=== PATIENT | male | born 1945 | race Caucasian/White ===

== ENCOUNTER → 2017-02-11 | Outpatient (CLI) | payer BC ==
[~2017-02-11] MED LIST: ADVIN25/60 INH; ASPI81TA28 PO; BRVIN INH; DUTA0.5C PO; GLC500 PO; IPRASOL4 INH; LSN20 PO; METO1TAB69 PO; OMEP10CA2 PO; RIVA1TAB4 PO; ROSU20TA PO; TIOT1SPR INH
[2017-02-11 12:08] LABS: BASO % 0.6 %; BASO ABS # 0.04 K/uL (0-0.2); COMPLETE YES; EOS % 3.2 %; HEMATOCRIT 41.4 % (42-52); IG% 0.4 %; LYMPH % 15.7 %; LYMPH ABS # 1.07 K/uL (1.2-3.4); MEAN CELL VOLUME 88.8 fL (80-100); MEAN CORPUSCULAR HEMOGLOBIN 29.6 pg (25-34); MEAN CORPUSCULAR HGB CONC 33.3 g/dl (32-36); MEAN PLATELET VOLUME 11.4 fL (7.4-10.4); MONO % 9.1 %; PLATELET COUNT 203 K/uL (130-400); RED BLOOD COUNT 4.66 M/uL (4.7-6.1); WHITE BLOOD COUNT 6.81 K/uL (4.8-10.8)
[2017-02-11 12:51] LABS: ESTIMATED AVERAGE GLUCOSE 151 mg/dl; HA1C FLAG Normal (Normal)
[2017-02-11 12:55] LABS: ALT/SGPT 39 U/L (12-78); BLOOD UREA NITROGEN 18 mg/dl (7-18); BUN/CREATININE RATIO 18.2 (10-20); CALCIUM 9.1 mg/dl (8.5-10.1); CARBON DIOXIDE 27 mmol/L (21-32); CHLORIDE 104 mmol/L (98-107); CREATININE 0.97 mg/dl (0.60-1.40); GLUCOSE 141 mg/dl (70-99); POTASSIUM 3.9 mmol/L (3.5-5.1); SODIUM 139 mmol/L (136-145)
[2017-02-11 12:58] LABS: ALB/GLOB RATIO 0.9 (0.9-2); ALKALINE PHOSPHATASE 74 U/L (45-117); AST/SGOT 28 U/L (15-37)
[2017-02-11 13:04] LABS: CHOLESTEROL/HDL RATIO 4.2
[2017-02-11 13:40] LABS: RATIO 436.4 mcg/mg (0-30.0)
== END | disposition home or self-care (01) ==
LOC: C.LABPVFM 08:33
PROVIDERS: ATTEND Family Medicine
DX: R97.20 Elevated prostate specific antigen [PSA] (principal); N40.1 Benign prostatic hyperplasia with lower urinary tract symptoms; R33.9 Retention of urine, unspecified; E11.9 Type 2 diabetes mellitus without complications; I10 Essential (primary) hypertension; I48.92 Unspecified atrial flutter; I25.10 Atherosclerotic heart disease of native coronary artery without angina pectoris; E78.4 Other hyperlipidemia; Z79.01 Long term (current) use of anticoagulants

== ENCOUNTER → 2017-02-20 | Outpatient (CLI) | payer BC ==
[~2017-02-20] MED LIST changes: +METO100T44 PO; -METO1TAB69 PO
[2017-02-20 13:36] LABS: BLOOD UREA NITROGEN 29 mg/dl (7-18); BUN/CREATININE RATIO 22.1 (10-20); CALCIUM 9.1 mg/dl (8.5-10.1); CARBON DIOXIDE 31 mmol/L (21-32); CHLORIDE 97 mmol/L (98-107); GLUCOSE 231 mg/dl (70-99); POTASSIUM 3.6 mmol/L (3.5-5.1); SODIUM 135 mmol/L (136-145)
== END | disposition home or self-care (01) ==
LOC: C.LABPVFM 08:11
PROVIDERS: ATTEND Internal Medicine Cardiovascular Disease
DX: I10 Essential (primary) hypertension (principal); R60.9 Edema, unspecified

== ENCOUNTER → 2017-03-04 | Outpatient (CLI) | payer BC ==
[2017-03-04 13:30] LABS: BLOOD UREA NITROGEN 17 mg/dl (7-18); BUN/CREATININE RATIO 15.8 (10-20); CALCIUM 8.9 mg/dl (8.5-10.1); CARBON DIOXIDE 25 mmol/L (21-32); CHLORIDE 105 mmol/L (98-107); GLUCOSE 173 mg/dl (70-99); POTASSIUM 3.8 mmol/L (3.5-5.1); SODIUM 141 mmol/L (136-145)
== END | disposition home or self-care (01) ==
LOC: C.LABPVFM 08:37
PROVIDERS: ATTEND Internal Medicine Cardiovascular Disease
DX: I48.92 Unspecified atrial flutter (principal)

== ENCOUNTER → 2017-06-02 | Outpatient (CLI) | payer BC ==
[~2017-06-02] MED LIST changes: -METO100T44 PO; +METO1TAB69 PO
== END | disposition home or self-care (01) ==
LOC: C.LABPVFM 07:53
PROVIDERS: ATTEND Neuromusculoskeletal Medicine & OMM
DX: N40.1 Benign prostatic hyperplasia with lower urinary tract symptoms (principal); R97.20 Elevated prostate specific antigen [PSA]

== ENCOUNTER → 2017-08-26 | Outpatient (CLI) | payer BC ==
--- NOTE | 2017-08-26 08:49 | DIAGNOSTIC IMAGING REPORT ---
(CHEST) THORAX WITHOUT CLINICAL HISTORY: 72 years-old Male presenting with COPD group C by Gold classification, asbestos exposure. TECHNIQUE: Multidetector CT imaging of the chest was performed without the use of intravenous contrast. IV contrast: None. A dose lowering technique was used consistent with the principles of ALARA (as low as reasonably achievable). COMPARISON: None. CT DOSE (mGy.cm): The estimated cumulative dose is 787.38 mGy.cm. 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 On soft tissue windows, normal thyroid and thoracic inlet. Calcified hilar lymph nodes. Atherosclerosis of the aorta. Three-vessel coronary artery calcification. Top normal heart size. No pericardial or pleural effusion. Hepatic steatosis. Well-defined hypodensity in the left kidney, indeterminate but likely simple cyst. On lung windows, dependent groundglass opacities at the lung bases likely atelectasis. Calcified granulomas noted. Bandlike opacity in the right middle lobe and lingula, likely atelectasis or scarring. Solid polygonal fissural 5 mm nodule in the right lower lobe (series 4 image 150). Triangular solid fissural nodules noted on the left, the largest measuring 3 mm (series 4 image 170). Trace emphysematous changes suggested at the apices. Mild bronchial wall thickening may be present. Airways patent. Few punctate nodules suggested at the apices. On bone windows, degenerative changes of the thoracic spine. IMPRESSION: 1. Bilateral solid pulmonary nodules measuring up to 5 mm on the right. The distribution and appearance is most characteristic of pulmonary lymphoid tissue. Follow-up per [place] Society 2017 recommendations below. 2. Trace emphysema and bronchial wall thickening. 3. Evidence of prior granulomatous infection. 4. No calcified pleural plaques to substantiate asbestos exposure. 5. Hepatic steatosis. Please refer to below summary of Fleischner Society 2017 recommendations for follow-up of incidental CT nodules (H Uma, et al. Guidelines for management of incidental pulmonary nodules detected on CT images: From the Fleischner Society 2017. Radiology 2017; 284: 228-243.) SOLID NODULES Single nodule; size < 6 mm * Low risk patients: No routine follow-up * High risk patients: Optional CT at 12 months Single nodule; size 6-8 mm * Low risk patients: CT at 6-12 months, then consider CT at 18-24 months * High risk patients: CT at 6-12 months, then at 18-24 months Single nodule; size > 8 mm * Either low or high risk patients: Considered CT at 3 months, PET/CT, or tissue sampling Multiple nodules; size < 6 mm * Low risk patients: No routine follow up * High risk patients: Optional CT at 12 months Multiple nodules; size 6-8 mm * Low risk patients: CT at 3-6 months, then consider CT at 18-24 months * High risk patients: CT at 3-6 months, then at 18-24 months Multiple nodules; size > 8 mm * Low risk patients: CT at 3-6 months, then consider at 18-24 months * High risk patients: CT at 3-6 months, then at 18-24 months Note: These guidelines apply to incidental nodules. These guidelines do not apply to patients younger than 35 years, immunocompromised patients, or patients with cancer. * Low risk patients: Minimal or absent history of smoking and/or other known risk factors * High risk patients: History of smoking, exposure to other carcinogens, emphysema, fibrosis, upper lobe location, family history of lung cancer, etc. * If a nodule up to 8 mm is partly solid or is ground glass, further follow-up is required after 24 months to exclude possible slow growing adenocarcinoma. SUBSOLID NODULES Single ground-glass nodule * Nodule size < 6 mm: No routine follow-up * Nodule size > or = 6 mm: CT at 6-12 months to confirm persistence, then CT every 2 years until 5 years Single part-solid nodule * Nodule size < 6 mm: No routine follow-up * Nodules size > or = 6 mm: CT at 3-6 months to confirm persistence. If unchanged and solid component remains < 6 mm, annual CT should be performed for 5 years Multiple nodules * Nodule size < 6 mm: CT at 3-6 months. If stable, consider CT at 2 and 4 years. * Nodules size > or = 6 mm: CT at 3-6 months. Subsequent management based on the most suspicious nodule(s) Electronically signed by: Emil Lindsay M.D. 08/26/2017 8:48 AM Dictated Date/Time: 08/26/2017 8:42 AM
== END | disposition home or self-care (01) ==
LOC: C.CTS 08:12
PROVIDERS: ATTEND Internal Medicine Critical Care Medicine
DX: J44.9 Chronic obstructive pulmonary disease, unspecified (principal); Z77.090 Contact with and (suspected) exposure to asbestos

== ENCOUNTER → 2017-09-08 | Outpatient (CLI) | payer BC ==
[2017-09-08 13:59] LABS: ALT/SGPT 22 U/L (12-78); BLOOD UREA NITROGEN 22 mg/dl (7-18); BUN/CREATININE RATIO 23.7 (10-20); CALCIUM 9.2 mg/dl (8.5-10.1); CARBON DIOXIDE 29 mmol/L (21-32); CHLORIDE 105 mmol/L (98-107); CHOLESTEROL 115 mg/dl (0-200); CREATININE 0.94 mg/dl (0.60-1.40); GLUCOSE 128 mg/dl (70-99); SODIUM 139 mmol/L (136-145)
[2017-09-08 14:02] LABS: ALB/GLOB RATIO 1.1 (0.9-2); ALKALINE PHOSPHATASE 56 U/L (45-117); AST/SGOT 18 U/L (15-37); CHOLESTEROL/HDL RATIO 3.4; HDL CHOLESTEROL 34 mg/dl; LDL CHOLESTEROL CALCULATED 18 mg/dl; TRIGLYCERIDES 314 mg/dl (0-150); VERY LOW DENSITY LIPOPROT CALC 63 mg/dl
[2017-09-08 14:18] LABS: ESTIMATED AVERAGE GLUCOSE 140 mg/dl; HA1C FLAG Normal (Normal)
[2017-09-08 15:34] LABS: RATIO 200.7 mcg/mg (0-30.0)
== END | disposition home or self-care (01) ==
LOC: C.LABPVFM 07:34
PROVIDERS: ATTEND Family Medicine
DX: Z00.00 Encounter for general adult medical examination without abnormal findings (principal); E11.9 Type 2 diabetes mellitus without complications; I10 Essential (primary) hypertension; E78.4 Other hyperlipidemia; I48.92 Unspecified atrial flutter; G47.33 Obstructive sleep apnea (adult) (pediatric); I25.10 Atherosclerotic heart disease of native coronary artery without angina pectoris

== ENCOUNTER → 2017-12-10 | Outpatient (CLI) | payer BC ==
[~2017-12-10] MED LIST changes: +METO100T44 PO; -METO1TAB69 PO
--- NOTE | 2017-12-10 08:50 | DIAGNOSTIC IMAGING REPORT ---
CHEST 2 VIEWS ROUTINE CLINICAL HISTORY: SOB dyspnea COMPARISON STUDY: No previous studies for comparison. FINDINGS: The bones soft tissues and hemidiaphragms are normal. The cardiomediastinal silhouette is normal. The lungs are clear. The pulmonary vasculature is normal. IMPRESSION: Negative chest. The above report was generated using voice recognition software. It may contain grammatical, syntax or spelling errors. Electronically signed by: Salas Lowry M.D. 12/10/2017 8:49 AM Dictated Date/Time: 12/10/2017 8:48 AM
== END | disposition home or self-care (01) ==
LOC: C.RADPV 08:27
PROVIDERS: ATTEND Family Medicine
DX: R06.02 Shortness of breath (principal)

== ENCOUNTER → 2018-01-08 | Outpatient (CLI) | payer BC ==
[2018-01-08 12:23] LABS: BASO % 0.5 %; BASO ABS # 0.04 K/uL (0-0.2); EOS ABS # 0.39 K/uL (0-0.5); HEMATOCRIT 40.4 % (42-52); IG# 0.02 K/uL (0.00-0.02); LYMPH % 17.5 %; LYMPH ABS # 1.36 K/uL (1.2-3.4); MEAN CELL VOLUME 90.4 fL (80-100); MEAN CORPUSCULAR HEMOGLOBIN 29.1 pg (25-34); MEAN CORPUSCULAR HGB CONC 32.2 g/dl (32-36); MEAN PLATELET VOLUME 11.4 fL (7.4-10.4); MONO ABS # 0.62 K/uL (0.11-0.59); NEUT % 68.7 %; NEUT ABS # 5.36 K/uL (1.4-6.5); PLATELET COUNT 176 K/uL (130-400); RED CELL DISTRIBUTION WIDTH CV 14.9 % (11.5-14.5); RED CELL DISTRIBUTION WIDTH SD 49.3 fL (36.4-46.3); WHITE BLOOD COUNT 7.79 K/uL (4.8-10.8)
[2018-01-08 12:50] LABS: HEMOGLOBIN A1C 6.7 % (4.5-5.6)
== END | disposition home or self-care (01) ==
LOC: C.LABPVFM 07:18
PROVIDERS: ATTEND Family Medicine
DX: E11.9 Type 2 diabetes mellitus without complications (principal); I10 Essential (primary) hypertension; I48.92 Unspecified atrial flutter; G47.33 Obstructive sleep apnea (adult) (pediatric); J44.9 Chronic obstructive pulmonary disease, unspecified; I25.10 Atherosclerotic heart disease of native coronary artery without angina pectoris

== ENCOUNTER 2018-03-19 15:05 | Inpatient (IN) | payer BC, OTHER ==
[2018-03-19] VITALS (11 sets, daily range): BP systolic 102–164; BP diastolic 62–88; PULSE 55–92; TEMP 36.3–36.6; O2SAT 92–99; Ht 177.8 cm; Wt 114.8 kg
[~2018-03-19] VITALS: Ht 177.8 cm; Wt 114.8 kg
[2018-03-19] MEDS ORDERED: MIDAZOLAM HCL 1 MG/ML 2ML VIAL ONE (15:15)
[2018-03-19] MEDS ORDERED: FENTANYL CITRATE INJ 50 MCG/1 ML 2 ML VIAL ONE (15:15)
[2018-03-19] MEDS ORDERED: HEPARIN SOD (PORCINE) 1000 UNIT/ML 10 ML VIAL ONE (15:15)
[2018-03-19] MEDS ORDERED: NiCARDipine HCL INJ 2.5 MG/ML 10 ML AMP ONE (15:15)
[2018-03-19] MEDS ORDERED: NITROGLYCERIN/D5W 100MCG/ML 20ML SYR ONE (15:18)
[2018-03-19] MEDS ORDERED: NITROGLYCERIN 2% OINTMENT 30GM TUBE EXT ONE ×2 (15:20→15:30)
--- NOTE | 2018-03-19 15:33 | EMERGENCY ROOM VISIT NOTE ---
History First contact with patient: 15:12 Chief Complaint: CHEST PAIN Stated Complaint: CHEST PAIN History of Present Illness The patient is a 72 year old male who presents to the Emergency Room with complaints of intermittent substernal chest pain. It started last night. He did note diaphoresis with the episodes. It did radiate to his shoulder. It is occurring with exertion. He was at his cardiology office follow-up and complained of additional chest pain. He was seen by Dr. Torrey Hatch. ECG did not show any acute ST elevation or depression however the patient was given nitroglycerin. After 3 doses of nitroglycerin the patient had complete resolution of his symptoms. I was notified by cardiology about the patient. He was sent to the ER via EMS. Currently he is pain-free. The patient denies any other symptoms. He is currently taking Xarelto. Pt denies LOC, headache, fevers, chills, visual changes, neck pain,breathing difficulties, nausea, vomiting, abdominal pain, back pain, melena, hematochezia, urinary symptoms, numbness, weakness, lymphadenopathy, rash, or other complaints. Review of Systems See HPI for pertinent positives and negatives. A total of ten systems were reviewed and were otherwise negative. Past Medical/Surgical History Medical Problems: (1) Coronary artery disease (2) Heart disease (3) Hypertension (4) Kidney disease (5) Prostate surgery Surgical Problems: (1) H/O percutaneous transluminal coronary angioplasty Family History Heart disease Social History Smoking Status: Former Smoker Alcohol Use: none Drug Use: none Marital Status: Housing Status: lives with significant other Occupation Status: retired Current/Historical Medications Scheduled Arformoterol Tartrate (Brovana 15MCG/2ML Soln), 15 MCG INH BIDR Aspirin (Aspirin Ec), 81 MG PO DAILY Dutasteride (Avodart), 0.5 MG PO QPM Fluticasone Prop/Salmeterol (Advair Diskus 250/50 60 Dose), 1 PUFF INH BID Lisinopril (Lisinopril), 20 MG PO DAILY Metformin HCl (Metformin HCl), 1,000 MG PO DAILY Metoprolol Succ (Toprol Xl) (Toprol-Xl ), 100 MG PO DAILY Omeprazole (Prilosec), 10 MG PO DAILY Rivaroxaban (Xarelto), 20 MG PO QDD Rosuvastatin Calcium (Crestor), 20 MG PO HS Tiotropium [place] (Spiriva Respimat), 2 PUFFS INH DAILY Scheduled PRN Ipratropium-Albuterol (Duoneb), 1 TREATMENT INH QID PRN for SOB/Wheezing Physical Exam Vital Signs Date Time Temp Pulse Resp B/P (MAP) Pulse Ox O2 Delivery O2 Flow Rate FiO2 03/19/18 16:50 64 16 145/65 (91) 98 Room Air 03/19/18 16:35 65 16 155/65 (95) 98 Room Air 03/19/18 15:30 95 Room Air 03/19/18 15:19 61 03/19/18 15:17 Room Air 03/19/18 15:11 36.7 68 21 148/85 96 Room Air Physical Exam GENERAL: Awake, alert, well-appearing, in no distress HENT: Normocephalic, atraumatic. Oropharynx unremarkable. EYES: Normal conjunctiva. Sclera non-icteric. NECK: Supple. No nuchal rigidity. FROM. No masses. RESPIRATORY: Clear to auscultation. No wheezes. No rales. Normal respiratory effort. CARDIAC: Normal rate. Normal rhythm. No murmurs. No rubs. Extremities warm and well perfused. Pulses equal. No JVD. GI: Soft, non-distended. No tenderness to palpation. No rebound or guarding. No masses. RECTAL: Deferred. MUSCULOSKELETAL: Atraumatic. Chest examination reveals no tenderness. The back is symmetrical on inspection without obvious abnormality. There is no CVA tenderness to palpation. No joint edema. LOWER EXTREMITIES: Calves are equal size bilaterally and non-tender. Trace edema. No discoloration. NEURO: Normal sensorium. No sensory or motor deficits noted. SKIN: No rash or jaundice noted. Medical Decision & Procedures ER Provider Diagnostic Interpretation: CHEST ONE VIEW PORTABLE HISTORY: 72 years-old Male CHEST PAIN acute atypical chest pain COMPARISON: Chest radiographs 12/10/2017, chest CT 08/26/2017 TECHNIQUE: Portable AP view of the chest FINDINGS: Cardiac silhouette is mildly enlarged. Linear subsegmental bibasilar opacities suggest atelectasis/scarring. Calcified granulomata noted. Calcific left hilar lymph nodes. No pneumothorax, pleural effusion, focal airspace consolidation or overt pulmonary edema. Bones of the chest appear grossly intact. Degenerative changes involve the shoulders and spine. IMPRESSION: 1. Cardiomegaly with mild subsegmental bibasilar atelectasis/scarring. 2. Prior granulomatous disease. The above report was generated using voice recognition software. It may contain grammatical, syntax or spelling errors. Electronically signed by: Jluis Christopher M.D. 03/19/2018 6:18 PM Dictated Date/Time: 03/19/2018 6:17 PM The status of this report is Signed. Draft = Not yet reviewed or approved by Radiologist. Signed = Reviewed and approved by Radiologist. Laboratory Results 03/19/18 15:27 Red Blood Count 4.14, Mean Corpuscular Volume 86.7, Mean Corpuscular Hemoglobin 29.5, Mean Corpuscular Hemoglobin Concent 34.0, Mean Platelet Volume 10.1, Neutrophils (%) (Auto) 65.3, Lymphocytes (%) (Auto) 20.9, Monocytes (%) (Auto) 8.6, Eosinophils (%) (Auto) 4.4, Basophils (%) (Auto) 0.5, Neutrophils # (Auto) 4.19, Lymphocytes # (Auto) 1.34, Monocytes # (Auto) 0.55, Eosinophils # (Auto) 0.28, Basophils # (Auto) 0.03 03/19/18 15:27 Test 03/19/18 15:27 White Blood Count 6.41 K/uL (4.8-10.8) Red Blood Count 4.14 M/uL (4.7-6.1) Hemoglobin 12.2 g/dL (14.0-18.0) Hematocrit 35.9 % (42-52) Mean Corpuscular Volume 86.7 fL (80-100) Mean Corpuscular Hemoglobin 29.5 pg (25-34) Mean Corpuscular Hemoglobin Concent 34.0 g/dl (32-36) Platelet Count 214 K/uL (130-400) Mean Platelet Volume 10.1 fL (7.4-10.4) Neutrophils (%) (Auto) 65.3 % Lymphocytes (%) (Auto) 20.9 % Monocytes (%) (Auto) 8.6 % Eosinophils (%) (Auto) 4.4 % Basophils (%) (Auto) 0.5 % Neutrophils # (Auto) 4.19 K/uL (1.4-6.5) Lymphocytes # (Auto) 1.34 K/uL (1.2-3.4) Monocytes # (Auto) 0.55 K/uL (0.11-0.59) Eosinophils # (Auto) 0.28 K/uL (0-0.5) Basophils # (Auto) 0.03 K/uL (0-0.2) RDW Standard Deviation 44.6 fL (36.4-46.3) RDW Coefficient of Variation 14.1 % (11.5-14.5) Immature Granulocyte % (Auto) 0.3 % Immature Granulocyte # (Auto) 0.02 K/uL (0.00-0.02) Prothrombin Time 10.7 SECONDS (9.0-12.0) Prothromb Time International Ratio 1.0 (0.9-1.1) Activated Partial Thromboplast Time 26.4 SECONDS (21.0-31.0) Partial Thromboplastin Ratio 1.0 Anion Gap 7.0 mmol/L (3-11) Est Creatinine Clear Calc Drug Dose 65.0 ml/min Estimated GFR () 71.5 Estimated GFR (Non- 61.7 BUN/Creatinine Ratio 15.9 (10-20) Calcium Level 8.9 mg/dl (8.5-10.1) Total Bilirubin 0.4 mg/dl (0.2-1) Direct Bilirubin 0.1 mg/dl (0-0.2) Aspartate Amino Transf (AST/SGOT) 21 U/L (15-37) Alanine Aminotransferase (ALT/SGPT) 29 U/L (12-78) Alkaline Phosphatase 62 U/L (45-117) Total Creatine Kinase 405 U/L (39-308) Creatine Kinase MB 6.2 ng/ml (0.5-3.6) Creatine Kinase MB Ratio 1.5 (0-3.0) Troponin I < 0.015 ng/ml (0-0.045) Total Protein 7.5 gm/dl (6.4-8.2) Albumin 3.5 gm/dl (3.4-5.0) Lipase 199 U/L (73-393) Medications Administered Medications (Trade) Dose Ordered Sig/Lizeth Route Start Time Stop Time Status Last Admin Dose Admin Midazolam HCl (Versed Inj) 2 mg STK-MED ONCE .ROUTE 03/19/18 15:15 03/19/18 15:16 DC 03/19/18 15:15 2 MG Fentanyl Citrate (Fentanyl Inj) 100 mcg STK-MED ONCE .ROUTE 03/19/18 15:15 03/19/18 15:16 DC 03/19/18 15:15 75 MCG Heparin Sodium (Porcine) (Heparin Iv Bolus) 10,000 unit STK-MED ONCE .ROUTE 03/19/18 15:15 03/19/18 15:16 DC 03/19/18 15:15 5,000 UNIT Nitroglycerin (Nitroglycerin 2% Oint) 18 inch STK-MED ONCE EXT 03/19/18 15:20 03/19/18 15:21 DC 03/19/18 15:23 1 INCH ECG Per My Interpretation Indication: chest pain Rate (beats per minute): 66 Rhythm: normal sinus Findings: PVC, no acute ischemic change Medical Decision Prior records/ancillary studies reviewed. Triage Nursing notes reviewed and agree them. Additional history obtained from his overnight cashier. The patient's history was concerning for chest pain. Differential diagnosis: Etiologies such as cardiac ischemia, aortic dissection, pulmonary embolism, pneumonia, pneumothorax, musculoskeletal, infections, pericarditis, myocarditis , esophageal rupture, gastrointestinal, as well as others were entertained. Physical examination: As above. ER treatment provided: Nitropaste Monitoring On reassessment the patient felt better. Diagnostic interpretation by me: The electrocardiogram was negative for pathologic change. The labs revealed an unremarkable CBC and chemistry panel. Cardiac troponin was negative. Total CK and CK-MB were elevated. Imaging studies: Chest x-ray as above Interventional cardiology was consulted by outpatient cardiology. The patient was taken to the catheterization suite by Dr. Tapia for further intervention. Impression Primary Impression: Unstable angina Additional Impression: Substernal chest pain Departure Information Dispostion Being Evaluated By Hospitalist Referrals Kati Scott M.D. (PCP) Patient Instructions [facility] Problem Qualifiers
[2018-03-19 15:44] LABS: BASO % 0.5 %; BASO ABS # 0.03 K/uL (0-0.2); EOS % 4.4 %; EOS ABS # 0.28 K/uL (0-0.5); HEMATOCRIT 35.9 % (42-52); HEMOGLOBIN 12.2 g/dL (14.0-18.0); IG# 0.02 K/uL (0.00-0.02); LYMPH % 20.9 %; LYMPH ABS # 1.34 K/uL (1.2-3.4); MEAN CELL VOLUME 86.7 fL (80-100); MEAN CORPUSCULAR HEMOGLOBIN 29.5 pg (25-34); MEAN PLATELET VOLUME 10.1 fL (7.4-10.4); MONO % 8.6 %; MONO ABS # 0.55 K/uL (0.11-0.59); NEUT % 65.3 %; NEUT ABS # 4.19 K/uL (1.4-6.5); PLATELET COUNT 214 K/uL (130-400); RED CELL DISTRIBUTION WIDTH CV 14.1 % (11.5-14.5); RED CELL DISTRIBUTION WIDTH SD 44.6 fL (36.4-46.3); WHITE BLOOD COUNT 6.41 K/uL (4.8-10.8)
[2018-03-19 15:58] LABS: PTT PATIENT 26.4 SECONDS (21.0-31.0)
[2018-03-19] MEDS ORDERED: LIDOCAINE HCL 1% 20 ML VIAL ONE (16:01)
--- NOTE | 2018-03-19 16:03 | Pre Sedation Assessment ---
Pre Sedation Assessment General Date of Sedation: March 19, 2018. Vital Signs Past 12 Hours Date Time Temp Pulse Resp B/P (MAP) Pulse Ox O2 Delivery O2 Flow Rate FiO2 03/19/18 15:30 95 Room Air 03/19/18 15:19 61 03/19/18 15:17 Room Air 03/19/18 15:11 36.7 68 21 148/85 96 Room Air Review Cardiovascular: regular rate, rhythm, no edema Lungs: chest non-tender, lungs clear Pre-Sedation Airway Assessment Smoking Status: Former Smoker Hx of Sleep Apnea: No Hx of difficult intubation: No Short Thick Neck: No Thyro-mental Distance: > 3 Finger Breadths Oral Cavity: WNL Mallampati Classification: Class II ASA Classification: Class III Procedure Planning Contraindications for Sedation: None Current Medications Reviewed: Yes Notes The planned sedation has been discussed with the patient. Informed Consent was obtained. I have identified the patient, determined the appropriateness of sedation and have assessed the patient immediately prior to the procedure. All medicine(s) and interventions are by my order.
[2018-03-19 16:04] LABS: ALBUMIN 3.5 gm/dl (3.4-5.0); ALT/SGPT 29 U/L (12-78); AST/SGOT 21 U/L (15-37); BLOOD UREA NITROGEN 18 mg/dl (7-18); CALCIUM 8.9 mg/dl (8.5-10.1); CARBON DIOXIDE 26 mmol/L (21-32); CREATININE 1.16 mg/dl (0.60-1.40); GLUCOSE 100 mg/dl (70-99); LIPASE 199 U/L (73-393); POTASSIUM 3.7 mmol/L (3.5-5.1); SODIUM 137 mmol/L (136-145)
--- NOTE | 2018-03-19 16:04 | Post Sedation Assessment ---
Post Sedation Assessment General Date of Sedation March 19, 2018. Vital Signs: Vital Signs Past 12 Hours Date Time Temp Pulse Resp B/P (MAP) Pulse Ox O2 Delivery O2 Flow Rate FiO2 03/19/18 15:30 95 Room Air 03/19/18 15:19 61 03/19/18 15:17 Room Air 03/19/18 15:11 36.7 68 21 148/85 96 Room Air Post Procedure Recovery Score Activity: (2) Moves 4 extremities * Respiration: (2) Deep breath/cough Circulation: (2) +/-20% PreAnes Value Consciousness: (2) Fully Awake Oxygen Saturation: (1) O2 needed for >90% Discharge Sedation Level of Care: Fast Track Phase II Post Sedation Plan On clinical assessment, the patient appears to have tolerated the sedation without complications. Patient is recovering as anticipated. Patient will continue to be monitored by nursing and may be discharged when sedation discharge criteria are met per below protocol. Upon Completions of procedure and additional 15 minutes continue every 5 minute vital signs and the P.A.R. score; then discharge to a Phase I or Fast Track to Phase II per the following guidelines: * Discharge Patient to appropriate Phase II area if PAR is 8 or greater or return to pre- procedure baseline. The post - procedure orders will be as directed. * If PAR score is less than 8 or not return to pre-procedure baseline then patient will follow Phase I monitoring till PAR is reached for Phase II. The Phase I may be done in procedure room or may call to secure a Phase I area. * If naloxone or flumazenil are used for reversal, hold in Phase I for an additional 60 -120 minutes before discharge to Phase II. Please call the Sedation Physician to re-evaluate and complete post-note for discharge to Phase II area. Do NOT discharge from procedure sedation or Phase 1 until post- sedation evaluation note is complete by procedure /sedation MD Sedation Discharge Instructions to be given to the patient at discharge to home.
[2018-03-19 16:09] LABS: ALKALINE PHOSPHATASE 62 U/L (45-117); CKMB 6.2 ng/ml (0.5-3.6); TOTAL PROTEIN 7.5 gm/dl (6.4-8.2)
--- NOTE | 2018-03-19 17:11 | Cardiac Catheterization ---
Procedure Note Procedure Date March 19, 2018. 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 20% stenosis at take-off of large 1st diagonal; 30% mid segment disease; distal luminal irregularities. 1st diagonal with 40-50% proximal stenosis. Left to right collaterals to RV branch to mid/distal RCA. 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 Patent proximal segment stent. 50% in segment traversing posterior to aorta. Luminal irregularities in large OM1. Left to right collaterals. RCA - Dominant, 80-90% proximal to mid stenosis; late-mid chronically occluded. Distal LAD fills via right to right and left to right collaterals. LVEDP - 10 Arterial Closure: TR Band Summary: 1. Moderate non-obstructive coronary artery disease - 50% stenosis in circumflex distal to prior patent proximal stent. - 40-50% proximal stenosis in large 1st diagonal 2. Normal intracardiac filling pressure Recommendations: Evaluate for non-cardiac causes of chest pain. Continued ASCVD risk factor modification Hemodynamics Rest Ao: -- Final Ao: -- LV: -- Recommendations PCI without planned CABG Specimens None Radiation Exposure (mGy) 127/74/99 Contrast (mls) 65 Fluids (cc crystalloids) 58 Drains None Anesthesia Moderate Procedural Complication(s) None Disposition PCU ACC Data Cardiac Status Clinical evaluation leading to the procedure CAD Presntation: Unstable angina Anginal Classification: CCS IV Heart Failure: No, NYHA Class: CCS I Cardiogenic Shock w/in 24Hrs: No Cardiac Arrest w/in 24Hrs: No Imaging studies past 6 months: No Stress studies past 6 months: No Closure Device Percutaneous Entry Location: Radial Closure Device: Radial Band Recommendations: Medical therapy and/or Counseling Intraprocedure Events Significant Dissection: No Perforation: No
[2018-03-19] MEDS ORDERED: SODIUM CHLORIDE 0.9% 1000ML 1,000 ML IV SCH (17:16)
--- NOTE | 2018-03-19 18:20 | DIAGNOSTIC IMAGING REPORT ---
CHEST ONE VIEW PORTABLE HISTORY: 72 years-old Male CHEST PAIN acute atypical chest pain COMPARISON: Chest radiographs 12/10/2017, chest CT 08/26/2017 TECHNIQUE: Portable AP view of the chest FINDINGS: Cardiac silhouette is mildly enlarged. Linear subsegmental bibasilar opacities suggest atelectasis/scarring. Calcified granulomata noted. Calcific left hilar lymph nodes. No pneumothorax, pleural effusion, focal airspace consolidation or overt pulmonary edema. Bones of the chest appear grossly intact. Degenerative changes involve the shoulders and spine. IMPRESSION: 1. Cardiomegaly with mild subsegmental bibasilar atelectasis/scarring. 2. Prior granulomatous disease. The above report was generated using voice recognition software. It may contain grammatical, syntax or spelling errors. Electronically signed by: Jluis Christopher M.D. 03/19/2018 6:18 PM Dictated Date/Time: 03/19/2018 6:17 PM
[2018-03-19] MEDS ORDERED: ALBUT/IPRATROP 3MG/0.5MG NEB 3 ML VIAL INH PRN (18:30)
[2018-03-19] MEDS ORDERED: MAGNESIUM HYDROXIDE SUSP 30 ML UDC PO PRN (18:30)
[2018-03-19] MEDS ORDERED: ALUMINUM/MAGNESIUM/SIMETH (MAALOX MAX) 30 ML UDC PO PRN (18:30)
[2018-03-19] MEDS ORDERED: POLYETHYLENE (MIRALAX) 17 GM PACK PO PRN (18:30)
[2018-03-19] MEDS ORDERED: CARBOHYDRATES FOR HYPOGLYCEMIA PO PRN (18:45)
[2018-03-19] MEDS ORDERED: GLUCOSE 10 TABS/TUBE PO PRN (18:45)
[2018-03-19] MEDS ORDERED: DEXTROSE 50% 50 ML SYR IV PRN (18:45)
[2018-03-19] MEDS ORDERED: GLUCAGON FOR INJ 1 MG VIAL IM PRN (18:45)
[2018-03-19] MEDS ORDERED: GLUCOSE 40% GEL 15 GM TUBE PO PRN (18:45)
--- NOTE | 2018-03-19 19:01 | History and Physical ---
History & Physical Date & Time of Service: March 19, 2018 at 18:56 Chief Complaint: Substernal Chest Pain Primary Care Physician: Kati Scott M.D. History of Present Illness I was called to bring this patient to the facility as he is a direct placement from the cardiac catheterization lab. 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 In the office the patient did not have any EKG changes to be social with acute coronary syndrome and is chronically anticoagulated with Xarelto subsequently he was brought to the facility when he was seen by the director of field service he did proceed to cardiac catheterization. There is no definable culprit lesion seen at this catheterization he did have a chronically 90% occluded right coronary artery with left to right collaterals remainder of his coronary anatomy was about the same as it was in the past. In the office prior to the procedure the patient had 3 nitroglycerin did relieve his pain is seen he has been without symptoms since that time. Is currently resting comfortably in the room he has no further discomfort or shortness of breath his family is at the bedside and all questions were answered Past Medical/Surgical History Medical Problems: (1) Angina pectoris syndrome (2) Atrial fibrillation with RVR (3) Chest pain (4) Chest pain (5) COPD exacerbation (6) Coronary artery disease (7) Diverticulosis (8) Dizziness (9) Flank pain (10) Hand laceration (11) Heart disease (12) Hypertension (13) Kidney disease (14) Left shoulder pain (15) Left sided chest pain (16) Pedal edema (17) Prostate surgery (18) SOB (shortness of breath) Surgical Problems: (1) H/O percutaneous transluminal coronary angioplasty Family History Heart disease Family history is also for coronary disease Social History Smoking Status: Former Smoker Drug Use: none Marital Status: Occupational Status: retired Immunizations History of Influenza Vaccine: No History of Tetanus Vaccine?: Yes History of Pneumococcal: No History of Hepatitis B Vaccine: Unknown Allergies Coded Allergies: Acetaminophen (Verified Adverse Reaction, Intermediate, vomiting, 03/10/16) Hydrocodone (Verified Adverse Reaction, Intermediate, vomiting, 03/10/16) Home Medications Scheduled Arformoterol Tartrate (Brovana 15MCG/2ML Soln), 15 MCG INH BIDR Aspirin (Aspirin Ec), 81 MG PO DAILY Dutasteride (Avodart), 0.5 MG PO QPM Fluticasone Prop/Salmeterol (Advair Diskus 250/50 60 Dose), 1 PUFF INH BID Lisinopril (Lisinopril), 20 MG PO DAILY Metformin HCl (Metformin HCl), 1,000 MG PO DAILY Metoprolol Succ (Toprol Xl) (Toprol-Xl ), 100 MG PO DAILY Omeprazole (Prilosec), 10 MG PO DAILY Rivaroxaban (Xarelto), 20 MG PO QDD Rosuvastatin Calcium (Crestor), 20 MG PO HS Tiotropium [place] (Spiriva Respimat), 2 PUFFS INH DAILY Scheduled PRN Ipratropium-Albuterol (Duoneb), 1 TREATMENT INH QID PRN for SOB/Wheezing Physical Exam Vital Signs Date Time Temp Pulse Resp B/P (MAP) Pulse Ox O2 Delivery O2 Flow Rate FiO2 03/19/18 16:50 64 16 145/65 (91) 98 Room Air 03/19/18 16:35 65 16 155/65 (95) 98 Room Air 03/19/18 15:30 95 Room Air 03/19/18 15:19 61 03/19/18 15:17 Room Air 03/19/18 15:11 36.7 68 21 148/85 96 Room Air General Appearance: WD/WN, no apparent distress Head: normocephalic, atraumatic Eyes: normal inspection, PERRL, EOMI, sclerae normal Neck: supple, no JVD Respiratory/Chest: chest non-tender, lungs clear, normal breath sounds Cardiovascular: regular rate, rhythm (Although history of A. fib), no murmur Abdomen/GI: normal bowel sounds, non tender, soft Back: no CVA tenderness, no muscle spasm Extremities/Musculoskelatal: normal inspection, + pedal edema (Trace) Neurologic/Psych: alert, oriented x 3 Skin: normal color, warm/dry, no rash Diagnostics Laboratory Results Results Past 24 Hours Test 03/19/18 15:27 Range/Units White Blood Count 6.41 4.8-10.8 K/uL Red Blood Count 4.14 4.7-6.1 M/uL Hemoglobin 12.2 14.0-18.0 g/dL Hematocrit 35.9 42-52 % Mean Corpuscular Volume 86.7 80-100 fL Mean Corpuscular Hemoglobin 29.5 25-34 pg Mean Corpuscular Hemoglobin Concent 34.0 32-36 g/dl Platelet Count 214 130-400 K/uL Mean Platelet Volume 10.1 7.4-10.4 fL Neutrophils (%) (Auto) 65.3 % Lymphocytes (%) (Auto) 20.9 % Monocytes (%) (Auto) 8.6 % Eosinophils (%) (Auto) 4.4 % Basophils (%) (Auto) 0.5 % Neutrophils # (Auto) 4.19 1.4-6.5 K/uL Lymphocytes # (Auto) 1.34 1.2-3.4 K/uL Monocytes # (Auto) 0.55 0.11-0.59 K/uL Eosinophils # (Auto) 0.28 0-0.5 K/uL Basophils # (Auto) 0.03 0-0.2 K/uL RDW Standard Deviation 44.6 36.4-46.3 fL RDW Coefficient of Variation 14.1 11.5-14.5 % Immature Granulocyte % (Auto) 0.3 % Immature Granulocyte # (Auto) 0.02 0.00-0.02 K/uL Prothrombin Time 10.7 9.0-12.0 SECONDS Prothromb Time International Ratio 1.0 0.9-1.1 Activated Partial Thromboplast Time 26.4 21.0-31.0 SECONDS Partial Thromboplastin Ratio 1.0 Sodium Level 137 136-145 mmol/L Potassium Level 3.7 3.5-5.1 mmol/L Chloride Level 104 98-107 mmol/L Carbon Dioxide Level 26 21-32 mmol/L Anion Gap 7.0 3-11 mmol/L Blood Urea Nitrogen 18 7-18 mg/dl Creatinine 1.16 0.60-1.40 mg/dl Est Creatinine Clear Calc Drug Dose 65.0 ml/min Estimated GFR () 71.5 Estimated GFR (Non- 61.7 BUN/Creatinine Ratio 15.9 10-20 Random Glucose 100 70-99 mg/dl Calcium Level 8.9 8.5-10.1 mg/dl Total Bilirubin 0.4 0.2-1 mg/dl Direct Bilirubin 0.1 0-0.2 mg/dl Aspartate Amino Transf (AST/SGOT) 21 15-37 U/L Alanine Aminotransferase (ALT/SGPT) 29 12-78 U/L Alkaline Phosphatase 62 45-117 U/L Total Creatine Kinase 405 39-308 U/L Creatine Kinase MB 6.2 0.5-3.6 ng/ml Creatine Kinase MB Ratio 1.5 0-3.0 Troponin I < 0.015 0-0.045 ng/ml Total Protein 7.5 6.4-8.2 gm/dl Albumin 3.5 3.4-5.0 gm/dl Lipase 199 73-393 U/L CXR normal (There is no overt infiltrates there is some mild scarring seen) other (At the time of this dictation EKG was pending on presentation) Impression Assessment and Plan 72-year-old male with a known history of coronary disease, gated by hypertension and diabetes who presented with accelerated chest pain to the office. Emergent heart catheterization did not reveal any culprit lesion or need for intervention at this time. Possible hypertensive urgency presenting chest pain the patient be brought in our facility maintaining metoprolol 100 lisinopril 20 escalation of Z hypertension regiment with isosorbide 30 million g tonight 30 mg daily continuing his secondary disease prevention with aspirin 81 and Crestor 20 Possibility of this being unstable angina will also collect a troponin in the morning Regarding his D diabetes with his recent dye load his metformin will be held and will use insulin sliding scale along with a diabetic diet The patient for his atrial fibrillation and disease and risk prevention for thromboembolic disease will be continued on his Xarelto therapy With a history of COPD which is not an exacerbation at this time will maintain his Brovana Spiriva and Advair He does have a history of BPH she has had no urinary symptoms prehospital continue on his Avodart DVT prevention is based on Xarelto Resuscitation Status VTE Prophylaxis Will order VTE Prophylaxis: Yes
[2018-03-19] MEDS ORDERED: ISOSORBIDE MONONITRATE 30 MG TABCR PO ONE (19:15)
[2018-03-19] MEDS ORDERED: IV FLUIDS COMPLETED PRN (19:45)
[2018-03-19] MEDS: ARFORMOTEROL TART 15MCG/2ML VIAL INH SCH (19:57)
--- NOTE | 2018-03-19 20:43 | CARDIOLOGY CONSULTATION ---
DATE OF CONSULTATION: 03/19/2018 Cardiology consult. TIME: 18:05 p.m. REASON FOR VISIT: 1. Coronary artery disease status post PCI. 2. History of atrial flutter. HISTORY OF PRESENT ILLNESS: Mr. Bradshaw is a very pleasant 72-year-old gentleman with a history significant for CAD status post circumflex PCI, hypertension, dyslipidemia, atrial flutter status post cardioversion, diabetes, and sleep apnea on CPAP at bedtime. He has had the following studies/procedures: 1. Cardiac catheterization 11/03/2014: Mid LAD 20%. Ostial D1 40-50%. 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 Patent proximal circumflex stent. Dominant RCA. Proximal RCA 90%. Mid RCA 100%. [id number] bridging collaterals. [id number] collaterals from LAD and circumflex. 2. Electrical cardioversion 08/03/2015: Atrial flutter, converted to sinus. 3. Echo 09/14/2015: Low normal LV systolic function. EF 53%. Base-to-mid inferior wall akinetic. Mild LVH. No significant valvular abnormalities. Sinus rhythm. He presented today in the outpatient setting with chest discomfort. He stated that last night while in bed he was awakened with chest discomfort on the left side of his chest that would radiate to his left arm. He had not been experiencing these symptoms up until last night. He has had intermittent chest discomfort since then. He described the pain as a squeezing sensation. It would last a couple of minutes before spontaneously resolving. He did not take nitroglycerin. He was diaphoretic during these episodes. He has been noticing decreased exercise tolerance and overall energy level. He stated he is more dyspneic upon exertion than he ever has been. He is unable to do several activities that he had been doing at the time of his last visit. He stated that he had to stop twice coming in to the outpatient office due to significant dyspnea and also experienced this same chest discomfort. He states that these symptoms remind him of his symptoms prior to his stent placement in 2012. He had been riding a stationary bicycle for 20 minutes, but can no longer do this secondary to shortness of breath. While in the office, he then after moving from the chair to the exam table began experiencing the same left-sided chest discomfort. He clutched his chest with both of his hands and his face became bright red. He laid back due to the pain being so intense. An ECG was done in the office which demonstrated nonspecific T-wave abnormalities with sinus rhythm but no dynamic ST changes. The ECG incidentally was done after receiving a dose of nitroglycerin, which did promptly improve his pain. A second dose resolved his pain. At rest, he developed another episode of chest discomfort, prompting another dose of nitroglycerin which once again resolved his pain. He then had another episode of chest discomfort which was self-limiting and short lived. He denies melena, hematochezia, hematuria, or other bleeding. He denies syncope, near syncope, palpitations, or edema. REVIEW OF SYSTEMS: As above and review of systems is otherwise negative. PAST MEDICAL HISTORY: Notable for: 1. CAD status post circumflex PCI with a 3 x 15 mm bare-metal stent on 09/23/2013. 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 3. Atrial flutter status post electrical cardioversion on 08/03/2015. 4. COPD. 5. Diabetes. 6. Hypertension. 7. Dyslipidemia. 8. BPH. 9. Sleep apnea, on CPAP at bedtime. HOME MEDICATIONS: Include: 1. Aspirin 81 mg daily. 2. Xarelto 20 mg daily. 3. Rosuvastatin 40 mg daily. 4. Nitroglycerin p.r.n. 5. Metoprolol succinate 150 mg daily. 6. Lisinopril 30 mg daily. 7. Metformin 500 mg twice daily. 8. Hydrochlorothiazide 25 mg as needed for edema. 9. Advair Diskus. 10. Ipratropium/albuterol nebulizer q. 4-6 hours as needed. 11. Spiriva. SOCIAL HISTORY: Quit smoking in the 1980s after approximately 30+ pack years. No significant alcohol or drug abuse. 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 with 4 children. He was unaccompanied today. FAMILY HISTORY: Father with [place] in his 60s. Mother with some type of arrhythmia. Brother with [place] in his 70s. PHYSICAL EXAMINATION: VITAL SIGNS: Blood pressure 140/90 mmHg, pulse 68 beats per minute, weight 260.5 pounds. GENERALLY: He initially was in no acute distress but then did appear quite uncomfortable with the chest discomfort. He was alert and oriented. HEENT: Anicteric sclerae. NECK: Thick. No appreciable JVD. CARDIAC EXAM: No ventricular heave. Regular, normal S1, S2. There were no audible murmurs, rubs or gallops. LUNGS: Clear to auscultation bilaterally without wheezes, rales or rhonchi. ABDOMEN: Soft, nontender, nondistended. Normoactive bowel sounds, no bruits noted. EXTREMITIES: 2+ radial pulses bilaterally. Trace bilateral lower extremity edema. 2+ posterior tibialis pulses bilaterally. No cyanosis. PSYCHIATRIC: Affect appears appropriate. On 03/19/2018, chart, labs, ECG personally reviewed. EC03/19/2018: Sinus rhythm at 75 BPM. PVCs. Nonspecific T-wave abnormality. LABORATORY DATA: 03/19/2018, WBC 6.41, hemoglobin 12.2, platelets 214. Sodium 137, potassium 3.7, BUN 18, creatinine 1.16. Troponin undetectable. CK-MB 6.2, AST 21, ALT 29. INR 1. ASSESSMENT AND PLAN: 1. Unstable angina: His symptoms are concerning for unstable angina. He was having symptoms at rest while in the office. He did receive nitroglycerin promptly. ECG without dynamic changes; however, pain was improved by the time he had his ECG performed. Recommended transfer to the Emergency Department via ambulance. A cardiac catheterization was recommended. If symptoms could be controlled with medical therapy could allow for the Xarelto to dissipate; however, he continued to have intermittent symptoms despite recurrent use of nitroglycerin. Dr. Tapia of interventional cardiology was contacted and he planned to perform coronary angiography this afternoon. Please see documentation from Dr. Tapia regarding coronary angiography. 2. Coronary artery disease status post percutaneous coronary intervention: Continue antiplatelet therapy. Continue aspirin 81 mg daily indefinitely. He is not on dual antiplatelet therapy due to therapeutic anticoagulation. Continue beta larry and high-intensity statin therapy. 3. Hypertension: Blood pressure does not appear to be optimized today nor on recent visits with other providers in the outpatient setting. Recommend titration of medications, optimize blood pressure, especially in the setting of severe coronary artery disease. Continue beta larry and LISA inhibitor. Consider titrating LISA inhibitor further to 40 mg daily. 4. Dyslipidemia: Continue high-intensity statin therapy. Triglycerides have been elevated. Mediterranean diet. 5. Atrial flutter: He is in sinus rhythm and underwent cardioversion in July of 2015. Continue anticoagulation for stroke risk reduction. Continue beta larry. He had been on Multaq in the past but did not tolerate. 6. Disposition: He was transferred to the Emergency Department and Dr. Moses of the Emergency Department was contacted to inform him of patient's history and presenting symptoms. Dr. Rodriguez who will be available over the weekend for cardiology input was also contacted. Dr. Tapia was then contacted via telephone who planned to perform urgent coronary angiography given his unstable symptoms. I will be away from the hospital for the next [address] Rodriguez will be available to assist with any cardiology need. Highly complex medical issues for which coronary angiography was recommended. Greater than 40 minutes time spent, with greater than 50% of the time spent counseling patient, but also coordinating care as noted above.
[2018-03-19] MEDS: INSULIN ASPART 100 UNITS/ML 3 ML PEN SC SCH (21:00)
[2018-03-19] MEDS: FLUTICASONE/SALMETEROL 250/50 (ADVAIR) 14 PUFF/1 INHALER INH SCH ×2 (21:12→21:19)
[2018-03-19] MEDS: ROSUVASTATIN CALCIUM 20 MG TAB PO SCH (21:13)
[2018-03-19] MEDS: PANTOprazole INJ 40 MG in SYRINGE 0 ML IV SCH (22:00)
[2018-03-20] VITALS (11 sets, daily range): BP systolic 110–161; BP diastolic 61–80; PULSE 50–74; TEMP 36.4–36.7; O2SAT 92–96
[2018-03-20] MEDS: NITROGLYCERIN 0.4 MG SL PER TAB CHARGE SL PRN ×2 (02:39→02:46)
[2018-03-20 04:29] LABS: HEMATOCRIT 35.2 % (42-52); HEMOGLOBIN 11.7 g/dL (14.0-18.0); MEAN CELL VOLUME 87.8 fL (80-100); MEAN CORPUSCULAR HEMOGLOBIN 29.2 pg (25-34); MEAN CORPUSCULAR HGB CONC 33.2 g/dl (32-36); MEAN PLATELET VOLUME 9.9 fL (7.4-10.4); PLATELET COUNT 198 K/uL (130-400); RED CELL DISTRIBUTION WIDTH CV 14.2 % (11.5-14.5); RED CELL DISTRIBUTION WIDTH SD 45.6 fL (36.4-46.3); WHITE BLOOD COUNT 7.24 K/uL (4.8-10.8)
[2018-03-20 04:45] LABS: CALCIUM 8.7 mg/dl (8.5-10.1); CREATININE 1.28 mg/dl (0.60-1.40); POTASSIUM 3.6 mmol/L (3.5-5.1)
[2018-03-20] MEDS ORDERED: PERFLUTREN LIPID MICROSPHERE (DEFINITY) IV ONE (07:04)
[2018-03-20] MEDS: ARFORMOTEROL TART 15MCG/2ML VIAL INH SCH ×2 (07:13→19:24)
--- NOTE | 2018-03-20 07:54 | Progress Note ---
Subjective Date of Service: March 20, 2018. Subjective this pt is still having some chest pain that was relieved by nitroglycerine, cardiology is feeling that if blood pressure allows we should increase isosorbide and ranexa Problem List Medical Problems: (1) Diverticulosis Status: Acute (2) Flank pain Status: Acute (3) Left sided chest pain Status: Acute (4) Substernal chest pain Status: Acute (5) Unstable angina Status: Acute Review of Systems Constitutional: No fever, No chills, No weakness, No fatigue Respiratory: No cough, No shortness of breath Cardiac: + chest pain, No PND, No edema Abdomen: No pain, No nausea, No vomiting, No diarrhea Male : No dysuria, No urinary frequency, No incontinence Neurologic: No memory loss, No weakness Psychiatric: No depression symptoms, No anhedonism Objective Vital Signs Date Time Temp Pulse Resp B/P (MAP) Pulse Ox O2 Delivery O2 Flow Rate FiO2 03/20/18 07:14 63 18 94 Nasal Cannula 2.0 03/20/18 04:00 Nasal Cannula 2.0 03/20/18 03:50 36.5 50 18 114/66 (82) 94 Nasal Cannula 03/20/18 02:45 119/63 (81) 03/20/18 02:38 36.5 63 18 136/64 (88) 93 03/20/18 00:01 Room Air 03/19/18 23:28 36.5 55 18 102/62 (75) 92 Room Air 03/19/18 20:01 92 16 94 Room Air 03/19/18 20:00 Room Air 03/19/18 19:05 61 18 158/64 (95) 99 Room Air 03/19/18 19:01 36.6 59 18 121/67 (85) 92 Room Air 03/19/18 18:35 55 20 164/88 (113) 99 Room Air 03/19/18 18:21 64 18 140/83 (102) 99 Room Air 03/19/18 18:21 99 03/19/18 18:05 57 18 137/79 (98) 99 Room Air 03/19/18 17:50 60 20 117/76 (90) 99 Room Air 03/19/18 17:35 59 18 127/77 (94) 95 Room Air 03/19/18 17:20 59 18 134/82 (99) 99 Room Air 03/19/18 17:00 36.3 61 20 112/74 Room Air 03/19/18 16:50 64 16 145/65 (91) 98 Room Air 03/19/18 16:35 65 16 155/65 (95) 98 Room Air 03/19/18 15:30 95 Room Air 03/19/18 15:19 61 03/19/18 15:17 Room Air 03/19/18 15:11 36.7 68 21 148/85 96 Room Air Physical Exam General Appearance: WD/WN, + mild distress Eyes: normal inspection, sclerae normal Neck: supple, no JVD Respiratory/Chest: chest non-tender, lungs clear, normal breath sounds Cardiovascular: regular rate, rhythm, no murmur Abdomen: normal bowel sounds, non tender, soft Extremities: + pedal edema (trace) Neurologic/Psychiatric: oriented x 3 Laboratory Results Last 24 Hours Test 03/19/18 15:27 03/19/18 20:19 03/20/18 04:02 03/20/18 07:20 White Blood Count 6.41 K/uL 7.24 K/uL Red Blood Count 4.14 M/uL 4.01 M/uL Hemoglobin 12.2 g/dL 11.7 g/dL Hematocrit 35.9 % 35.2 % Mean Corpuscular Volume 86.7 fL 87.8 fL Mean Corpuscular Hemoglobin 29.5 pg 29.2 pg Mean Corpuscular Hemoglobin Concent 34.0 g/dl 33.2 g/dl Platelet Count 214 K/uL 198 K/uL Mean Platelet Volume 10.1 fL 9.9 fL Neutrophils (%) (Auto) 65.3 % Lymphocytes (%) (Auto) 20.9 % Monocytes (%) (Auto) 8.6 % Eosinophils (%) (Auto) 4.4 % Basophils (%) (Auto) 0.5 % Neutrophils # (Auto) 4.19 K/uL Lymphocytes # (Auto) 1.34 K/uL Monocytes # (Auto) 0.55 K/uL Eosinophils # (Auto) 0.28 K/uL Basophils # (Auto) 0.03 K/uL RDW Standard Deviation 44.6 fL 45.6 fL RDW Coefficient of Variation 14.1 % 14.2 % Immature Granulocyte % (Auto) 0.3 % Immature Granulocyte # (Auto) 0.02 K/uL Prothrombin Time 10.7 SECONDS Prothromb Time International Ratio 1.0 Activated Partial Thromboplast Time 26.4 SECONDS Partial Thromboplastin Ratio 1.0 Sodium Level 137 mmol/L 137 mmol/L Potassium Level 3.7 mmol/L 3.6 mmol/L Chloride Level 104 mmol/L 104 mmol/L Carbon Dioxide Level 26 mmol/L 28 mmol/L Anion Gap 7.0 mmol/L 5.0 mmol/L Blood Urea Nitrogen 18 mg/dl 18 mg/dl Creatinine 1.16 mg/dl 1.28 mg/dl Est Creatinine Clear Calc Drug Dose 65.0 ml/min 65.2 ml/min Estimated GFR () 71.5 63.5 Estimated GFR (Non- 61.7 54.8 BUN/Creatinine Ratio 15.9 14.4 Random Glucose 100 mg/dl 115 mg/dl Calcium Level 8.9 mg/dl 8.7 mg/dl Total Bilirubin 0.4 mg/dl Direct Bilirubin 0.1 mg/dl Aspartate Amino Transf (AST/SGOT) 21 U/L Alanine Aminotransferase (ALT/SGPT) 29 U/L Alkaline Phosphatase 62 U/L Total Creatine Kinase 405 U/L Creatine Kinase MB 6.2 ng/ml Creatine Kinase MB Ratio 1.5 Troponin I < 0.015 ng/ml 0.020 ng/ml Total Protein 7.5 gm/dl Albumin 3.5 gm/dl Lipase 199 U/L Bedside Glucose 109 mg/dl 128 mg/dl Magnesium Level 1.8 mg/dl Assessment and Plan 72-year-old male with a known history of coronary disease, gated by hypertension and diabetes who presented with accelerated chest pain to the office. Emergent heart catheterization did not reveal any culprit lesion or need for intervention at this time. Possible hypertensive urgency presenting chest pain the patient be brought in our facility maintaining metoprolol 100 escalation of isosorbideto 60 mg adding ranexa and backing off the lisinopril a bit to 10 mg, secondary disease prevention with aspirin 81 and Crestor 20 Possibility of this being unstable angina, there is not any alarming trend in troponin to suggest acs but still angina is considered given relief with nitro Regarding his diabetes with his recent dye load his metformin will be held and will use insulin sliding scale along with a diabetic diet, can resume glucophage next week atrial fibrillation continue on his Xarelto therapy COPD(not an exacerbation) maintain his Brovana Spiriva and Advair BPH currently without urinary symptoms prehospital continue on his Avodart DVT prevention is based on Xarelto
[2018-03-20] MEDS: INSULIN ASPART 100 UNITS/ML 3 ML PEN SC SCH ×4 (08:04→20:53)
[2018-03-20] MEDS: TIOTROPIUM BROMIDE 5 PUFF/90 MCG INH INH SCH (08:55)
[2018-03-20] MEDS: PANTOprazole INJ 40 MG in SYRINGE 0 ML IV SCH (08:56)
[2018-03-20] MEDS: ASPIRIN 81 MG ECTAB PO SCH (08:56)
[2018-03-20] MEDS: METOPROLOL SUCC 50MG EXT REL TAB PO SCH (08:57)
[2018-03-20] MEDS ORDERED: ISOSORBIDE MONONITRATE 30 MG TABCR PO SCH (09:00)
[2018-03-20] MEDS ORDERED: LISINOPRIL 20 MG TAB PO SCH (09:00)
[2018-03-20] MEDS ORDERED: OMEPRAZOLE 10 MG PO SCH (09:00)
--- NOTE | 2018-03-20 11:12 | CARDIOLOGY PROGRESS NOTE ---
DATE: 03/20/2018 SUBJECTIVE: Mr. Bradshaw continues to experience his left-sided chest discomfort radiating down to the left arm. This occurs spontaneously. It does resolve with sublingual nitroglycerin. Cardiac catheterization results discussed in detail. OBJECTIVE: VITAL SIGNS: Blood pressure is 120/76 with a regular pulse of 62, respiratory rate is 18, and the patient is afebrile at 36.4 degrees Celsius. Saturations 96% on 2 L nasal cannula. NECK: Supple with full carotid upstrokes. There are no carotid bruits. Jugular venous pressure is flat at 90 degrees. There is no thyromegaly. CARDIOVASCULAR EXAMINATION: Reveals a regular rhythm with normal S1, S2. No S3 or S4, or murmurs are noted. LUNGS: Clear without rales, rhonchi, or wheeze. ABDOMEN: Soft without bruits. EXTREMITIES: Reveal intact radial pulse bilaterally. There is no peripheral edema. DATA: surveillance monitor is benign. EKG notes sinus rhythm with PVCs with a nonspecific T-wave abnormality. IMPRESSION AND PLAN: 1. Chest pain syndrome -- results of cardiac catheterization were reviewed in detail with the patient. In short, he has moderate disease in the LAD, a patent circumflex stent, and a stable severe disease in the right coronary artery. There is good distal collateralization. Dr. Jones plans to increase the patient's Imdur dose. We have also discussed a trial of Ranexa. 2. Coronary artery disease -- stable. 3. History of atrial flutter -- status post electrical cardioversion in July 2015. Stable with rate control long-term anticoagulation. 4. Hypertension -- controlled. 5. Hypercholesterolemia -- continue statin. 6. Chronic obstructive pulmonary disease. 7. Diabetes mellitus. 8. Obstructive sleep apnea -- CPAP at night.
--- NOTE | 2018-03-20 13:40 | ECHOCARDIOGRAM REPORT ---
*NOTICE TO RECEIVING [facility] This information is strictly Confidential and protected under [place] law. [place] law prohibits you from making any further disclosure of this information unless further disclosure is expressly permitted by the written consent of the person to whom it pertains or is authorized by law. A general authorization for the release of medical or other information is not sufficient for this purpose. Hospital accepts no responsibility if the information is made available to any other person, INCLUDING THE PATIENT. Interpretation Summary * Name: VASYL SHULTZ Study Date: 03/20/2018 06:44 AM BP: 114/66 mmHg * Patient Location: C.2T\S\S240\S\1 HR: 50 * : 1945 (M/d/yyyy) Gender: Male Height: 70 in * Age: 72 yrs Ethnicity: CA Weight: 207 lb * Ordering Physician: MD Ang Tapia MD * Performed By: Delia Carter RDCS * * Reason For Study: CHEST PAIN * BSA: 2.1 m2 * -- Conclusions -- * Left ventricular systolic function is normal. * No regional wall motion abnormalities noted. * Ejection Fraction = 55-60%. * Diastolic dysfunction, Grade II (pseudonormalization pattern). * No significant valvular pathology. Procedure Details * A complete two-dimensional transthoracic echocardiogram was performed (2D, M-mode, Doppler and color flow Doppler). * A contrast injection of Definity was performed to improve assessment of LV function. * Contrast was injected into an intravenous site in the left arm. * One vial of Definity ultrasound contrast was diluted in normal saline to a total volume of 10 ml. A total of '4' ml of solution was administered during imaging. * Lot # [id number] of Definity utilized for procedure. * Expiration date 01/04. * The attending nurse who injected the contrast agent was PATRICIA FUENTES RN. Left Ventricle * The left ventricle is normal in size. * There is normal left ventricular wall thickness. * Ejection Fraction = 55-60%. * Left ventricular systolic function is normal. * No regional wall motion abnormalities noted. Right Ventricle * The right ventricle is not well visualized. * The right ventricular systolic function is normal as assessed by tricuspid annular plane systolic excursion (TAPSE) (normal >1.5 cm). Atria * The left atrium is mildly dilated. * Right atrium not well visualized. * There is no evidence of atrial septal defect, but resolution does not allow assessment for a patent foramen ovale. Mitral Valve * The mitral valve is grossly normal. * There is no mitral valve stenosis. * Significant mitral regurgitation is absent. Tricuspid Valve * The tricuspid valve is not well visualized, but is grossly normal. * Significant tricuspid regurgitation is absent. Aortic Valve * The aortic valve is trileaflet. * The aortic valve opens well. * Aortic valve sclerosis mild, without significant aortic valvular stenosis. Pulmonic Valve * The pulmonary valve is not well seen, but the Doppler examination is normal without significant regurgitation or stenosis. Great Vessels * The aortic root is normal size. * The pulmonary is not well visualized. Pericardium/Pleural * There is no pericardial effusion. Great Vessels * Inferior vena cava not well visualized. Left Ventricular Diastolic Function * Diastolic dysfunction, Grade II (pseudonormalization pattern). MMode 2D Measurements and Calculations IVSd 1.5 cm IVSs 2.0 cm LVIDd 5.8 cm LVIDs 4.0 cm LVPWd 1.2 cm LVPWs 1.2 cm IVS/LVPW 1.3 FS 30.0 % EDV(Teich) 163.6 ml ESV(Teich) 71.2 ml EF(Teich) 56.5 % EDV(cubed) 190.6 ml ESV(cubed) 65.4 ml EF(cubed) 65.7 % % IVS thick 36.5 % % LVPW thick 5.6 % LV mass(C)d 341.0 grams LV mass(C)dI 161.0 grams/m\S\2 LV mass(C)s 272.6 grams LV mass(C)sI 128.7 grams/m\S\2 SV(Teich) 92.4 ml SI(Teich) 43.6 ml/m\S\2 SV(cubed) 125.2 ml SI(cubed) 59.1 ml/m\S\2 ACS 1.7 cm LA dimension 4.3 cm asc Aorta Diam 3.6 cm LVOT diam 1.6 cm LVOT area 2.1 cm\S\2 LVAd ap4 34.8 cm\S\2 LVLd ap4 8.4 cm EDV(MOD-sp4) 118.3 ml EDV(sp4-el) 122.1 ml LVAs ap4 20.4 cm\S\2 LVLs ap4 6.8 cm ESV(MOD-sp4) 50.1 ml ESV(sp4-el) 51.9 ml EF(MOD-sp4) 57.7 % EF(sp4-el) 57.5 % LVAd ap2 27.8 cm\S\2 LVLd ap2 7.7 cm EDV(MOD-sp2) 83.9 ml EDV(sp2-el) 85.5 ml LVAs ap2 16.9 cm\S\2 LVLs ap2 6.6 cm ESV(MOD-sp2) 35.9 ml ESV(sp2-el) 37.0 ml EF(MOD-sp2) 57.2 % EF(sp2-el) 56.7 % LVLd %diff -10.08 % EDV(MOD-bp) 105.4 ml LVLs %diff -3.87 % ESV(MOD-bp) 41.8 ml EF(MOD-bp) 60.4 % SV(MOD-sp4) 68.2 ml SI(MOD-sp4) 32.2 ml/m\S\2 SV(MOD-sp2) 48.0 ml SI(MOD-sp2) 22.6 ml/m\S\2 SV(MOD-bp) 63.6 ml SI(MOD-bp) 30.0 ml/m\S\2 SV(sp4-el) 70.2 ml SI(sp4-el) 33.1 ml/m\S\2 SV(sp2-el) 48.5 ml SI(sp2-el) 22.9 ml/m\S\2 Doppler Measurements and Calculations MV E max orly 96.9 cm/sec MV A max orly 82.3 cm/sec MV E/A 1.2 MV dec time 0.23 sec Ao V2 max 144.1 cm/sec Ao max PG 8.3 mmHg Ao max PG (full) 3.6 mmHg QASIM(V,A) 1.6 cm\S\2 QASIM(V,D) 1.6 cm\S\2 LV V1 max PG 4.7 mmHg LV V1 max 108.7 cm/sec PA V2 max 66.3 cm/sec PA max PG 1.8 mmHg
[2018-03-20] MEDS: RIVAROXABAN 10 MG TAB PO SCH (16:36)
[2018-03-20] MEDS ORDERED: ISOSORBIDE MONONITRATE 30 MG TABCR PO STA (18:26)
[2018-03-20] MEDS ORDERED: NURSING VERBAL MED ORDER ONE (19:00)
[2018-03-20] MEDS: ROSUVASTATIN CALCIUM 20 MG TAB PO SCH (20:53)
[2018-03-20] MEDS: FLUTICASONE/SALMETEROL 250/50 (ADVAIR) 14 PUFF/1 INHALER INH SCH (20:53)
[2018-03-20] MEDS: RANOLAZINE 500 MG ER TAB PO SCH (20:53)
[2018-03-20] MEDS: PANTOprazole SOD 40 MG TAB PO SCH (20:55)
[2018-03-21] VITALS (8 sets, daily range): BP systolic 112–152; BP diastolic 69–92; PULSE 56–72; TEMP 36.4–36.7; O2SAT 92–95
[2018-03-21] MEDS ORDERED: ACETAMINOPHEN 325 MG TAB PO STA (00:02)
[2018-03-21 06:45] LABS: MEAN CORPUSCULAR HGB CONC 33.3 g/dl (32-36); MEAN PLATELET VOLUME 10.4 fL (7.4-10.4); PLATELET COUNT 211 K/uL (130-400); RED CELL DISTRIBUTION WIDTH CV 14.1 % (11.5-14.5); WHITE BLOOD COUNT 8.22 K/uL (4.8-10.8)
[2018-03-21] MEDS: ARFORMOTEROL TART 15MCG/2ML VIAL INH SCH ×2 (07:01→19:01)
[2018-03-21 07:19] LABS: CALCIUM 9.2 mg/dl (8.5-10.1); CREATININE 1.05 mg/dl (0.60-1.40); POTASSIUM 4.1 mmol/L (3.5-5.1)
[2018-03-21] MEDS: INSULIN ASPART 100 UNITS/ML 3 ML PEN SC SCH ×4 (07:44→20:48)
[2018-03-21] MEDS: FLUTICASONE/SALMETEROL 250/50 (ADVAIR) 14 PUFF/1 INHALER INH SCH ×2 (08:33→20:47)
[2018-03-21] MEDS: PANTOprazole SOD 40 MG TAB PO SCH ×2 (08:34→21:09)
[2018-03-21] MEDS: ISOSORBIDE MONONITRATE 30 MG TABCR PO SCH (08:35)
[2018-03-21] MEDS: ASPIRIN 81 MG ECTAB PO SCH (08:36)
[2018-03-21] MEDS: RANOLAZINE 500 MG ER TAB PO SCH ×2 (08:36→21:10)
[2018-03-21] MEDS: TIOTROPIUM BROMIDE 5 PUFF/90 MCG INH INH SCH (08:37)
[2018-03-21] MEDS: METOPROLOL SUCC 50MG EXT REL TAB PO SCH (08:38)
[2018-03-21] MEDS: LISINOPRIL 20 MG TAB PO SCH (08:39)
--- NOTE | 2018-03-21 10:21 | CARDIOLOGY PROGRESS NOTE ---
DATE: 03/21/2018 SUBJECTIVE: Mr. Bradshaw is resting comfortably at bedside without complaints of chest discomfort or dyspnea. He is tolerating Ranexa without difficulty. Did have 2 episodes of chest discomfort last night while using his CPAP machine. Those episodes resolved immediately after he discontinued the CPAP mask. Plans to ambulate in the hallway today. OBJECTIVE: VITAL SIGNS: Blood pressure 112/69 with a regular pulse of 57. Respiratory rate is 16. The patient is afebrile at 36.7 degrees Celsius. Saturation 92% on room air. NECK: Supple with full carotid upstrokes. There are no carotid bruits. Jugular venous pressure is flat at 90 degrees. There is no thyromegaly. CARDIOVASCULAR: Reveals a regular rhythm with normal S1, S2. No S3, S4, or murmurs are noted. LUNGS: Clear without rales, rhonchi, or wheezes. ABDOMEN: Soft without bruits. EXTREMITIES: Reveal intact radial artery pulses bilaterally. There is no peripheral edema. DATA: CBC notes hemoglobin of 12.0, hematocrit 36.0, white count 8.2, platelet count 211,000. Electrolytes note a sodium of 137, potassium 4.1, chloride 104, bicarbonate , BUN 16, creatinine 1.05, glucose 125. rip tailer is benign. IMPRESSION AND PLAN: 1. Chest pain syndrome - the patient is pain free on an increased dose of Imdur and the addition of Ranexa to his medical regimen. He will ambulate today. If asymptomatic, could consider hospital discharge. 2. Coronary artery disease - short, moderate disease in the left anterior descending, a patent circumflex stent, and stable severe disease in the right coronary artery. Continue medical management. 3. History of atrial flutter - status post electrical cardioversion in 07/2015. Stable with rate control and long-term anticoagulation. 4. Hypertension - controlled. 5. Hypercholesterolemia - continue statin. 6. Chronic obstructive pulmonary disease. 7. Obstructive sleep apnea. 8. Diabetes mellitus.
--- NOTE | 2018-03-21 14:52 | Progress Note ---
Subjective Date of Service: March 21, 2018. Subjective pt did have a very brief period of chest pain this am, now relieved, family is concerned and pt not sure he feels comfortable yet, has not had a complete day of higher dosed imdur and ranexa Problem List Medical Problems: (1) Diverticulosis Status: Acute (2) Flank pain Status: Acute (3) Left sided chest pain Status: Acute (4) Substernal chest pain Status: Acute (5) Unstable angina Status: Acute Review of Systems Constitutional: No fever, No chills Cardiac: No chest pain, No edema Abdomen: No pain, No vomiting, No diarrhea Musculoskeletal: No joint pain, No muscle pain Male : No dysuria, No urinary frequency, No incontinence Psychiatric: No depression symptoms, No anhedonism Objective Vital Signs Date Time Temp Pulse Resp B/P (MAP) Pulse Ox O2 Delivery O2 Flow Rate FiO2 03/21/18 12:00 Room Air 03/21/18 11:52 36.5 65 19 132/72 (92) 94 Room Air 03/21/18 08:00 Room Air 03/21/18 07:41 57 16 92 Room Air 03/21/18 07:11 36.7 56 20 112/69 (83) 93 Nasal Cannula 4.0 03/21/18 03:43 36.6 71 20 118/72 (87) 92 Room Air 03/20/18 23:46 36.6 71 20 161/80 (107) 93 Room Air 03/20/18 22:36 68 96 4.0 03/20/18 20:00 Nasal Cannula 2.0 03/20/18 19:24 74 16 96 Room Air 03/20/18 19:13 36.7 64 19 145/75 (98) 96 Room Air 03/20/18 16:00 Nasal Cannula 2.0 03/20/18 15:19 36.5 59 20 110/61 (77) 92 Room Air Physical Exam General Appearance: WD/WN, no apparent distress Respiratory/Chest: chest non-tender, lungs clear Cardiovascular: regular rate, rhythm, no murmur Abdomen: normal bowel sounds, non tender, soft Neurologic/Psychiatric: alert, oriented x 3 Laboratory Results Last 24 Hours Test 03/20/18 16:27 03/20/18 20:44 03/21/18 06:07 03/21/18 07:18 Bedside Glucose 119 mg/dl 110 mg/dl 122 mg/dl White Blood Count 8.22 K/uL Red Blood Count 4.14 M/uL Hemoglobin 12.0 g/dL Hematocrit 36.0 % Mean Corpuscular Volume 87.0 fL Mean Corpuscular Hemoglobin 29.0 pg Mean Corpuscular Hemoglobin Concent 33.3 g/dl RDW Standard Deviation 45.0 fL RDW Coefficient of Variation 14.1 % Platelet Count 211 K/uL Mean Platelet Volume 10.4 fL Sodium Level 137 mmol/L Potassium Level 4.1 mmol/L Chloride Level 104 mmol/L Carbon Dioxide Level 28 mmol/L Anion Gap 5.0 mmol/L Blood Urea Nitrogen 16 mg/dl Creatinine 1.05 mg/dl Est Creatinine Clear Calc Drug Dose 78.4 ml/min Estimated GFR () 80.7 Estimated GFR (Non- 69.6 BUN/Creatinine Ratio 15.1 Random Glucose 125 mg/dl Calcium Level 9.2 mg/dl Assessment and Plan 72-year-old male with a known history of coronary disease, gated by hypertension and diabetes who presented with accelerated chest pain to the office. Emergent heart catheterization did not reveal any culprit lesion or need for intervention at this time. Hypertensive urgency presenting chest pain continuing metoprolol 100 escalation of isosorbideto 60 mg adding ranexa and backing off the lisinopril a bit to 10 mg, blood pressure remains controlled with lower pat and the increased isosorbide, secondary disease prevention with aspirin 81 and Crestor 20 have ruled out unstable angina, there is not any alarming trend in troponin to suggest acs but still angina is considered given relief with nitro diabetes with his recent dye load his metformin will be held and will use insulin sliding scale along with a diabetic diet, can resume Glucophage next week atrial fibrillation continue on his Xarelto therapy COPD(not an exacerbation) maintain his Brovana Spiriva and Advair BPH currently without urinary symptoms prehospital continue on his Avodart DVT prevention is based on Xarelto
[2018-03-21] MEDS: RIVAROXABAN 10 MG TAB PO SCH (16:44)
[2018-03-21] MEDS: ONDANSETRON INJ 2 MG/ML 2 ML VIAL IV PRN ×2 (16:45→19:26)
[2018-03-21] MEDS ORDERED: ACETAMINOPHEN 500 MG TAB PO PRN (17:15)
[2018-03-21] MEDS ORDERED: ACETAMINOPHEN IV 650 MG in EMPTY BAG 0 ML IV PRN (17:15)
[2018-03-21] MEDS ORDERED: ACETAMINOPHEN 325 MG TAB ONE (17:38)
[2018-03-21] MEDS: ROSUVASTATIN CALCIUM 20 MG TAB PO SCH (21:10)
[2018-03-22 04:00] VITALS: BP 138/76; PULSE 61; TEMP 36.4; O2SAT 94
[2018-03-22 05:11] LABS: HEMATOCRIT 36.1 % (42-52); HEMOGLOBIN 11.9 g/dL (14.0-18.0); MEAN CELL VOLUME 87.4 fL (80-100); MEAN CORPUSCULAR HEMOGLOBIN 28.8 pg (25-34); PLATELET COUNT 200 K/uL (130-400); RED CELL DISTRIBUTION WIDTH CV 14.4 % (11.5-14.5); RED CELL DISTRIBUTION WIDTH SD 45.7 fL (36.4-46.3); WHITE BLOOD COUNT 7.06 K/uL (4.8-10.8)
[2018-03-22 05:41] LABS: CALCIUM 8.8 mg/dl (8.5-10.1); CREATININE 1.12 mg/dl (0.60-1.40); POTASSIUM 4.1 mmol/L (3.5-5.1)
[2018-03-22 07:00] VITALS: PULSE 69; O2SAT 95
[2018-03-22] MEDS: INSULIN ASPART 100 UNITS/ML 3 ML PEN SC SCH ×2 (07:00→11:00)
[2018-03-22] MEDS: ARFORMOTEROL TART 15MCG/2ML VIAL INH SCH (07:00)
[2018-03-22 07:22] VITALS: BP 148/83; PULSE 59; TEMP 36.5; O2SAT 92
[2018-03-22] MEDS: TIOTROPIUM BROMIDE 5 PUFF/90 MCG INH INH SCH (07:49)
[2018-03-22] MEDS: PANTOprazole SOD 40 MG TAB PO SCH (07:50)
[2018-03-22] MEDS: FLUTICASONE/SALMETEROL 250/50 (ADVAIR) 14 PUFF/1 INHALER INH SCH (07:50)
[2018-03-22] MEDS: RANOLAZINE 500 MG ER TAB PO SCH (07:50)
[2018-03-22] MEDS: ISOSORBIDE MONONITRATE 30 MG TABCR PO SCH (07:51)
[2018-03-22] MEDS: METOPROLOL SUCC 50MG EXT REL TAB PO SCH (07:52)
[2018-03-22] MEDS: LISINOPRIL 20 MG TAB PO SCH (07:52)
[2018-03-22] MEDS: ASPIRIN 81 MG ECTAB PO SCH (07:54)
--- NOTE | 2018-03-22 10:18 | CARDIOLOGY PROGRESS NOTE ---
DATE: 03/22/2018 TIME: 9:21 a.m. SUBJECTIVE: Mr. Bradshaw last had episode of chest discomfort yesterday morning at approximately 4:00 a.m. It has now been greater than 24 hours without chest discomfort. He believes Spiriva may have been playing a role; however, he has had several episodes of chest discomfort without taking his Spiriva including in the office last week. He denies any further shortness of breath, but admits that he has not ambulated in the hallway yet. He was encouraged to do so. Nursing staff is aware. He otherwise denies shortness of breath, syncope, near syncope, palpitations or edema. He had a cardiac catheterization 3 days ago upon presentation with stable findings as per Dr. Tapia. OBJECTIVE: VITAL SIGNS: Temperature 36.5 degrees, heart rate 59 beats per minute, respiratory rate 23, blood pressure 148/83 mmHg; however, his blood pressure on an average has been normotensive. Oxygen saturation 92% on room air. Weight 114.8 kg. GENERAL: In no acute distress. He is alert. NECK: No JVD but thick neck. CARDIAC EXAM: No ventricular heave. Regular, normal S1, S2. Occasional ectopy. No murmurs, rubs or gallops auscultated. LUNGS: Mild expiratory wheezing intermittently on the right. ABDOMEN: Soft, nontender, nondistended. Normal active bowel sounds. EXTREMITIES: Right radial catheterization site is clean, dry and intact without erythema or discharge. No cyanosis or pitting edema. No palpable cords. PSYCHIATRIC: Affect appears appropriate. MEDICATIONS: Include aspirin 81 mg daily, isosorbide mononitrate 60 mg daily, lisinopril 10 mg daily, metoprolol succinate 100 mg daily, Protonix 40 mg p.o. b.i.d., Ranexa 500 mg p.o. b.i.d., Xarelto 20 mg daily, Crestor 20 mg at bedtime, Spiriva 2 puffs daily. LABORATORY DATA: White blood cell count 7.06, hemoglobin 11.9, platelets 200. Sodium 138, potassium 4.1, BUN 13, creatinine 1.12. Magnesium 2.3. Telemetry personally reviewed. No arrhythmia. Cardiac catheterization images personally reviewed. Cardiac catheterization performed by Dr. Tapia 03/19/2018 reported ostial LAD 10-20%. Mid LAD 30%. D1 proximal 40-50%. Left to right collaterals to RV branch to mid to distal RCA. Anomalous circumflex. Patent proximal circumflex stent. 50% in-segment traversing posterior to aorta within the circumflex. Left to right collaterals. Dominant RCA. Proximal to mid RCA 80-90%. Late mid RCA 100%. Distal RCA fills via [id number] and [id number] collaterals. LVEDP was 10. ASSESSMENT AND PLAN: 1. Chest pain: His chest pain was concerning for unstable angina. He had stable cardiac catheterization findings; however. His last episode of chest pain was yesterday morning. Agree with titration of antianginal medications, but if he continues to have chest discomfort, would recommend further evaluation for noncardiac chest pain. 2. Coronary artery disease status post percutaneous coronary intervention: He has prior circumflex percutaneous coronary intervention. Continue aspirin 81 mg daily indefinitely. Continue beta larry. He appears to be well beta blocked with heart rates in the 50s-60s. Continue high intensity statin therapy. 3. Hypertension: Blood pressure overall has improved. Can further titrate lisinopril if necessary to improve blood pressure. Cannot rule out hypertension playing a role with his chest discomfort in the setting of occluded RCA with collaterals. Overall, symptoms appear to have improved. 4. Dyspnea with exertion: He complained of significant dyspnea with exertion before his admission. He was asked to ambulate in the hallways. He is euvolemic and had normal LVEDP on cardiac catheterization. If he remains short of breath, would recommend further evaluation in regards to his COPD as possible etiology. 5. Disposition: If he can tolerate ambulation in the hallway, would be okay for discharge from a cardiac perspective. Please call with any other questions or concerns.
[2018-03-22] MEDS ORDERED: IMDSR30 PO (11:47)
[2018-03-22] MEDS ORDERED: RNXER500 PO (11:47)
[2018-03-22] MEDS ORDERED: NTRSLP4 SL (11:47)
--- NOTE | 2018-03-22 11:59 | Discharge Instructions ---
Discharge Instructions Date of Service March 22, 2018. Admission Reason for Admission: Substernal Chest Pain Discharge Discharge Diagnosis / Problem: substernal chest pain Discharge Goals Goal(s): Decrease discomfort, Improve function Activity Recommendations Activity Limitations: resume your previous activity . Instructions / Follow-Up Instructions / Follow-Up Followup with PCP in 1-2 weeks Followup with Cardio in 1-2 weeks. Followup with Pulmonary in 1-2 weeks. Current Hospital Diet Patient's current hospital diet: AHA Diet (Heart Healthy), Diabetes Type 2 Diet Discharge Diet Recommended Diet: AHA Diet (Heart Healthy), Diabetes Type 2 Diet Pending Studies Studies pending at discharge: no Laboratory Results Hemoglobin A1c Test 01/08/18 07:35 Range/Units Estimated Average Glucose 146 mg/dl Hemoglobin A1c 6.7 H 4.5-5.6 % Lipid Panel Test 01/08/18 07:35 Range/Units Triglycerides Level 357 H 0-150 mg/dl Cholesterol Level 125 0-200 mg/dl HDL Cholesterol 30 mg/dl Cholesterol/HDL Ratio 4.2 LDL Cholesterol, Calculated 24 mg/dl Medical Emergencies . Who to Call and When: Medical Emergencies: If at any time you feel your situation is an emergency, please call 911 immediately. . Non-Emergent Contact Non-Emergency issues call your: Primary Care Provider Call Non-Emergent contact if: you have any medication questions . . "Provider Documentation" section prepared by Ash Valladares. .
[2018-03-22 12:00] VITALS: BP 148/83; PULSE 59; TEMP 36.5; O2SAT 92
--- NOTE | 2018-03-23 07:27 | Discharge Summary ---
Discharge Summary Date of Service March 23, 2018. Discharge Summary Admission Date: March 22, 2018 at 11:56 Discharge Date: March 22, 2018 Immunizations: Have You Had Influenza Vaccine: No History of Tetanus Vaccine?: Yes History of Pneumococcal: No History of Hepatitis B Vaccine: Unknown Hospital Course This includes examination of the patient, discharge planning, medication reconciliation, and communication with other providers. Discharge Instructions Please refer to the electronic Patient Visit Report (Discharge Instructions) for additional information.
== END 2018-03-22 13:00 | disposition home or self-care (01) | DRG 287 ==
LOC: EDBD 15:05 → C.EDA 15:07 → ENRESERV 16:11 → C.2T 17:20 → OBSVTOIN 03-22 11:56
PROVIDERS: ADMIT Internal Medicine; ATTEND Internal Medicine
PROC: B2111ZZ Fluoroscopy of Multiple Coronary Arteries using Low Osmolar Contrast (ICD-10-PCS; principal; 2018-03-19 15:40)
PROC: 4A023N7 Measurement of Cardiac Sampling and Pressure, Left Heart, Percutaneous Approach (ICD-10-PCS; principal; 2018-03-19 15:40)
DX: R07.89 Other chest pain (principal); I48.92 Unspecified atrial flutter; I16.0 Hypertensive urgency; I10 Essential (primary) hypertension; I48.91 Unspecified atrial fibrillation; I25.119 Atherosclerotic heart disease of native coronary artery with unspecified angina pectoris; R06.00 Dyspnea, unspecified; J44.9 Chronic obstructive pulmonary disease, unspecified; E11.9 Type 2 diabetes mellitus without complications; E78.00 Pure hypercholesterolemia, unspecified; E78.5 Hyperlipidemia, unspecified; N40.0 Benign prostatic hyperplasia without lower urinary tract symptoms; G47.33 Obstructive sleep apnea (adult) (pediatric); Z99.89 Dependence on other enabling machines and devices; Z95.5 Presence of coronary angioplasty implant and graft; Z87.891 Personal history of nicotine dependence; Z79.01 Long term (current) use of anticoagulants; Z79.82 Long term (current) use of aspirin; Z79.51 Long term (current) use of inhaled steroids; Z79.84 Long term (current) use of oral hypoglycemic drugs; Z79.899 Other long term (current) drug therapy

== ENCOUNTER → 2018-04-01 | Outpatient (CLI) | payer BC ==
[~2018-04-01] VITALS: Ht 176.5 cm; Wt 119.5 kg
[~2018-04-01] MED LIST changes: +IMDSR30 PO; +NTRSLP4 SL; +RNXER500 PO
[2018-04-01 14:58] VITALS: BP 158/94; PULSE 70; Ht 176.5 cm; Wt 119.5 kg
== END | disposition home or self-care (01) ==
LOC: C.NEUR 14:27
PROVIDERS: ATTEND Internal Medicine Pulmonary Disease
DX: G47.33 Obstructive sleep apnea (adult) (pediatric) (principal)

== ENCOUNTER → 2018-06-04 | Outpatient (CLI) | payer BC ==
[~2018-06-04] MED LIST changes: +IPRA-64 INH; -IPRASOL4 INH; +LISI-726 PO; -LSN20 PO
[2018-06-04 13:00] LABS: ALT/SGPT 27 U/L (12-78); AST/SGOT 22 U/L (15-37); BLOOD UREA NITROGEN 14 mg/dl (7-18); CALCIUM 8.4 mg/dl (8.5-10.1); CARBON DIOXIDE 26 mmol/L (21-32); CREATININE 1.16 mg/dl (0.60-1.40); GLUCOSE 182 mg/dl (70-99); POTASSIUM 3.7 mmol/L (3.5-5.1); SODIUM 138 mmol/L (136-145)
[2018-06-04 13:05] LABS: BLOOD UREA NITROGEN 13 mg/dl (7-18); CREATININE 1.19 mg/dl (0.60-1.40)
== END | disposition home or self-care (01) ==
LOC: C.LABPVFM 07:55
PROVIDERS: ATTEND Family Medicine
DX: R31.29 Other microscopic hematuria (principal); E11.9 Type 2 diabetes mellitus without complications; I10 Essential (primary) hypertension; N40.1 Benign prostatic hyperplasia with lower urinary tract symptoms; I48.92 Unspecified atrial flutter; I25.10 Atherosclerotic heart disease of native coronary artery without angina pectoris

== ENCOUNTER 2019-09-07 14:13 | Inpatient (IN) ==
[2019-09-07] MEDS ORDERED: ALBUT/IPRATROP 3MG/0.5MG NEB 3 ML VIAL NEB STA (15:26)
[2019-09-07] MEDS ORDERED: methylPREDNISolone 125 MG/2 ML VIAL IV STA (15:26)
[2019-09-07 15:41] LABS: Hemoglobin 6.1 g/dL (14.0-18.0); Mean Corpuscular Hemoglobin 17.4 pg (25-34); Mean Corpuscular Hgb Conc 26.5 g/dL (32-36); Mean Corpuscular Volume 65.7 fL (80-100); Mean Platelet Volume 9.7 fL (7.4-10.4); Platelet Count 260 K/uL (130-400); RDW Coefficient of Variation 19.9 % (11.5-14.5); RDW Standard Deviation 47.6 fL (36.4-46.3); White Blood Count 7.99 K/uL (4.8-10.8)
[2019-09-07] MEDS ORDERED: SODIUM CHLORIDE 0.9% 250 ML IV PRN (15:43)
[2019-09-07 15:45] LABS: Alanine Aminotransferase 18 U/L (12-78); Albumin Level 3.6 gm/dl (3.4-5.0); Aspartate Aminotransferase 12 U/L (15-37); BUN Creatinine Ratio 17.4 (10-20); Bilirubin Direct 0.1 mg/dl (0-0.2); Blood Urea Nitrogen 22 mg/dl (7-18); Calcium 8.5 mg/dl (8.5-10.1); Carbon Dioxide 24 mmol/L (21-32); Chloride 102 mmol/L (98-107); Creatinine Clr Calc Pharmacy 64.8 ml/min; Est GFR (African American) 64.4; Est GFR (Non-African American) 55.6; Glucose 144 mg/dl (70-99); Magnesium 1.9 mg/dl (1.8-2.4); Potassium 4.3 mmol/L (3.5-5.1); Sodium 134 mmol/L (136-145)
[2019-09-07 15:50] LABS: Alkaline Phosphatase 71 U/L (45-117); Bilirubin,Total 0.5 mg/dl (0.2-1); INR 1.1 (0.9-1.1); NT Pro B Type Natriuretic Pept 423 pg/ml (0-1800); Partial Thromboplastin Ratio 0.8; Partial Thromboplastin Time 22.9 Seconds (21.0-31.0); Prothrombin Time 10.9 Seconds (9.0-12.0); Total Protein 7.4 gm/dl (6.4-8.2); Troponin I < 0.015 ng/ml (0-0.045)
[2019-09-07 15:55] LABS: Base Excess VBG -0.4 mEq/L; HCO3 VBG 24 mmol/L; PCO2 VBG 37 mmHg (38-50); PO2 VBG 24 mmHg; pH VBG 7.43 (7.36-7.41)
[2019-09-07 15:56] LABS: Oxygen Saturation VBG < 60.0 %
[2019-09-07 15:56] LABS: Basophils # (auto) 0.05 K/uL (0-0.2); Basophils % (auto) 0.6 %; Eosinophils # (auto) 0.21 K/uL (0-0.5); Eosinophils % (auto) 2.6 %; Giant Platelets 1+; Hypochromasia Present; Immature Granulocytes # (auto) 0.02 K/uL (0.00-0.02); Immature Granulocytes % (auto) 0.3 %; Lymphocytes # (auto) 0.77 K/uL (1.2-3.4); Lymphocytes % (auto) 9.6 %; Microcytosis Present; Monocytes # (auto) 0.46 K/uL (0.11-0.59); Monocytes % (auto) 5.8 %; Neutrophils # (auto) 6.48 K/uL (1.4-6.5); Neutrophils % (auto) 81.1 %; Polychromasia 1+; Tear Drop Cells 1+
[2019-09-07 16:28] LABS: Influenza A virus by PCR Neg for Influ A (Neg); Influenza B virus by PCR Neg for Influ B (Neg)
--- NOTE | 2019-09-07 16:31 | XRay Report ---
XR chest 2V PA/lateral CLINICAL HISTORY: 74 years-old Male presenting with sob. TECHNIQUE: PA and lateral views of the chest were obtained. COMPARISON: 03/19/[address] from 09/09/2018. FINDINGS: Atherosclerosis of the aortic arch. Cardiac silhouette mildly enlarged. Lungs are hyperinflated. No f ocal opacity. No pleural effusion or pneumothorax. Degenerative changes of the thoracic spine. Upper abdomen normal. IMPRESSION: 1. Findings suggest emphysema. No focal infiltrate to suggest pneumonia. 2. Mild cardiomegaly. No congestive change or volume overload is evident. Electronically signed by: Emil Lindsay M.D. 09/07/2019 4:29 PM
--- NOTE | 2019-09-07 18:43 | History & Physical Report ---
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 daily lisinopril 20 mg p.o. daily, metoprolol succinate 150 mg tablet, ER daily. Continue monitoring blood pressure Present on Admission?: Yes (4) Atrial flutter, paroxysmal: Hold Xarelto since patient possibly have GI bleed until proven otherwise. Present on Admission?: Yes (5) Hyperlipidemia: Fasting lipid panel pending, continue rosuvastatin 40 mg p.o. every afternoon. Present on Admission?: Yes History of Present Illness Chief Complaint: Malaise and severe anemia Primary Care Provider: Kati Scott MD Patient is a 74 years old male with past medical history of coronary artery disease, paroxysmal atrial flutter on Xarelto, hypertension, kidney disease, BPH presents to the emergency room with a complaint of generalized malaise and and severe severe anemia was found in on his labs. Patient did not have blood work done for longer period of time. Patient denies blood in his stool or dark stool. Patient said he has regular bowel movements. Patient denies fever chills, chest pain, headache, abdominal pain, frequency, urgency, melena, hemoptysis, hematuria, dysuria. Labs are reviewed: Viable cell 7.99, hemoglobin 6.1, hematocrit 23, platelets 260. PT 10.9, INR 1.1, APTT 22.9. Lactate 3.2. CMP pending. Urine pending, BNP pending. Chest x-ray show emphysema. No focal infiltrate to suggest pneumonia. Mild cardiomegaly. No congestive changes or volume overload is evident. Decision was made to admit patient for severe anemia at PCU telemetry for blood transfusion and further work-up of severe anemia. Labs are reviewed: Sodium 134, potassium 4.3, chloride 102, BUN 22, creatinine 1.25, GFR 55.6, AST 12, ALT 18, troponin 0 0.015, BNP 423, chest x- ray suggest emphysema no focal infiltrates to suggest pneumonia. Mild cardiomegaly. No congestive change or volume overload is evident. Decision was made to admit patient for severe anemia work-up and to give 2 units of blood. Allergies Allergy/AdvReac Type Severity Reaction Status Date / Time acetaminophen AdvReac Intermediate vomiting Verified 09/07/19 14:48 hydrocodone AdvReac Intermediate vomiting Verified 09/07/19 14:48 Home Medications Home Medications Medication Instructions Recorded Confirmed Type ipratropium-albuterol 0.5 mg-3 3 ml INH .COMPLEX PRN #180 ml 05/12/19 09/07/19 Rx mg(2.5 mg base)/3 mL nebulization soln nitroglycerin 0.4 mg sublingual 0.4 mg SL UD PRN #25 tab 05/16/19 09/07/19 Hist ory tablet Oxygen Home #1 ea 05/17/19 09/07/19 History albuterol sulfate HFA 90 1 - 2 puffs INH Q6H PRN #18 gm 05/17/19 09/07/19 Rx mcg/actuation aerosol inhaler hydrochlorothiazide 25 mg tablet 25 mg PO DAILY #90 tab 05/17/19 09/07/19 Rx lisinopril 20 mg tablet 30 mg PO DAILY #135 tab 05/17/19 09/07/19 Rx metformin 500 mg tablet See Rx Instructions PO BID #270 tab 05/17/19 09/07/19 Rx metoprolol succinate ER 100 mg 150 mg PO DAILY #135 tab 05/17/19 09/07/19 Rx tablet,extended release 24 hr omeprazole 10 mg capsule,delayed 20 mg PO DAILY #90 cap 05/17/19 09/07/19 Rx release tiotropium bromide 2.5 2 puffs INHALATION DAILY #3 gm 05/17/19 09/07/19 History mcg/actuation mist for inhalation fluticasone 250 mcg-salmeterol 50 1 puffs INHALATION BID #60 ea 06/27/19 09/07/19 Rx mcg/dose blistr powdr for inhalation aspirin 81 mg tablet,delayed 81 mg PO DAILY #30 tab 08/23/19 09/07/19 History release meclizine 25 mg tablet 25 mg PO Q6H PRN #60 tab 08/23/19 09/07/19 Rx dutasteride 0.5 mg PO PM 09/07/19 09/07/19 History rivaroxaban [Xarelto] 20 mg PO PM 09/07/19 09/07/19 History rosuvastatin 40 mg PO PM 09/07/19 09/07/19 History Past Med/Surg History Medical History Moderate obstructive sleep apnea (Acute) Granulomatous lung disease (Acute) Diabetes mellitus (Acute) Chronic obstructive pulmonary disease, group A, by Global Initiative for Chronic Obstructive Lung Disease 2013 classification (Acute) CAD in elim ira artery (Acute) Benign localized prostatic hyperplasia with lower urinary tract symptoms (LUTS) (Acute) Atrial flutter, paroxysmal (Acute) Anticoagulant long-term use (Acute) Surgical History History of PTCA History of dental surgery History of hand surgery History of heart artery stent Cath Stent 1 Distal Circumflex History of transurethral prostatectomy Prostate Resection Transurethral Family History Grandmother (Paternal) No problems noted. Mother Cardiac arrhythmia Depression Osteoporosis Sister Depression Father Prostate cancer Social History Preferred Language: Nepali Communication Ability: Effective Visual Impairment: No Limitations Hearing Ability: Normal Strap Stitcher Required: No Beliefs That Will Affect Care: None marital status: Current Living Situation: Spouse current occupational status: retired Other Information That Helps Us Care for You: No Feels Safe at Home: Yes Safety Concerns: Feels Safe At This Time Smoking Status: Former smoker Hx Alcohol Use: No Hx Substance Use: No Review of Systems Review of Systems: All systems reviewed & are unremarkable except as noted in HPI & below Physical Exam Constitutional: WD/WN, vitals as above well developed and + obese Eyes: PERRL, conjunctivae normal, anicteric sclerae ENMT: external ear and nose normal, oropharynx normal Neck: trachea midline, no thyromegaly Respiratory: normal respiratory effort, lungs clear to auscultation Cardiovascular: Heart Sounds: normal S1 and normal S2 Palpation: normal PMI Vessels: dorsalis pedis pulses present Gastrointestinal (Abdomen): normal bowel sounds, soft, nontender, no hepatosplenomegaly Musculoskeletal: no cyanosis or clubbing, extremities motor strength 5/5 Skin: no rashes, warm and dry pale Neurologic: patellar DTR's 2+ bilat, sensation intact Psychiatric: A+Ox3, euthymic affect Lymphatic: no cervical or axillary lymphadenopathy Results & Data Vital Signs (Past 12 Hours) Vital Signs Temp Pulse Pulse Resp BP BP Pulse Ox 09/07/19 18:30 36.9 C 97 H 22 138/80 98 09/07/19 18:15 36.8 C 97 H 20 121/84 97 09/07/19 18:00 36.6 C 97 H 21 126/57 L 98 09/07/19 17:17 95 H 22 144/80 H 99 09/07/19 16:05 95 H 26 H 09/07/19 16:02 180/156 H 09/07/19 15:59 93 H 18 98 09/07/19 15:45 93 H 17 130/84 09/07/19 15:00 89 17 93 09/07/19 14:30 88 14 144/87 H 99 09/07/19 14:22 89 20 130/64 99 09/07/19 14:13 36.9 C 92 H 18 130/64 99 Code Status & VTE Plan Code Status Full code VTE Prophylaxis Plan VTE Prophylaxis will be ordered: No PG Care Time/CCT Total # of Minutes Spent Total Time Spent with Patient: Total time spent is greater than 50% in coordination of care (as documented) at patient's floor/unit and/or counseling patient:
[2019-09-07] MEDS ORDERED: GLUCAGON FOR INJ 1 MG VIAL SQ PRN (19:38)
[2019-09-07] MEDS ORDERED: MAGNESIUM HYDROXIDE SUSP 30 ML UDC PO PRN (19:38)
[2019-09-07] MEDS ORDERED: DEXTROSE 50% 50 ML SYRINGE IV PRN (19:38)
[2019-09-07] MEDS ORDERED: CARBOHYDRATES FOR HYPOGLYCEMIA PO PRN (19:38)
[2019-09-07] MEDS ORDERED: GLUCOSE 40% GEL 15 GM TUBE PO PRN (19:38)
[2019-09-07] MEDS ORDERED: NITROGLYCERIN SL 0.4 MG/TAB TAB SL PRN (19:38)
[2019-09-07] MEDS ORDERED: GLUCOSE 10 TABS/TUBE PO PRN (19:38)
[2019-09-07] MEDS ORDERED: ACETAMINOPHEN 325 MG TAB PO PRN (19:38)
[2019-09-07] MEDS ORDERED: ALUMINUM/MAGNESIUM SUSP 30 ML UDC PO PRN (19:38)
[2019-09-07] MEDS ORDERED: MECLIZINE HCL 25 MG TAB PO PRN (19:38)
[2019-09-07] MEDS ORDERED: PHARMACY GLYCEMIC MGMT CONSULT PRN (19:38)
[2019-09-07] MEDS ORDERED: ONDANSETRON INJ 2 MG/ML 2 ML VIAL IV PRN (19:38)
[2019-09-07] MEDS ORDERED: ALBUT/IPRATROP 3MG/0.5MG NEB 3 ML VIAL INH PRN (19:38)
[2019-09-07] MEDS ORDERED: ALBUTEROL HFA 8 GM INHALER INH PRN (19:38)
[2019-09-07] MEDS ORDERED: SODIUM CHLORIDE 0.9% 1000ML 1,000 ML IV SCH (19:38)
[2019-09-07] MEDS ORDERED: INSULIN ASPART 100 UNITS/ML 3 ML PEN SC SCH (21:00)
[2019-09-07] MEDS ORDERED: INSULIN GLARGINE SOLOSTAR 100 UNITS/ML 3 ML PEN SC ONE (21:45)
[2019-09-07] MEDS: FLUTICASONE/SALMETEROL 250/50 (ADVAIR) 14 PUFF/1 INHALER INH SCH (22:19)
[2019-09-07] MEDS: ROSUVASTATIN CALCIUM 20 MG TAB PO SCH (22:19)
--- NOTE | 2019-09-07 22:41 | Emergency Department Note ---
Entered by Kym Jordan acting as a scribe for Kev Rodriguez History of Present Illness General Chief complaint: Shortness of Breath/Dyspnea Stated complaint: sob Time Seen by Provider: 09/07/19 14:58 Source: patient History of Present Illness Provider complaint: Shortness of Breath/Dyspnea Onset (ago): day(s) 1 Radiation: non-radiation Relieved By: + none Exacerbated By: + movement Associated symptoms: + denies other symptoms (Loss of consciousness, hemoptysis, melena, hematuria ), + cough, + nausea/vomiting and + other (Dizziness, weight gain); no chest pain The patient is a 74 year old male who presents to the Emergency Room with compla ints of shortness of breath/dyspnea that began yesterday. The patient states the symptoms do not radiate anywhere else on the body and is not relieved by anything specific. The patient also states the symptoms are exacerbated by movement. The patient reports experiencing a cough and nausea/vomiting. Additionally, the patient reports experiencing dizziness and weight gain. The patient denies experiencing any loss of consciousness, hemoptysis, melena, hematuria, or chest pain. The patient mentioned that he wears oxygen at night and stopped smoking 20 years ago. Home Medications Home Medications Medication Instructions Recorded Confirmed Type ipratropium-albuterol 0.5 mg-3 3 ml INH .COMPLEX PRN #180 ml 05/12/19 09/07/19 Rx mg(2.5 mg base)/3 mL nebulization soln nitroglycerin 0.4 mg sublingual 0.4 mg SL UD PRN #25 tab 05/16/19 09/07/19 History tablet Oxygen Home #1 ea 05/17/19 09/07/19 History albuterol sulfate HFA 90 1 - 2 puffs INH Q6H PRN #18 gm 05/17/19 09/07/19 Rx mcg/actuation aerosol inhaler hydrochlorothiazide 25 mg tablet 25 mg PO DAILY #90 tab 05/17/19 09/07/19 Rx lisinopril 20 mg tablet 30 mg PO DAILY #135 tab 05/17/19 09/07/19 Rx metformin 500 mg tablet See Rx Instructions PO BID #270 tab 05/17/19 09/07/19 Rx metoprolol succinate ER 100 mg 150 mg PO DAILY #135 tab 05/17/19 09/07/19 Rx tablet,extended release 24 hr omeprazole 10 mg capsule,delayed 20 mg PO DAILY #90 cap 05/17/19 09/07/19 Rx release tiotropium bromide 2.5 2 puffs INHALATION DAILY #3 gm 05/17/19 09/07/19 History mcg/actuation mist for inhalation fluticasone 250 mcg-salmeterol 50 1 puffs INHALATION BID #60 ea 06/27/19 09/07/19 Rx mcg/dose blistr powdr for inhalation aspirin 81 mg tablet,delayed 81 mg PO DAILY #30 tab 08/23/19 09/07/19 History release meclizine 25 mg tablet 25 mg PO Q6H PRN #60 tab 08/23/19 09/07/19 Rx dutasteride 0.5 mg PO PM 09/07/19 09/07/19 History rivaroxaban [Xarelto] 20 mg PO PM 09/07/19 09/07/19 History rosuvastatin 40 mg PO PM 09/07/19 09/07/19 History Allergies Allergy/AdvReac Type Severity Reaction Status Date / Time acetaminophen AdvReac Intermediate vomiting Verified 09/07/19 14:48 hydrocodone AdvReac Intermediate vomiting Verified 09/07/19 14:48 Past Med/Surg History Medical History Moderate obstructive sleep apnea (Acute) Granulomatous lung disease (Acute) Diabetes mellitus (Acute) Chronic obstructive pulmonary disease, group A, by Global Initiative for Chronic Obstructive Lung Disease 2013 classification (Acute) CAD in table [place] artery (Acute) Benign localized prostatic hyperplasia with lower urinary tract symptoms (LUTS) (Acute) Atrial flutter, paroxysmal (Acute) Anticoagulant long-term use (Acute) Surgical History History of PTCA History of dental surgery History of hand surgery History of heart artery stent Cath Stent 1 Distal Circumflex History of transurethral prostatectomy Prostate Resection Transurethral Family History Grandmother (Paternal) No problems noted. Mother Cardiac arrhythmia Depression Osteoporosis Sister Depression Father Prostate cancer Social History Preferred Language: Upper Sorbian Communication Ability: Effective Visual Impairment: No Limitations Hearing Ability: Normal Event Promotions Coordinator Required: No Beliefs That Will Affect Care: None marital status: Current Living Situation: Spouse current occupational status: retired Other Information That Helps Us Care for You: No Feels Safe at Home: Yes Safety Concerns: Feels Safe At This Time Smoking Status: Former smoker Hx Alcohol Use: No Hx Substance Use: No Review of Systems See HPI for pertinent positives & negatives. and A total of 10 systems reviewed and were otherwise negative Physical Exam Vital Signs Vital Signs - 24 hr 09/07/19 14:13 09/07/19 14:22 09/07/19 14:30 Temperature 36.9 C Temperature Source Oral Sepsis Recent Fever Within 48 Hours No Sepsis New/Unexplained Change in Mental Status No Sepsis Action Taken by Nursing No Action Required Pulse Rate 92 H 89 88 Pulse Rate [Right Finger] Pulse Rate from SpO2 Sensor 90 90 Pulse Rhythm Pulse Strength Respiratory Rate 18 20 14 Respiratory Effort / Characteristics Non-Labored Respiratory Depth Normal Respiratory Pattern Regular Blood Pressure 130/64 130/64 144/87 H Blood Pressure [Right Arm] Blood Pressure Mean 86 86 106 Blood Pressure Mean [Right Arm] Blood Pressure Position Pulse Oximetry 99 99 99 Oxygen Delivery Method Room Air Room Air Room Air 09/07/19 15:00 09/07/19 15:45 09/07/19 15:59 Temperature Temperature Source Sepsis Recent Fever Within 48 Hours Sepsis New/Unexplained Change in Mental Status Sepsis Action Taken by Nursing Pulse Rate 89 93 H Pulse Rate [Right Finger] 93 H Pulse Rate from SpO2 Sensor Pulse Rhythm Pulse Strength Respiratory Rate 17 17 18 Respiratory Effort / Characteristics Non-Labored Spontaneous Respiratory Depth Respiratory Pattern Blood Pressure 130/84 Blood Pressure [Right Arm] Blood Pressure Mean 99 Blood Pressure Mean [Right Arm] Blood Pressure Position Pulse Oximetry 93 98 Oxygen Delivery Method Room Air Room Air 09/07/19 16:02 09/07/19 16:05 09/07/19 17:17 Temperature Temperature Source Sepsis Recent Fever Within 48 Hours Sepsis New/Unexplained Change in Mental Status Sepsis Action Taken by Nursing Pulse Rate 95 H Pulse Rate [Right Finger] 95 H Pulse Rate from SpO2 Sensor Pulse Rhythm Pulse Strength Respiratory Rate 26 H 22 Respiratory Effort / Characteristics Respiratory Depth Respiratory Pattern Blood Pressure 180/156 H Blood Pressure [Right Arm] 144/80 H Blood Pressure Mean 164 Blood Pressure Mean [Right Arm] 101 Blood Pressure Position Pulse Oximetry 99 Oxygen Delivery Method 09/07/19 18:00 09/07/19 18:15 09/07/19 18:30 Temperature 36.6 C 36.8 C 36.9 C Temperature Source Oral Oral Oral Sepsis Recent Fever Within 48 Hours Sepsis New/Unexplained Change in Mental Status Sepsis Action Taken by Nursing Pulse Rate 97 H 97 H 97 H Pulse Rate [Right Finger] Pulse Rate from SpO2 Sensor Pulse Rhythm Regular Regular Regular Pulse Strength Normal Normal Normal Respiratory Rate 21 20 22 Respiratory Effort / Characteristics Respiratory Depth Respiratory Pattern Blood Pressure 126/57 L 121/84 138/80 Blood Pressure [Right Arm] Blood Pressure Mean 80 96 99 Blood Pressure Mean [Right Arm] Blood Pressure Position Lying Lying Lying Pulse Oximetry 98 97 98 Oxygen Delivery Method GENERAL: He is oriented to person, place, and time. He appears well-developed and well-nourished. He does not appear distressed. Pale. HENT: Exam performed. - Head: Normocephalic and atraumatic. - Right Ear: External ear normal. No mastoid tenderness. - Left Ear: External ear normal. No mastoid tenderness. - Mouth/Throat: The oropharynx is clear and moist. No trismus in the jaw. No dental abscesses or uvula swelling. No oropharyngeal exudate or tonsillar abscesses. EYES: Conjunctivae and EOM are normal. Pupils are equal, round, and reactive to light. Right eye exhibits no discharge. Left eye exhibits no discharge. No scleral icterus. NECK: Normal range of motion. Neck supple. No JVD present. No spinous process tenderness present. No carotid bruit present. No rigidity. No tracheal deviation and normal range of motion present. No Brudzinski's sign and no Kernig's sign noted. CV: Normal rate, irregular rhythm, normal heart sounds and intact distal pulses. There is no peripheral edema. Palpable radial pulses bue. PULM/CHEST: Effort normal and breath sounds normal. No respiratory distress. No stridor. Expiratory wheezes bilaterally. He has no rales. - Chest Wall: He exhibits no tenderness. ABD: The abdomen is soft. Bowel sounds are normal. He has no distension. No mass is present. There is no tenderness. There is no rebound, no guarding, no Kerr's sign and no tenderness at McBurney's point. Rovsig negative. MUSC/SKEL: Normal range of motion. There is no peripheral edema, tenderness or deformity. LYMPH: No cervical adenopathy. NEURO: He is alert and oriented to person, place, and time. He has normal strength. No cranial nerve deficit or sensory deficit. Coordination and gait normal. GCS eye subscore is 4. GCS verbal subscore is 5. GCS motor subscore is 6. Cerebellar tests wnl. SKIN: Skin is warm and dry. He is not diaphoretic. Pale appearing PSYCH: He has a normal mood and affect. Behavior is normal. Judgment and thought content normal. Course 1518: Past medical records reviewed. The patient was evaluated in room C12B. A complete history and physical exam was performed. 1600: I reviewed the patient's labs and his hemoglobin is 6.1 which is down from his baseline of 11. The patient denied experiencing any hematuria or hematochezia. He will get two pack units of red blood cells. Rectal exam perfo rmed with nursing at bedside showed no bright red blood per rectum Hemoccult negative. Patient will be admitted to the [facility]. 1608: I spoke with Dr. Camacho- Hospitalist about the patient's case and he will accept him for further evaluation. Administered Medications Sodium Chloride (Nss 1000ml) 1,000 mls @ 80 mls/hr IV .[id number] RAY Stop: 09/08/19 08:07 Last Admin: 09/07/19 20:17 Dose: 80 mls/hr Documented by: [id number] Rosuvastatin Calcium (Crestor) 40 mg PO PM RAY Stop: 10/07/19 20:59 Last Admin: 09/07/19 22:19 Dose: 40 mg Documented by: [id number] Fluticasone/Salmeterol (Advair Diskus 250/50) 1 puffs INH BID RAY Stop: 10/07/19 20:59 Last Admin: 09/07/19 22:19 Dose: 1 puffs Documented by: [id number] Discontinued Medications Albuterol (Duoneb) 3 ml NEB NOW STA Stop: 09/07/19 15:27 Last Admin: 09/07/19 15:58 Dose: 3 ml Documented by: [id number] Insulin Aspart (Novolog Flexpen) 0 units SC ACHS RAY Stop: 09/07/19 21:01 Last Admin: 09/07/19 22:22 Dose: 4 units Documented by: [id number] Cosigned by: [id number] Methylprednisolone (Solumedrol) 125 mg IV NOW STA Stop: 09/07/19 15:27 Last Admin: 09/07/19 15:44 Dose: 125 mg Documented by: [id number] Medical Decision Making Medical Records Attestation: I reviewed the patient's medical records. Home Medications Current Medication List: was personally reviewed by me Laboratory Data Attestation: I reviewed the patient's lab results. Result diagrams: 09/07/19 15:04 09/07/19 15:04 Lab Results 09/07/19 09/07/19 09/07/19 Range/Units 15:04 15:04 15:04 WBC 7.99 (4.8-10.8) K/uL RBC 3.50 L (4.7-6.1) M/uL Hgb 6.1 L* (14.0-18.0) g/dL Hct 23.0 L (42-52) % MCV 65.7 L (80-100) fL MCH 17.4 L (25-34) pg MCHC 26.5 L (32-36) g/dL RDW Std Deviation 47.6 H (36.4-46.3) fL RDW Coeff of Freeman 19.9 H (11.5-14.5) % Plt Count 260 (130-400) K/uL MPV 9.7 (7.4-10.4) fL Immature Gran % (Auto) 0.3 % Neut % (Auto) 81.1 % Lymph % (Auto) 9.6 % [place] % (Auto) 5.8 % Eos % (Auto) 2.6 % Baso % (Auto) 0.6 % Immature Gran # (Auto) 0.02 (0.00-0.02) K/uL Neut # (Auto) 6.48 (1.4-6.5) K/uL Lymph # (Auto) 0.77 L (1.2-3.4) K/uL [place] # (Auto) 0.46 (0.11-0.59) K/uL Eos # (Auto) 0.21 (0-0.5) K/uL Baso # (Auto) 0.05 (0-0.2) K/uL Giant Platelets 1+ Polychromasia 1+ Hypochromasia Present Microcytosis Present Tear Drop Cells 1+ PT 10.9 (9.0-12.0) Seconds INR 1.1 (0.9-1.1) APTT 22.9 (21.0-31.0) Seconds PTT Ratio 0.8 VBG pH (7.36-7.41) VBG pCO2 (38-50) mmHg VBG pO2 mmHg VBG HCO3 mmol/L VBG O2 Saturation % VBG Base Excess mEq/L Barometric Pressure mm/Hg Sodium 134 L (136-145) mmol/L Potassium 4.3 (3.5-5.1) mmol/L Chloride 102 (98-107) mmol/L Carbon Dioxide 24 (21-32) mmol/L Anion Gap 8.0 (3-11) BUN 22 H (7-18) mg/dl Creatinine 1.25 (0.6-1.4) mg/dl Est Cr Clr Drug Dosing 64.8 ml/min Est GFR ( Amer) 64.4 Est GFR (Non-Af Amer) 55.6 BUN/Creatinine Ratio 17.4 (10-20) Glucose 144 H (70-99) mg/dl Lactate (0.4-2.0) mmol/L Calcium 8.5 (8.5-10.1) mg/dl Magnesium 1.9 (1.8-2.4) mg/dl Total Bilirubin 0.5 (0.2-1) mg/dl Direct Bilirubin 0.1 (0-0.2) mg/dl AST 12 L (15-37) U/L ALT 18 (12-78) U/L Alkaline Phosphatase 71 (45-117) U/L Troponin I < 0.015 (0-0.045) ng/ml NT-Pro-B Natriuret Pep 423 (0-1800) pg/ml Total Protein 7.4 (6.4-8.2) gm/dl Albumin 3.6 (3.4-5.0) gm/dl TSH (0.300-4.500) uIu/ml Influenza Type A (PCR) (Neg) Influenza Type B (PCR) (Neg) Blood Type Blood Type Recheck Antibody Screen Crossmatch 09/07/19 09/07/19 09/07/19 Range/Units 15:04 15:04 15:04 WBC (4.8-10.8) K/uL RBC (4.7-6.1) M/uL Hgb (14.0-18.0) g/dL Hct (42-52) % MCV (80-100) fL MCH (25-34) pg MCHC (32-36) g/dL RDW Std Deviation (36.4-46.3) fL RDW Coeff of Freeman (11.5-14.5) % Plt Count (130-400) K/uL MPV (7.4-10.4) fL Immature Gran % (Auto) % Neut % (Auto) % Lymph % (Auto) % [place] % (Auto) % Eos % (Auto) % Baso % (Auto) % Immature Gran # (Auto) (0.00-0.02) K/uL Neut # (Auto) (1.4-6.5) K/uL Lymph # (Auto) (1.2-3.4) K/uL [place] # (Auto) (0.11-0.59) K/uL Eos # (Auto) (0-0.5) K/uL Baso # (Auto) (0-0.2) K/uL Giant Platelets Polychromasia Hypochromasia Microcytosis Tear Drop Cells PT (9.0-12.0) Seconds INR (0.9-1.1) APTT (21.0-31.0) Seconds PTT Ratio VBG pH (7.36-7.41) VBG pCO2 (38-50) mmHg VBG pO2 mmHg VBG HCO3 mmol/L VBG O2 Saturation % VBG Base Excess mEq/L Barometric Pressure mm/Hg Sodium Cancelled (136-145) mmol/L Potassium Cancelled (3.5-5.1) mmol/L Chloride Cancelled (98-107) mmol/L Carbon Dioxide Cancelled (21-32) mmol/L Anion Gap Cancelled (3-11) BUN Cancelled (7-18) mg/dl Creatinine Cancelled (0.6-1.4) mg/dl Est Cr Clr Drug Dosing Cancelled ml/min Est GFR ( Amer) Cancelled Est GFR (Non-Af Amer) Cancelled BUN/Creatinine Ratio Cancelled (10-20) Glucose Cancelled (70-99) mg/dl Lactate (0.4-2.0) mmol/L Calcium Cancelled (8.5-10.1) mg/dl Magnesium Cancelled (1.8-2.4) mg/dl Total Bilirubin Cancelled (0.2-1) mg/dl Direct Bilirubin Cancelled (0-0.2) mg/dl AST Cancelled (15-37) U/L ALT Cancelled (12-78) U/L Alkaline Phosphatase Cancelled (45-117) U/L Troponin I Cancelled (0-0.045) ng/ml NT-Pro-B Natriuret Pep Cancelled (0-1800) pg/ml Total Protein Cancelled (6.4-8.2) gm/dl Albumin Cancelled (3.4-5.0) gm/dl TSH 1.340 (0.300-4.500) uIu/ml Influenza Type A (PCR) Neg for Influ A (Neg) Influenza Type B (PCR) Neg for Influ B (Neg) Blood Type Blood Type Recheck Antibody Screen Crossmatch 09/07/19 09/07/19 09/07/19 Range/Units 15:43 15:43 15:51 WBC (4.8-10.8) K/uL RBC (4.7-6.1) M/uL Hgb (14.0-18.0) g/dL Hct (42-52) % MCV (80-100) fL MCH (25-34) pg MCHC (32-36) g/dL RDW Std Deviation (36.4-46.3) fL RDW Coeff of Freeman (11.5-14.5) % Plt Count (130-400) K/uL MPV (7.4-10.4) fL Immature Gran % (Auto) % Neut % (Auto) % Lymph % (Auto) % [place] % (Auto) % Eos % (Auto) % Baso % (Auto) % Immature Gran # (Auto) (0.00-0.02) K/uL Neut # (Auto) (1.4-6.5) K/uL Lymph # (Auto) (1.2-3.4) K/uL [place] # (Auto) (0.11-0.59) K/uL Eos # (Auto) (0-0.5) K/uL Baso # (Auto) (0-0.2) K/uL Giant Platelets Polychromasia Hypochromasia Microcytosis Tear Drop Cells PT (9.0-12.0) Seconds INR (0.9-1.1) APTT (21.0-31.0) Seconds PTT Ratio VBG pH 7.43 H (7.36-7.41) VBG pCO2 37 L (38-50) mmHg VBG pO2 24 mmHg VBG HCO3 24 mmol/L VBG O2 Saturation < 60.0 % VBG Base Excess -0.4 mEq/L Barometric Pressure 733.2 mm/Hg Sodium (136-145) mmol/L Potassium (3.5-5.1) mmol/L Chloride (98-107) mmol/L Carbon Dioxide (21-32) mmol/L Anion Gap (3-11) BUN (7-18) mg/dl Creatinine (0.6-1.4) mg/dl Est Cr Clr Drug Dosing ml/min Est GFR ( Amer) Est GFR (Non-Af Amer) BUN/Creatinine Ratio (10-20) Glucose (70-99) mg/dl Lactate 3.2 H* (0.4-2.0) mmol/L Calcium (8.5-10.1) mg/dl Magnesium (1.8-2.4) mg/dl Total Bilirubin (0.2-1) mg/dl Direct Bilirubin (0-0.2) mg/dl AST (15-37) U/L ALT (12-78) U/L Alkaline Phosphatase (45-117) U/L Troponin I (0-0.045) ng/ml NT-Pro-B Natriuret Pep (0-1800) pg/ml Total Protein (6.4-8.2) gm/dl Albumin (3.4-5.0) gm/dl TSH (0.300-4.500) uIu/ml Influenza Type A (PCR) (Neg) Influenza Type B (PCR) (Neg) Blood Type A Positive Blood Type Recheck Antibody Screen NEGATIVE Crossmatch See Detail 09/07/19 Range/Units 16:53 WBC (4.8-10.8) K/uL RBC (4.7-6.1) M/uL Hgb (14.0-18.0) g/dL Hct (42-52) % MCV (80-100) fL MCH (25-34) pg MCHC (32-36) g/dL RDW Std Deviation (36.4-46.3) fL RDW Coeff of Freeman (11.5-14.5) % Plt Count (130-400) K/uL MPV (7.4-10.4) fL Immature Gran % (Auto) % Neut % (Auto) % Lymph % (Auto) % [place] % (Auto) % Eos % (Auto) % Baso % (Auto) % Immature Gran # (Auto) (0.00-0.02) K/uL Neut # (Auto) (1.4-6.5) K/uL Lymph # (Auto) (1.2-3.4) K/uL [place] # (Auto) (0.11-0.59) K/uL Eos # (Auto) (0-0.5) K/uL Baso # (Auto) (0-0.2) K/uL Giant Platelets Polychromasia Hypochromasia Microcytosis Tear Drop Cells PT (9.0-12.0) Seconds INR (0.9-1.1) APTT (21.0-31.0) Seconds PTT Ratio VBG pH (7.36-7.41) VBG pCO2 (38-50) mmHg VBG pO2 mmHg VBG HCO3 mmol/L VBG O2 Saturation % VBG Base Excess mEq/L Barometric Pressure mm/Hg Sodium (136-145) mmol/L Potassium (3.5-5.1) mmol/L Chloride (98-107) mmol/L Carbon Dioxide (21-32) mmol/L Anion Gap (3-11) BUN (7-18) mg/dl Creatinine (0.6-1.4) mg/dl Est Cr Clr Drug Dosing ml/min Est GFR ( Amer) Est GFR (Non-Af Amer) BUN/Creatinine Ratio (10-20) Glucose (70-99) mg/dl Lactate (0.4-2.0) mmol/L Calcium (8.5-10.1) mg/dl Magnesium (1.8-2.4) mg/dl Total Bilirubin (0.2-1) mg/dl Direct Bilirubin (0-0.2) mg/dl AST (15-37) U/L ALT (12-78) U/L Alkaline Phosphatase (45-117) U/L Troponin I (0-0.045) ng/ml NT-Pro-B Natriuret Pep (0-1800) pg/ml Total Protein (6.4-8.2) gm/dl Albumin (3.4-5.0) gm/dl TSH (0.300-4.500) uIu/ml Influenza Type A (PCR) (Neg) Influenza Type B (PCR) (Neg) Blood Type Blood Type Recheck A Positive Antibody Screen Crossmatch Imaging Data Radiologist's Impression: Radiology results as stated below per my review and the radiologist's interpretation: XR chest 2V PA/lateral CLINICAL HISTORY: 74 years-old Male presenting with sob. TECHNIQUE: PA and lateral views of the chest were obtained. COMPARISON: 03/19/[address] from 09/09/2018. FINDINGS: Atherosclerosis of the aortic arch. Cardiac silhouette mildly enlarged. Lungs are hyperinflated. No focal opacity. No pleural effusion or pneumothorax. Degenerative changes of the thoracic spine. Upper abdomen normal. IMPRESSION: 1. Findings suggest emphysema. No focal infiltrate to suggest pneumonia. 2. Mild cardiomegaly. No congestive change or volume overload is evident. Electronically signed by: Emil Lindsay M.D. 09/07/2019 4:29 PM ECG Data Attestation: I personally reviewed and interpreted this ECG as follows: Indication: SOB/dyspnea Rate (beats per minute): 88 Rhythm: normal sinus Findings: + other (UT 224, QRS and QTC within normal limits) and + 1st degree AV block; no ST depression and no ST elevation Blood Pressure Blood Pressure Findings: Elevated blood pressure Blood Pressure Disposition: further management by hospitalist [facility] Narrative I reviewed the patient's labs and his hemoglobin is 6.1 which is down from his baseline of 11. The patient denied experiencing any hematuria or hematochezia. He will get two pack units of red blood cells. Rectal exam performed with nursing at bedside showed no bright red blood per rectum Hemoccult negative. Patient will be admitted to the [facility] hospital service. Impression & Plan Symptomatic anemia Critical Care Time Critical Care Time: Yes Total Critical Care Time: 40 I have personally spent 40 minutes of critical care time in the direct management of this patient. This includes bedside care, interpretation of diagnostic studies, and testing, discussion with consultants, patient, and family members, and other required patient management activities. This 40 minutes is in excess of all separately billable procedures. Discharge Plan Visit Data *Final* Discharge Date/Time: 09/07/19 18:59 Chief Complaint: Shortness of Breath/Dyspnea Stated Complaint: sob ED Provider: Kev Rodriguez Discharge Problem: Symptomatic anemia Patient Disposition: Admitted As Inpatient Discharge Instructions Interventions: ED Discharge Assessment Last Done: 09/07/19 18:59 The scribe's documentation has been prepared under my direction and personally reviewed by me in its entirety. I confirm that the note above accurately reflects all work, treatment, procedures, and medical decision making performed by me.
[2019-09-07] MEDS: INSULIN ASPART 100 UNITS/ML 3 ML PEN SC SCH (23:47)
[2019-09-08 01:56] LABS: Hematocrit (blood only) 27.6 % (42-52); Hemoglobin 7.6 g/dL (14.0-18.0); Mean Corpuscular Hemoglobin 18.8 pg (25-34); Mean Corpuscular Hgb Conc 27.5 g/dL (32-36); Mean Corpuscular Volume 68.3 fL (80-100); Mean Platelet Volume 9.8 fL (7.4-10.4); Platelet Count 260 K/uL (130-400); RDW Coefficient of Variation 22.6 % (11.5-14.5); RDW Standard Deviation 55.8 fL (36.4-46.3); Red Blood Count 4.04 M/uL (4.7-6.1); White Blood Count 9.37 K/uL (4.8-10.8)
[2019-09-08 02:13] LABS: Albumin Level 3.5 gm/dl (3.4-5.0); BUN Creatinine Ratio 15.5 (10-20); Calcium 8.6 mg/dl (8.5-10.1); Creatinine Clr Calc Pharmacy 61.8 ml/min; Est GFR (African American) 60.9; Est GFR (Non-African American) 52.5; Potassium 3.8 mmol/L (3.5-5.1)
[2019-09-08 02:16] LABS: Albumin Globulin Ratio 0.9 (0.9-2); Bilirubin,Total 0.9 mg/dl (0.2-1); Globulin 3.8 gm/dl (2.5-4.0); Total Protein 7.3 gm/dl (6.4-8.2)
[2019-09-08 02:19] LABS: Anisocytosis Present; Hypochromasia Present; Immature Granulocytes # (auto) 0.05 K/uL (0.00-0.02); Immature Granulocytes % (auto) 0.5 %; Lymphocytes # (auto) 0.39 K/uL (1.2-3.4); Lymphocytes % (auto) 4.2 %; Microcytosis Present; Monocytes # (auto) 0.05 K/uL (0.11-0.59); Monocytes % (auto) 0.5 %; Neutrophils # (auto) 8.88 K/uL (1.4-6.5); Neutrophils % (auto) 94.8 %; Polychromasia 1+
[2019-09-08] MEDS ORDERED: IOVERSOL 100ml IV PRN (02:37)
[2019-09-08] MEDS: INSULIN ASPART 100 UNITS/ML 3 ML PEN SC SCH ×5 (05:47→23:48)
[2019-09-08 06:12] LABS: Estimated Average Glucose 154 mg/dl
--- NOTE | 2019-09-08 06:47 | CT Scan Report ---
CT abd pelvis oral and IV con CT DOSE: 1801.51 mGy.cm HISTORY: Pain. Nausea. possible GI bleed , severe anemia TECHNIQUE: Multiaxial CT images of the abdomen and pelvis were performed following the use of intrave nous and oral contrast. A dose lowering technique was utilized adhering to the principles of ALARA. COMPARISON STUDY: 03/10/2016 FINDINGS: Lung bases are clear. Liver spleen and pancreas are unremarkable. No evidence for gallbladd er distention. Left renal cyst. No evidence for hydronephrosis. Abdominal bowel pattern is nonobstructive. Normal appendix. Unchanged right posterior bladder diverticulum. Trace pericolonic infiltrative minaya e associated with several diverticuli of the proximal sigmoid colon. No evidence for abscess collecti on or obstruction. IMPRESSION: 1. Proximal sigmoid diverticulitis considered mild. 2. No evidence for abscess collection or obstruction. 3. No additional acute abnormality of the abdomen or pelvis. The above report was generated using voice recognition software. It may contain grammatical, syntax or spelling errors. Electronically signed by: Salas Lowry M.D. 09/08/2019 6:46 AM
[2019-09-08] MEDS ORDERED: INSULIN GLARGINE SOLOSTAR 100 UNITS/ML 3 ML PEN SC ONE ×2 (08:00→21:00)
[2019-09-08 08:04] LABS: Basophils # (auto) 0.01 K/uL (0-0.2); Basophils % (auto) 0.1 %; Hematocrit (blood only) 26.9 % (42-52); Hemoglobin 7.8 g/dL (14.0-18.0); Immature Granulocytes # (auto) 0.03 K/uL (0.00-0.02); Immature Granulocytes % (auto) 0.3 %; Lymphocytes # (auto) 0.45 K/uL (1.2-3.4); Lymphocytes % (auto) 4.1 %; Mean Corpuscular Hemoglobin 19.6 pg (25-34); Mean Corpuscular Volume 67.6 fL (80-100); Mean Platelet Volume 9.4 fL (7.4-10.4); Monocytes # (auto) 0.07 K/uL (0.11-0.59); Monocytes % (auto) 0.6 %; Neutrophils # (auto) 10.38 K/uL (1.4-6.5); Neutrophils % (auto) 94.9 %; Nucleated RBC # (auto) 0.03 K/uL (0-0); Nucleated RBC % (auto) 0.3 %; Platelet Count 290 K/uL (130-400); RDW Coefficient of Variation 22.3 % (11.5-14.5); RDW Standard Deviation 54.2 fL (36.4-46.3); Red Blood Count 3.98 M/uL (4.7-6.1); White Blood Count 10.94 K/uL (4.8-10.8)
[2019-09-08 08:39] LABS: Anisocytosis Present; Hypochromasia Present; Microcytosis Present
[2019-09-08] MEDS ORDERED: PIPERACILL/TAZOBAC CONSULT ACTIVE PRN (08:39)
[2019-09-08] MEDS ORDERED: hydroCHLOROthiazide 25 MG TAB PO SCH (09:00)
[2019-09-08] MEDS: TIOTROPIUM BROMIDE 5 PUFF/90 MCG INH INH SCH (09:04)
[2019-09-08] MEDS: FLUTICASONE/SALMETEROL 250/50 (ADVAIR) 14 PUFF/1 INHALER INH SCH ×2 (09:04→19:39)
[2019-09-08] MEDS: METOPROLOL SUCC 50MG EXT REL TAB PO SCH (09:08)
[2019-09-08] MEDS: lisinopriL 20 MG TAB PO SCH (09:08)
[2019-09-08] MEDS ORDERED: SODIUM CHLORIDE 0.9% 1000ML 1,000 ML IV SCH (09:45)
[2019-09-08] MEDS ORDERED: PIPERACILLIN/TAZOBACTAM 4.5 GM in DEXTROSE 5% 100 ML IV ONE (09:45)
--- NOTE | 2019-09-08 10:17 | Gastrointestinal Consultation ---
Date of Consultation September 08, 2019 Assessment & Plan (1) Anemia: H/H now 7.8/26.9. Heme negative. No previous EGD or colonoscopy available for review. Patient is not a candidate for colonoscopy with active diverticulitis, though he reports that even when he is, he will NOT be proceeding with this. -EGD for further evaluation of anemia -Prevacid 30 mg BID for now, but if EGD today indicates an active upper GI bleed, would recommend converting to IV BID PPI therapy. -Keep NPO. Present on Admission?: Yes (2) Diverticulitis large intestine: -Continue IV Zosyn for now with eventual transition to oral antibiotics. Plan to complete 10 day course of antibiotics. -Low fiber diet when tolerating po -Normally would recommend a colonoscopy in 8 weeks, however patient is adamant that he is not interested in pursuing this. Present on Admission?: Yes Supervising Physician Co-Signing Physician Notes I personally evaluated the patient and agree with the findings as documented by Tamie Isaac, PAC Exam: abd: soft, nt, nd Proceed with EGD. risks/benefits and procedure discussed with patient, who agrees to proceed History of Present Illness Reason for Consultation: Anemia Attending Physician: Heather Jaime MD History of Present Illness Patient is a 74 yo male with a PMH of HLD, SHAWN, DM2, COPD, CAD, and A fib who presents to the hospital with nausea and shortness of breath. He reports his symptoms have progressed rapidly over the past week. He presented to the ED and was noted to have a hemoglobin of 6.1. He was heme negative in the ED. After 2 units PRBCs, his H/H is presently 7.8/26.9. He reports 5 months of nausea and reports some generalized abdominal pain. He denies hematemesis. He denies melena/hematochezia. He denies fevers or chills. The patient had a CT scan that indicated mild sigmoid diverticulitis. He is presently on Zosyn IV for this. He is unsure if this is a problem he has had before. The patient is adamant that he will not consent to a colonoscopy. He reports a previous bad experience with a colonoscopy many years ago (I can't find any records of this in our system). He is very vocal about his decision regarding this. He is agreeable to an EGD. He reports a 30 pack year history of smoking, though he quit 20 years ago. He reports daily NSAID use. Last CBC to compare to was in 2018 and his hemoglobin was 11.9 at that time. Allergies Allergy/AdvReac Type Severity Reaction Status Date / Time acetaminophen AdvReac Intermediate vomiting Verified 09/07/19 14:48 hydrocodone AdvReac Intermediate vomiting Verified 09/07/19 14:48 Home Medications Home Medications Medication Instructions Recorded Confirmed Type ipratropium-albuterol 0.5 mg-3 3 ml INH .COMPLEX PRN #180 ml 05/12/19 09/07/19 Rx mg(2.5 mg base)/3 mL nebulization soln nitroglycerin 0.4 mg sublingual 0.4 mg SL UD PRN #25 tab 05/16/19 09/07/19 History tablet Oxygen Home #1 ea 05/17/19 09/07/19 History albuterol sulfate HFA 90 1 - 2 puffs INH Q6H PRN #18 gm 05/17/19 09/07/19 Rx mcg/actuation aerosol inhaler hydrochlorothiazide 25 mg tablet 25 mg PO DAILY #90 tab 05/17/19 09/07/19 Rx lisinopril 20 mg tablet 30 mg PO DAILY #135 tab 05/17/19 09/07/19 Rx metformin 500 mg tablet See Rx Instructions PO BID #270 tab 05/17/19 09/07/19 Rx metoprolol succinate ER 100 mg 150 mg PO DAILY #135 tab 05/17/19 09/07/19 Rx tablet,extended release 24 hr omeprazole 10 mg capsule,delayed 20 mg PO DAILY #90 cap 05/17/19 09/07/19 Rx release tiotropium bromide 2.5 2 puffs INHALATION DAILY #3 gm 05/17/19 09/07/19 History mcg/actuation mist for inhalation fluticasone 250 mcg-salmeterol 50 1 puffs INHALATION BID #60 ea 06/27/19 09/07/19 Rx mcg/dose blistr powdr for inhalation aspirin 81 mg tablet,delayed 81 mg PO DAILY #30 tab 08/23/19 09/07/19 History release meclizine 25 mg tablet 25 mg PO Q6H PRN #60 tab 08/23/19 09/07/19 Rx dutasteride 0.5 mg PO PM 09/07/19 09/07/19 History rivaroxaban [Xarelto] 20 mg PO PM 09/07/19 09/07/19 History rosuvastatin 40 mg PO PM 09/07/19 09/07/19 History Patient History Medical History Moderate obstructive sleep apnea (Acute) Granulomatous lung disease (Acute) Diabetes mellitus (Acute) Chronic obstructive pulmonary disease, group A, by Global Initiative for Chronic Obstructive Lung Disease 2013 classification (Acute) CAD in [place] artery (Acute) Benign localized prostatic hyperplasia with lower urinary tract symptoms (LUTS) (Acute) Atrial flutter, paroxysmal (Acute) Anticoagulant long-term use (Acute) Surgical History History of PTCA History of dental surgery History of hand surgery History of heart artery stent Cath Stent 1 Distal Circumflex History of transurethral prostatectomy Prostate Resection Transurethral Family History Grandmother (Paternal) No problems noted. 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 Coordinator Required: No Beliefs That Will Affect Care: None marital status: Current Living Situation: Spouse current occupational status: retired Other Information That Helps Us Care for You: No Feels Safe at Home: Yes Safety Concerns: Feels Safe At This Time Smoking Status: Former smoker Hx Alcohol Use: No Hx Substance Use: No Review of Systems Constitutional: + fatigue; no fever and no chills Eyes: no acute complaints Ear, Nose, Mouth, Throat: no acute complaints Respiratory: no cough and no dyspnea Cardiovascular: no chest pain Gastrointestinal: + abdominal pain; no belching, no heartburn, no coffee gr ound emesis, no dysphagia, no change in bowel habits, no blood in stools and no melena Musculoskeletal: + back pain Integumentary: no rash Neurologic: no dizziness Psychiatric: agitated Endocrine: + fatigue Physical Exam Constitutional: WD/WN, vitals as above Eyes: PERRL, conjunctivae normal, anicteric sclerae ENMT: external ear and nose normal, oropharynx normal (skin tag around left eye) Neck: normal visual inspection Respiratory: normal respiratory effort, lungs clear to auscultation Cardiovascular: RRR, no murmur, no edema Gastrointestinal (Abdomen): normal bowel sounds, soft, nontender, no hepatosplenomegaly Musculoskeletal: no cyanosis or clubbing, extremities motor strength 5/5 Skin: no rashes, warm and dry Neurologic: normal speech Psychiatric: A+Ox3, euthymic affect Results & Data Vital Signs (Past 12 Hours) Vital Signs Temp Pulse Pulse Resp BP BP BP 09/08/19 07:30 36.6 C 112 H 20 143/88 H 09/08/19 06:43 36.7 C 101 H 20 139/75 09/08/19 04:00 36.4 C L 103 H 16 132/75 09/08/19 00:50 36.7 C 104 H 16 131/61 09/08/19 00:30 90 16 131/61 09/07/19 23:51 36.4 C L 102 H 16 128/73 09/07/19 23:30 103 H 16 149/83 H 09/07/19 23:00 36.8 C 106 H 16 144/79 H 09/07/19 22:51 109 H 16 144/73 H 09/07/19 22:30 36.3 C L 102 H 18 137/68 09/07/19 22:21 36.4 C L 106 H 18 151/84 H Pulse Ox 09/08/19 07:30 96 09/08/19 06:43 96 09/08/19 04:00 96 09/08/19 00:50 98 09/08/19 00:30 98 09/07/19 23:51 98 09/07/19 23:30 97 09/07/19 23:00 09/07/19 22:51 98 09/07/19 22:30 95 09/07/19 22:21 97 PG Care Time/CCT Total # of Minutes Spent Total Time Spent with Patient: Total time spent is greater than 50% in coordination of care (as documented) at patient's floor/unit and/or counseling patient: (1) Anemia Anemia type: unspecified type Qualified Code(s): D64.9 - Anemia, unspecified (2) Diverticulitis large intestine Diverticulitis bleeding: without bleeding Diverticulitis complication: without perforation or abscess Qualified Code(s): K57.32 - Diverticulitis of large intestine without perforation or abscess without bleeding
[2019-09-08] MEDS ORDERED: FINASTERIDE 5 MG TAB PO SCH (11:00)
--- NOTE | 2019-09-08 11:48 | Anesthesiology Consultation ---
Date of Service September 08, 2019 Assessment & Plan Chart Review Chart Review: Acceptable Risk for Surgery and Patient NOT seen in Pre Admission Testing Consults Requested none ASA ASA4 Proposed Anesthesia Anesthesia Type: MAC Risk / Benefits Reviewed With: PT / POA / Parent / Guardian, Accepts Plan and Informed Consent Obtained History Surgery Operation Date: 09/08/19 10:30 Proposed Procedures p Esophagogastroduodenoscopy Dr. Marion Schultz MD Height/Weight Height: 5 ft 10 in Weight: 118.8 kg Allergies Allergy/AdvReac Type Severity Reaction Status Date / Time acetaminophen AdvReac Intermediate vomiting Verified 09/07/19 14:48 hydrocodone AdvReac Intermediate vomiting Verified 09/07/19 14:48 Medications Home Medications Medication Instructions Recorded Confirmed Last Taken ipratropium-albuterol 0.5 mg-3 3 ml INH .COMPLEX PRN #180 ml 05/12/19 09/07/19 09/07/19 mg(2.5 mg base)/3 mL nebulization soln nitroglycerin 0.4 mg sublingual 0.4 mg SL UD PRN #25 tab 05/16/19 09/07/19 Unknown tablet Oxygen Home #1 ea 05/17/19 09/07/19 Unknown albuterol sulfate HFA 90 1 - 2 puffs INH Q6H PRN #18 gm 05/17/19 09/07/19 09/07/19 mcg/actuation aerosol inhaler hydrochlorothiazide 25 mg tablet 25 mg PO DAILY #90 tab 05/17/19 09/07/19 09/07/19 lisinopril 20 mg tablet 30 mg PO DAILY #135 tab 05/17/19 09/07/19 09/07/19 metformin 500 mg tablet See Rx Instructions PO BID #270 tab 05/17/19 09/07/19 09/07/19 metoprolol succinate ER 100 mg 150 mg PO DAILY #135 tab 05/17/19 09/07/19 09/07/19 tablet,extended release 24 hr omeprazole 10 mg capsule,delayed 20 mg PO DAILY #90 cap 05/17/19 09/07/19 09/07/19 release tiotropium bromide 2.5 2 puffs INHALATION DAILY #3 gm 05/17/19 09/07/19 09/07/19 mcg/actuation mist for inhalation fluticasone 250 mcg-salmeterol 50 1 puffs INHALATION BID #60 ea 06/27/19 09/07/19 Unknown mcg/dose blistr powdr for inhalation aspirin 81 mg tablet,delayed 81 mg PO DAILY #30 tab 08/23/19 09/07/19 09/07/19 release meclizine 25 mg tablet 25 mg PO Q6H PRN #60 tab 08/23/19 09/07/19 09/07/19 dutasteride 0.5 mg PO PM 09/07/19 09/07/19 Unknown rivaroxaban [Xarelto] 20 mg PO PM 09/07/19 09/07/19 Unknown rosuvastatin 40 mg PO PM 09/07/19 09/07/19 Unknown Active Medications Generic Name Dose Route Start Last Admin Trade Name Freq PRN Reason Stop Dose Admin Sodium Chloride 1,000 mls @ 100 mls/hr 09/08/19 09:45 09/08/19 11:16 Nss 1000ml IV 10/08/19 09:44 0 mls/hr .Q10H RAY Infusion Insulin Aspart 0 units 09/08/19 00:00 09/08/19 05:47 Novolog Flexpen SC 10/07/19 20:59 3 units Q6 RAY Administration Ioversol 100 ml 09/08/19 02:37 09/08/19 02:37 Optiray 320 100ml IV 09/12/19 02:36 92 ml ONCE PRN Administration Interaction Checking Lisinopril 30 mg 09/08/19 09:00 09/08/19 09:08 Zestril PO 10/08/19 08:59 30 mg DAILY RAY Administration Metoprolol Succinate 150 mg 09/08/19 09:00 09/08/19 09:08 Toprol Xl PO 10/08/19 08:59 150 mg DAILY RAY Administration Rosuvastatin Calcium 40 mg 09/07/19 21:00 09/07/19 22:19 Crestor PO 10/07/19 20:59 40 mg PM RAY Administration Fluticasone/Salmeterol 1 puffs 09/07/19 21:00 09/08/19 09:04 Advair Diskus 250/50 INH 10/07/19 20:59 1 puffs BID RAY Administration Tiotropium [place] 1 puffs 09/08/19 09:00 09/08/19 09:04 Spiriva INH 10/08/19 08:59 1 puffs DAILY RAY Administration NPO Date Last Intake of Fluids: 09/08/19 Time Last Intake of Fluids: 09:00 Date Last Intake of Solids: 09/05/19 Time Last Intake of Solids: 18:00 Past Medical History Medical History Moderate obstructive sleep apnea (Acute) Granulomatous lung disease (Acute) Diabetes mellitus (Acute) Chronic obstructive pulmonary disease, group A, by Global Initiative for Chronic Obstructive Lung Disease 2013 classification (Acute) CAD in [place] artery (Acute) Benign localized prostatic hyperplasia with lower urinary tract symptoms (LUTS) (Acute) Atrial flutter, paroxysmal (Acute) Anticoagulant long-term use (Acute) Exercise / Class Metabolic Activity III < 4 Walking/Shop/Light housework Past Family History Family History Grandmother (Paternal) No problems noted. Mother Cardiac arrhythmia Depression Osteoporosis Sister Depression Father Prostate cancer Past Surgical History Surgical History History of PTCA History of dental surgery History of hand surgery History of heart artery stent Cath Stent 1 Distal Circumflex History of transurethral prostatectomy Prostate Resection Transurethral Past Anesthesia History No Hx of Anesthesia Complications and No Family Hx of Anesthesia Complications History of PONV No Hx of PONV and No Hx of Motion Sickness Social History Smoking Status: Former smoker Hx Alcohol Use: No Hx Substance Use: No Physical Exam Vital Signs Last Vital Signs Temp 36.7 C 09/08/19 11:24 Pulse 86 09/08/19 11:24 Resp 20 09/08/19 11:24 BP 144/76 H 09/08/19 11:24 Pulse Ox 99 09/08/19 11:24 Constitutional + obese ENMT Mouth: + edentulous Thyromental Distance: > or= 3.5 Finger Breadths Mallampati Class: II Neck normal visual inspection, trachea midline and + facial hair; neck extension not limited Respiratory normal respiratory effort Auscultation: lungs clear to auscultation bilaterally and + diminished lung sounds Cardiovascular Rate/Rhythm: regular rate and regular rhythm Heart Sounds: no murmur Vessels: no carotid bruit Musculoskeletal Spine: normal cervical ROM Neurologic moves all extremities Motor/Sensory: no sensory deficit Psychiatric Orientation: alert and oriented x 3 Testing Laboratory Results 09/08/19 07:49 09/08/19 01:44 PT 10.9 Seconds (9.0-12.0) 09/07/19 15:04 INR 1.1 (0.9-1.1) 09/07/19 15:04 APTT 22.9 Seconds (21.0-31.0) 09/07/19 15:04 Hemoglobin A1c 7.0 % (4.5-5.6) H 09/08/19 01:44 Blood Type A Positive 09/07/19 15:51 Antibody Screen NEGATIVE 09/07/19 15:51 09/08/19 09/07/19 05:45 23:45 POC Glucose 210 H 232 H Electrocardiogram Date: 09/07/19 Findings: + pertinent finding (SR at 88 w/ 1st degree AV block) Chest X-Ray Date: 09/07/19 Findings: + NAD and + atherosclerosis of thoracic aorta COPD
[2019-09-08] MEDS ORDERED: ATROPINE SULFATE 0.1 MG/ML 10ML SYR IV PRN (11:49)
[2019-09-08] MEDS ORDERED: ePHEDrine sulfate 50 MG/ML AMP IV PRN (11:49)
[2019-09-08] MEDS ORDERED: PROPOFOL IV EMULSION 10 MG/ML 20 ML VIAL IV ONE (12:15)
[2019-09-08] MEDS ORDERED: LIDOCAINE HCL 2% 2 ML VIAL/AMP(20MG/ML) INFIL ONE ×2 (12:15)
--- NOTE | 2019-09-08 12:20 | GI REPORT ---
Patient Name: Jonathan Bradshaw Procedure Date: 09/08/2019 11:34 AM Date of : 1945 Admit Type: Inpatient Age: 74 Gender: Male Attending MD: Bernardo Schultz MD Procedure: Upper GI endoscopy Providers: Bernardo Schultz MD Referring MD: Kati Scott, Heather Jaime Md Indications: Unexplained iron deficiency anemia Medicines: Monitored Anesthesia Care Complications: No immediate complications. Estimated blood loss: None. Estimated Blood Loss: Estimated blood loss: none. Procedure: Pre-Anesthesia Assessment: - Prior Anticoagulants: The patient has taken Xarelto (rivaroxaban), last dose was 1 day prior to procedure. - ASA Grade Assessment: III - A patient with severe systemic disease. After obtaining informed consent, the endoscope was passed under direct vision. Throughout the procedure, the patient's blood pressure, pulse, and oxygen saturations were monitored continuously. The Endoscope was introduced through the mouth, and advanced to the second part of duodenum. The upper GI endoscopy was accomplished without difficulty. The patient tolerated the procedure well. Findings: The examined esophagus was normal. Estimated blood loss: none. The entire examined stomach was normal. There is no endoscopic evidence of bleeding in the entire examined stomach. There is no endoscopic evidence of bleeding in the duodenal bulb. The duodenal bulb and second portion of the duodenum were normal. Impression: - Normal esophagus. - Normal stomach. - Normal duodenal bulb and second portion of the duodenum. - No specimens collected. Recommendation: - [facility]. - Resume previous diet today. Bernardo Schultz MD 09/08/2019 12:20:26 PM This report has been signed electronically. Note Initiated On: 09/08/2019 11:34 AM Number of Addenda: 0 I attest to the content of the Intraoperative Record and orders documented therein, exceptions below {[id number]}
--- NOTE | 2019-09-08 12:22 | Communication Note ---
Date of Service: September 08, 2019 GI brief procedure note: see full procedure note for full details. EGD showed no evidence of bleeding or source for patient's anemia. Recs: return to [facility] and treat diverticulitis supportive care, IVFs
--- NOTE | 2019-09-08 12:48 | Anesthesiology Progress Note ---
Date of Service September 08, 2019 Anesthesia Post Procedure Vital Signs Vital Signs: Temp Pulse Pulse Resp BP BP BP 09/08/19 12:27 86 20 111/65 09/08/19 12:12 85 20 102/51 L 09/08/19 11:24 36.7 C 86 20 144/76 H 09/08/19 08:00 104 H 09/08/19 07:30 36.6 C 112 H 20 143/88 H 09/08/19 06:43 36.7 C 101 H 20 139/75 09/08/19 04:00 36.4 C L 103 H 16 132/75 09/08/19 00:50 36.7 C 104 H 16 131/61 09/08/19 00:30 90 16 131/61 09/07/19 23:51 36.4 C L 102 H 16 128/73 09/07/19 23:30 103 H 16 149/83 H 09/07/19 23:00 36.8 C 106 H 16 144/79 H 09/07/19 22:51 109 H 16 144/73 H 09/07/19 22:30 36.3 C L 102 H 18 137/68 09/07/19 22:21 36.4 C L 106 H 18 151/84 H 09/07/19 22:06 36.6 C 104 H 18 150/82 H 09/07/19 21:50 36.6 C 103 H 18 161/92 H 09/07/19 21:30 36.6 C 104 H 18 151/82 H 09/07/19 21:00 36.3 C L 103 H 18 106/74 09/07/19 20:00 36.5 C 95 H 18 171/80 H 09/07/19 19:20 36.6 C 105 H 103 H 18 147/81 H 09/07/19 19:00 36.5 C 99 H 23 127/67 09/07/19 18:30 36.9 C 97 H 22 138/80 09/07/19 18:15 36.8 C 97 H 20 121/84 09/07/19 18:00 36.6 C 97 H 21 126/57 L 09/07/19 17:17 95 H 22 144/80 H 09/07/19 16:05 95 H 26 H 09/07/19 16:02 180/156 H 09/07/19 15:59 93 H 18 09/07/19 15:45 93 H 17 130/84 09/07/19 15:00 89 17 09/07/19 14:30 88 14 144/87 H 09/07/19 14:22 89 20 130/64 09/07/19 14:13 36.9 C 92 H 18 130/64 Pulse Ox 09/08/19 12:27 97 09/08/19 12:12 95 09/08/19 11:24 99 09/08/19 08:00 09/08/19 07:30 96 09/08/19 06:43 96 09/08/19 04:00 96 09/08/19 00:50 98 09/08/19 00:30 98 09/07/19 23:51 98 09/07/19 23:30 97 09/07/19 23:00 09/07/19 22:51 98 09/07/19 22:30 95 09/07/19 22:21 97 09/07/19 22:06 95 09/07/19 21:50 95 09/07/19 21:30 95 09/07/19 21:00 97 09/07/19 20:00 99 09/07/19 19:20 97 09/07/19 19:00 97 09/07/19 18:30 98 09/07/19 18:15 97 09/07/19 18:00 98 09/07/19 17:17 99 09/07/19 16:05 09/07/19 16:02 09/07/19 15:59 98 09/07/19 15:45 09/07/19 15:00 93 09/07/19 14:30 99 09/07/19 14:22 99 09/07/19 14:13 99 Transfer of Care Handoff Completed per policy Notes Mental Status: alert / awake / arousable Patient Amnestic to Procedure: Yes Nausea / Vomiting: adequately controlled Pain: adequately controlled Airway Patency, RR, SpO2: stable & adequate BP & HR: stable & adequate Hydration State: stable & adequate Anesthetic Complications: no major complications apparent
[2019-09-08 13:37] LABS: Hematocrit (blood only) 28.3 % (42-52); Hemoglobin 7.9 g/dL (14.0-18.0); Mean Corpuscular Hemoglobin 19.2 pg (25-34); Mean Corpuscular Hgb Conc 27.9 g/dL (32-36); Mean Corpuscular Volume 68.7 fL (80-100); Mean Platelet Volume 9.4 fL (7.4-10.4); Platelet Count 279 K/uL (130-400); RDW Coefficient of Variation 22.5 % (11.5-14.5); RDW Standard Deviation 56.2 fL (36.4-46.3); Red Blood Count 4.12 M/uL (4.7-6.1); White Blood Count 11.55 K/uL (4.8-10.8)
--- NOTE | 2019-09-08 14:12 | Pharmacy Report ---
Pharmacy Glycemic Short Note 2 - Date of Service September 08, 2019 - Glycemic Short BSG Results (Last 24 hours): 09/07/19 09/07/19 09/07/19 15:04 15:04 20:38 Glucose 144 H Cancelled POC Glucose 238 H 09/07/19 09/08/19 09/08/19 23:45 01:44 05:45 Glucose 184 H POC Glucose 232 H 210 H 09/08/19 13:07 Glucose POC Glucose 215 H OUTPATIENT ANTIDIABETIC REGIMEN: * Metformin 1000mg qam, 500mg qpm. * HbA1c: 7% on 09/08/19 Risk Factors for Insulin Resistance: * Infection: GI source, on zosyn * IVF: NSS @80 ml/hr * Steroids: Solumedrol 125mg iv x 1 on 09/07 * Diet: T2DM ASSESSMENT: * Pt admitted on 09/07/19 for symptomatic anemia/possible GI bleed. Upper GI endoscopy today was negative for GI bleed. * Pt started on Zosyn today for possible infectious GI process as he became leukocytotic since yesterday. * Mr. Bradshaw received Solumedrol 125mg x 1 yesterday afternoon. No ongoing steroids ordered. * He was ordered basal/bolus regimen beginning last evening. * Pt was npo last evening for endoscopy today. Diet ordered today with lunch. * Fasting bsg was elevated despite being NPO. Will make tonight's basal dose per scale to target lower fasting. * Prandial bsg's will be monitored going forward and CF/CR to be adjusted based on reassessment. PLAN FOR INPATIENT GLYCEMIC CONTROL: * Hold outpatient oral diabetes medications * Basal insulin * Lantus 10 units SQ am for pm dose if bsg less than 140 mg/dL then give 5 units if bsg 140 - 180 mg/dL give 10 units if bsg>180 mg/dL then give 20 units * Bolus insulin * NovoLog per scale ACHS or Q6hrs while NPO * Goal Range: Low 110 mg/dL - High 140 mg/dL * Correction Factor: 20 mg/dL/unit * Nutritional / Prandial insulin per carb ratio of 1 unit per 9 grams CHO consumed * Over night accuchecks added for midnight and 0400 * Please note that the plan above was derived based on current level of insulin resistance and hospital stress. These recommendations are appropriate for inpatient admission only. Plan of care upon discharge will need to be reassessed to avoid potential outpatient hypo/hyperglycemia.
[2019-09-08] MEDS: PIPERACILLIN/TAZOBACTAM 4.5 GM in DEXTROSE 5% 100 ML IV SCH ×2 (14:31→22:50)
[2019-09-08] MEDS ORDERED: SODIUM CHLORIDE 0.9% 250 ML IV PRN (16:28)
--- NOTE | 2019-09-08 17:43 | Hospitalist Progress Note ---
Date of Service September 08, 2019 Assessment & Plan (1) Symptomatic anemia: Presented with 5 months of progressively worsening fatigue, SOB, found to have hgb 6.1 on CBC Denies any melena or BRBPR, no hematuria or epistaxis EGD without source of bleeding here Received 2 units pRBCs and hgb only up to 7.9, with ongoing elevated lactate and h/o [place]--> will transfuse 2 more units PRBCs Fecal occult blood pending -continue to Hold Xarelto -transfuse 2 more units of PRBCs now -needs colonoscopy after improves from acute diverticulitis -follow CBC (2) Diabetes mellitus: Glycemic control and management per pharmacy (3) CAD in [place] artery: No evidence of ACS, angina -holding home aspirin due to bleeding -hold home hydrochlorothiazide while needing fluids -continue lisinopril 20 mg p.o. daily, metoprolol succinate 150 mg tablet, ER daily. Continue monitoring blood pressure (4) Atrial flutter, paroxysmal: In NSR here -continue tele monitoring -holding Xarelto due to severe anemia and likely bleeding in GI tract -continue Toprol XL (5) Hyperlipidemia: -continue rosuvastatin 40 mg p.o. every afternoon. 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 Denies chest pain, SOB, no diaphoresis or shoulder pains. No abd pain. Denies any melena or BRBPR. Reports he has not been able to do any activities for the last 5 months as he has been so fatigued with minimal activity. Tele with sinus tach, NSR, rates 80s-100s, 8 beat run VT, PACs, PVCs Review of Systems Review of Systems: All systems reviewed & are unremarkable except as noted in HPI & below Physical Exam Constitutional: WD/WN, vitals as above Eyes: + anicteric sclerae ENMT: external ear and nose normal, oropharynx normal Ears: no EAC abnormality and no TM abnormality Neck: trachea midline, no thyromegaly Respiratory: normal respiratory effort, lungs clear to auscultation Cardiovascular: RRR, no murmur, no edema Gastrointestinal (Abdomen): normal bowel sounds, soft, nontender, no hepatosplenomegaly Musculoskeletal: Extremities: extremities normal to inspection; no cyanosis and no clubbing Skin: no rashes, warm and dry Neurologic: moves all extremities and awake; no focal motor deficits Psychiatric: A+Ox3, euthymic affect Results & Data Vital Signs (Past 12 Hours) Vital Signs Temp Pulse Pulse Resp BP BP Pulse Ox 09/08/19 15:43 36.4 C L 80 19 126/78 97 09/08/19 15:21 94 H 09/08/19 13:15 36.5 C 88 18 129/78 95 09/08/19 12:49 83 20 123/63 95 09/08/19 12:27 86 20 111/65 97 09/08/19 12:12 85 20 102/51 L 95 09/08/19 11:24 36.7 C 86 20 144/76 H 99 09/08/19 08:00 104 H 09/08/19 07:30 36.6 C 112 H 20 143/88 H 96 09/08/19 06:43 36.7 C 101 H 20 139/75 96 Laboratory Results 09/08/19 09/08/19 09/08/19 Range/Units 20:29 16:28 13:07 WBC (4.8-10.8) K/uL RBC (4.7-6.1) M/uL Hgb (14.0-18.0) g/dL Hct (42-52) % MCV (80-100) fL MCH (25-34) pg MCHC (32-36) g/dL RDW Std Deviation (36.4-46.3) fL RDW Coeff of Freeman (11.5-14.5) % Plt Count (130-400) K/uL MPV (7.4-10.4) fL Immature Gran % (Auto) % Neut % (Auto) % Lymph % (Auto) % [place] % (Auto) % Eos % (Auto) % Baso % (Auto) % Immature Gran # (Auto) (0.00-0.02) K/uL Neut # (Auto) (1.4-6.5) K/uL Lymph # (Auto) (1.2-3.4) K/uL [place] # (Auto) (0.11-0.59) K/uL Eos # (Auto) (0-0.5) K/uL Baso # (Auto) (0-0.2) K/uL Absolute Nucleated RBC (0-0) K/uL Nucleated RBC % (auto) % Polychromasia Hypochromasia Anisocytosis Microcytosis Sodium (136-145) mmol/L Potassium (3.5-5.1) mmol/L Chloride (98-107) mmol/L Carbon Dioxide (21-32) mmol/L Anion Gap (3-11) BUN (7-18) mg/dl Creatinine (0.6-1.4) mg/dl Est Cr Clr Drug Dosing ml/min Est GFR ( Amer) Est GFR (Non-Af Amer) BUN/Creatinine Ratio (10-20) Glucose (70-99) mg/dl POC Glucose 197 H 175 H 215 H (70-99) Estimat Average Glucose mg/dl Hemoglobin A1c (4.5-5.6) % Lactate (0.4-2.0) mmol/L Calcium (8.5-10.1) mg/dl Total Bilirubin (0.2-1) mg/dl AST (15-37) U/L ALT (12-78) U/L Alkaline Phosphatase (45-117) U/L Total Protein (6.4-8.2) gm/dl Albumin (3.4-5.0) gm/dl Globulin (2.5-4.0) gm/dl Albumin/Globulin Ratio (0.9-2) Blood Type Antibody Screen Crossmatch 09/08/19 09/08/19 09/08/19 Range/Units 13:05 13:05 07:49 WBC 11.55 H 10.94 H (4.8-10.8) K/uL RBC 4.12 L 3.98 L (4.7-6.1) M/uL Hgb 7.9 L 7.8 L (14.0-18.0) g/dL Hct 28.3 L 26.9 L (42-52) % MCV 68.7 L 67.6 L (80-100) fL MCH 19.2 L 19.6 L (25-34) pg MCHC 27.9 L 29.0 L (32-36) g/dL RDW Std Deviation 56.2 H 54.2 H (36.4-46.3) fL RDW Coeff of Freeman 22.5 H 22.3 H (11.5-14.5) % Plt Count 279 290 (130-400) K/uL MPV 9.4 9.4 (7.4-10.4) fL Immature Gran % (Auto) 0.3 % Neut % (Auto) 94.9 % Lymph % (Auto) 4.1 % [place] % (Auto) 0.6 % Eos % (Auto) 0.0 % Baso % (Auto) 0.1 % Immature Gran # (Auto) 0.03 H (0.00-0.02) K/uL Neut # (Auto) 10.38 H (1.4-6.5) K/uL Lymph # (Auto) 0.45 L (1.2-3.4) K/uL [place] # (Auto) 0.07 L (0.11-0.59) K/uL Eos # (Auto) 0.00 (0-0.5) K/uL Baso # (Auto) 0.01 (0-0.2) K/uL Absolute Nucleated RBC 0.03 H (0-0) K/uL Nucleated RBC % (auto) 0.3 % Polychromasia Hypochromasia Present Anisocytosis Present Microcytosis Present Sodium (136-145) mmol/L Potassium (3.5-5.1) mmol/L Chloride (98-107) mmol/L Carbon Dioxide (21-32) mmol/L Anion Gap (3-11) BUN (7-18) mg/dl Creatinine (0.6-1.4) mg/dl Est Cr Clr Drug Dosing ml/min Est GFR ( Amer) Est GFR (Non-Af Amer) BUN/Creatinine Ratio (10-20) Glucose (70-99) mg/dl POC Glucose (70-99) Estimat Average Glucose mg/dl Hemoglobin A1c (4.5-5.6) % Lactate 4.7 H* (0.4-2.0) mmol/L Calcium (8.5-10.1) mg/dl Total Bilirubin (0.2-1) mg/dl AST (15-37) U/L ALT (12-78) U/L Alkaline Phosphatase (45-117) U/L Total Protein (6.4-8.2) gm/dl Albumin (3.4-5.0) gm/dl Globulin (2.5-4.0) gm/dl Albumin/Globulin Ratio (0.9-2) Blood Type Antibody Screen Crossmatch 09/08/19 09/08/19 09/08/19 Range/Units 05:45 01:46 01:44 WBC (4.8-10.8) K/uL RBC (4.7-6.1) M/uL Hgb (14.0-18.0) g/dL Hct (42-52) % MCV (80-100) fL MCH (25-34) pg MCHC (32-36) g/dL RDW Std Deviation (36.4-46.3) fL RDW Coeff of Freeman (11.5-14.5) % Plt Count (130-400) K/uL MPV (7.4-10.4) fL Immature Gran % (Auto) % Neut % (Auto) % Lymph % (Auto) % [place] % (Auto) % Eos % (Auto) % Baso % (Auto) % Immature Gran # (Auto) (0.00-0.02) K/uL Neut # (Auto) (1.4-6.5) K/uL Lymph # (Auto) (1.2-3.4) K/uL [place] # (Auto) (0.11-0.59) K/uL Eos # (Auto) (0-0.5) K/uL Baso # (Auto) (0-0.2) K/uL Absolute Nucleated RBC (0-0) K/uL Nucleated RBC % (auto) % Polychromasia Hypochromasia Anisocytosis Microcytosis Sodium (136-145) mmol/L Potassium (3.5-5.1) mmol/L Chloride (98-107) mmol/L Carbon Dioxide (21-32) mmol/L Anion Gap (3-11) BUN (7-18) mg/dl Creatinine (0.6-1.4) mg/dl Est Cr Clr Drug Dosing ml/min Est GFR ( Amer) Est GFR (Non-Af Amer) BUN/Creatinine Ratio (10-20) Glucose (70-99) mg/dl POC Glucose 210 H (70-99) Estimat Average Glucose 154 mg/dl Hemoglobin A1c 7.0 H (4.5-5.6) % Lactate 5.0 H* (0.4-2.0) mmol/L Calcium (8.5-10.1) mg/dl Total Bilirubin (0.2-1) mg/dl AST (15-37) U/L ALT (12-78) U/L Alkaline Phosphatase (45-117) U/L Total Protein (6.4-8.2) gm/dl Albumin (3.4-5.0) gm/dl Globulin (2.5-4.0) gm/dl Albumin/Globulin Ratio (0.9-2) Blood Type Antibody Screen Crossmatch 09/08/19 09/08/19 09/07/19 Range/Units 01:44 01:44 23:45 WBC 9.37 (4.8-10.8) K/uL RBC 4.04 L (4.7-6.1) M/uL Hgb 7.6 L (14.0-18.0) g/dL Hct 27.6 L (42-52) % MCV 68.3 L (80-100) fL MCH 18.8 L (25-34) pg MCHC 27.5 L (32-36) g/dL RDW Std Deviation 55.8 H (36.4-46.3) fL RDW Coeff of Freeman 22.6 H (11.5-14.5) % Plt Count 260 (130-400) K/uL MPV 9.8 (7.4-10.4) fL Immature Gran % (Auto) 0.5 % Neut % (Auto) 94.8 % Lymph % (Auto) 4.2 % [place] % (Auto) 0.5 % Eos % (Auto) 0.0 % Baso % (Auto) 0.0 % Immature Gran # (Auto) 0.05 H (0.00-0.02) K/uL Neut # (Auto) 8.88 H (1.4-6.5) K/uL Lymph # (Auto) 0.39 L (1.2-3.4) K/uL [place] # (Auto) 0.05 L (0.11-0.59) K/uL Eos # (Auto) 0.00 (0-0.5) K/uL Baso # (Auto) 0.00 (0-0.2) K/uL Absolute Nucleated RBC (0-0) K/uL Nucleated RBC % (auto) % Polychromasia 1+ Hypochromasia Present Anisocytosis Present Microcytosis Present Sodium 136 (136-145) mmol/L Potassium 3.8 (3.5-5.1) mmol/L Chloride 104 (98-107) mmol/L Carbon Dioxide 21 (21-32) mmol/L Anion Gap 11.0 (3-11) BUN 20 H (7-18) mg/dl Creatinine 1.31 (0.6-1.4) mg/dl Est Cr Clr Drug Dosing 61.8 ml/min Est GFR ( Amer) 60.9 Est GFR (Non-Af Amer) 52.5 BUN/Creatinine Ratio 15.5 (10-20) Glucose 184 H (70-99) mg/dl POC Glucose 232 H (70-99) Estimat Average Glucose mg/dl Hemoglobin A1c (4.5-5.6) % Lactate (0.4-2.0) mmol/L Calcium 8.6 (8.5-10.1) mg/dl Total Bilirubin 0.9 (0.2-1) mg/dl AST 10 L (15-37) U/L ALT 19 (12-78) U/L Alkaline Phosphatase 73 (45-117) U/L Total Protein 7.3 (6.4-8.2) gm/dl Albumin 3.5 (3.4-5.0) gm/dl Globulin 3.8 (2.5-4.0) gm/dl Albumin/Globulin Ratio 0.9 (0.9-2) Blood Type Antibody Screen Crossmatch 09/07/19 Range/Units 15:51 WBC (4.8-10.8) K/uL RBC (4.7-6.1) M/uL Hgb (14.0-18.0) g/dL Hct (42-52) % MCV (80-100) fL MCH (25-34) pg MCHC (32-36) g/dL RDW Std Deviation (36.4-46.3) fL RDW Coeff of Freeman (11.5-14.5) % Plt Count (130-400) K/uL MPV (7.4-10.4) fL Immature Gran % (Auto) % Neut % (Auto) % Lymph % (Auto) % [place] % (Auto) % Eos % (Auto) % Baso % (Auto) % Immature Gran # (Auto) (0.00-0.02) K/uL Neut # (Auto) (1.4-6.5) K/uL Lymph # (Auto) (1.2-3.4) K/uL [place] # (Auto) (0.11-0.59) K/uL Eos # (Auto) (0-0.5) K/uL Baso # (Auto) (0-0.2) K/uL Absolute Nucleated RBC (0-0) K/uL Nucleated RBC % (auto) % Polychromasia Hypochromasia Anisocytosis Microcytosis Sodium (136-145) mmol/L Potassium (3.5-5.1) mmol/L Chloride (98-107) mmol/L Carbon Dioxide (21-32) mmol/L Anion Gap (3-11) BUN (7-18) mg/dl Creatinine (0.6-1.4) mg/dl Est Cr Clr Drug Dosing ml/min Est GFR ( Amer) Est GFR (Non-Af Amer) BUN/Creatinine Ratio (10-20) Glucose (70-99) mg/dl POC Glucose (70-99) Estimat Average Glucose mg/dl Hemoglobin A1c (4.5-5.6) % Lactate (0.4-2.0) mmol/L Calcium (8.5-10.1) mg/dl Total Bilirubin (0.2-1) mg/dl AST (15-37) U/L ALT (12-78) U/L Alkaline Phosphatase (45-117) U/L Total Protein (6.4-8.2) gm/dl Albumin (3.4-5.0) gm/dl Globulin (2.5-4.0) gm/dl Albumin/Globulin Ratio (0.9-2) Blood Type A Positive Antibody Screen NEGATIVE Crossmatch See Detail PG Care Time/CCT Total # of Minutes Spent Total Time Spent with Patient: Total time spent is greater than 50% in coordination of care (as documented) at patient's floor/unit and/or counseling patient: (1) Diverticulitis large intestine Diverticulitis bleeding: without bleeding Diverticulitis complication: without perforation or abscess Qualified Code(s): K57.32 - Diverticulitis of large intestine without perforation or abscess without bleeding
[2019-09-08] MEDS: LANSOPRAZOLE 30 MG SOLTAB PO SCH (19:39)
[2019-09-08] MEDS: ROSUVASTATIN CALCIUM 20 MG TAB PO SCH (19:39)
[2019-09-09] MEDS: INSULIN ASPART 100 UNITS/ML 3 ML PEN SC SCH ×4 (04:38→17:08)
[2019-09-09] MEDS: PIPERACILLIN/TAZOBACTAM 4.5 GM in DEXTROSE 5% 100 ML IV SCH ×2 (04:38→13:40)
[2019-09-09 06:47] LABS: Basophils # (auto) 0.01 K/uL (0-0.2); Basophils % (auto) 0.1 %; Hematocrit (blood only) 31.5 % (42-52); Hemoglobin 9.2 g/dL (14.0-18.0); Immature Granulocytes # (auto) 0.05 K/uL (0.00-0.02); Immature Granulocytes % (auto) 0.4 %; Lymphocytes # (auto) 0.74 K/uL (1.2-3.4); Lymphocytes % (auto) 5.7 %; Mean Corpuscular Hemoglobin 20.8 pg (25-34); Mean Corpuscular Hgb Conc 29.2 g/dL (32-36); Mean Corpuscular Volume 71.3 fL (80-100); Mean Platelet Volume 9.7 fL (7.4-10.4); Monocytes # (auto) 0.63 K/uL (0.11-0.59); Monocytes % (auto) 4.9 %; Neutrophils # (auto) 11.53 K/uL (1.4-6.5); Neutrophils % (auto) 88.9 %; Platelet Count 263 K/uL (130-400); RDW Coefficient of Variation 22.9 % (11.5-14.5); RDW Standard Deviation 59.6 fL (36.4-46.3); Red Blood Count 4.42 M/uL (4.7-6.1); White Blood Count 12.96 K/uL (4.8-10.8)
[2019-09-09 07:25] LABS: Anisocytosis Present; Calcium 8.8 mg/dl (8.5-10.1); Creatinine Clr Calc Pharmacy 62.7 ml/min; Est GFR (African American) 61.4; Magnesium 2.4 mg/dl (1.8-2.4); Polychromasia 1+; Potassium 3.9 mmol/L (3.5-5.1)
[2019-09-09] MEDS: FLUTICASONE/SALMETEROL 250/50 (ADVAIR) 14 PUFF/1 INHALER INH SCH (08:31)
[2019-09-09] MEDS: LANSOPRAZOLE 30 MG SOLTAB PO SCH (08:32)
[2019-09-09] MEDS: TIOTROPIUM BROMIDE 5 PUFF/90 MCG INH INH SCH (08:32)
[2019-09-09] MEDS: lisinopriL 20 MG TAB PO SCH (08:33)
[2019-09-09] MEDS ORDERED: INSULIN GLARGINE SOLOSTAR 100 UNITS/ML 3 ML PEN SC SCH ×2 (09:00→21:00)
[2019-09-09] MEDS: METOPROLOL SUCC 50MG EXT REL TAB PO SCH (09:28)
--- NOTE | 2019-09-09 09:46 | Pharmacy Report ---
Pharmacy Glycemic Short Note 2 - Date of Service September 09, 2019 - Glycemic Short BSG Results (Last 24 hours): 09/08/19 09/08/19 09/08/19 13:07 16:28 20:29 Glucose POC Glucose 215 H 175 H 197 H 09/08/19 09/09/19 09/09/19 23:46 04:30 06:32 Glucose 167 H POC Glucose 208 H 174 H 09/09/19 07:37 Glucose POC Glucose 179 H OUTPATIENT ANTIDIABETIC REGIMEN: * Metformin 1000mg qam, 500mg qpm. * HbA1c: 7% on 09/08/19 Risk Factors for Insulin Resistance: * Infection: GI source, on zosyn * Diet: T2DM ASSESSMENT: * Pt admitted on 09/07/19 for symptomatic anemia/possible GI bleed. Upper GI endoscopy was negative for GI bleed. * He received 57 units of insulin yesterday with all BSGs above goal * 30 units of basal * 27 units of bolus * BSGs ranged from 175 - 215 mg/dL * Fasting BSG of 179 mg/dL is improved but remains above goal. Will continue to titrate Lantus dosing. * Patient resumed a diet on 09/08. Post prandial BSGs are elevated, therefore Novolog carb coverage will be tightened. PLAN FOR INPATIENT GLYCEMIC CONTROL: * Hold outpatient oral diabetes medications * Basal insulin * Lantus SQ BID per scale: BSG less than 140 mg/dL: 10 units BSG 140 - 180 mg/dL: 15 units BSG greater than 180 mg/dL: 20 units * Bolus insulin - tighten carb coverage * NovoLog per scale ACHS or Q6hrs while NPO * Goal Range: Low 110 mg/dL - High 140 mg/dL * Correction Factor: 20 mg/dL/unit * Nutritional / Prandial insulin per carb ratio of 1 unit per 7 grams CHO consumed PLAN FOR DISCHARGE: * A1c = 7.0 % on 09/08/19 (improved from 8.1% on 03/31/19) * Goal A1c = <7 % based on age and comorbidities * Recommend continuation of metformin on discharge. Titrate up to goal of 2000 mg/day divided twice daily. Support Patient Self-Management * Healthy Lifestyle (diet, exercise, and smoking cessation) * Disease self-management (SMBG) * Prevention of complications (BP, Lipid goals, Immunizations) * Consider outpatient Diabetes Self-Management Education & Support
--- NOTE | 2019-09-09 16:16 | Discharge Summary ---
Date of Service September 09, 2019 Admission HPI Per Admitting Provider Patient is a 74 years old male with past medical history of coronary artery disease, paroxysmal atrial flutter on Xarelto, hypertension, kidney disease, BPH presents to the emergency room with a complaint of generalized malaise and and severe severe anemia was found in on his labs. Patient did not have blood work done for longer period of time. Patient denies blood in his stool or dark stool. Patient said he has regular bowel movements. Patient denies fever chills, chest pain, headache, abdominal pain, frequency, urgency, melena, hemoptysis, hematuria, dysuria. Labs are reviewed: Viable cell 7.99, hemoglobin 6.1, hematocrit 23, platelets 260. PT 10.9, INR 1.1, APTT 22.9. Lactate 3.2. CMP pending. Urine pending, BNP pending. Chest x-ray show emphysema. No focal infiltrate to suggest pneumonia. Mild cardiomegaly. No congestive changes or volume overload is evident. Decision was made to admit patient for severe anemia at PCU telemetry for blood transfusion and further work-up of severe anemia. Labs are reviewed: Sodium 134, potassium 4.3, chloride 102, BUN 22, creatinine 1.25, GFR 55.6, AST 12, ALT 18, troponin 0 0.015, BNP 423, chest x- ray suggest emphysema no focal infiltrates to suggest pneumonia. Mild cardiomegaly. No congestive change or volume overload is evident. Decision was made to admit patient for severe anemia work-up and to give 2 units of blood. Principal Diagnosis Symptomatic anemia Discharge Exam Constitutional WD/WN, vitals as above Eyes + anicteric sclerae ENMT external ear and nose normal, oropharynx normal Ears: no EAC abnormality and no TM abnormality Neck trachea midline, no thyromegaly Respiratory normal respiratory effort, lungs clear to auscultation Cardiovascular RRR, no murmur, no edema Gastrointestinal (Abdomen) normal bowel sounds, soft, nontender, no hepatosplenomegaly Musculoskeletal Extremities: extremities normal to inspection; no cyanosis and no clubbing Skin no rashes, warm and dry Neurologic moves all extremities and awake; no focal motor deficits Psychiatric A+Ox3, euthymic affect Discharge Data Allergies Allergy/AdvReac Type Severity Reaction Status Date / Time hydrocodone AdvReac Intermediate vomiting Verified 09/15/19 09:56 Consultations 09/07/19 15:58 ED Decision to Admit Stat 09/08/19 08:38 Consult Gastroenterology Routine Procedures Performed Operation Date: 09/08/19 10:30 Actual Procedures p Esophagogastroduodenoscopy - Bernardo Schultz MD Ordered Studies 09/07/19 23:29 CT abd pelvis oral and IV con Urgent CXR Hospital Course (1) Symptomatic anemia: Presented with 5 months of progressively worsening fatigue, SOB, found to have hgb 6.1 on CBC Denies any melena or BRBPR, no hematuria or epistaxis Was without gross bleeding and was Hemoccult NEGATIVE on ER exam upon admission He has not given a stool sample since admission to check further for fecal occult blood but suspect he must have an ongoing occult GI blood loss Given findings of sigmoid diverticulitis on CT scan, but without pain or symptoms, concern for GI malignancy at that site? EGD without source of bleeding here Received 2 units pRBCs and hgb only up to 7.9, with ongoing elevated lactate and h/o [place] and severe CAD--> transfused 2 more units PRBCs and hgb then came up to 9.2 Fatigue and dyspnea on exertion now resolved Discussed his care with his primary Design Printer Balloon, Dr. Hatch, who is in agreement with HOLDING the XARELTO for now -continue to Hold Xarelto after discharge -ok to restart ASA given recent MAGDALENA in place -needs colonoscopy after improves from acute diverticulitis-in 6 weeks, have arranged outpt GI follow up -follow CBC once weekly after discharge with PCP (2) Diabetes mellitus: continue home meds (3) CAD in [place] artery: No evidence of ACS, angina -initially held home aspirin due to suspected bleeding, but EGD negative for PUD--> ok to cautiously restart ASA as I feel risk of being off of it outweighs the benefit given recent cardiac MAGDALENA -held home hydrochlorothiazide but will restart upon dc -continue lisinopril 20 mg p.o. daily, metoprolol succinate 150 mg tablet, ER daily. (4) Atrial flutter, paroxysmal: In NSR here the entire stay -holding Xarelto due to severe anemia and likely bleeding in GI tract -continue Toprol XL for rate control (5) Hyperlipidemia: -continue rosuvastatin 40 mg p.o. every afternoon. (6) Diverticulitis large intestine: Seen incidentally on CT abd/pel, diverticulitis of the of sigmoid colon. Pt is completely asymptomatic. Concern for possible malignancy vs colitis? Needs colonoscopy as above -started Zosyn IV and will convert to po Augmentin upon discharge to compelte 10 day course -could explain the leukocytosis and lactate, however leukocytosis could be from severe anemia (reactive) and lactate also from poor perfusion from severe anemia (7) Benign localized prostatic hyperplasia with lower urinary tract symptoms (LUTS): stable -continue finasteride to replace dutasteride while here (8) Hypertension: Controlled -continue Toprol, lisinopril, HCTZ (9) Kidney disease: Chronic kidney disease, stage 2-3 Washery Engineer 1.3 around baseline currently -avoid nephrotoxins -renally dose meds -follow BMP as outpt (10) Nonsustained ventricular tachycardia: 8 beat run the first night, then some bigeminy the second night Has known preserved EF on ECHO from 2018 lytes replaced as needed, PRBCs given -continue beta larry (11) Chronic obstructive pulmonary disease, group A, by Global Initiative for Chronic Obstructive Lung Disease 2013 classification: No current issues -continue albuterol prn -continue Spiriva (12) DVT prophylaxis: SCDs Dispo-stable for discharge to home with GI and PCP follow up closely Much improved Total Time Total Time Spent Total Time Spent (In Minutes): >30 min Total Time Includes: Examination of the Patient, Discharge Planning and Medication Reconciliation Discharge Plan Discharge Items Patient Disposition: Home - Self-Care Reason For Visit: SEVERE ANEMIA,MALAISE Discharge Diagnosis: Severe anemia Acute diverticulitis Condition on Discharge: Fair Activity: As commented below Lifting: Gradually increase as tolerated Bathing: No limitations Exercise/Sports: Gradually increase as tolerated Driving/Machine Use: Resume 3 days after discharge Non-emergency contact: Primary Care Provider, Design Printer [employer] and Controls Project Engineer Call non-emergency contact if: you have any medication questions and your symptoms worsen Follow-up/Referrals: Kati Scott MD [Primary Care Provider] - 09/15/19 10:00 am (Please, follow up at [facility] on September 15 at 10:00 am. *If you need to change this appointment, call the office at [phone].) Bernardo Schultz MD [Physician] - 09/22/19 2:15 pm (Please, follow up at [facility] G[facility] Office with Dr. Schultz on September 22 at 2:15 pm. *The office is located at [address] [place] [address]). If you need to change this appointment, call the office at [phone].) Diet: Heart Healthy Addtl Attending Provider Instructions: Please finish out the course of antibiotics for your bowel infection called diverticulitis. You were transfused with blood for your severe anemia. This is likely coming from your bowels somewhere. You will need a colonoscopy after you recover from the diverticulitis to look for a source of bleeding. In the meantime, please DO NOT TAKE YOUR XARELTO. It is ok to take your aspirin, but you should have your blood count (CBC) checked once weekly with your PCP. If your blood count drops down low again, you would need another blood transfusion. Please take iron tablets twice a day to help build your red blood cells back up. You will need to follow up with the Controls Project Engineer and your PCP as scheduled for you. Pending Studies at Discharge: No Stand-Alone Forms: My [facility] Medications and DC Order Prescriptions: New amoxicillin-pot clavulanate [Augmentin] 875-125 mg tablet 1 tab PO BID Qty: 16 RF: 0 Continued ipratropium-albuterol 0.5 mg-3 mg(2.5 mg base)/3 mL solution for nebulization 3 ml INH .COMPLEX PRN (Reason: wheezing) Qty: 180 RF: 5 fluticasone propion-salmeterol [Advair Diskus] 250-50 mcg/dose blister with device 1 puffs inhalation BID Qty: 60 RF: 5 meclizine 25 mg tablet 25 mg PO Q6H PRN (Reason: motion sickness) Qty: 60 RF: 1 nitroglycerin 0.4 mg tablet, sublingual 0.4 mg SL UD PRN (Reason: Chest Pain) Qty: 25 RF: 0 Oxygen Home Liters Per Minute .ROUTE .MEDSUPPLY Qty: 1 RF: 0 albuterol sulfate 90 mcg/actuation HFA aerosol inhaler 1 - 2 puffs INH Q6H PRN (Reason: shortness of breath or wheezing) Qty: 18 RF: 0 hydrochlorothiazide 25 mg tablet 25 mg PO DAILY Qty: 90 RF: 3 lisinopril 20 mg tablet 30 mg PO DAILY Qty: 135 RF: 0 metformin 500 mg tablet See Rx Instructions PO BID Qty: 270 RF: 0 metoprolol succinate 100 mg tablet extended release 24 hr 150 mg PO DAILY Qty: 135 RF: 0 omeprazole 10 mg capsule,delayed release(DR/EC) 20 mg PO DAILY Qty: 90 RF: 0 aspirin 81 mg tablet,delayed release (DR/EC) 81 mg PO DAILY Qty: 30 RF: 0 dutasteride 0.5 mg capsule 0.5 mg PO PM RF: 0 rosuvastatin 40 mg tablet 40 mg PO PM RF: 0 Discontinued Xarelto 20 mg tablet 20 mg PO PM RF: 0 No Action Fluzone High-Dose 2019-20 (PF) 180 mcg/0.5 mL syringe 0.5 ml IM ONCE Qty: 0.5 RF: 0 tiotropium bromide 2.5 mcg/actuation mist 2 puffs inhalation DAILY Qty: 3 RF: 5 Discharge Orders: Discharge Order (Routine); Ordered 09/09/19 Ordered By: Heather Jaime Admission Data Admit Date/Time: 09/07/19 18:38 Attending Provider: Heather Jaime Admit Provider: Fabienne Camacho Primary Care Provider: Kati Scott Other Providers: Bernardo Schultz Other Interventions: Discharge Summary Assessment (RN) Last Done: 09/09/19 16:14 DC Date/Time DO NOT enter until pt leaves facility: 09/09/19 18:00
[2019-09-09] MEDS ORDERED: DUTASTERIDE PO SCH (21:00)
== END 2019-09-09 18:00 | disposition home or self-care (01) | DRG 812 ==
LOC: ED 14:13 → 2S 18:38 → SUATTDRO 18:38 → 2S 18:59

== ENCOUNTER 2019-12-20 04:59 | Inpatient (IN) ==
--- NOTE | 2019-12-08 15:33 | PAT Medication Instructions ---
Medication Instructions Date of Service December 08, 2019 Home Medications Medication Instructions Recorded albuterol sulfate 90 mcg/actuation 1 - 2 puffs INH Q6H PRN #18 gm 05/17/19 aerosol inhaler rosuvastatin 40 mg tablet 40 mg PO HS #90 tab 11/22/19 nitroglycerin 0.4 mg sublingual tablet 0.4 mg SL UD PRN albuterol sulfate 90 mcg/actuation aerosol inhaler 1 - 2 puffs INH Q6H PRN aspirin 81 mg tablet,delayed release 81 mg PO QAM dutasteride 0.5 mg PO PM fluticasone 250 mcg-salmeterol 50 mcg/dose blistr powdr for inhalation 1 puffs INHALATION BID hydrochlorothiazide 25 mg PO QAM metoprolol succinate 150 mg PO QAM tiotropium bromide 2 puffs INHALATION UD PRN rosuvastatin 40 mg tablet 40 mg PO HS ipratropium-albuterol 3 ml INH UD PRN lisinopril 80 mg PO QAM metformin 500 mg PO QPM metformin [Glucophage] 1,000 mg PO QAM metronidazole [Flagyl] 500 mg PO UD neomycin 1,000 mg PO UD omeprazole 20 mg PO QAM Continue as directed nitroglycerin 0.4 mg sublingual tablet 0.4 mg SL UD PRN (if needed) metronidazole [Flagyl] 500 mg PO UD neomycin 1,000 mg PO UD ASK your prescriber and surgeon aspirin 81 mg tablet,delayed release 81 mg PO QAM DO NOT take the morning of surgery hydrochlorothiazide 25 mg PO QAM lisinopril 80 mg PO QAM metformin [Glucophage] 1,000 mg PO QAM Take morning of surgery With a small sip of water, OTHERWISE NOTHING TO EAT OR DRINK AFTER MIDNIGHT: albuterol sulfate 90 mcg/actuation aerosol inhaler 1 - 2 puffs INH Q6H PRN (use if needed; please bring with you to hospital day of surgery if possible) fluticasone 250 mcg-salmeterol 50 mcg/dose blistr powdr for inhalation 1 puffs INHALATION BID metoprolol succinate 150 mg PO QAM tiotropium bromide 2 puffs INHALATION UD PRN (if needed) ipratropium-albuterol 3 ml INH UD PRN (if needed) omeprazole 20 mg PO QAM Take evening before surgery albuterol sulfate 90 mcg/actuation aerosol inhaler 1 - 2 puffs INH Q6H PRN (if needed) dutasteride 0.5 mg PO PM fluticasone 250 mcg-salmeterol 50 mcg/dose blistr powdr for inhalation 1 puffs INHALATION BID tiotropium bromide 2 puffs INHALATION UD PRN (if needed) rosuvastatin 40 mg tablet 40 mg PO HS ipratropium-albuterol 3 ml INH UD PRN (if needed) metformin 500 mg PO QPM Other Notes If you have any questions please call us at [phone] or [phone] or [phone] or [phone]
--- NOTE | 2019-12-12 10:30 | Anesthesiology Consultation ---
Date of Service December 12, 2019 Assessment & Plan (1) Encounter for pre-operative examination: Chart Review Chart Review: Acceptable Risk for Surgery and Patient NOT seen in Pre Admission Testing Consults Requested none History Surgery Operation Date: 12/20/19 12:45 Proposed Procedures p Laparoscopic-Assisted Colon Resection, Possible Open - Russell Trejo MD Height/Weight Height: 5 ft 10 in Weight: 117.027 kg Allergies Allergy/AdvReac Type Severity Reaction Status Date / Time acetaminophen [From Vicodin] AdvReac Unknown Vomiting Verified 12/08/19 15:10 hydrocodone AdvReac Unknown vomiting Verified 12/08/19 15:10 Medications Home Medications Medication Instructions Recorded Confirmed Last Taken nitroglycerin 0.4 mg sublingual 0.4 mg SL UD PRN #25 tab 05/16/19 12/08/19 Unknown tablet Oxygen Home #1 ea 05/17/19 12/05/19 Unknown albuterol sulfate 90 mcg/actuation 1 - 2 puffs INH Q6H PRN #18 gm 05/17/1910/31/19 aerosol inhaler aspirin 81 mg tablet,delayed 81 mg PO QAM #30 tab 08/23/19 12/08/19 10/31/19 release dutasteride 0.5 mg PO PM 09/07/19 12/08/19 10/31/19 fluticasone 250 mcg-salmeterol 50 1 puffs INHALATION BID ea 10/11/19 12/08/19 10/31/19 mcg/dose blistr powdr for inhalation hydrochlorothiazide 25 mg PO QAM 10/21/19 12/08/19 10/31/19 metoprolol succinate 150 mg PO QAM 10/21/19 12/08/19 10/31/19 tiotropium bromide 2 puffs INHALATION UD PRN 10/21/19 12/08/19 10/31/19 rosuvastatin 40 mg tablet 40 mg PO HS #90 tab 11/22/19 12/08/19 Unknown ipratropium-albuterol 3 ml INH UD PRN 12/08/19 12/08/19 Unknown lisinopril 80 mg PO QAM 12/08/19 12/08/19 Unknown metformin 500 mg PO QPM 12/08/19 12/08/19 Unknown metformin [Glucophage] 1,000 mg PO QAM 12/08/19 12/08/19 Unknown omeprazole 20 mg PO QAM 12/08/19 12/08/19 Unknown metronidazole 500 mg tablet 500 mg PO UD #3 tab 12/09/19 12/09/19 Unknown neomycin 500 mg tablet 1,000 mg PO UD #6 tab 12/09/19 12/09/19 Unknown Past Medical History Medical History Anticoagulant long-term use (Acute) WAS STOPPED ON 10/08/19 DUE TO CURRENT BLEEDING ISSUES Atrial flutter, paroxysmal (Acute) HX 360 BPM/CARDIOVERSION Colon cancer COPD (chronic obstructive pulmonary disease) Coronary artery disease Diabetes mellitus (Acute) GERD (gastroesophageal reflux disease) History of anesthesia reaction PROFUSE SWEATING AFTER PROSTATE SURGERY, UNABLE TO KEEP IV'S IN DUE TO AMOUNT OF SWEAT History of blood transfusion AUG 2019 HTN (hypertension) Hyperlipidemia Multiple lung nodules on CT Myocardial Infarction 2012...STENT ([facility]) Sleep apnea CPAP Stomach ulcer HX Past Family History Family History Grandmother (Paternal) No problems noted. Mother Osteoporosis Family history of diabetes mellitus Cardiac arrhythmia Depression Cancer Sister Depression Family history of diabetes mellitus Father Prostate cancer Family history of diabetes mellitus Myocardial infarction Past Surgical History Surgical History History of cardiac cath X4 TOTAL ( 1ST CATH 2012 FOR [place], STENT X1 - 3 FOLLOWING F/U STENT PLACEMENT) History of colonoscopy History of dental surgery History of esophagogastroduodenoscopy (EGD) History of hand surgery L History of prostate surgery "LASER" Social History Smoking Status: Former smoker Smoking cigarettes per day: 20 Do You Dip or Chew Tobacco: Yes (OCCASSIONAL, ADVISED NPO) Smoking End Date: QUIT 20 YR AGO Hx Alcohol Use: No Hx Substance Use: No substance use type: does not use Testing Laboratory Results Laboratory Tests 12/06/19 12/06/19 06:41 06:41 WBC 7.21 Hgb 14.9 Plt Count 172 Sodium 136 Potassium 3.7 Chloride 100 Carbon Dioxide 30 BUN 26 H Creatinine 1.08 Glucose 166 H Electrocardiogram Date: 09/07/19 Sinus rhythm with 1st degree A-V block, rate 88 bpm Otherwise normal ECG When compared with ECG of 21-MAR-2018 06:37, Premature ventricular complexes are no longer Present TN interval has increased Confirmed by Yash Yadav ([id number]) on 09/07/2019 4:38:55 PM Chest X-Ray Date: 09/07/19 IMPRESSION: 1. Findings suggest emphysema. No focal infiltrate to suggest pneumonia. 2. Mild cardiomegaly. No congestive change or volume overload is evident. Echocardiogram Date: 03/20/18 EF: 55-60% LV Function: normal RWMA: + none Other Findings: + diastolic dysfunction (grade 2) Stress Test Date: 05/24/19 Type: nuclear Impression: 1. Negative myocardial perfusion study for ischemic changes. 2. Small distal/apical inferior fixed defect may represent infarct, but normal wall motion favors artifact. 3. Normal left ventricular systolic function. EF 59%. Normal wall motion. 4. Nondiagnostic Lexiscan ECG. Cardiac Catheterization Date: 03/19/18 Moderate non-obstructive coronary artery disease -50% stenosis in circumflex distal to prior patent proximal stent -40-50% proximal stenosis in large 1st diagonal Normal intracardiac filling pressure Other Testing Carotid U/S 12/06/19 IMPRESSION: 1. Mild atherosclerotic plaque without evidence for a hemodynamically significant stenosis. 2. Mildly elevated blood pressure, as above.
[2019-12-20] MEDS ORDERED: LR 15ML/HR IV SCH (06:00)
--- NOTE | 2019-12-20 06:33 | History & Physical Bridge Note ---
Date of Service December 20, 2019 History & Physical Bridge Note I have examined the patient, reviewed the History & Physical and in the interval since the performance of the History & Physical I have noted the following changes of clinical significance: no changes noted all questions answered will be around here had fx nose as a child and hard to breath from right nasal orifice
[2019-12-20] MEDS ORDERED: fentaNYL citrate 100 MCG/2 ML VIAL ONE (06:44)
[2019-12-20] MEDS ORDERED: MIDAZOLAM HCL 1 MG/ML 2ML VIAL ONE (06:44)
[2019-12-20] MEDS ORDERED: LIDOCAINE HCL 2% 2 ML VIAL/AMP(20MG/ML) INFIL ONE (06:44)
[2019-12-20] MEDS ORDERED: NEOSTIGMINE METHYLSULFATE 5 MG/5 ML SYR ONE (06:44)
[2019-12-20] MEDS ORDERED: DEXAMETHASONE SOD INJ 4 MG/ML VIAL ONE (06:44)
[2019-12-20] MEDS ORDERED: ONDANSETRON INJ 2 MG/ML 2 ML VIAL ONE (06:44)
[2019-12-20] MEDS ORDERED: GLYCOPYRROLATE 0.2 MG/ML VIAL ONE ×2 (06:44→09:39)
[2019-12-20] MEDS ORDERED: PROPOFOL IV EMULSION 10 MG/ML 20 ML VIAL IV ONE (06:44)
[2019-12-20] MEDS ORDERED: ACETAMINOPHEN 1000 MG/100 ML IV IV ONE (06:57)
[2019-12-20] MEDS ORDERED: ONDANSETRON INJ 2 MG/ML 2 ML VIAL IV PRN ×2 (06:59→11:52)
[2019-12-20] MEDS ORDERED: ePHEDrine sulfate 50 MG/ML AMP IV PRN (06:59)
[2019-12-20] MEDS ORDERED: ATROPINE SULFATE 0.1 MG/ML 10ML SYR IV PRN (06:59)
[2019-12-20] MEDS ORDERED: BUPIVACAINE 0.5 % 5 MG/1 ML MPF 30ML VIAL ONE (07:08)
[2019-12-20] MEDS ORDERED: KETAMINE HCL INJ 50 MG/ML 10 ML VIAL ONE (07:47)
[2019-12-20] MEDS ORDERED: HYDROmorphone INJ 2 MG/ML SYR/VIAL ONE (08:02)
[2019-12-20] MEDS ORDERED: ROCURONIUM BROMIDE 10 MG/ML 5 ML VIAL ONE (08:09)
[2019-12-20] MEDS ORDERED: LABETALOL HCL IV 5 MG/ML 20ML IV ONE (08:19)
--- NOTE | 2019-12-20 09:59 | Post Operative Brief Note ---
PG Immediate Post Op with CF Date of Surgery December 20, 2019 Pre & Post Diagnosis Operation Date: 12/20/19 07:15 Pre-Op Diagnosis: Colon Cancer Post-Op Diagnosis: Colon Cancer I identified the patient and participated in the time-out.: Yes Procedure Operation Date: 12/20/19 07:15 Actual Procedures p Laparoscopic-Assisted Sigmoid Colon Resection, Gastrostomy(Not Applicable) - Russell Trejo MD Surgeon Russell Trejo MD Job Analyst B DIANA MENDES Estimated Blood Loss 100 Findings Consistent with Post-Op Diagnosis Specimens Specimen Description: Culture 1: Urine for Culture and Sensitivity Permanent A: Sigmoid, Long Silk Suture Chris Distal Sigmoid Towards Rectal Area Drains [place] Catheter (inserted prior to start of procedure by FLOWER Hamlin.// 18fr 5cc [place] placed upper abdomen), Moises-Malik Drain (19fr round rey) and Sarita Drain
[2019-12-20] MEDS: fentaNYL citrate 100 MCG/2 ML VIAL IV PRN ×2 (10:35→11:00)
--- NOTE | 2019-12-20 10:46 | Operative Report ---
PG Post Operative Report Pre & Post Diagnosis Operation Date: 12/20/19 07:15 Pre-Op Diagnosis: Colon Cancer Post-Op Diagnosis: Colon Cancer I identified the patient and participated in the time-out.: Yes Procedure Operation Date: 12/20/19 07:15 Actual Procedures p Laparoscopic-Assisted Sigmoid Colon Resection, Gastrostomy(Not Applicable) - Russell Trejo MD The patient was brought into the operating theater general endotracheal anesthesia Yeh catheter inserted supine position the abdomen was prepped Betadine solution properly draped timeout was had patient was identified this point a small incision was made supraumbilically sufficient for a Veress needle followed by CO2 followed by 5 mm trocar point of entry inspected no injury sean ntified this point looked in the pelvic area to see the anterior abdominal wall in the pelvis sprayed by tattoo markings at this point a 5 mm right lower quadrant port was placed in the 5 mm left upper quadrant port was placed patient was taken in Trendelenburg position we then we are able to follow the sigmoid colon at the peritoneal reflection on the left side where it was quite redundant and going down towards the pelvis we followed it down and then were able to identify that the lesion was fairly low in his recovery in the redundant sigmoid colon. We incised the white line of Toldt on the left side sufficiently to mobilize the sigmoid colon more and we thought we had enough mobility to proceed with at this time with a primary resection and anastomosis prior to doing that we placed the scope in the right upper quadrant and visualized this liver there was no evidence of any microscopic evidence of the implants. The patient had a very significantly large omentum. We at this point then converted to an open procedure by making a 4 inch x 3 inch incision suprapubic in the midline deepened through subcutaneous tissue we entered the peritoneal cavity which is stated the patient has significant amount of preperitoneal fatty tissue and we continued our dissection distally were able to get right to the edge of the bladder which is small bleeder was then controlled with 3-0 interrupted silk suture we placed the Bookwalter in place at this time I was able to palpate the sigmoid colon which is stated was right redundant and we can lift up the lesion out of the pelvis which about 15 cm or more from the peritoneal reflection in the rectum. This point we then divided the sigmoid colon at its proximal end using a DARIAN stapler and continued our resection of the mesentery into the i nferior mesenteric artery near the origin ligated suture ligated with 2-0 silk. I continued our dissection and resection of the mesentery to the sigmoid colon all the way almost down to the rectum probably were about 5 cm or more above the rectal area where the right ankle intestinal clamp was placed and we divided the colon. We had a significant margin both proximally and distally. This point the staple line in the proximal sigmoid resection oversewn with 3-0 interrupted silk suture we then did a 3-0 silk outer layer 3-0 chromic interlayer the anastomosis have been side to end. The area was checked hemostasis appear satisfactory we irrigated the pelvis checked the anastomosis with patency and appeared fine good vasculature and tension-free we at this point placed a Lennox drain through a stab wound left lower quadrant down the pelvic area attaching a 2-0 silk to the skin edge. Our attention was turned now to the stomach area the patient had a previous fracture as a child nasal fracture and had a difficulty breathing all along preoperatively we tried to see which nostril was more adequate to position NG tube but it was it came to be that the anesthesiologist could not advance the NG tube in either naris during the patient was under general I was concerned that the patient may have difficulty with ileus or even gastric distention postoperatively therefore at this time I elected to place a gastrostomy tube which we did by making an incision usp between the xiphoid and umbilical area about 3 cm long deepened to subcutaneous tissue in the midline we entered the peritoneal cavity in the left upper quadrant once we had identified the stomach we placed a small incision sufficient enough to put a hemostat through it and then another hemostat from the abdomen I then positioned a Yeh catheter through the abdominal wall we checked the balloon for security and appeared to be fine. 3-0 silk suture was then used in probably in the greater curvature just prior to the incisura where a small opening the stomach was made and the Yeh catheter was inserted the pursestring was tied then another pursestring was placed then this was tacked to the anterior abdominal wall after insufflated with 5 cc with 4 interrupted 3-0 silk sutures to secure it and we secured the gastrostomy tube to the skin edge with 2-0 silk suture. This point we closed the abdomen at first the small incision with interrupted #1 PDS grover used grover to close the trocar sites then the lower abdominal incision was closed with a running #1 chromic for the peritoneum and interrupted #1 PDS [id number] throughout the subcu a Acme drain was placed in the subcu suturing both lead with 3-0 silk suture and dressing was applied procedure was tolerated well by the patient estimated blood loss approximately 100 cc addendAlexi mendes was present throughout the procedure and helped the retraction exposure wound closure Surgeon Russell Trejo MD [employer] I Assembler B DIANA MENDES Estimated Blood Loss 100 Findings Consistent with Post-Op Diagnosis Specimens sigmoid colon Description of Procedure merda I attest to the content of the Intraoperative Record and any orders documented therein. Any exceptions are noted below.
--- NOTE | 2019-12-20 11:39 | Anesthesiology Progress Note ---
Date of Service December 20, 2019 Anesthesia Post Procedure Vital Signs Vital Signs: Temp Pulse Pulse Resp BP Pulse Ox 12/20/19 11:19 99.1 F 93 H 12 111/82 98 12/20/19 11:10 99.1 F 88 12 114/85 93 12/20/19 11:00 89 12 156/81 H 92 12/20/19 10:50 83 14 115/71 93 12/20/19 10:40 67 15 127/76 90 12/20/19 10:30 69 12 130/84 92 12/20/19 10:24 98.1 F 84 16 160/79 H 95 12/20/19 05:55 97.5 F L 88 22 142/104 H 95 Pain Intensity Abdomen: Pain Intensity: 5 Transfer of Care Handoff Completed per policy Notes Mental Status: alert / awake / arousable and participated in evaluation Patient Amnestic to Procedure: Yes Nausea / Vomiting: adequately controlled Pain: adequately controlled Airway Patency, RR, SpO2: stable & adequate BP & HR: stable & adequate Hydration State: stable & adequate Anesthetic Complications: no major complications apparent and Pt Satisfied with anesthetic care
[2019-12-20] MEDS ORDERED: GLUCOSE 40% GEL 15 GM TUBE PO PRN (11:52)
[2019-12-20] MEDS ORDERED: ALBUT/IPRATROP 3MG/0.5MG NEB 3 ML VIAL INH PRN (11:52)
[2019-12-20] MEDS ORDERED: CARBOHYDRATES FOR HYPOGLYCEMIA PO PRN (11:52)
[2019-12-20] MEDS ORDERED: NALOXONE HCL 0.4 MG/1 ML VIAL/CARP IV PRN (11:52)
[2019-12-20] MEDS ORDERED: ALBUTEROL HFA 8 GM INHALER INH PRN (11:52)
[2019-12-20] MEDS ORDERED: DEXTROSE 50% 50 ML SYRINGE IV PRN (11:52)
[2019-12-20] MEDS ORDERED: GLUCAGON FOR INJ 1 MG VIAL SQ PRN (11:52)
[2019-12-20] MEDS ORDERED: GLUCOSE 10 TABS/TUBE PO PRN (11:52)
[2019-12-20] MEDS ORDERED: ACETAMINOPHEN 1,000 MG/100 ML VIAL IV PRN (11:52)
[2019-12-20] MEDS ORDERED: NITROGLYCERIN SL 0.4 MG/TAB TAB SL PRN (11:52)
--- NOTE | 2019-12-20 12:23 | Hospitalist Consultation ---
Date of Consultation December 20, 2019 Assessment & Plan (1) Colon cancer: 4 cm sigmoid mass seen on colonoscopy. Pathology back as adenocarcinoma. - S/p sigmoidectomy with Dr. Trejo on 12/20 -> No complications noted on operative note - Post-operative pain control and follow up per primary team (2) Hypertension: BP is 110/80 post-operatively. - Agree with primary team's orders: Continue beta-larry, hold ACEi & HCTZ until at least POD1 (3) Chronic obstructive pulmonary disease, group A, by Global Initiative for Chronic Obstructive Lung Disease 2013 classification: Breathing at baseline. - Continue Advair - DuoNebs PRN (4) Coronary artery disease: [place] in 2012 with stent at that time. No chest pain at present. - Continue ASA, beta-larry (5) Benign localized prostatic hyperplasia with lower urinary tract symptoms (LUTS): Yeh in place. - Continue dutasteride (Patient will have to bring in. If prolonged stay, can switch to finasteride while inpatient.) (6) Moderate obstructive sleep apnea: Per notes, he is on CPAP at home with 2L O2. - Continue inpatient (7) Diabetes mellitus: A1c was 6.2% in 10/2019. - Hold home oral regimen - Sliding scale insulin per primary team's order (8) DVT prophylaxis: SCDs - Now immediately post-operative. Will defer for heparin to primary team. History of Present Illness Attending Physician: Russell Trejo MD History of Present Illness 74yo M w/ hx of COPD, HTN, BPH who presents as a medical consult after a lap sigmoidectomy with Dr. Trejo. At present, he feels some gas, but otherwise denies any actual pain. 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 Allergies Allergy/AdvReac Type Severity Reaction Status Date / Time hydrocodone AdvReac Intermediate vomiting Verified 12/20/19 05:50 Home Medications Home Medications Medication Instructions Recorded Confirmed Type nitroglycerin 0.4 mg sublingual 0.4 mg SL UD PRN #25 tab 05/16/19 12/08/19 History tablet Oxygen Home #1 ea 05/17/19 12/05/19 History albuterol sulfate 90 mcg/actuation 1 - 2 puffs INH Q6H PRN #18 gm 05/17/19 12/20/19 Rx aerosol inhaler aspirin 81 mg tablet,delayed 81 mg PO QAM #30 tab 08/23/19 12/20/19 History release dutasteride [Avodart] 0.5 mg PO PM 09/07/19 12/20/19 History fluticasone 250 mcg-salmeterol 50 1 puffs INHALATION BID ea 10/11/19 12/20/19 History mcg/dose blistr powdr for inhalation hydrochlorothiazide 25 mg PO QAM 10/21/19 12/20/19 History metoprolol succinate 150 mg PO QAM 10/21/19 12/20/19 History tiotropium bromide [Spiriva 2 puffs INHALATION UD PRN 10/21/19 12/20/19 History Respimat] rosuvastatin 40 mg tablet 40 mg PO HS #90 tab 11/22/19 12/20/19 Rx ipratropium-albuterol 3 ml INH UD PRN 12/08/19 12/20/19 History lisinopril 40 mg PO QAM 12/08/19 12/20/19 History metformin 500 mg PO QPM 12/08/19 12/20/19 History metformin [Glucophage] 1,000 mg PO QAM 12/08/19 12/20/19 History omeprazole 20 mg PO QAM 12/08/19 12/20/19 History metronidazole 500 mg tablet 500 mg PO UD #3 tab 12/09/19 12/09/19 Rx neomycin 500 mg tablet 1,000 mg PO UD #6 tab 12/09/19 12/09/19 Rx Patient History Medical History Anticoagulant long-term use (Acute) WAS STOPPED ON 10/08/19 DUE TO CURRENT BLEEDING ISSUES Atrial flutter, paroxysmal (Acute) HX 360 BPM/CARDIOVERSION Colon cancer COPD (chronic obstructive pulmonary disease) Coronary artery disease Diabetes mellitus (Acute) GERD (gastroesophageal reflux disease) History of blood transfusion AUG 2019 HTN (hypertension) Hyperlipidemia Multiple lung nodules on CT Myocardial Infarction 2012...STENT ([facility]) Sleep apnea CPAP Stomach ulcer HX Surgical History History of anesthesia reaction PROFUSE SWEATING AFTER PROSTATE SURGERY, UNABLE TO KEEP IV'S IN DUE TO AMOUNT OF SWEAT History of cardiac cath X4 TOTAL ( 1ST CATH 2012 FOR [place], STENT X1 - 3 FOLLOWING F/U STENT PLACEMENT) History of colonoscopy History of dental surgery History of esophagogastroduodenoscopy (EGD) History of hand surgery L History of prostate surgery "LASER" S/P colon resection (12/20/19) Laparoscopic-Assisted Sigmoid Colon Resection, Gastrostomy Dr. Trejo 12/20/19 Family History Grandmother (Paternal) No problems noted. Mother Osteoporosis Family history of diabetes mellitus Cardiac arrhythmia Depression Cancer Sister Depression Family history of diabetes mellitus Father Prostate cancer Family history of diabetes mellitus Myocardial infarction Social History Preferred Language: German Communication Ability: Effective Visual Impairment: No Limitations Hearing Ability: Normal Offbearer Required: No Beliefs That Will Affect Care: None marital status: Current Living Situation: Spouse current occupational status: retired Other Information That Helps Us Care for You: No Feels Safe at Home: Yes Smoking Status: Former smoker Cigarettes Per Day: 20 ; Do You Dip or Chew Tobacco: Yes (OCCASSIONAL, ADVISED NPO) ; Smoking End Date: QUIT 20 YR AGO ; Second Hand Exposure: Yes (SPOUSE SMOKES) ; Hx Alcohol Use: No Hx Substance Use: No Dental Care, Regularly: No Seatbelt Use: always Review of Systems Review of Systems: All systems reviewed & are unremarkable except as noted in HPI & below Physical Exam Constitutional: WD/WN, vitals as above Eyes: EOM intact bilaterally; no conjunctival abnormality ENMT: external ear and nose normal, oropharynx normal Neck: trachea midline, no thyromegaly normal visual inspection Respiratory: normal respiratory effort, lungs clear to auscultation no respiratory distress Cardiovascular: RRR, no murmur, no edema Gastrointestinal (Abdomen): Inspection/Auscultation: + abdominal surgical incision; abdomen not distended Percussion/Palpation: + abdomen tender and abdomen soft; no guarding and abdomen not rigid Musculoskeletal: no cyanosis or clubbing, extremities motor strength 5/5 Skin: no rashes, warm and dry Neurologic: moves all extremities and awake Psychiatric: Orientation: alert, oriented to person and cooperative Results & Data ([facility]) Vital Signs (Past 12 Hours) Vital Signs Temp Pulse Pulse Resp BP Pulse Ox 12/20/19 11:19 37.3 C 93 H 12 111/82 98 12/20/19 11:10 37.3 C 88 12 114/85 93 12/20/19 11:00 89 12 156/81 H 92 12/20/19 10:50 83 14 115/71 93 12/20/19 10:40 67 15 127/76 90 12/20/19 10:30 69 12 130/84 92 12/20/19 10:24 36.7 C 84 16 160/79 H 95 12/20/19 05:55 36.4 C L 88 22 142/104 H 95 PG Care Time/CCT Total # of Minutes Spent Total Time Spent with Patient: Total time spent is greater than 50% in coordination of care (as documented) at patient's floor/unit and/or counseling patient: Coding Level of Care Code 24335 Inpt Consult Level 4 Diagnoses Colon cancer C18.9 Hypertension I10 Chronic obstructive pulmonary disease, group A, by Global Initiative for Chronic Obstructive Lung Disease 2013 classification J44.9 Coronary artery disease I25.10 Benign localized prostatic hyperplasia with lower urinary tract symptoms (LUTS) N40.1 Moderate obstructive sleep apnea G47.33 Diabetes mellitus E11.9 DVT prophylaxis Z29.9
[2019-12-20] MEDS ORDERED: UMECLIDINIUM BROMIDE 62.5MCG/BLISTER 7 PUFFS/INHALER INH PRN (12:39)
[2019-12-20] MEDS: LACTATED RINGER'S 1,000 ML IV SCH ×2 (13:17→20:03)
[2019-12-20] MEDS: SODIUM CHLORIDE 0.9% 1000ML 1,000 ML IV SCH (13:20)
[2019-12-20] MEDS: MORPHINE SULFATE PCA 30 MG/30 ML IV PRN (13:25)
[2019-12-20] MEDS: cefOXitin 2,000 MG in DEXTROSE 5% 50 ML IV SCH ×2 (13:33→20:02)
[2019-12-20] MEDS: INSULIN ASPART 100 UNITS/ML 3 ML PEN SC SCH ×2 (18:48→23:29)
[2019-12-20] MEDS: FLUTICASONE/VILANTEROL 100/25MCG 14 PUFFS/INHALER INH SCH (20:02)
[2019-12-21] MEDS: LACTATED RINGER'S 1,000 ML IV SCH ×4 (01:07→18:47)
[2019-12-21] MEDS: cefOXitin 2,000 MG in DEXTROSE 5% 50 ML IV SCH ×2 (02:02→09:49)
[2019-12-21] MEDS: INSULIN ASPART 100 UNITS/ML 3 ML PEN SC SCH ×3 (05:09→17:27)
[2019-12-21 05:27] LABS: Basophils # (auto) 0.02 K/uL (0-0.2); Basophils % (auto) 0.2 %; Eosinophils # (auto) 0.08 K/uL (0-0.5); Eosinophils % (auto) 0.8 %; Hematocrit (blood only) 43.9 % (42-52); Hemoglobin 14.5 g/dL (14.0-18.0); Immature Granulocytes # (auto) 0.02 K/uL (0.00-0.02); Immature Granulocytes % (auto) 0.2 %; Lymphocytes # (auto) 0.81 K/uL (1.2-3.4); Mean Corpuscular Hemoglobin 29.5 pg (25-34); Mean Corpuscular Volume 89.2 fL (80-100); Mean Platelet Volume 10.5 fL (7.4-10.4); Monocytes # (auto) 0.75 K/uL (0.11-0.59); Monocytes % (auto) 7.4 %; Neutrophils # (auto) 8.44 K/uL (1.4-6.5); Neutrophils % (auto) 83.4 %; Platelet Count 158 K/uL (130-400); RDW Coefficient of Variation 15.3 % (11.5-14.5); RDW Standard Deviation 49.3 fL (36.4-46.3); Red Blood Count 4.92 M/uL (4.7-6.1); White Blood Count 10.12 K/uL (4.8-10.8)
[2019-12-21 05:52] LABS: BUN Creatinine Ratio 11.8 (10-20); Calcium 8.6 mg/dl (8.5-10.1); Est GFR (African American) 74.4; Est GFR (Non-African American) 64.2; Potassium 3.8 mmol/L (3.5-5.1)
[2019-12-21] MEDS: MORPHINE SULFATE PCA 30 MG/30 ML IV PRN ×2 (07:07→21:15)
--- NOTE | 2019-12-21 07:43 | Surgery Progress Note ---
Date of Service December 21, 2019 Assessment & Plan (1) Colon cancer: POD 1 sigmoid colectomy seen with Dr. Trejo start subQ heparin clamp G-tube, consider clears if no nausea decrease IVF d/c [place] Subjective no c/o Physical Exam Gastrointestinal (Abdomen): Inspection/Auscultation: + abdominal surgical incision (dressing intact) and + abdominal surgical drain present (10 cc overnight) Percussion/Palpation: abdomen soft UOP 350 overnight Results & Data Vital Signs (Past 12 Hours) Vital Signs Temp Pulse Pulse Resp BP Pulse Ox 12/21/19 03:55 37.0 C 102 H 16 153/90 H 94 12/20/19 23:25 37.0 C 102 H 18 163/97 H 93 12/20/19 22:47 101 H 12/20/19 20:00 36.9 C 104 H 17 132/98 93 PG Care Time/CCT Total # of Minutes Spent Total Time Spent with Patient: Total time spent is greater than 50% in coordination of care (as documented) at patient's floor/unit and/or counseling patient: Coding Level of Care Code None Diagnoses Colon cancer C18.9
[2019-12-21] MEDS: METOPROLOL SUCC 50MG EXT REL TAB PO SCH (09:49)
[2019-12-21] MEDS: PANTOprazole 40 MG TAB PO SCH (09:49)
[2019-12-21] MEDS: ASPIRIN 81 MG ECTAB PO SCH (09:49)
[2019-12-21] MEDS: SODIUM CHLORIDE 0.9% 1000ML 1,000 ML IV SCH (11:49)
--- NOTE | 2019-12-21 12:13 | Hospitalist Progress Note ---
Date of Service December 21, 2019 Assessment & Plan (1) Colon cancer: 4 cm sigmoid mass seen on colonoscopy. Pathology back as adenocarcinoma. - S/p sigmoidectomy with Dr. Trejo on 12/20 -> No complications noted on operative note - Post-operative pain control and follow up per primary team (2) Hypertension: BP is 150/90 post-operatively. - Continue beta-larry - Start ACEi - Hold HCTZ for now (3) Chronic obstructive pulmonary disease, group A, by Global Initiative for Chronic Obstructive Lung Disease 2013 classification: Breathing at baseline. - Continue Advair - DuoNebs PRN (4) Coronary artery disease: [place] in 2012 with stent at that time. No chest pain at present. - Continue ASA, beta-larry (5) Benign localized prostatic hyperplasia with lower urinary tract symptoms (LUTS): Yeh in place. - Continue dutasteride (Patient will have to bring in. If prolonged stay, can switch to finasteride while inpatient.) (6) Moderate obstructive sleep apnea: Per notes, he is on CPAP at home with 2L O2. - Continue inpatient (7) Diabetes mellitus: A1c was 6.2% in 10/2019. - Hold home oral regimen - Sliding scale insulin per primary team's order (8) DVT prophylaxis: Heparin Q8h per surgical team Subjective Doing well today. 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 Reports no fevers/chills, chest pain, shortness of breath, nausea, or vomiting. Physical Exam Constitutional: WD/WN, vitals as above Eyes: EOM intact bilaterally; no conjunctival abnormality ENMT: external ear and nose normal, oropharynx normal Neck: trachea midline, no thyromegaly normal visual inspection Respiratory: normal respiratory effort, lungs clear to auscultation no respiratory distress Cardiovascular: RRR, no murmur, no edema Gastrointestinal (Abdomen): Inspection/Auscultation: + abdominal surgical incision; abdomen not distended Percussion/Palpation: + abdomen tender and abdomen soft; no guarding and abdomen not rigid Musculoskeletal: no cyanosis or clubbing, extremities motor strength 5/5 Skin: no rashes, warm and dry Neurologic: moves all extremities and awake Psychiatric: Orientation: alert, oriented to person and cooperative Results & Data ([facility]) Vital Signs (Past 12 Hours) Vital Signs Temp Pulse Resp BP Pulse Ox 12/21/19 03:55 37.0 C 102 H 16 153/90 H 94 PG Care Time/CCT Total # of Minutes Spent Total Time Spent with Patient: Total time spent is greater than 50% in coordination of care (as documented) at patient's floor/unit and/or counseling patient: Coding Level of Care Code 82059 Subseq Hosp Care Lvl 2 Diagnoses Colon cancer C18.9 Hypertension I10 Chronic obstructive pulmonary disease, group A, by Global Initiative for Chronic Obstructive Lung Disease 2013 classification J44.9 Coronary artery disease I25.10 Benign localized prostatic hyperplasia with lower urinary tract symptoms (LUTS) N40.1 Moderate obstructive sleep apnea G47.33 Diabetes mellitus E11.9 DVT prophylaxis Z29.9
[2019-12-21] MEDS: HEPARIN SOD 5,000 UNIT/0.5 ML VIAL SQ SCH ×2 (13:28→21:15)
[2019-12-21] MEDS: FLUTICASONE/VILANTEROL 100/25MCG 14 PUFFS/INHALER INH SCH (21:15)
[2019-12-22] MEDS: INSULIN ASPART 100 UNITS/ML 3 ML PEN SC SCH ×5 (00:06→23:58)
[2019-12-22] MEDS: LACTATED RINGER'S 1,000 ML IV SCH ×3 (03:04→21:39)
[2019-12-22] MEDS ORDERED: METOPROLOL TARTRATE 1 MG/ML VIAL IV STA ×5 (04:19→05:01)
[2019-12-22] MEDS ORDERED: METOPROLOL TARTRATE 1 MG/ML VIAL IV ONE (04:21)
[2019-12-22 04:53] LABS: Basophils # (auto) 0.01 K/uL (0-0.2); Basophils % (auto) 0.1 %; Eosinophils # (auto) 0.17 K/uL (0-0.5); Eosinophils % (auto) 1.7 %; Hematocrit (blood only) 41.7 % (42-52); Hemoglobin 14.1 g/dL (14.0-18.0); Immature Granulocytes # (auto) 0.02 K/uL (0.00-0.02); Immature Granulocytes % (auto) 0.2 %; Lymphocytes # (auto) 0.98 K/uL (1.2-3.4); Lymphocytes % (auto) 9.9 %; Mean Corpuscular Volume 88.7 fL (80-100); Mean Platelet Volume 10.4 fL (7.4-10.4); Monocytes # (auto) 0.68 K/uL (0.11-0.59); Monocytes % (auto) 6.9 %; Neutrophils % (auto) 81.2 %; Platelet Count 157 K/uL (130-400); RDW Coefficient of Variation 15.3 % (11.5-14.5); RDW Standard Deviation 48.6 fL (36.4-46.3); White Blood Count 9.86 K/uL (4.8-10.8)
[2019-12-22 05:15] LABS: BUN Creatinine Ratio 9.2 (10-20); Calcium 8.7 mg/dl (8.5-10.1); Creatinine Clr Calc Pharmacy 86.2 ml/min; Est GFR (African American) 92.1; Est GFR (Non-African American) 79.5; Mean Corpuscular Hgb Conc 33.8 g/dL (32-36); Phosphorus 2.4 mg/dl (2.5-4.9); Potassium 3.9 mmol/L (3.5-5.1)
[2019-12-22] MEDS ORDERED: POTASSIUM PHOS 3 MMOL/1 ML INFUSION IV STA (05:17)
[2019-12-22] MEDS ORDERED: POTASSIUM PHOSPHATE 15 MMOL in SODIUM CHLORIDE 0.9% 250 ML IV ONE (05:30)
[2019-12-22] MEDS: HEPARIN SOD 5,000 UNIT/0.5 ML VIAL SQ SCH ×3 (06:19→21:03)
--- NOTE | 2019-12-22 07:23 | Surgery Progress Note ---
Date of Service December 22, 2019 Assessment & Plan (1) Colon cancer: POD 2 Continue keeping patient n.p.o. out of bed as tolerated continue monitoring and see went in and out of A. fib last night no need for any x-rays at this time abdominal distention with COPD as expected change dressing and incision on a as needed basis laboratory study was noted POD 1 sigmoid colectomy seen with Dr. Trejo start subQ heparin clamp G-tube, consider clears if no nausea decrease IVF d/c [place] Subjective States feels terrible aching all over belly discomfort no nausea no c/o Physical Exam Physical Exam: On nasal O2 The abdomen is moderately distended no tenderness The G-tube draining according to the nurses 200 overnight [place] drainage is serous slightly sanguinous Patient has have some bleeding from the incision at the [place] sites [place] catheter need to be reinserted could not void and is draining well Results & Data Vital Signs (Past 12 Hours) Vital Signs Temp Pulse Pulse Pulse Resp BP BP 12/22/19 05:59 77 12/22/19 05:09 126 H 136/88 12/22/19 05:08 126 H 136/88 12/22/19 04:59 96 H 142/92 H 12/22/19 04:55 135 H 135 H 137/98 137/98 12/22/19 04:50 36.7 C 92 H 20 154/103 H 12/22/19 04:37 156 H 147/87 H 12/22/19 04:19 156 H 148/88 H 12/22/19 00:17 36.5 C 93 H 20 180/81 H 12/21/19 23:56 88 12/21/19 22:00 36.8 C 92 H 90 22 183/81 H 12/21/19 20:00 36.8 C 98 H 23 148/90 H Pulse Ox 12/22/19 05:59 12/22/19 05:09 12/22/19 05:08 12/22/19 04:59 12/22/19 04:55 12/22/19 04:50 92 12/22/19 04:37 12/22/19 04:19 12/22/19 00:17 91 12/21/19 23:56 12/21/19 22:00 94 12/21/19 20:00 93 PG Care Time/CCT Total # of Minutes Spent Total Time Spent with Patient: Total time spent is greater than 50% in coordination of care (as documented) at patient's floor/unit and/or counseling patient: Coding Level of Care Code None Diagnoses Colon cancer C18.9
[2019-12-22] MEDS: lisinopriL 40 MG TAB PO SCH (08:24)
[2019-12-22] MEDS: ASPIRIN 81 MG ECTAB PO SCH (08:25)
[2019-12-22] MEDS: METOPROLOL SUCC 50MG EXT REL TAB PO SCH (08:25)
[2019-12-22] MEDS: PANTOprazole 40 MG TAB PO SCH (08:25)
--- NOTE | 2019-12-22 13:19 | Hospitalist Progress Note ---
Date of Service December 22, 2019 Assessment & Plan (1) Colon cancer: 4 cm sigmoid mass seen on colonoscopy. Pathology back as adenocarcinoma. - S/p sigmoidectomy with Dr. Trejo on 12/20 -> No complications noted on operative note - Post-operative pain control and follow up per primary team - Stable today. Maybe slightly improved pain. No GI activity yet. Still NPO. (2) Hypertension: BP is 120/60 post-operatively. - Continue beta-larry - Start ACEi - Hold HCTZ for now (3) Chronic obstructive pulmonary disease, group A, by Global Initiative for Chronic Obstructive Lung Disease 2013 classification: Breathing at baseline. He is on 4L [place] which I will need to ask if is his baseline. - Continue Advair - DuoNebs PRN (4) Coronary artery disease: [place] in [place] with stent at that time. No chest pain at present. - Continue ASA, beta-larry (5) Benign localized prostatic hyperplasia with lower urinary tract symptoms (LUTS): Yeh in place. - Continue dutasteride (Patient will have to bring in. If prolonged stay, can switch to finasteride while inpatient.) - Would encourage removal of Yeh at nearest possibility. (6) Moderate obstructive sleep apnea: Per notes, he is on CPAP at home with 2L O2. - Continue inpatient (7) Diabetes mellitus: A1c was 6.2% in 10/2019. - Hold home oral regimen - Sliding scale insulin per primary team's order (8) DVT prophylaxis: Heparin Q8h per surgical team Subjective He reports his abdomen is less sore today. It is better when he sits up. He has not passed gas or had a BM. Reports no fevers/chills, chest pain, shortness of breath, nausea, or vomiting. Physical Exam Constitutional: WD/WN, vitals as above Eyes: EOM intact bilaterally; no conjunctival abnormality ENMT: external ear and nose normal, oropharynx normal Neck: trachea midline, no thyromegaly normal visual inspection Respiratory: normal respiratory effort, lungs clear to auscultation no respiratory distress Cardiovascular: RRR, no murmur, no edema Gastrointestinal (Abdomen): Inspection/Auscultation: + abdominal surgical incision and + hypoactive bowel sounds; abdomen not distended Percussion/Palpation: + abdomen tender and abdomen soft; no guarding and abdomen not rigid Musculoskeletal: no cyanosis or clubbing, extremities motor strength 5/5 Skin: no rashes, warm and dry Neurologic: moves all extremities and awake Psychiatric: Orientation: alert, oriented to person and cooperative Results & Data ([facility]) Vital Signs (Past 12 Hours) Vital Signs Temp Pulse Pulse Pulse Resp BP BP 12/22/19 12:00 36.8 C 62 18 122/61 12/22/19 08:00 37.0 C 76 68 18 130/69 12/22/19 05:59 77 12/22/19 05:09 126 H 136/88 12/22/19 05:08 126 H 136/88 12/22/19 04:59 96 H 142/92 H 12/22/19 04:55 135 H 135 H 137/98 137/98 12/22/19 04:50 36.7 C 92 H 20 154/103 H 12/22/19 04:37 156 H 147/87 H 12/22/19 04:19 156 H 148/88 H Pulse Ox 12/22/19 12:00 95 12/22/19 08:00 98 12/22/19 05:59 12/22/19 05:09 12/22/19 05:08 12/22/19 04:59 12/22/19 04:55 12/22/19 04:50 92 12/22/19 04:37 12/22/19 04:19 PG Care Time/CCT Total # of Minutes Spent Total Time Spent with Patient: Total time spent is greater than 50% in coordination of care (as documented) at patient's floor/unit and/or counseling patient: Coding Level of Care Code 86371 Subseq Hosp Care Lvl 2 Diagnoses Colon cancer C18.9 Hypertension I10 Chronic obstructive pulmonary disease, group A, by Global Initiative for Chronic Obstructive Lung Disease 2013 classification J44.9 Coronary artery disease I25.10 Benign localized prostatic hyperplasia with lower urinary tract symptoms (LUTS) N40.1 Moderate obstructive sleep apnea G47.33 Diabetes mellitus E11.9 DVT prophylaxis Z29.9
--- NOTE | 2019-12-22 14:05 | Electrocardiogram Report ---
Test Reason : Blood Pressure : / mmHG Vent. Rate : 144 BPM Atrial Rate : 141 BPM P-R Int : 000 ms QRS Dur : 100 ms QT Int : 312 ms P-R-T Axes : 000 014 -05 degrees QTc Int : 483 ms Poor data quality, interpretation may be adversely affected Atrial fibrillation with rapid ventricular response Possible Inferior infarct , age undetermined T wave abnormality, consider lateral ischemia Abnormal ECG When compared with ECG of 07-SEP-2019 14:22, Atrial fibrillation has replaced Sinus rhythm Vent. rate has increased BY 56 BPM T wave inversion now evident in Lateral leads Confirmed by Ld Rodriguez ([id number]) on 12/22/2019 2:04:54 PM Referred By: Russell Trejo Confirmed By:Ld Rodriguez
[2019-12-22] MEDS: DUTASTERIDE PO SCH (21:01)
[2019-12-22] MEDS: SODIUM CHLORIDE 0.9% 1000ML 1,000 ML IV SCH (21:01)
[2019-12-22] MEDS: FLUTICASONE/VILANTEROL 100/25MCG 14 PUFFS/INHALER INH SCH (21:03)
[2019-12-23] MEDS: LACTATED RINGER'S 1,000 ML IV SCH ×2 (05:20→15:02)
[2019-12-23] MEDS: INSULIN ASPART 100 UNITS/ML 3 ML PEN SC SCH ×3 (06:12→18:15)
[2019-12-23] MEDS: HEPARIN SOD 5,000 UNIT/0.5 ML VIAL SQ SCH ×3 (06:13→20:56)
[2019-12-23 06:36] LABS: Basophils # (auto) 0.01 K/uL (0-0.2); Basophils % (auto) 0.1 %; Eosinophils # (auto) 0.22 K/uL (0-0.5); Eosinophils % (auto) 2.8 %; Hematocrit (blood only) 35.8 % (42-52); Hemoglobin 11.8 g/dL (14.0-18.0); Immature Granulocytes # (auto) 0.02 K/uL (0.00-0.02); Immature Granulocytes % (auto) 0.3 %; Lymphocytes # (auto) 0.55 K/uL (1.2-3.4); Lymphocytes % (auto) 7.1 %; Mean Corpuscular Hemoglobin 29.6 pg (25-34); Mean Corpuscular Volume 89.7 fL (80-100); Mean Platelet Volume 10.4 fL (7.4-10.4); Monocytes # (auto) 0.52 K/uL (0.11-0.59); Monocytes % (auto) 6.7 %; Neutrophils # (auto) 6.45 K/uL (1.4-6.5); Platelet Count 134 K/uL (130-400); RDW Coefficient of Variation 15.1 % (11.5-14.5); RDW Standard Deviation 49.4 fL (36.4-46.3); Red Blood Count 3.99 M/uL (4.7-6.1); White Blood Count 7.77 K/uL (4.8-10.8)
[2019-12-23 07:10] LABS: BUN Creatinine Ratio 14.4 (10-20); Calcium 8.4 mg/dl (8.5-10.1); Creatinine Clr Calc Pharmacy 114.3 ml/min; Est GFR (African American) 106.2; Est GFR (Non-African American) 91.7; Potassium 3.7 mmol/L (3.5-5.1)
[2019-12-23] MEDS: lisinopriL 40 MG TAB PO SCH (08:28)
[2019-12-23] MEDS: ASPIRIN 81 MG ECTAB PO SCH (08:28)
[2019-12-23] MEDS: PANTOprazole 40 MG TAB PO SCH (08:28)
[2019-12-23] MEDS: METOPROLOL SUCC 50MG EXT REL TAB PO SCH (08:28)
--- NOTE | 2019-12-23 08:29 | Surgery Progress Note ---
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 Trejo Subjective Patient says he is feeling well. Slept okay overnight. Has some increased abdominal pain when he coughs, but otherwise denies much pain. Has not yet passed gas or had a BM. Denies nausea/vomiting. Physical Exam Physical Exam: awake/alert, sitting up in bed Constitutional: no acute distress Gastrointestinal (Abdomen): Inspection/Auscultation: + abdominal surgical incision (surgical grover intact, some ooziness angela-tatiana drain) and + abdominal surgical drain present (TREVOR with serosang output. G-tube clamped) Percussion/Palpation: + abdomen tender (some tenderness to palpation angela incisions) Results & Data Vital Signs (Past 12 Hours) Vital Signs Temp Pulse Pulse Resp BP Pulse Ox 12/23/19 07:34 36.5 C 68 20 165/87 H 97 12/23/19 04:30 36.6 C 78 18 157/77 H 94 12/22/19 23:33 36.9 C 72 18 150/78 H 92 12/22/19 23:18 83 PG Care Time/CCT Total # of Minutes Spent Total Time Spent with Patient: Total time spent is greater than 50% in coordination of care (as documented) at patient's floor/unit and/or counseling patient: Coding Level of Care Code None Diagnoses Colon cancer C18.9
[2019-12-23] MEDS ORDERED: FUROSEMIDE 20 MG in SYRINGE 0 ML IV ONE (09:15)
[2019-12-23] MEDS: SODIUM CHLORIDE 0.9% 1000ML 1,000 ML IV SCH (13:53)
--- NOTE | 2019-12-23 17:23 | Hospitalist Progress Note ---
Date of Service December 23, 2019 Assessment & Plan (1) Colon cancer: 4 cm sigmoid mass seen on colonoscopy. Pathology back as adenocarcinoma. - S/p sigmoidectomy with Dr. Trejo on 12/20 -> No complications noted on operative note - Post-operative pain control and follow up per primary team - Stable today. Maybe slightly improved pain. No GI activity yet. Still NPO. Is now walking at least to try to get things moving. Using less pain meds. (2) Hypertension: BP is 150/80 today. - Continue beta-larry & ACEi - Hold HCTZ for now (3) Chronic obstructive pulmonary disease, group A, by Global Initiative for Chronic Obstructive Lung Disease 2013 classification: Breathing at baseline. He is on 2L at night with CPAP, but normally on no daytime O2. - Continue Advair - DuoNebs PRN - Wean O2 as able. Down slightly today to 2L. O2 sat ~92%. Will continue to wean in coming days. (4) Coronary artery disease: [place] in 2012 with stent at that time. No chest pain at present. - Continue ASA, beta-larry (5) Benign localized prostatic hyperplasia with lower urinary tract symptoms (LUTS): Yeh in place. - Continue dutasteride - Would encourage removal of Yeh at nearest possibility. (6) Moderate obstructive sleep apnea: Per notes, he is on CPAP at home with 2L O2. - Continue inpatient (7) Diabetes mellitus: A1c was 6.2% in 10/2019. - Hold home oral regimen - Sliding scale insulin per primary team's order (8) DVT prophylaxis: Heparin Q8h per surgical team Subjective Doing great today. No major complaints. Pain is improving, but no GI movement yet. Reports no fevers/chills, chest pain, shortness of breath, nausea, or vomiting. Physical Exam Constitutional: WD/WN, vitals as above Eyes: EOM intact bilaterally; no conjunctival abnormality ENMT: external ear and nose normal, oropharynx normal Neck: trachea midline, no thyromegaly normal visual inspection Respiratory: normal respiratory effort, lungs clear to auscultation no respiratory distress Cardiovascular: RRR, no murmur, no edema Gastrointestinal (Abdomen): Inspection/Auscultation: + abdominal surgical incision and + hypoactive bowel sounds; abdomen not distended Percussion/Palpation: + abdomen tender and abdomen soft; no guarding and abdomen not rigid Musculoskeletal: no cyanosis or clubbing, extremities motor strength 5/5 Skin: no rashes, warm and dry Neurologic: moves all extremities and awake Psychiatric: Orientation: alert, oriented to person and cooperative Results & Data ([facility]) Vital Signs (Past 12 Hours) Vital Signs Temp Pulse Pulse Resp BP Pulse Ox 12/23/19 15:42 36.3 C L 65 16 147/83 H 97 12/23/19 10:56 36.7 C 64 18 153/88 H 97 12/23/19 08:00 72 12/23/19 07:34 36.5 C 68 20 165/87 H 97 PG Care Time/CCT Total # of Minutes Spent Total Time Spent with Patient: Total time spent is greater than 50% in coordination of care (as documented) at patient's floor/unit and/or counseling patient: Coding Level of Care Code 06793 Subseq Hosp Care Lvl 2 Diagnoses Colon cancer C18.9 Hypertension I10 Chronic obstructive pulmonary disease, group A, by Global Initiative for Chronic Obstructive Lung Disease 2013 classification J44.9 Coronary artery disease I25.10 Benign localized prostatic hyperplasia with lower urinary tract symptoms (LUTS) N40.1 Moderate obstructive sleep apnea G47.33 Diabetes mellitus E11.9 DVT prophylaxis Z29.9
[2019-12-23] MEDS: DUTASTERIDE PO SCH (20:30)
[2019-12-23] MEDS: FLUTICASONE/VILANTEROL 100/25MCG 14 PUFFS/INHALER INH SCH (20:30)
[2019-12-24] MEDS: INSULIN ASPART 100 UNITS/ML 3 ML PEN SC SCH ×4 (00:09→17:53)
[2019-12-24] MEDS: LACTATED RINGER'S 1,000 ML IV SCH ×2 (03:25→17:13)
[2019-12-24] MEDS: HEPARIN SOD 5,000 UNIT/0.5 ML VIAL SQ SCH ×3 (06:17→21:07)
[2019-12-24 07:20] LABS: Basophils # (auto) 0.02 K/uL (0-0.2); Basophils % (auto) 0.3 %; Eosinophils # (auto) 0.29 K/uL (0-0.5); Eosinophils % (auto) 4.6 %; Hematocrit (blood only) 38.5 % (42-52); Hemoglobin 12.6 g/dL (14.0-18.0); Immature Granulocytes # (auto) 0.01 K/uL (0.00-0.02); Immature Granulocytes % (auto) 0.2 %; Lymphocytes # (auto) 0.71 K/uL (1.2-3.4); Lymphocytes % (auto) 11.2 %; Mean Corpuscular Hemoglobin 29.4 pg (25-34); Mean Corpuscular Hgb Conc 32.7 g/dL (32-36); Mean Corpuscular Volume 89.7 fL (80-100); Mean Platelet Volume 10.8 fL (7.4-10.4); Monocytes # (auto) 0.46 K/uL (0.11-0.59); Monocytes % (auto) 7.3 %; Neutrophils # (auto) 4.84 K/uL (1.4-6.5); Neutrophils % (auto) 76.4 %; Platelet Count 156 K/uL (130-400); RDW Coefficient of Variation 15.1 % (11.5-14.5); RDW Standard Deviation 49.1 fL (36.4-46.3); Red Blood Count 4.29 M/uL (4.7-6.1); White Blood Count 6.33 K/uL (4.8-10.8)
[2019-12-24 07:47] LABS: BUN Creatinine Ratio 17.6 (10-20); Calcium 9.1 mg/dl (8.5-10.1); Creatinine Clr Calc Pharmacy 115.4 ml/min; Est GFR (African American) 106.2; Est GFR (Non-African American) 91.7; Magnesium 1.9 mg/dl (1.8-2.4); Potassium 3.6 mmol/L (3.5-5.1)
[2019-12-24 07:50] LABS: Phosphorus 3.2 mg/dl (2.5-4.9)
[2019-12-24] MEDS: PANTOprazole 40 MG TAB PO SCH (08:50)
[2019-12-24] MEDS: lisinopriL 40 MG TAB PO SCH (08:50)
[2019-12-24] MEDS: METOPROLOL SUCC 50MG EXT REL TAB PO SCH (08:50)
[2019-12-24] MEDS: ASPIRIN 81 MG ECTAB PO SCH (08:50)
[2019-12-24] MEDS ORDERED: OXYCODONE/ACETAMINOPHEN 5mg/325mg TAB PO PRN ×2 (09:24)
--- NOTE | 2019-12-24 09:36 | Surgery Progress Note ---
Date of Service December 24, 2019 Assessment & Plan (1) Colon cancer: pod 3. doing well awaiting return of bowel fx pt back on avodart and would like to try removing [place] increase activity. PT consult request by nursing IM would like to transfer to floor. 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 sitting in chair/comfortable. no bowel fx yet per pt. pain control adequate. Physical Exam Physical Exam: alert. nad TREVOR serous. scant incision bandage c/d/i. mild bleeding at tatiana site earlier per nursing. minimal. Results & Data Vital Signs (Past 12 Hours) Vital Signs Temp Pulse Pulse Resp BP Pulse Ox 12/24/19 07:44 36.5 C 67 18 152/88 H 97 12/24/19 04:13 36.4 C L 61 18 166/83 H 96 12/24/19 00:00 65 12/23/19 23:46 36.4 C L 78 18 160/94 H 97 PG Care Time/CCT Total # of Minutes Spent Total Time Spent with Patient: Total time spent is greater than 50% in coordination of care (as documented) at patient's floor/unit and/or counseling patient: Coding Level of Care Code None Diagnoses Colon cancer C18.9
--- NOTE | 2019-12-24 12:08 | Hospitalist Progress Note ---
Date of Service December 24, 2019 Assessment & Plan (1) Colon cancer: 4 cm sigmoid mass seen on colonoscopy. Pathology back as adenocarcinoma. - S/p sigmoidectomy with Dr. Trejo on 12/20 -> No complications noted on operative note - Post-operative pain control and follow up per primary team - Stable today. Improved pain. 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 Sadly, no GI activity yet. Still NPO. Drains still in place. (2) Hypertension: BP is 150/55 today. Very satisfactory for the hospital. - Continue beta-larry & ACEi - Hold HCTZ for now (3) Chronic obstructive pulmonary disease, group A, by Global Initiative for Chronic Obstructive Lung Disease 2013 classification: Breathing at baseline. He is on 2L at night with CPAP, but normally on no daytime O2. - Continue Advair - DuoNebs PRN - Weaned him off O2 today. O2 sat remained 92-93%. He probably has an element of [place] as his O2 is dropping overnight while sleeping. Will need to follow this up outpatient. (4) Coronary artery disease: [place] in 2012 with stent at that time. No chest pain at present. - Continue ASA, beta-larry (5) Benign localized prostatic hyperplasia with lower urinary tract symptoms (LUTS): Yeh removed on 12/24. Waiting for a void for now. - Continue dutasteride - If he retains, would need to reinsert Yeh and likely get outpatient urology follow up. (6) Moderate obstructive sleep apnea: He is on CPAP at home with 2L O2. - Continue inpatient (7) Diabetes mellitus: A1c was 6.2% in 10/2019. - Hold home oral regimen - Sliding scale insulin per primary team's order (8) DVT prophylaxis: Heparin Q8h per surgical team Given medical stability, Hospital Medicine team will sign off. Please re-consult with any questions or concerns. Thank you for letting us assist in the care of this patient! Subjective Doing well. Yeh out. 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 Pain continues to improve, though no return of bowel function yet. No flatus. Reports no fevers/chills, chest pain, shortness of breath, nausea, or vomiting. Physical Exam Constitutional: WD/WN, vitals as above Eyes: EOM intact bilaterally; no conjunctival abnormality ENMT: external ear and nose normal, oropharynx normal Neck: trachea midline, no thyromegaly normal visual inspection Respiratory: normal respiratory effort, lungs clear to auscultation no respiratory distress Cardiovascular: RRR, no murmur, no edema Gastrointestinal (Abdomen): Inspection/Auscultation: + abdominal surgical incision and + hypoactive bowel sounds; abdomen not distended Percussion/Palpation: + abdomen tender and abdomen soft; no guarding and abdomen not rigid Musculoskeletal: no cyanosis or clubbing, extremities motor strength 5/5 Skin: no rashes, warm and dry Neurologic: moves all extremities and awake Psychiatric: Orientation: alert, oriented to person and cooperative Results & Data ([facility]) Vital Signs (Past 12 Hours) Vital Signs Temp Pulse Pulse Resp BP BP Pulse Ox 12/24/19 11:53 36.5 C 57 L 17 150/56 H 94 12/24/19 08:00 55 L 12/24/19 07:44 36.5 C 67 18 152/88 H 97 12/24/19 04:13 36.4 C L 61 18 166/83 H 96 PG Care Time/CCT Total # of Minutes Spent Total Time Spent with Patient: Total time spent is greater than 50% in coordination of care (as documented) at patient's floor/unit and/or counseling patient: Coding Level of Care Code 32362 Subseq Hosp Care Lvl 3 Diagnoses Colon cancer C18.9 Hypertension I10 Chronic obstructive pulmonary disease, group A, by Global Initiative for Chronic Obstructive Lung Disease 2013 classification J44.9 Coronary artery disease I25.10 Benign localized prostatic hyperplasia with lower urinary tract symptoms (LUTS) N40.1 Moderate obstructive sleep apnea G47.33 Diabetes mellitus E11.9 DVT prophylaxis Z29.9
[2019-12-24] MEDS ORDERED: SODIUM CHLORIDE 0.9% 500 ML IV ONE (19:43)
[2019-12-24] MEDS: DUTASTERIDE PO SCH (21:01)
[2019-12-24] MEDS: FLUTICASONE/VILANTEROL 100/25MCG 14 PUFFS/INHALER INH SCH (21:02)
[2019-12-25] MEDS: INSULIN ASPART 100 UNITS/ML 3 ML PEN SC SCH ×5 (00:24→21:11)
[2019-12-25] MEDS: HEPARIN SOD 5,000 UNIT/0.5 ML VIAL SQ SCH ×3 (05:24→21:02)
[2019-12-25] MEDS: LACTATED RINGER'S 1,000 ML IV SCH ×2 (05:26→17:32)
[2019-12-25] MEDS: ASPIRIN 81 MG ECTAB PO SCH (08:56)
[2019-12-25] MEDS: lisinopriL 40 MG TAB PO SCH (08:56)
[2019-12-25] MEDS: PANTOprazole 40 MG TAB PO SCH (08:57)
[2019-12-25] MEDS: METOPROLOL SUCC 50MG EXT REL TAB PO SCH (08:57)
--- NOTE | 2019-12-25 09:18 | Surgery Progress Note ---
Date of Service December 25, 2019 Assessment & Plan (1) Colon cancer: POD 4 doing well increase activity. will start clears. Subjective pt seen. feeling well today. +bm. +voiding now without difficulty. no new complaints. "hungry" Physical Exam Physical Exam: alert. nad. sitting in chair. abd: soft. TREVOR scant/serous. Results & Data Vital Signs (Past 12 Hours) Vital Signs Temp Pulse Resp BP Pulse Ox 12/25/19 07:29 36.5 C 71 16 152/87 H 91 12/25/19 04:00 36.5 C 76 18 136/76 92 12/24/19 23:40 36.4 C L 71 18 156/92 H 91 PG Care Time/CCT Total # of Minutes Spent Total Time Spent with Patient: Total time spent is greater than 50% in coordination of care (as documented) at patient's floor/unit and/or counseling patient: Coding Level of Care Code None Diagnoses Colon cancer C18.9
[2019-12-25] MEDS ORDERED: Nursing to Pharmacy Communication ONE (12:27)
[2019-12-25] MEDS: FLUTICASONE/VILANTEROL 100/25MCG 14 PUFFS/INHALER INH SCH (21:00)
[2019-12-25] MEDS: DUTASTERIDE PO SCH (21:01)
[2019-12-26 05:02] LABS: Basophils # (auto) 0.04 K/uL (0-0.2); Basophils % (auto) 0.6 %; Eosinophils # (auto) 0.35 K/uL (0-0.5); Eosinophils % (auto) 5.2 %; Hematocrit (blood only) 38.4 % (42-52); Hemoglobin 13.1 g/dL (14.0-18.0); Immature Granulocytes # (auto) 0.03 K/uL (0.00-0.02); Immature Granulocytes % (auto) 0.4 %; Lymphocytes # (auto) 0.85 K/uL (1.2-3.4); Lymphocytes % (auto) 12.6 %; Mean Corpuscular Hemoglobin 29.6 pg (25-34); Mean Corpuscular Hgb Conc 34.1 g/dL (32-36); Mean Corpuscular Volume 86.7 fL (80-100); Mean Platelet Volume 9.9 fL (7.4-10.4); Monocytes # (auto) 0.54 K/uL (0.11-0.59); Neutrophils # (auto) 4.91 K/uL (1.4-6.5); Neutrophils % (auto) 73.2 %; Platelet Count 207 K/uL (130-400); RDW Standard Deviation 47.3 fL (36.4-46.3); Red Blood Count 4.43 M/uL (4.7-6.1); White Blood Count 6.72 K/uL (4.8-10.8)
[2019-12-26 05:27] LABS: BUN Creatinine Ratio 10.4 (10-20); Calcium 8.9 mg/dl (8.5-10.1); Creatinine Clr Calc Pharmacy 92.1 ml/min; Est GFR (African American) 97.2; Est GFR (Non-African American) 83.8; Potassium 3.4 mmol/L (3.5-5.1)
[2019-12-26] MEDS: HEPARIN SOD 5,000 UNIT/0.5 ML VIAL SQ SCH ×2 (05:53→13:50)
[2019-12-26] MEDS: LACTATED RINGER'S 1,000 ML IV SCH (05:53)
--- NOTE | 2019-12-26 07:40 | Surgery Progress Note ---
Date of Service December 26, 2019 Assessment & Plan (1) Colon cancer: POD 5 sigmoid rsxn seen with Dr. Trejo increase diet tatiana and rey drains removed will cap G-tube will give lasix and supplement K+(+2 pedal edema) medicine signed off yesterday reevaluate later today for possible d/c Subjective bowels moved, on clears, G-tube remains open Physical Exam Gastrointestinal (Abdomen): Inspection/Auscultation: + abdominal surgical incision (some clot around tatiana) and + abdominal surgical drain present (minimal rey drainage) Percussion/Palpation: abdomen soft Musculoskeletal: + 2 pedal edema Results & Data Vital Signs (Past 12 Hours) Vital Signs Temp Pulse Resp BP BP Pulse Ox 12/25/19 23:25 167/90 H 12/25/19 22:55 36.3 C L 58 L 16 172/91 H 92 PG Care Time/CCT Total # of Minutes Spent Total Time Spent with Patient: Total time spent is greater than 50% in coordination of care (as documented) at patient's floor/unit and/or counseling patient: Coding Level of Care Code None Diagnoses Colon cancer C18.9
[2019-12-26] MEDS ORDERED: FUROSEMIDE 20 MG in SYRINGE 0 ML IV ONE (08:00)
[2019-12-26] MEDS: METOPROLOL SUCC 50MG EXT REL TAB PO SCH (08:10)
[2019-12-26] MEDS: lisinopriL 40 MG TAB PO SCH (08:10)
[2019-12-26] MEDS: PANTOprazole 40 MG TAB PO SCH (08:10)
[2019-12-26] MEDS: ASPIRIN 81 MG ECTAB PO SCH (08:10)
[2019-12-26] MEDS ORDERED: POTASSIUM CHLORIDE 20 MEQ TABCR PO SCH (09:00)
[2019-12-26] MEDS: INSULIN ASPART 100 UNITS/ML 3 ML PEN SC SCH ×2 (10:17→12:39)
--- NOTE | 2019-12-27 09:56 | Discharge Summary ---
PRIMARY DISCHARGE DIAGNOSIS: Sigmoid colon cancer. SECONDARY DISCHARGE DIAGNOSES: 1. Hypertension. 2. Type 2 diabetes. 3. Coronary artery disease. 4. Chronic obstructive pulmonary disease. 5. Benign prostatic hypertrophy. 6. Sleep apnea. CONSULTATIONS: [facility]ist to assist in medical management. PROCEDURE PERFORMED: Laparoscopic assisted sigmoid colectomy and placement of gastrostomy tube. HOSPITAL COURSE: The patient is a 74-year-old male with colon cancer, taken to the operating room for laparoscopic assisted sigmoid resection. We also placed a gastrostomy tube given his history of nasal fracture and difficulty placing an NG tube intraoperatively. The procedure was well tolerated. He was transferred to telemetry for postoperative monitoring. He was kept on sliding scale insulin and his beta larry. LISA inhibitor was added back later along with his Avodart. Subcutaneous heparin was used for DVT prophylaxis. His bowel function was slow to return. He became increasingly bloated over postoperative day #1. The gastrostomy tube was left to gravity drainage for several days. He had some transient AFib while on the monitor but did not require any treatment for that. Yeh had to be replaced for a few days for urinary retention. He was given Lasix on postoperative day #3 for positive fluid balance. By day 4, he was increasing activity. He was transferred to the surgical floor. Yeh catheter was removed and he had no further urinary problems. He did not have any significant returning bowel function until that time. He began moving his bowels that evening. He was started on clear liquids on postoperative day 5. By day 6, he had multiple bowel movements. He is able to tolerate advancing diet. Lennox drain and Lillian drains were removed. His gastrostomy had been clamped and now was capped off. His H and H equilibrated at 13 and 38. He was not taking any analgesics. He was stable for discharge home later in the afternoon postoperative day 6. His abdomen was soft. Incision was clean without any erythema. There was some minimal drainage from the lower pole of the incision where the Lillian drain was removed. DISCHARGE INSTRUCTIONS: Discharge home. Follow up with Dr. Trejo within 1 week for staple removal. We will plan to remove the gastrostomy tube in the office in a few weeks. DISCHARGE MEDICATIONS Use [id number] Tylenol as needed for pain. Otherwise, resume all home medications including albuterol inhaler 1-2 puffs every 6 hours as needed, aspirin 81 mg daily, Avodart 0.5 mg daily, Advair 1 puff b.i.d., hydrochlorothiazide 25 mg daily, lisinopril 40 mg daily, metformin 1000 mg in the morning and 500 mg in the evening, metoprolol succinate 150 mg daily, Nitrostat 0.4 mg as needed, omeprazole 20 mg daily, rosuvastatin 40 mg daily, Spiriva 2 puffs as needed. PATHOLOGY: Sigmoid colon showed invasive adenocarcinoma, moderately differentiated, measuring 4 x 2.5 x 1 cm and infiltrates the muscularis propria. 19 pericolic lymph nodes were negative for metastatic carcinoma (0/19). MTDD
== END 2019-12-26 14:39 | disposition home or self-care (01) | DRG 330 ==
LOC: ASU 04:59 → 1E 10:28 → 2S 12-21 22:13 → 3N 12-24 11:59

== ENCOUNTER 2020-11-25 09:47 | Inpatient (IN) ==
--- NOTE | 2020-11-25 10:22 | XRay Report ---
XR chest 1V portable CLINICAL HISTORY: weakness COMPARISON STUDY: No previous studies for comparison. FINDINGS: The heart is borderline enlarged. There is no failure. There is no focal pulmonary consolid ation. There are no pleural effusions. There is minor subsegmental atelectasis the left lung base.[ IMPRESSION: No active disease in the chest. ACT 112: Negative or not required by law. Electronically signed by: Brian Leonardo M.D. 11/25/2020 10:21 AM
--- NOTE | 2020-11-25 10:24 | Emergency Department Note ---
History of Present Illness General Chief complaint: Weakness Stated complaint: WEAK,UNABLE TO SLEEP Time Seen by Provider: 11/25/20 09:58 Source: patient Mode of arrival: ambulatory Limitations: no limitations History of Present Illness This patient comes in after feeling weak. He has been urinating a lot. He cannot sleep because he just feels weak. He says he is urinated a gallon or 2 a day and about every 2 hours he is urinating. He says he was treated recently for viral lower extremity swelling with Lasix he did get some itchiness on his skin they have decreased his dose. He says his lower extreme edema has gotten better. He has been having trouble sleeping for about 3 days now. He is a diabetic but has not checked his blood sugar recently. Denies chest pain or shortness of breath or cough. No Covid exposure. No blood or melena stool no abdominal pain. No focal numbness or weakness just feels diffusely weak. No h eadache, neck pain, or stiffness. Home Medications Medication Instructions Recorded Confirmed Type nitroglycerin 0.4 mg sublingual 0.4 mg SL UD PRN #25 tab 05/16/19 11/25/20 History tablet aspirin 81 mg tablet,delayed 81 mg PO QAM #30 tab 08/23/19 11/25/20 History release rosuvastatin 40 mg tablet 40 mg PO HS #90 tab 11/22/19 11/25/20 Rx lisinopril 40 mg PO QAM 12/08/19 11/25/20 History omeprazole 20 mg PO QAM 12/08/19 11/25/20 History metformin 500 mg tablet See Rx Instructions PO .COMPLEX 02/22/20 11/25/20 Rx #90 tab metoprolol succinate 100 mg 150 mg PO QAM #135 tab 04/26/20 11/25/20 Rx tablet,extended release 24 hr albuterol sulfate 90 mcg/actuation 1 - 2 puffs INH Q6H PRN #18 gm 06/07/20 11/25/20 Rx aerosol inhaler meclizine 25 mg PO TID PRN #20 tab 07/31/20 11/25/20 Rx ipratropium 0.5 mg-albuterol 3 mg 3 ml INH UD PRN #180 ml 09/13/20 11/25/20 Rx (2.5 mg base)/3 mL nebulization soln nystatin 100,000 unit/gram topical 1 applic TOPICAL TID #30 g 10/09/20 11/25/20 Rx powder furosemide 20 mg tablet 10 mg PO DAILY #30 tab 11/06/20 11/25/20 Rx dutasteride 0.5 mg capsule 0.5 mg PO PM #90 cap 11/14/20 11/25/20 Rx Allergies Allergy/AdvReac Type Severity Reaction Status Date / Time hydrocodone AdvReac Intermediate vomiting Verified 11/25/20 10:44 Past Med/Surg History Medical History (Updated 11/25/20 @ 15:15 by Handy Tracey MD) Anticoagulant long-term use WAS STOPPED ON 10/08/19 DUE TO CURRENT BLEEDING ISSUES Atrial flutter, paroxysmal HX 360 BPM/CARDIOVERSION Colon cancer Coronary artery disease Diverticular disease Diverticulitis large intestine GERD (gastroesophageal reflux disease) Granulomatous lung disease History of blood transfusion AUG 2019 Multiple lung nodules on CT Myocardial Infarction 2012...STENT ([facility]) Sleep apnea CPAP Stomach ulcer HX Surgical History H/O percutaneous transluminal coronary angioplasty History of anesthesia reaction PROFUSE SWEATING AFTER PROSTATE SURGERY, UNABLE TO KEEP IV'S IN DUE TO AMOUNT OF SWEAT History of cardiac cath X4 TOTAL ( CATH 2012 FOR MT, STENT X1 - 3 FOLLOWING F/U STENT PLACEMENT) History of colonoscopy History of dental surgery History of esophagogastroduodenoscopy (EGD) History of hand surgery L History of heart artery stent 2012 History of prostate surgery "LASER" History of PTCA 2012? [facility] History of transurethral prostatectomy Prostate Resection Transurethral S/P colon resection (12/20/19) Laparoscopic-Assisted Sigmoid Colon Resection, Gastrostomy Dr. Trejo 12/20/19 S/P colon resection Family History Grandmother (Paternal) No problems noted. Mother Osteoporosis Family history of diabetes mellitus Cardiac arrhythmia Depression Cancer Sister Depression Family history of diabetes mellitus Father Prostate cancer Family history of diabetes mellitus Myocardial infarction Denies family history of Ovarian cancer Breast cancer Colorectal cancer Social History Smoking Status: Never smoker Tobacco Type: Cigarettes Age Quit Using Tobacco: 54; packs per day: 1.0; Years Smoked: 39; Cigarettes Per Day: 20; Second Hand Exposure: Yes (SPOUSE SMOKES); Hx Alcohol Use: No Hx Substance Use: No Preferred Language: Malian Communication Ability: Effective Visual Impairment: No Limitations Hearing Ability: Normal Database Management System Specialist Required: No Beliefs That Will Affect Care: None marital status: Current Living Situation: Spouse current occupational status: retired Other Information That Helps Us Care for You: Yes Feels Safe at Home: Yes Safety Concerns: Feels Safe At This Time Dental Care, Regularly: No Seatbelt Use: always Assistive Devices: Cane Assistive Devices Comment: glasses and CPAP at home Review of Systems A total of 10 systems reviewed and were otherwise negative Physical Exam Vital Signs Vital Signs - 24 hr 11/25/20 09:50 11/25/20 10:22 11/25/20 10:30 Temperature 36.6 C Temperature Source Oral Pulse Rate 102 H 97 H Pulse Rate [Apical] 97 H Pulse Rate from SpO2 Sensor 96 H Pulse Rhythm [Apical] Regular Respiratory Rate 20 18 15 Respiratory Effort / Characteristics Non-Labored Non-Labored Spontaneous Respiratory Depth Normal Normal Respiratory Pattern Regular Blood Pressure 137/117 H 126/86 Blood Pressure [Left Arm] 143/85 H Blood Pressure Mean 123 93 Blood Pressure Mean [Left Arm] 104 Blood Pressure Position Sitting Blood Pressure Position [Left Arm] Sitting Pulse Oximetry 95 95 96 Oxygen Delivery Method Room Air Room Air Sepsis Recent Fever Within 48 Hours No Sepsis New/Unexplained Change in Mental Status No Sepsis Action Taken by Nursing No Action Required 11/25/20 10:32 11/25/20 10:38 11/25/20 11:00 Temperature Temperature Source Pulse Rate 95 H 93 H Pulse Rate [Apical] Pulse Rate from SpO2 Sensor 95 H 94 H Pulse Rhythm [Apical] Respiratory Rate 13 19 Respiratory Effort / Characteristics Respiratory Depth Respiratory Pattern Blood Pressure 120/78 Blood Pressure [Left Arm] Blood Pressure Mean 87 Blood Pressure Mean [Left Arm] Blood Pressure Position Blood Pressure Position [Left Arm] Pulse Oximetry 95 94 93 Oxygen Delivery Method Room Air Sepsis Recent Fever Within 48 Hours Sepsis New/Unexplained Change in Mental Status Sepsis Action Taken by Nursing General: Well developed well nourished older male in no acute distress, breathing comfortably on room air. Normal speech HEENT: Normal cephalic atraumatic. Pupils are equal round and reactive to light. Extraocular movements are intact. Oropharynx is pink with moist mucous membranes. No swelling of the mouth lips or tongue. Neck: Supple with a midline trachea. No meningeal signs or stiffness, no JVD or bruits. No Stridor. Chest: Clear to auscultation bilaterally. No wheezes or rhonchi. No increased work of breathing. Heart: Regular rate and rhythm without murmurs or gallops. Abdomen: Soft nontender, nondistended without rebound guarding or rigidity. Extremities: No cyanosis clubbing or edema. No calf tenderness or assymetry Spine/Back. Non tender to palpation. No CVA tenderness Skin: Good turgor without rashes. Neurologic exam: Cranial nerves two through 12 are intact. Motor and sensation are intact and symmetrical throughout. Course Administered Medications Potassium Chloride/Sodium Chloride (Normal Saline W/20 Meq Kcl) 20 meq in 1,000 mls @ 125 mls/hr IV .Q8H RAY Stop: 12/25/20 14:29 Last Admin: 11/25/20 14:55 Dose: 125 mls/hr Documented by: [id number] Nystatin (Nystatin Powder 15gm Btl) 1 appln EXT TID RAY Stop: 12/25/20 14:29 Last Admin: 11/25/20 14:56 Dose: 1 appln Documented by: [id number] Discontinued Medications Sodium Chloride (Nss 1000ml) 1,000 mls @ 999 mls/hr IV .Q1H1M RAY Stop: 11/25/20 12:20 Last Infusion: 11/25/20 12:25 Dose: 0 mls/hr Documented by: [id number] Admin: 11/25/20 11:25 Dose: 999 mls/hr Documented by: [id number] Sodium Chloride (Nss 1000ml) 1,000 mls @ 999 mls/hr IV .Q1H1M ONE Stop: 11/25/20 12:30 Last Infusion: 11/25/20 14:56 Dose: 0 mls/hr Documented by: [id number] Admin: 11/25/20 13:40 Dose: 999 mls/hr Documented by: [id number] Insulin Human Regular (Novolin-R Insulin Per Unit Charge) 10 units IV NOW STA Stop: 11/25/20 11:21 Last Admin: 11/25/20 11:31 Dose: 10 units Documented by: [id number] Cosigned by: [id number] Medical Decision Making Differential Diagnosis Diabetic emergency, hyperglycemia, DKA, electrolyte or metabolic abnormality, dehydration, sepsis, anemia Medical Records Attestation: I reviewed the patient's medical records. Home Medications Current Medication List: was personally reviewed by me Laboratory Data Attestation: I reviewed the patient's lab results. Result diagrams: 11/25/20 10:30 11/25/20 13:09 Lab Results 11/25/20 11/25/20 11/25/20 Range/Units 10:15 10:30 10:30 WBC 7.64 (4.8-10.8) K/uL RBC 4.79 (4.7-6.1) M/uL Hgb 14.7 (14.0-18.0) g/dL Hct 43.1 (42-52) % MCV 90.0 (80-100) fL MCH 30.7 (25-34) pg MCHC 34.1 (32-36) g/dL RDW Std Deviation 44.6 (36.4-46.3) fL RDW Coeff of Freeman 13.6 (11.5-14.5) % Plt Count 240 (130-400) K/uL MPV 11.7 H (7.4-10.4) fL Immature Gran % (Auto) 0.5 % Neut % (Auto) 82.1 % Lymph % (Auto) 8.6 % Sullivan % (Auto) 6.7 % Eos % (Auto) 1.8 % Baso % (Auto) 0.3 % Neut # (Auto) 6.27 (1.4-6.5) K/uL Lymph # (Auto) 0.66 L (1.2-3.4) K/uL Sullivan # (Auto) 0.51 (0.11-0.59) K/uL Eos # (Auto) 0.14 (0-0.5) K/uL Baso # (Auto) 0.02 (0-0.2) K/uL Immature Gran # (Auto) 0.04 H (0.00-0.02) K/uL Sodium 126 L (136-145) mmol/L Potassium 4.9 (3.5-5.1) mmol/L Chloride 88 L (98-107) mmol/L Carbon Dioxide 27 (21-32) mmol/L Anion Gap 10.0 (3-11) BUN 39 H (7-18) mg/dl Creatinine 1.38 (0.6-1.4) mg/dl Est Cr Clr Drug Dosing Not Reportable Est GFR ( Amer) 56.8 Est GFR (Non-Af Amer) 49.0 BUN/Creatinine Ratio 28.0 H (10-20) Glucose 806 H* (70-99) mg/dl Calcium 10.8 H (8.5-10.1) mg/dl Magnesium 2.0 (1.8-2.4) mg/dl Total Bilirubin 0.6 (0.2-1) mg/dl AST 15 (15-37) U/L ALT 32 (12-78) U/L Alkaline Phosphatase 91 (45-117) U/L NT-Pro-B Natriuret Pep 178 (0-1800) pg/ml Total Protein 8.0 (6.4-8.2) gm/dl Albumin 3.7 (3.4-5.0) gm/dl Globulin 4.3 H (2.5-4.0) gm/dl Albumin/Globulin Ratio 0.9 (0.9-2) Lipase (73-393) U/L Beta-Hydroxybutyric Acd 10.56 H (0.2-2.81) mg/dl TSH 1.490 (0.300-4.500) uIu/ml Urine Color Yellow Urine Appearance Clear (Clear) Urine pH 6.0 (4.5-7.5) Ur Specific [place] 1.035 H (1.000-1.030) Urine Protein Trace H (Negative) Urine Glucose (UA) 3+ H (Negative) Urine Ketones Negative (Negative) Urine Blood Negative (Negative) Urine Nitrite Negative (Negative) Urine Bilirubin Negative (Negative) Urine Urobilinogen Negative (Negative) Ur Leukocyte Esterase Negative (Negative) Urine RBC 0-4 (0-4) /hpf Urine WBC 5-10 H (0-5) /hpf Ur Epithelial Cells 0-5 (0-5) /lpf Urine Bacteria Negative (Negative) 11/25/20 Range/Units 10:30 WBC (4.8-10.8) K/uL RBC (4.7-6.1) M/uL Hgb (14.0-18.0) g/dL Hct (42-52) % MCV (80-100) fL MCH (25-34) pg MCHC (32-36) g/dL RDW Std Deviation (36.4-46.3) fL RDW Coeff of Freeman (11.5-14.5) % Plt Count (130-400) K/uL MPV (7.4-10.4) fL Immature Gran % (Auto) % Neut % (Auto) % Lymph % (Auto) % Sullivan % (Auto) % Eos % (Auto) % Baso % (Auto) % Neut # (Auto) (1.4-6.5) K/uL Lymph # (Auto) (1.2-3.4) K/uL Sullivan # (Auto) (0.11-0.59) K/uL Eos # (Auto) (0-0.5) K/uL Baso # (Auto) (0-0.2) K/uL Immature Gran # (Auto) (0.00-0.02) K/uL Sodium (136-145) mmol/L Potassium (3.5-5.1) mmol/L Chloride (98-107) mmol/L Carbon Dioxide (21-32) mmol/L Anion Gap (3-11) BUN (7-18) mg/dl Creatinine (0.6-1.4) mg/dl Est Cr Clr Drug Dosing Est GFR ( Amer) Est GFR (Non-Af Amer) BUN/Creatinine Ratio (10-20) Glucose (70-99) mg/dl Calcium (8.5-10.1) mg/dl Magnesium (1.8-2.4) mg/dl Total Bilirubin (0.2-1) mg/dl AST (15-37) U/L ALT (12-78) U/L Alkaline Phosphatase (45-117) U/L NT-Pro-B Natriuret Pep (0-1800) pg/ml Total Protein (6.4-8.2) gm/dl Albumin (3.4-5.0) gm/dl Globulin (2.5-4.0) gm/dl Albumin/Globulin Ratio (0.9-2) Lipase 570 H (73-393) U/L Beta-Hydroxybutyric Acd (0.2-2.81) mg/dl TSH (0.300-4.500) uIu/ml Urine Color Urine Appearance (Clear) Urine pH (4.5-7.5) Ur Specific [place] (1.000-1.030) Urine Protein (Negative) Urine Glucose (UA) (Negative) Urine Ketones (Negative) Urine Blood (Negative) Urine Nitrite (Negative) Urine Bilirubin (Negative) Urine Urobilinogen (Negative) Ur Leukocyte Esterase (Negative) Urine RBC (0-4) /hpf Urine WBC (0-5) /hpf Ur Epithelial Cells (0-5) /lpf Urine Bacteria (Negative) Imaging Data Radiologist's Impression: XR chest 1V portable CLINICAL HISTORY: weakness COMPARISON STUDY: No previous studies for comparison. FINDINGS: The heart is borderline enlarged. There is no failure. There is no focal pulmonary consolidation. There are no pleural effusions. There is minor subsegmental atelectasis the left lung base.[ IMPRESSION: No active disease in the chest. ECG Data Attestation: I personally reviewed and interpreted this ECG as follows: Indication: + weakness Rate (beats per minute): 93 Rhythm: + normal sinus ECG Intervals/blocks: + First degree AV block, + Normal QRS and + Normal QT ECG [place]: + Normal ECG ST segments: + Normal ST segments ECG Findings: no PACs and no PVCs Comparison ECG Date: from (07/31/20) Change: no significant change MDM Narrative This patient comes in complaining of weakness and being excessively thirsty with frequent urination. He does have diabetes but has not checked his blood sugar for a while. He was recently put on a diuretic for lower extremity edema which has improved and they have actually cut down on the dose on that as well. No other changes in his medications. No fever or chills. No chest pain or shortness of breath. No known exposure to Covid. He does look dry on my exam with a dry oropharynx. IV access was established and he was hydrated with 1 L normal saline bolus. His blood sugar came back severely elevated at 803. He was given 10 units of insulin IV. He does not have acidosis. Sodium is also low. His BUN is elevated I do think he is dehydrated. He does have hyperglycemia. Given his significantly elevated blood sugar and dehydration I do think he needs to be admitted/observe for further hydration medication treatment and evaluation. Continuous cardiac monitoring: An order was placed in EMR for continuous cardiac monitoring. The patient was noted to be in normal sinus rhythm pulse of 94. Impression & Plan Hyperglycemia, Weakness, Acute dehydration, Acute hyponatremia Discharge Plan Visit Data Chief Complaint: Weakness Stated Complaint: WEAK,UNABLE TO SLEEP ED Provider: Handy Tracey Discharge Problem: Hyperglycemia, Weakness, Acute dehydration, Acute hyponatremia Patient Disposition: Admitted As Inpatient Discharge Instructions Interventions: ED Discharge Assessment Last Done: 11/25/20 14:00
[2020-11-25 10:38] LABS: Basophils # (auto) 0.02 K/uL (0-0.2); Basophils % (auto) 0.3 %; Eosinophils # (auto) 0.14 K/uL (0-0.5); Eosinophils % (auto) 1.8 %; Hematocrit (blood only) 43.1 % (42-52); Hemoglobin 14.7 g/dL (14.0-18.0); Immature Granulocytes # (auto) 0.04 K/uL (0.00-0.02); Immature Granulocytes % (auto) 0.5 %; Lymphocytes # (auto) 0.66 K/uL (1.2-3.4); Lymphocytes % (auto) 8.6 %; Mean Corpuscular Hemoglobin 30.7 pg (25-34); Mean Corpuscular Hgb Conc 34.1 g/dL (32-36); Mean Platelet Volume 11.7 fL (7.4-10.4); Monocytes # (auto) 0.51 K/uL (0.11-0.59); Monocytes % (auto) 6.7 %; Neutrophils # (auto) 6.27 K/uL (1.4-6.5); Neutrophils % (auto) 82.1 %; Platelet Count 240 K/uL (130-400); RDW Coefficient of Variation 13.6 % (11.5-14.5); RDW Standard Deviation 44.6 fL (36.4-46.3); Red Blood Count 4.79 M/uL (4.7-6.1); White Blood Count 7.64 K/uL (4.8-10.8)
[2020-11-25 10:47] LABS: Appearance Urine Clear (Clear); Bilirubin Urine Negative (Negative); Blood Urine Negative (Negative); Color Urine Yellow; Glucose Urine UA 3+ (Negative); Ketones Urine Negative (Negative); Leukocyte Esterase Urine Negative (Negative); Nitrite Urine Negative (Negative); Protein Urine Trace (Negative); Specific Gravity Urine 1.035 (1.000-1.030); Urobilinogen Urine Negative (Negative)
[2020-11-25 10:57] LABS: Bacteria Urine Negative (Negative); Epithelial Cell Urine 0-5 /lpf (0-5); RBC Urine 0-4 /hpf (0-4)
[2020-11-25 11:03] LABS: Alanine Aminotransferase 32 U/L (12-78); Albumin Globulin Ratio 0.9 (0.9-2); Albumin Level 3.7 gm/dl (3.4-5.0); Aspartate Aminotransferase 15 U/L (15-37); Bilirubin,Total 0.6 mg/dl (0.2-1); Blood Urea Nitrogen 39 mg/dl (7-18); Calcium 10.8 mg/dl (8.5-10.1); Carbon Dioxide 27 mmol/L (21-32); Chloride 88 mmol/L (98-107); Est GFR (African American) 56.8; Globulin 4.3 gm/dl (2.5-4.0); Glucose 806 mg/dl (70-99); Potassium 4.9 mmol/L (3.5-5.1); Sodium 126 mmol/L (136-145)
[2020-11-25 11:06] LABS: Alkaline Phosphatase 91 U/L (45-117); NT Pro B Type Natriuretic Pept 178 pg/ml (0-1800)
[2020-11-25] MEDS ORDERED: SODIUM CHLORIDE 0.9% 1000ML 1,000 ML IV SCH (11:20)
[2020-11-25] MEDS ORDERED: NovoLIN-R INSULIN PER UNIT CHARGE IV STA (11:20)
[2020-11-25 11:28] LABS: Beta-Hydroxybutyrate 10.56 mg/dl (0.2-2.81)
[2020-11-25] MEDS ORDERED: SODIUM CHLORIDE 0.9% 1000ML 1,000 ML IV ONE (11:30)
--- NOTE | 2020-11-25 11:42 | History & Physical Report ---
Date of Service November 25, 2020 Assessment & Plan (1) Hyperglycemia: I suspect the timeline of events suggest initial problem was tinea cruris contributing towards bilateral leg swelling. This was treated appropriately with nystatin powder and has been improving. At the same time however he was started on Lasix which I suspect caused acute generalized exanthematous pustulosis vs. drug hypersensitivity reaction. This rash has been improving with steroids and eventual reducing Lasix dosing. However should completely resolve with discontinuing his Lasix altogether. I suspect his hyperglycemia is also secondary to both steroid and Lasix use. Stop Lasix currently. Need to be vigilant in monitoring allergic response to other sulfa medications in the future, although may just be a reaction to Lasix causing pancreatic dysfunction. No acute need for diuresis. No HHS or DKA. NSS 2L bolus - continue IV fluids. Insulin 10 units IV now. (2) Diabetes mellitus: HbA1C with AM labs Continue metformin Continually adjust NovoLog correction and carb coverage pending repeat glucose POC. Lantus 0-10 units BID depending on glucose measurements. Consult family living educator (3) Moderate obstructive sleep apnea: CPAP at bedtime (4) Tinea cruris: Continue nystatin powder (5) Acute hyponatremia: Should resolve with hyperglycemia amangement as above in addition to IV fluids History of Present Illness Primary Care Provider: LATRICIA Bravo Jonathan Bradshaw is a 75-year-old male who presents to the ER with generalized weakness, polydipsia, polyuria and hyperglycemia. Symptoms getting progressively worse over the last 2 weeks. He was recently started on Lasix at the end of September by his PCP. At that time he had a 1 week history of lower extremity swelling, itchiness and tinea cruris. His tinea was successfully treated with nystatin powder. Despite Lasix use he return the following week with a feeling of swelling in his face, hands, abdomen and legs with diffuse pruritus and erythematous rash over his arms/trunk/chest/upper legs. He was started on prednisone (15 day tapering course) for the rash and Lasix was increased to 40 mg/day due to increased swelling. Lasix subsequently reduced to 20 mg/day on October 23. He had a Depo Medrol injection on October 18 for his rash which appeared to improve this. Lasix reduced to 10 mg daily on November 06. Today he comes to the ER due to feeling weak with polyuria. Glucose noted to be 806. His HbA1C has been relatively steady prior to this on metformin alone. Allergies Allergy/AdvReac Type Severity Reaction Status Date / Time hydrocodone AdvReac Intermediate vomiting Verified 11/25/20 10:44 Home Medications Medication Instructions Recorded Confirmed Type nitroglycerin 0.4 mg sublingual 0.4 mg SL UD PRN #25 tab 05/16/19 11/25/20 History tablet aspirin 81 mg tablet,delayed 81 mg PO QAM #30 tab 08/23/19 11/25/20 History release rosuvastatin 40 mg tablet 40 mg PO HS #90 tab 11/22/19 11/25/20 Rx lisinopril 40 mg PO QAM 12/08/19 11/25/20 History omeprazole 20 mg PO QAM 12/08/19 11/25/20 History metformin 500 mg tablet See Rx Instructions PO .COMPLEX 02/22/20 11/25/20 Rx #90 tab metoprolol succinate 100 mg 150 mg PO QAM #135 tab 04/26/20 11/25/20 Rx tablet,extended release 24 hr albuterol sulfate 90 mcg/actuation 1 - 2 puffs INH Q6H PRN #18 gm 06/07/20 11/25/20 Rx aerosol inhaler meclizine 25 mg PO TID PRN #20 tab 07/31/20 11/25/20 Rx ipratropium 0.5 mg-albuterol 3 mg 3 ml INH UD PRN #180 ml 09/13/20 11/25/20 Rx (2.5 mg base)/3 mL nebulization soln nystatin 100,000 unit/gram topical 1 applic TOPICAL TID #30 g 10/09/20 11/25/20 Rx powder furosemide 20 mg tablet 10 mg PO DAILY #30 tab 11/06/20 11/25/20 Rx dutasteride 0.5 mg capsule 0.5 mg PO PM #90 cap 11/14/20 11/25/20 Rx Past Med/Surg History Medical History (Updated 11/25/20 @ 20:51 by Daniele Carter MD) Anticoagulant long-term use WAS STOPPED ON 10/08/19 DUE TO CURRENT BLEEDING ISSUES Atrial flutter, paroxysmal HX 360 BPM/CARDIOVERSION Colon cancer Coronary artery disease Diverticular disease Diverticulitis large intestine GERD (gastroesophageal reflux disease) Granulomatous lung disease History of blood transfusion AUG 2019 Multiple lung nodules on CT Myocardial Infarction 2013...STENT ([facility]) Sleep apnea CPAP Stomach ulcer HX Surgical History H/O percutaneous transluminal coronary angioplasty History of anesthesia reaction PROFUSE SWEATING AFTER PROSTATE SURGERY, UNABLE TO KEEP IV'S IN DUE TO AMOUNT OF SWEAT History of cardiac cath X4 TOTAL ( 1ST CATH 2012 FOR [place], STENT X1 - 3 FOLLOWING F/U STENT PLACEMENT) History of colonoscopy History of dental surgery History of esophagogastroduodenoscopy (EGD) History of hand surgery L History of heart artery stent 2012 History of prostate surgery "LASER" History of PTCA 2012? [facility] History of transurethral prostatectomy Prostate Resection Transurethral S/P colon resection (12/20/19) Laparoscopic-Assisted Sigmoid Colon Resection, Gastrostomy Dr. Trejo 12/20/19 S/P colon resection Family History Grandmother (Paternal) No problems noted. Mother Osteoporosis Family history of diabetes mellitus Cardiac arrhythmia Depression Cancer Sister Depression Family history of diabetes mellitus Father Prostate cancer Family history of diabetes mellitus Myocardial infarction Denies family history of Ovarian cancer Breast cancer Colorectal cancer Social History Smoking Status: Never smoker Tobacco Type: Cigarettes Age Quit Using Tobacco: 54; packs per day: 1.0; Years Smoked: 39; Cigarettes Per Day: 20; Second Hand Exposure: Yes (SPOUSE SMOKES); Hx Alcohol Use: No Hx Substance Use: No Preferred Language: Tajik Communication Ability: Effective Visual Impairment: No Limitations Hearing Ability: Normal Drum Maker Required: No Beliefs That Will Affect Care: None marital status: Current Living Situation: Spouse current occupational status: retired Other Information That Helps Us Care for You: Yes Feels Safe at Home: Yes Safety Concerns: Feels Safe At This Time Dental Care, Regularly: No Seatbelt Use: always Assistive Devices: Cane Assistive Devices Comment: glasses and CPAP at home Review of Systems Review of Systems: All systems reviewed & are unremarkable except as noted in HPI & below Physical Exam Constitutional: well developed, well nourished and + obese; no acute distress Eyes: + anicteric sclerae; normal pupil size ENMT: Mouth: + dry oral mucous membranes Neck: trachea midline, no thyromegaly Respiratory: normal respiratory effort, lungs clear to auscultation Cardiovascular: RRR, no murmur, no edema Gastrointestinal (Abdomen): normal bowel sounds, soft, nontender, no hepatosplenomegaly Musculoskeletal: no cyanosis or clubbing, extremities motor strength 5/5 Skin: no rashes, warm and dry Neurologic: moves all extremities and awake; no focal motor deficits and not confused Psychiatric: A+Ox3, euthymic affect Genitourinary: no CVA tenderness Results & Data Results & Data ([facility]) Vital Signs (Past 12 Hours) Vital Signs Temp Pulse Pulse Resp BP BP Pulse Ox 11/25/20 11:00 93 H 19 120/78 93 11/25/20 10:38 94 11/25/20 10:32 95 H 13 95 11/25/20 10:30 97 H 15 126/86 96 11/25/20 10:22 97 H 18 143/85 H 95 11/25/20 09:50 36.6 C 102 H 20 137/117 H 95 Diagnostic Findings XR chest 1V portable IMPRESSION: No active disease in the chest. Medications Administered ER medications given: NSS 1L bolus ECG Indication: other Rate (beats per minute): 93 Rhythm: normal sinus Findings: + other (possible age indetermined inferior infarct) and + 1st degree AV block Comparison ECG Date: from (July 31, 2020) Change: the following changes noted (no PVCs) Code Status & VTE Plan Code Status Full VTE Prophylaxis Plan VTE Prophylaxis will be ordered: No PG Care Time/CCT Total # of Minutes Spent Total Time Spent with Patient: Total time spent is greater than 50% in coordination of care (as documented) at patient's floor/unit and/or counseling patient: Coding Level of Care Code 06174 OBS Care - Level 2 Diagnoses Hyperglycemia R73.9 Diabetes mellitus E11.9 Moderate obstructive sleep apnea G47.33 Tinea cruris B35.6 Acute hyponatremia E87.1
[2020-11-25] MEDS ORDERED: ALUMINUM/MAGNESIUM SUSP 30 ML UDC PO PRN (14:10)
[2020-11-25] MEDS ORDERED: ACETAMINOPHEN 325 MG TAB PO PRN (14:10)
[2020-11-25] MEDS ORDERED: POLYETHYLENE (MIRALAX) 17 GM PACK PO PRN (14:10)
[2020-11-25] MEDS ORDERED: ONDANSETRON INJ 2 MG/ML 2 ML VIAL IV PRN (14:10)
[2020-11-25] MEDS ORDERED: INFLUENZA VACCINE HIGH DOSE 65+ 0.7 ML SYR IM ONE (14:30)
[2020-11-25 14:39] LABS: Beta-Hydroxybutyrate 5.24 mg/dl (0.2-2.81)
[2020-11-25] MEDS: NSS + 20MEQ KCL 20 MEQ/1,000 ML BAG IV SCH ×2 (14:55→21:28)
[2020-11-25] MEDS: NYSTATIN POWDER 15GM BTL EXT SCH ×2 (14:56→21:00)
[2020-11-25] MEDS ORDERED: CARBOHYDRATES FOR HYPOGLYCEMIA PO PRN (14:57)
[2020-11-25] MEDS ORDERED: GLUCOSE 40% GEL 15 GM TUBE PO PRN (14:57)
[2020-11-25] MEDS ORDERED: DEXTROSE 50% 50 ML SYRINGE IV PRN (14:57)
[2020-11-25] MEDS ORDERED: INSULIN GLARGINE SOLOSTAR 100 UNITS/ML 3 ML PEN SQ STA (14:57)
[2020-11-25] MEDS ORDERED: GLUCAGON FOR INJ 1 MG VIAL SQ PRN (14:57)
[2020-11-25] MEDS ORDERED: GLUCOSE 10 TABS/TUBE PO PRN (14:57)
[2020-11-25] MEDS: DUTASTERIDE: ORDER AWAITING ACTION SCH (15:43)
[2020-11-25] MEDS: metFORMIN HCL 500 MG TAB PO SCH (15:44)
--- NOTE | 2020-11-25 17:05 | Electrocardiogram Report ---
Test Reason : Blood Pressure : / mmHG Vent. Rate : 093 BPM Atrial Rate : 093 BPM P-R Int : 218 ms QRS Dur : 108 ms QT Int : 338 ms P-R-T Axes : 001 010 022 degrees QTc Int : 420 ms Sinus rhythm with 1st degree A-V block possible Inferior infarct , age undetermined Abnormal ECG When compared with ECG of 31-JUL-2020 11:04, Premature ventricular complexes are no longer Present CA interval has increased Inferior infarct is now Present Confirmed by Ang Chua ([id number]) on 11/25/2020 5:05:11 PM Referred By: REFERRED SELF Confirmed By:Jamarcus Chua
[2020-11-25] MEDS: INSULIN ASPART 100 UNITS/ML 3 ML PEN SC SCH ×2 (17:57→20:59)
[2020-11-25] MEDS: INSULIN GLARGINE SOLOSTAR 100 UNITS/ML 3 ML PEN SC SCH (21:00)
[2020-11-25] MEDS: ROSUVASTATIN CALCIUM 20 MG TAB PO SCH (21:00)
[2020-11-26] MEDS: DUTASTERIDE: ORDER AWAITING ACTION SCH ×3 (00:08→15:15)
[2020-11-26] MEDS ORDERED: INSULIN ASPART 100 UNITS/ML 3 ML PEN SC ONE ×2 (04:00)
[2020-11-26] MEDS: NSS + 20MEQ KCL 20 MEQ/1,000 ML BAG IV SCH ×3 (05:48→20:21)
[2020-11-26 06:36] LABS: Estimated Average Glucose 421 mg/dl; Hemoglobin A1C 16.3 % (4.5-5.6)
[2020-11-26 06:51] LABS: BUN Creatinine Ratio 28.6 (10-20); Calcium 8.6 mg/dl (8.5-10.1); Creatinine Clr Calc Pharmacy 75.7 ml/min; Est GFR (African American) 80.8; Est GFR (Non-African American) 69.7; Potassium 3.9 mmol/L (3.5-5.1)
[2020-11-26] MEDS: lisinopril 40 MG TAB PO SCH (08:22)
[2020-11-26] MEDS: METOPROLOL SUCC 50MG EXT REL TAB PO SCH (08:22)
[2020-11-26] MEDS: ASPIRIN 81 MG ECTAB PO SCH (08:22)
[2020-11-26] MEDS: PANTOprazole 40 MG TAB PO SCH (08:22)
[2020-11-26] MEDS: metFORMIN HCL 500 MG TAB PO SCH ×2 (08:23→17:58)
[2020-11-26] MEDS: NYSTATIN POWDER 15GM BTL EXT SCH ×3 (08:23→20:23)
[2020-11-26] MEDS: INSULIN GLARGINE SOLOSTAR 100 UNITS/ML 3 ML PEN SC SCH (08:24)
[2020-11-26] MEDS: INSULIN ASPART 100 UNITS/ML 3 ML PEN SC SCH ×5 (08:25→21:06)
--- NOTE | 2020-11-26 08:34 | Hospitalist Progress Note ---
Date of Service November 26, 2020 Assessment & Plan (1) Hyperglycemia: I suspect the timeline of events suggest initial problem was tinea cruris contributing towards bilateral leg swelling. This was treated appropriately with nystatin powder and has been improving. At the same time however he was started on Lasix which I suspect caused acute generalized exanthematous pustulosis vs. drug hypersensitivity reaction. This rash has been improving with steroids and eventual reducing Lasix dosing. However should completely resolve with discontinuing his Lasix altogether. I suspect his hyperglycemia is also secondary to both steroid and Lasix use. Stop Lasix currently. Need to be vigilant in monitoring allergic response to other sulfa medications in the future, although may just be a reaction to Lasix causing pancreatic dysfunction. No acute need for diuresis. No HHS or DKA. NSS 2L bolus - continue IV fluids. Lipase 570 on admission (pancreatic insuff from lasix) -- improved to 358 with IVF Insulin 10 units IV now. -- given additional 10units this morning for BSG >180 Beta-hydroxybutyrate trending down Discussion had with nutrition educator -- patient agreeable to insulin at discharge. Will need meter/rx for strips A1c 16.9 (up from 7s in July 2020) -- possible side effect from lasix. rec repeating as outpatient to ensure normalization following discontinuation BSGs improved to 200s Continue to monitor Patient switched to lasix from HCTZ (stopped HCTZ 10/09/20 and started on lasix per PCP Meghann Cast for worsening edema). TSH 1.490 Would be concerned about possible malignancy given patient with hx colon ca (follows locally with [facility] and missed last 2 appointments and plans on f/u at the end of the month). PET scan Oct 2019 without abn to pancreas (2) Diabetes mellitus: HbA1C 16.9 -- did have recent steroid injection but doubt cause of such a massive rise in A1c since Jul 2020 Continue metformin (1,000 + 500mg daily) Continually adjust NovoLog correction and carb coverage pending repeat glucose POC. Lantus 0-10 units BID depending on glucose measurements. Consult nurse informatics educator Will need started on insulin at d/c as above (3) Acute hyponatremia: Should resolve with hyperglycemia amangement as above in addition to IV fluids Na 136 on AM labs (4) Moderate obstructive sleep apnea: CPAP at bedtime -- will order for tonight. Patient working on getting new device situated with local agency (5) Tinea cruris: Continue nystatin powder (6) Acute generalized exanthematous pustulosis due to drug: Improving now that lasix discontinued Would follow up with cardiology outpatient if continues to have issues with edema/possible alternative agent to be utilized (7) Benign localized prostatic hyperplasia with lower urinary tract symptoms (LUTS): Continue home medications UO acceptable Continue to monitor (8) CAD in [place] artery: Follows locally with Dr. Hatch -- to have follow up later this month Continue home metoprolol succinate 150mg, crestor 40mg, lisinopril 40mg, ASA 81mg daily GERD Continue protonix 40mg daily (BANQU[employer] SUPER[employer]OR omeprazole) (9) DVT prophylaxis: Will add Lovenox Dispo: continued inpatient stay -- likely discharge tomorrow Admission and Anticipated Discharge Date Admission Date: November 25, 2020 Subjective Patient evaluated this afternoon. Without complaints at this time. Aware he will be staying overnight to get better control of his blood sugars, but that they are much improved from admission. He states he started taking lasix in the past 1-2 months for lower extremity swelling that was severe enough that he had difficulty putting on his shoes. Swelling at baseline currently and he has follow up with his pastor Dr. Hatch at the end of the month. Discussed possibly lasix caused pancreatic insufficiency given rapid jump in A1c from the 7s to 16.9 without much changed in the way of dietary habits. He does endorse significant polydipsia and polyphagia, but states urinary frequency has decreased. Eating/drinking without difficulty. States he did feel backed up and was given an enema with relief. Had recent issues with his CPAP (settings 6/7?) and is working on obtaining updated tools for current replacement as it "works" but "not like his last one". Lesions that occurred from after lasix have decreased. No longer itchy and have been using cream. Discussed watching for erythema/spreading around/near lesions for a possible risk for cellulitis. Patient demonstrated understanding. No fever, chills, chest pain, shortness of breath, abdominal pain, nausea at this time. Hopeful for discharge tomorrow. Review of Systems Review of Systems: All systems reviewed & are unremarkable except as noted in HPI & below Physical Exam Constitutional: well developed, well nourished and + obese; no acute distress Eyes: + anicteric sclerae; normal pupil size ENMT: Mouth: + dry oral mucous membranes Neck: trachea midline, no thyromegaly Respiratory: normal respiratory effort, lungs clear to auscultation Cardiovascular: Rate/Rhythm: regular rate and regular rhythm Vessels: + carotid bruit (R sided); no JVD Extremities: + edema (trace pitting b/l) Gastrointestinal (Abdomen): normal bowel sounds, soft, nontender, no hepatosplenomegaly Musculoskeletal: no cyanosis or clubbing, extremities motor strength 5/5 Skin: warm, dry multiple lesions to forearms Neurologic: moves all extremities and awake; no focal motor deficits and not confused Psychiatric: A+Ox3, euthymic affect Genitourinary: no CVA tenderness Results & Data Results & Data ([facility]) Vital Signs (Past 12 Hours) Vital Signs Temp Pulse Resp BP Pulse Ox 11/26/20 07:54 36.3 C L 86 18 132/68 96 11/25/20 23:16 36.6 C 66 16 127/66 95 Laboratory Results 11/26/20 11/26/20 11/26/20 Range/Units 12:01 08:03 05:46 WBC (4.8-10.8) K/uL RBC (4.7-6.1) M/uL Hgb (14.0-18.0) g/dL Hct (42-52) % MCV (80-100) fL MCH (25-34) pg MCHC (32-36) g/dL RDW Std Deviation (36.4-46.3) fL RDW Coeff of Freeman (11.5-14.5) % Plt Count (130-400) K/uL MPV (7.4-10.4) fL Immature Gran % (Auto) % Neut % (Auto) % Lymph % (Auto) % [place] % (Auto) % Eos % (Auto) % Baso % (Auto) % Neut # (Auto) (1.4-6.5) K/uL Lymph # (Auto) (1.2-3.4) K/uL [place] # (Auto) (0.11-0.59) K/uL Eos # (Auto) (0-0.5) K/uL Baso # (Auto) (0-0.2) K/uL Immature Gran # (Auto) (0.00-0.02) K/uL Sodium (136-145) mmol/L Potassium (3.5-5.1) mmol/L Chloride (98-107) mmol/L Carbon Dioxide (21-32) mmol/L Anion Gap (3-11) BUN (7-18) mg/dl Creatinine (0.6-1.4) mg/dl Est Cr Clr Drug Dosing ml/min Est GFR ( Amer) Est GFR (Non-Af Amer) BUN/Creatinine Ratio (10-20) Glucose (70-99) mg/dl POC Glucose 284 H 262 H (70-99) mg/dl Estimat Average Glucose mg/dl Hemoglobin A1c (4.5-5.6) % Calcium (8.5-10.1) mg/dl Magnesium 2.0 (1.8-2.4) mg/dl Lipase 358 (73-393) U/L Beta-Hydroxybutyric Acd (0.2-2.81) mg/dl 11/26/20 11/26/20 11/26/20 Range/Units 05:46 05:46 05:46 WBC 6.74 (4.8-10.8) K/uL RBC 4.18 L (4.7-6.1) M/uL Hgb 12.7 L (14.0-18.0) g/dL Hct 38.0 L (42-52) % MCV 90.9 (80-100) fL MCH 30.4 (25-34) pg MCHC 33.4 (32-36) g/dL RDW Std Deviation 46.0 (36.4-46.3) fL RDW Coeff of Freeman 14.0 (11.5-14.5) % Plt Count 235 (130-400) K/uL MPV 11.7 H (7.4-10.4) fL Immature Gran % (Auto) 0.7 % Neut % (Auto) 67.3 % Lymph % (Auto) 19.0 % [place] % (Auto) 7.9 % Eos % (Auto) 4.7 % Baso % (Auto) 0.4 % Neut # (Auto) 4.53 (1.4-6.5) K/uL Lymph # (Auto) 1.28 (1.2-3.4) K/uL [place] # (Auto) 0.53 (0.11-0.59) K/uL Eos # (Auto) 0.32 (0-0.5) K/uL Baso # (Auto) 0.03 (0-0.2) K/uL Immature Gran # (Auto) 0.05 H (0.00-0.02) K/uL Sodium 136 D (136-145) mmol/L Potassium 3.9 D (3.5-5.1) mmol/L Chloride 101 (98-107) mmol/L Carbon Dioxide 30 (21-32) mmol/L Anion Gap 5.0 (3-11) BUN 29 H (7-18) mg/dl Creatinine 1.03 (0.6-1.4) mg/dl Est Cr Clr Drug Dosing 75.7 ml/min Est GFR ( Amer) 80.8 Est GFR (Non-Af Amer) 69.7 BUN/Creatinine Ratio 28.6 H (10-20) Glucose 243 H (70-99) mg/dl POC Glucose (70-99) mg/dl Estimat Average Glucose 421 mg/dl Hemoglobin A1c 16.3 H (4.5-5.6) % Calcium 8.6 D (8.5-10.1) mg/dl Magnesium (1.8-2.4) mg/dl Lipase (73-393) U/L Beta-Hydroxybutyric Acd (0.2-2.81) mg/dl 11/26/20 11/25/20 11/25/20 Range/Units 04:00 23:59 20:03 WBC (4.8-10.8) K/uL RBC (4.7-6.1) M/uL Hgb (14.0-18.0) g/dL Hct (42-52) % MCV (80-100) fL MCH (25-34) pg MCHC (32-36) g/dL RDW Std Deviation (36.4-46.3) fL RDW Coeff of Freeman (11.5-14.5) % Plt Count (130-400) K/uL MPV (7.4-10.4) fL Immature Gran % (Auto) % Neut % (Auto) % Lymph % (Auto) % [place] % (Auto) % Eos % (Auto) % Baso % (Auto) % Neut # (Auto) (1.4-6.5) K/uL Lymph # (Auto) (1.2-3.4) K/uL [place] # (Auto) (0.11-0.59) K/uL Eos # (Auto) (0-0.5) K/uL Baso # (Auto) (0-0.2) K/uL Immature Gran # (Auto) (0.00-0.02) K/uL Sodium (136-145) mmol/L Potassium (3.5-5.1) mmol/L Chloride (98-107) mmol/L Carbon Dioxide (21-32) mmol/L Anion Gap (3-11) BUN (7-18) mg/dl Creatinine (0.6-1.4) mg/dl Est Cr Clr Drug Dosing ml/min Est GFR ( Amer) Est GFR (Non-Af Amer) BUN/Creatinine Ratio (10-20) Glucose (70-99) mg/dl POC Glucose 259 H 237 H 426 H* (70-99) mg/dl Estimat Average Glucose mg/dl Hemoglobin A1c (4.5-5.6) % Calcium (8.5-10.1) mg/dl Magnesium (1.8-2.4) mg/dl Lipase (73-393) U/L Beta-Hydroxybutyric Acd (0.2-2.81) mg/dl 11/25/20 11/25/20 11/25/20 Range/Units 20:01 17:16 17:14 WBC (4.8-10.8) K/uL RBC (4.7-6.1) M/uL Hgb (14.0-18.0) g/dL Hct (42-52) % MCV (80-100) fL MCH (25-34) pg MCHC (32-36) g/dL RDW Std Deviation (36.4-46.3) fL RDW Coeff of Freeman (11.5-14.5) % Plt Count (130-400) K/uL MPV (7.4-10.4) fL Immature Gran % (Auto) % Neut % (Auto) % Lymph % (Auto) % [place] % (Auto) % Eos % (Auto) % Baso % (Auto) % Neut # (Auto) (1.4-6.5) K/uL Lymph # (Auto) (1.2-3.4) K/uL [place] # (Auto) (0.11-0.59) K/uL Eos # (Auto) (0-0.5) K/uL Baso # (Auto) (0-0.2) K/uL Immature Gran # (Auto) (0.00-0.02) K/uL Sodium (136-145) mmol/L Potassium (3.5-5.1) mmol/L Chloride (98-107) mmol/L Carbon Dioxide (21-32) mmol/L Anion Gap (3-11) BUN (7-18) mg/dl Creatinine (0.6-1.4) mg/dl Est Cr Clr Drug Dosing ml/min Est GFR ( Amer) Est GFR (Non-Af Amer) BUN/Creatinine Ratio (10-20) Glucose (70-99) mg/dl POC Glucose 423 H* > 600 H* 596 H* (70-99) mg/dl Estimat Average Glucose mg/dl Hemoglobin A1c (4.5-5.6) % Calcium (8.5-10.1) mg/dl Magnesium (1.8-2.4) mg/dl Lipase (73-393) U/L Beta-Hydroxybutyric Acd (0.2-2.81) mg/dl 11/25/20 11/25/20 Range/Units 14:19 13:09 WBC (4.8-10.8) K/uL RBC (4.7-6.1) M/uL Hgb (14.0-18.0) g/dL Hct (42-52) % MCV (80-100) fL MCH (25-34) pg MCHC (32-36) g/dL RDW Std Deviation (36.4-46.3) fL RDW Coeff of Freeman (11.5-14.5) % Plt Count (130-400) K/uL MPV (7.4-10.4) fL Immature Gran % (Auto) % Neut % (Auto) % Lymph % (Auto) % [place] % (Auto) % Eos % (Auto) % Baso % (Auto) % Neut # (Auto) (1.4-6.5) K/uL Lymph # (Auto) (1.2-3.4) K/uL [place] # (Auto) (0.11-0.59) K/uL Eos # (Auto) (0-0.5) K/uL Baso # (Auto) (0-0.2) K/uL Immature Gran # (Auto) (0.00-0.02) K/uL Sodium (136-145) mmol/L Potassium (3.5-5.1) mmol/L Chloride (98-107) mmol/L Carbon Dioxide (21-32) mmol/L Anion Gap (3-11) BUN (7-18) mg/dl Creatinine (0.6-1.4) mg/dl Est Cr Clr Drug Dosing ml/min Est GFR ( Amer) Est GFR (Non-Af Amer) BUN/Creatinine Ratio (10-20) Glucose 635 H* (70-99) mg/dl POC Glucose 553 H* (70-99) mg/dl Estimat Average Glucose mg/dl Hemoglobin A1c (4.5-5.6) % Calcium (8.5-10.1) mg/dl Magnesium (1.8-2.4) mg/dl Lipase (73-393) U/L Beta-Hydroxybutyric Acd 5.24 H (0.2-2.81) mg/dl PG Care Time/CCT Total # of Minutes Spent Total Time Spent with Patient: Total time spent is greater than 50% in coordination of care (as documented) at patient's floor/unit and/or counseling patient: Coding Level of Care Code 58977 Subseq Hosp Care Lvl 2 Diagnoses Hyperglycemia R73.9 Diabetes mellitus E11.9 Acute hyponatremia E87.1 Moderate obstructive sleep apnea G47.33 Tinea cruris B35.6 Acute generalized exanthematous pustulosis due to drug L27.0; T50.905A Benign localized prostatic hyperplasia with lower urinary tract symptoms (LUTS) N40.1 CAD in [place] artery I25.10 DVT prophylaxis Z29.9
[2020-11-26 09:29] LABS: Basophils # (auto) 0.03 K/uL (0-0.2); Basophils % (auto) 0.4 %; Eosinophils # (auto) 0.32 K/uL (0-0.5); Eosinophils % (auto) 4.7 %; Hemoglobin 12.7 g/dL (14.0-18.0); Immature Granulocytes # (auto) 0.05 K/uL (0.00-0.02); Immature Granulocytes % (auto) 0.7 %; Lymphocytes # (auto) 1.28 K/uL (1.2-3.4); Mean Corpuscular Hemoglobin 30.4 pg (25-34); Mean Corpuscular Hgb Conc 33.4 g/dL (32-36); Mean Corpuscular Volume 90.9 fL (80-100); Mean Platelet Volume 11.7 fL (7.4-10.4); Monocytes # (auto) 0.53 K/uL (0.11-0.59); Monocytes % (auto) 7.9 %; Neutrophils # (auto) 4.53 K/uL (1.4-6.5); Neutrophils % (auto) 67.3 %; Platelet Count 235 K/uL (130-400); Red Blood Count 4.18 M/uL (4.7-6.1); White Blood Count 6.74 K/uL (4.8-10.8)
[2020-11-26] MEDS ORDERED: PHARMACY GLYCEMIC MGMT CONSULT PRN (13:56)
[2020-11-26] MEDS ORDERED: INSULIN GLARGINE SOLOSTAR 100 UNITS/ML 3 ML PEN SC ONE (14:15)
--- NOTE | 2020-11-26 15:12 | Pharmacy Report ---
Pharmacy Glycemic Short Note 2 - Date of Service November 26, 2020 - Glycemic Short BSG Results (Last 24 hours): 11/25/20 11/25/20 11/25/20 17:14 17:16 20:01 Glucose POC Glucose 596 H* > 600 H* 423 H* 11/25/20 11/25/20 11/26/20 20:03 23:59 04:00 Glucose POC Glucose 426 H* 237 H 259 H 11/26/20 11/26/20 11/26/20 05:46 08:03 12:01 Glucose 243 H POC Glucose 262 H 284 H OUTPATIENT ANTIDIABETIC REGIMEN: * Metformin 1000mg PO qAM, 500mg PO qPM * HbA1c: 16.3% (11/26/20) ASSESSMENT: * Mr Bradshaw is a 75yo diabetic male admitted with significant hyperglycemia (BSG >600mg/dL). * BSGs have improved somewhat since admission, but remain in the mid-upper 200s. * Pharmacy consult received this afternoon. Basal insulin increased to closer to stress level 2 recommendations for patient's weight. PLAN FOR INPATIENT GLYCEMIC CONTROL: * Metformin 1gm PO qAM, 500mg qPM (per outpt dosing) * Basal insulin * Lantus 10 units this morning, plus 30 units today after lunch. * Anticipate Lantus 20 units SQ BID starting tomorrow morning. * Bolus insulin * NovoLog per scale ACHS or Q6hrs while NPO * Goal Range: Low 140 mg/dL - High 180 mg/dL * Correction Factor: 20 mg/dL/unit * Nutritional / Prandial insulin per carb ratio of 1 unit per 7 grams CHO consumed PLAN FOR DISCHARGE: * HbA1c: 16.3% * This is a marked increase from A1c this past fall. Patient has been prescribed steroids recently, which certainly may have caused BSGs to become uncontrolled. * CDE consult has been placed. * Suspect that patient may require insulin on discharge. More to follow as admission progresses.
[2020-11-26] MEDS: ENOXAPARIN INJ 30 MG/0.3 ML SYR SQ SCH (19:32)
[2020-11-26] MEDS: ROSUVASTATIN CALCIUM 20 MG TAB PO SCH (20:24)
[2020-11-27] MEDS: DUTASTERIDE: ORDER AWAITING ACTION SCH ×3 (01:35→17:09)
[2020-11-27] MEDS: NSS + 20MEQ KCL 20 MEQ/1,000 ML BAG IV SCH ×2 (04:31→17:50)
[2020-11-27 05:24] LABS: Basophils # (auto) 0.02 K/uL (0-0.2); Basophils % (auto) 0.3 %; Eosinophils # (auto) 0.33 K/uL (0-0.5); Eosinophils % (auto) 4.6 %; Hematocrit (blood only) 36.5 % (42-52); Hemoglobin 12.2 g/dL (14.0-18.0); Immature Granulocytes # (auto) 0.06 K/uL (0.00-0.02); Immature Granulocytes % (auto) 0.8 %; Lymphocytes # (auto) 1.15 K/uL (1.2-3.4); Lymphocytes % (auto) 16.2 %; Mean Corpuscular Hemoglobin 30.3 pg (25-34); Mean Corpuscular Hgb Conc 33.4 g/dL (32-36); Mean Corpuscular Volume 90.8 fL (80-100); Mean Platelet Volume 11.1 fL (7.4-10.4); Monocytes # (auto) 0.56 K/uL (0.11-0.59); Monocytes % (auto) 7.9 %; Neutrophils # (auto) 4.99 K/uL (1.4-6.5); Neutrophils % (auto) 70.2 %; Platelet Count 203 K/uL (130-400); RDW Coefficient of Variation 13.9 % (11.5-14.5); RDW Standard Deviation 46.3 fL (36.4-46.3); Red Blood Count 4.02 M/uL (4.7-6.1); White Blood Count 7.11 K/uL (4.8-10.8)
[2020-11-27] MEDS: ENOXAPARIN INJ 30 MG/0.3 ML SYR SQ SCH ×2 (05:48→17:51)
[2020-11-27 06:00] LABS: Albumin Globulin Ratio 0.8 (0.9-2); Albumin Level 2.8 gm/dl (3.4-5.0); BUN Creatinine Ratio 20.3 (10-20); Bilirubin,Total 0.5 mg/dl (0.2-1); Calcium 7.9 mg/dl (8.5-10.1); Creatinine Clr Calc Pharmacy 90.7 ml/min; Est GFR (African American) 96.9; Est GFR (Non-African American) 83.6; Globulin 3.4 gm/dl (2.5-4.0); Total Protein 6.2 gm/dl (6.4-8.2)
[2020-11-27 07:24] LABS: Potassium 3.8 mmol/L (3.5-5.1)
[2020-11-27 07:32] LABS: Magnesium 1.7 mg/dl (1.8-2.4)
[2020-11-27] MEDS ORDERED: INSULIN GLARGINE SOLOSTAR 100 UNITS/ML 3 ML PEN SC SCH ×2 (09:00→21:00)
[2020-11-27] MEDS: metFORMIN HCL 500 MG TAB PO SCH ×2 (09:19→17:48)
[2020-11-27] MEDS: PANTOprazole 40 MG TAB PO SCH (09:20)
[2020-11-27] MEDS: ASPIRIN 81 MG ECTAB PO SCH (09:20)
[2020-11-27] MEDS: METOPROLOL SUCC 50MG EXT REL TAB PO SCH (09:21)
[2020-11-27] MEDS: lisinopril 40 MG TAB PO SCH (09:22)
[2020-11-27] MEDS: INSULIN ASPART 100 UNITS/ML 3 ML PEN SC SCH ×4 (09:22→21:29)
[2020-11-27] MEDS: NYSTATIN POWDER 15GM BTL EXT SCH ×4 (09:29→21:29)
--- NOTE | 2020-11-27 09:38 | Pharmacy Report ---
Pharmacy Glycemic Short Note 2 - Date of Service November 27, 2020 - Glycemic Short BSG Results (Last 24 hours): 11/26/20 11/26/20 11/26/20 12:01 17:06 20:48 Glucose POC Glucose 284 H 243 H 196 H 11/27/20 11/27/20 05:06 08:09 Glucose 158 H POC Glucose 238 H OUTPATIENT ANTIDIABETIC REGIMEN: * Metformin 1000mg PO qAM, 500mg PO qPM * HbA1c: 16.3% (11/26/20) ASSESSMENT: 11/27/20: * Mr Bradshaw received 87 units of insulin yesterday. * 40 units of basal insulin * 47 units of prandial/correctional insulin * Fasting BSG was slightly above goal this morning, so will increase Lantus slightly. * Carb coverage appears to be appropriate, as patient's BSGs are not rising significantly following meals. * A1c 16.3% corresponds to an estimated average glucose of 421mg/dL. It is probably reasonable to target BSGs in the low 200's without aiming for strict glycemic control in the immediate future. 11/26/20 * Mr Bradshaw is a 75yo diabetic male admitted with significant hyperglycemia (BSG >600mg/dL). * BSGs have improved somewhat since admission, but remain in the mid-upper 200s. * Pharmacy consult received this afternoon. Basal insulin increased to closer to stress level 2 recommendations for patient's weight. PLAN FOR INPATIENT GLYCEMIC CONTROL: * Metformin 1gm PO qAM, 500mg qPM (per outpt dosing) * Basal insulin * Lantus 25 units SQ BID * Bolus insulin * NovoLog per scale ACHS or Q6hrs while NPO * Goal Range: Low 110 mg/dL - High 140 mg/dL * Correction Factor: 15 mg/dL/unit * Nutritional / Prandial insulin per carb ratio of 1 unit per 6 grams CHO consumed PLAN FOR DISCHARGE: * HbA1c: 16.3% * This is a marked increase from A1c this past fall. Patient has been prescribed steroids recently, which certainly may have caused BSGs to become uncontrolled. * CDE consult has been placed. * Suspect that patient may require insulin on discharge. More to follow as admission progresses.
--- NOTE | 2020-11-27 09:55 | Hospitalist Progress Note ---
Date of Service November 27, 2020 Assessment & Plan (1) Hyperglycemia: I suspect the timeline of events suggest initial problem was tinea cruris contributing towards bilateral leg swelling. This was treated appropriately with nystatin powder and has been improving. At the same time however he was started on Lasix which I suspect caused acute generalized exanthematous pustulosis vs. drug hypersensitivity reaction. This rash has been improving with steroids and eventual reducing Lasix dosing. However should completely resolve with discontinuing his Lasix altogether. I suspect his hyperglycemia is also secondary to both steroid and Lasix use. Stop Lasix currently. Need to be vigilant in monitoring allergic response to other sulfa medications in the future, although may just be a reaction to Lasix causing pancreatic dysfunction. No acute need for diuresis. IMPROVING -- No HHS or DKA. NSS 2L bolus - continue IV fluids but will decrease rate Lipase 570 on admission (pancreatic insuff from lasix) -- improved to 358 with IVF Pharmacy on consult for glycemic management to determine needs at home -- received 40 u basal/47 u prandial/correctional insulin on 11/26 A1c 16.9 (up from 7s in July 2020) -- possible side effect from lasix. rec repeating as outpatient to ensure normalization following discontinuation Beta-hydroxybutyrate trending down -- will repeat in AM Discussion had with visual educator -- patient agreeable to insulin at discharge. Will need meter/rx for strips -- did parry check is $35/month for 40- 50 units/day. If the dose is less than 50 units/day (~40 units/day), the pharmacist recommended putting "needs extra to prime the insulin pen" in the in structions otherwise his insurance will charge him $70 because 40 units/day lasts 37 days. BSGs improving but remain in the 200s Continue to monitor Patient switched to lasix from HCTZ (stopped HCTZ 10/09/20 and started on lasix per PCP Meghann Cast for worsening edema). TSH 1.490. Will order renetta hose as well and instructed patient to keep legs elevated. May need to restart HCTZ for edema (although patient is up approx 6L from admission given IVF for hyperglycemia to correct that issue) Would be concerned about possible malignancy given patient with hx colon ca (follows locally with [facility] and missed last 2 appointments and plans on f/u at the end of the month). PET scan Oct 2019 without abn to pancreas (2) Diabetes mellitus: HbA1C 16.9 -- did have recent steroid injection but doubt cause of such a massive rise in A1c since Jul 2020 Continue metformin (1,000 + 500mg daily) Pharmacy on consult as above -- to begin insulin therapy at discharge. Provided meter and will need supplies. Patient aware and agreeable Consult outreach educator BSGs improving overall (3) Acute hyponatremia: Resolved -- Na 136 (4) Moderate obstructive sleep apnea: CPAP at bedtime -- will order for tonight. Patient working on getting new device situated with local agency Had refused to utilize while inpatient (5) Tinea cruris: Continue nystatin powder (6) Acute generalized exanthematous pustulosis due to drug: Improving now that lasix discontinued Would follow up with cardiology outpatient if continues to have issues with edema/possible alternative agent to be utilized -- consider restarting on HCTZ/utilizing compression stockings/renetta hose (7) Benign localized prostatic hyperplasia with lower urinary tract symptoms (LUTS): Continue home medications UO acceptable (had unmeasured void) Continue to monitor (8) CAD in [place] artery: Follows locally with Dr. Hatch -- to have follow up later this month Continue home metoprolol succinate 150mg, crestor 40mg, lisinopril 40mg, ASA 81mg daily Consider reaching out to Dr. Hatch about diuretic therapy while inpatient if legs continue to have swelling (also did decrease his IVF as he had been on 125/150cc/hr since admission up until today, in addition to 2L bolus on admission) Prior ECHO with normal EF, but did have grade II diastolic dysfunction in 2018 - will repeat limited echo to see if changes/contributing to weight gain. CXR without congestion on admission. 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 Heather secondary to increased lasix use as an outpatient -- After IVF as above, Cr now back to baseline at 0.86 -- Continue to monitor stability on AM labs Hypomagnesemia -- Mag low at 1.7 -- likely secondary to large amounts of insulin/cellular shifts -- Will replete with 2gm IV now and repeat on AM labs Dispo: continued inpatient stay -- possible discharge tomorrow if blood sugars better controlled Admission and Anticipated Discharge Date Admission Date: November 26, 2020 Subjective Patient evaluated this morning. Feeling well. Discussed sugars still elevated and would like to monitor for one more day to ensure we have good idea for his needs at discharge. Looking into cost now. Legs with some swelling in his feet, dangling at the edge of the chair. Has never worn compression socks in the past -- discussed keeping legs elevated and will order renetta hose. Could consider restarting HCTZ at low dose for swelling but also discussed contacting his pickle solution maker to update on changes made. No fever, chills, chest pain, shortness of breath, abdominal pain, nausea, vomiting, dysuria. Urinary frequency has decreased. Eating/drinking without difficulty. Will decrease his IVF. Plans for d/c tomorrow hopefully. Review of Systems Review of Systems: All systems reviewed & are unremarkable except as noted in HPI & below Physical Exam Constitutional: well developed, well nourished and + obese; no acute distress Eyes: + anicteric sclerae; normal pupil size ENMT: Mouth: + dry oral mucous membranes Neck: trachea midline, no thyromegaly Respiratory: normal respiratory effort, lungs clear to auscultation Cardiovascular: Rate/Rhythm: regular rate and regular rhythm Vessels: + carotid bruit (R sided); no JVD Extremities: + edema (1+ pitting b/l) Gastrointestinal (Abdomen): normal bowel sounds, soft, nontender, no hepatosplenomegaly Musculoskeletal: no cyanosis or clubbing, extremities motor strength 5/5 Skin: no rashes, warm and dry Neurologic: moves all extremities and awake; no focal motor deficits and not confused Psychiatric: A+Ox3, euthymic affect Genitourinary: no CVA tenderness Results & Data Results & Data ([facility]) Vital Signs (Past 12 Hours) Vital Signs Vital Signs Temp Pulse Resp BP Pulse Ox 11/27/20 15:12 36.4 C L 70 18 117/68 96 11/27/20 07:28 36.5 C 73 16 146/84 H 96 11/26/20 23:28 36.6 C 62 16 156/96 H 96 Intake and Output 11/27/20 11/27/20 11/27/20 06:59 14:59 22:59 Intake Total 1000 / 2918.750 1093.333 / 1192.333 99 / 1192.333 Output Total / 301 Balance 999 / 2617.750 1093.333 / 1192.333 99 / 1192.333 Intake: IV 1000 / 2818.750 1093.333 / 1192.333 99 / 1192.333 MAGNESIUM SULFATE / D5W 1 gm In 93.333 / 192.333 99 / 192.333 100 ml @ 50 mls/hr IV Q2H RAY Rx#:[id number] NORMAL SALINE w/20 MEQ KCL 20 1000 / 2818.750 1000 / 1000 meq In 1,000 ml @ 125 mls/hr IV .Q8H RAY Rx#:[id number] Output: # Bowel Movements Other: # Unmeasured Voids 1 Weight 113.3 kg Patient Weight 11/28/20 06:59 Weight 113.3 kg Laboratory Results 11/27/20 11/27/20 11/27/20 Range/Units 12:31 12:13 12:11 WBC (4.8-10.8) K/uL RBC (4.7-6.1) M/uL Hgb (14.0-18.0) g/dL Hct (42-52) % MCV (80-100) fL MCH (25-34) pg MCHC (32-36) g/dL RDW Std Deviation (36.4-46.3) fL RDW Coeff of Freeman (11.5-14.5) % Plt Count (130-400) K/uL MPV (7.4-10.4) fL Immature Gran % (Auto) % Neut % (Auto) % Lymph % (Auto) % [place] % (Auto) % Eos % (Auto) % Baso % (Auto) % Neut # (Auto) (1.4-6.5) K/uL Lymph # (Auto) (1.2-3.4) K/uL [place] # (Auto) (0.11-0.59) K/uL Eos # (Auto) (0-0.5) K/uL Baso # (Auto) (0-0.2) K/uL Immature Gran # (Auto) (0.00-0.02) K/uL Sodium (136-145) mmol/L Potassium (3.5-5.1) mmol/L Chloride (98-107) mmol/L Carbon Dioxide (21-32) mmol/L Anion Gap (3-11) BUN (7-18) mg/dl Creatinine (0.6-1.4) mg/dl Est Cr Clr Drug Dosing ml/min Est GFR ( Amer) Est GFR (Non-Af Amer) BUN/Creatinine Ratio (10-20) Glucose (70-99) mg/dl POC Glucose 261 H 242 H 301 H* (70-99) mg/dl Calcium (8.5-10.1) mg/dl Magnesium (1.8-2.4) mg/dl Total Bilirubin (0.2-1) mg/dl AST (15-37) U/L ALT (12-78) U/L Alkaline Phosphatase (45-117) U/L Total Protein (6.4-8.2) gm/dl Albumin (3.4-5.0) gm/dl Globulin (2.5-4.0) gm/dl Albumin/Globulin Ratio (0.9-2) 11/27/20 11/27/20 11/27/20 Range/Units 08:09 06:38 05:06 WBC (4.8-10.8) K/uL RBC (4.7-6.1) M/uL Hgb (14.0-18.0) g/dL Hct (42-52) % MCV (80-100) fL MCH (25-34) pg MCHC (32-36) g/dL RDW Std Deviation (36.4-46.3) fL RDW Coeff of Freeman (11.5-14.5) % Plt Count (130-400) K/uL MPV (7.4-10.4) fL Immature Gran % (Auto) % Neut % (Auto) % Lymph % (Auto) % [place] % (Auto) % Eos % (Auto) % Baso % (Auto) % Neut # (Auto) (1.4-6.5) K/uL Lymph # (Auto) (1.2-3.4) K/uL [place] # (Auto) (0.11-0.59) K/uL Eos # (Auto) (0-0.5) K/uL Baso # (Auto) (0-0.2) K/uL Immature Gran # (Auto) (0.00-0.02) K/uL Sodium 136 (136-145) mmol/L Potassium 3.8 (3.5-5.1) mmol/L Chloride 107 (98-107) mmol/L Carbon Dioxide 26 (21-32) mmol/L Anion Gap 3.0 (3-11) BUN 17 (7-18) mg/dl Creatinine 0.86 (0.6-1.4) mg/dl Est Cr Clr Drug Dosing 90.7 ml/min Est GFR ( Amer) 96.9 Est GFR (Non-Af Amer) 83.6 BUN/Creatinine Ratio 20.3 H (10-20) Glucose 158 H (70-99) mg/dl POC Glucose 238 H (70-99) mg/dl Calcium 7.9 L (8.5-10.1) mg/dl Magnesium 1.7 L (1.8-2.4) mg/dl Total Bilirubin 0.5 (0.2-1) mg/dl AST 28 (15-37) U/L ALT 28 (12-78) U/L Alkaline Phosphatase 60 (45-117) U/L Total Protein 6.2 L D (6.4-8.2) gm/dl Albumin 2.8 L (3.4-5.0) gm/dl Globulin 3.4 (2.5-4.0) gm/dl Albumin/Globulin Ratio 0.8 L (0.9-2) 11/27/20 11/26/20 11/26/20 Range/Units 05:06 20:48 17:06 WBC 7.11 (4.8-10.8) K/uL RBC 4.02 L (4.7-6.1) M/uL Hgb 12.2 L (14.0-18.0) g/dL Hct 36.5 L (42-52) % MCV 90.8 (80-100) fL MCH 30.3 (25-34) pg MCHC 33.4 (32-36) g/dL RDW Std Deviation 46.3 (36.4-46.3) fL RDW Coeff of Freeman 13.9 (11.5-14.5) % Plt Count 203 (130-400) K/uL MPV 11.1 H (7.4-10.4) fL Immature Gran % (Auto) 0.8 % Neut % (Auto) 70.2 % Lymph % (Auto) 16.2 % [place] % (Auto) 7.9 % Eos % (Auto) 4.6 % Baso % (Auto) 0.3 % Neut # (Auto) 4.99 (1.4-6.5) K/uL Lymph # (Auto) 1.15 L (1.2-3.4) K/uL [place] # (Auto) 0.56 (0.11-0.59) K/uL Eos # (Auto) 0.33 (0-0.5) K/uL Baso # (Auto) 0.02 (0-0.2) K/uL Immature Gran # (Auto) 0.06 H (0.00-0.02) K/uL Sodium (136-145) mmol/L Potassium (3.5-5.1) mmol/L Chloride (98-107) mmol/L Carbon Dioxide (21-32) mmol/L Anion Gap (3-11) BUN (7-18) mg/dl Creatinine (0.6-1.4) mg/dl Est Cr Clr Drug Dosing ml/min Est GFR ( Amer) Est GFR (Non-Af Amer) BUN/Creatinine Ratio (10-20) Glucose (70-99) mg/dl POC Glucose 196 H 243 H (70-99) mg/dl Calcium (8.5-10.1) mg/dl Magnesium (1.8-2.4) mg/dl Total Bilirubin (0.2-1) mg/dl AST (15-37) U/L ALT (12-78) U/L Alkaline Phosphatase (45-117) U/L Total Protein (6.4-8.2) gm/dl Albumin (3.4-5.0) gm/dl Globulin (2.5-4.0) gm/dl Albumin/Globulin Ratio (0.9-2) PG Care Time/CCT Total # of Minutes Spent Total Time Spent with Patient: Total time spent is greater than 50% in coordination of care (as documented) at patient's floor/unit and/or counseling patient: Coding Level of Care Code 63965 Subseq Hosp Care Lvl 2 Diagnoses Hyperglycemia R73.9 Diabetes mellitus E11.9 Acute hyponatremia E87.1 Moderate obstructive sleep apnea G47.33 Tinea cruris B35.6 Acute generalized exanthematous pustulosis due to drug L27.0; T50.905A Benign localized prostatic hyperplasia with lower urinary tract symptoms (LUTS) N40.1 CAD in [place] artery I25.10 DVT prophylaxis Z29.9
[2020-11-27] MEDS: MAGNESIUM SULFATE / D5W 1 GM/100 ML BAG IV SCH ×3 (11:17→15:07)
[2020-11-27] MEDS: ROSUVASTATIN CALCIUM 20 MG TAB PO SCH (21:28)
[2020-11-28] MEDS: DUTASTERIDE: ORDER AWAITING ACTION SCH ×2 (01:05→09:40)
[2020-11-28] MEDS: ENOXAPARIN INJ 30 MG/0.3 ML SYR SQ SCH (05:40)
[2020-11-28 07:00] LABS: Basophils # (auto) 0.02 K/uL (0-0.2); Basophils % (auto) 0.3 %; Eosinophils # (auto) 0.26 K/uL (0-0.5); Eosinophils % (auto) 3.9 %; Hematocrit (blood only) 37.9 % (42-52); Hemoglobin 12.6 g/dL (14.0-18.0); Immature Granulocytes # (auto) 0.05 K/uL (0.00-0.02); Immature Granulocytes % (auto) 0.7 %; Lymphocytes # (auto) 0.84 K/uL (1.2-3.4); Lymphocytes % (auto) 12.5 %; Mean Corpuscular Hemoglobin 30.5 pg (25-34); Mean Corpuscular Hgb Conc 33.2 g/dL (32-36); Mean Corpuscular Volume 91.8 fL (80-100); Monocytes # (auto) 0.52 K/uL (0.11-0.59); Monocytes % (auto) 7.7 %; Neutrophils # (auto) 5.02 K/uL (1.4-6.5); Neutrophils % (auto) 74.9 %; Platelet Count 188 K/uL (130-400); RDW Coefficient of Variation 14.3 % (11.5-14.5); RDW Standard Deviation 48.1 fL (36.4-46.3); Red Blood Count 4.13 M/uL (4.7-6.1); White Blood Count 6.71 K/uL (4.8-10.8)
[2020-11-28 07:30] LABS: Albumin Level 2.9 gm/dl (3.4-5.0); BUN Creatinine Ratio 16.1 (10-20); Creatinine Clr Calc Pharmacy 96.3 ml/min; Est GFR (African American) 99.4; Est GFR (Non-African American) 85.7; Magnesium 2.2 mg/dl (1.8-2.4); Potassium 3.8 mmol/L (3.5-5.1)
[2020-11-28 07:32] LABS: Albumin Globulin Ratio 0.8 (0.9-2); Bilirubin,Total 0.6 mg/dl (0.2-1); Globulin 3.5 gm/dl (2.5-4.0); Total Protein 6.4 gm/dl (6.4-8.2)
[2020-11-28] MEDS ORDERED: INSULIN GLARGINE SOLOSTAR 100 UNITS/ML 3 ML PEN SC SCH (09:00)
--- NOTE | 2020-11-28 09:06 | Pharmacy Report ---
Pharmacy Glycemic Short Note 2 - Date of Service November 28, 2020 - Glycemic Short BSG Results (Last 24 hours): 11/27/20 11/27/20 11/27/20 12:11 12:13 12:31 Glucose POC Glucose 301 H* 242 H 261 H 11/27/20 11/27/20 11/27/20 16:56 16:58 17:01 Glucose POC Glucose 334 H* 201 H 213 H 11/27/20 11/28/20 11/28/20 20:38 06:46 07:59 Glucose 202 H POC Glucose 154 H 190 H OUTPATIENT ANTIDIABETIC REGIMEN: * Metformin 1000mg PO qAM, 500mg PO qPM * HbA1c: 16.3% (11/26/20) ASSESSMENT: 11/28/20 * Mr Bradshaw received 83 units of insulin yesterday. * 45 units of basal insulin * 38 units of prandial/correctional insulin * Fasting BSG was elevated this morning, so basal insulin increased slightly today. Lantus also moved to once daily dosing, in preparation for discharge. 11/27/20 * Mr Bradshaw received 87 units of insulin yesterday. * 40 units of basal insulin * 47 units of prandial/correctional insulin * Fasting BSG was slightly above goal this morning, so will increase Lantus slightly. * Carb coverage appears to be appropriate, as patient's BSGs are not rising significantly following meals. * A1c 16.3% corresponds to an estimated average glucose of 421mg/dL. It is probably reasonable to target BSGs in the low 200's without aiming for strict glycemic control in the immediate future. 11/26/20 * Mr Bradshaw is a 75yo diabetic male admitted with significant hyperglycemia (BSG >600mg/dL). * BSGs have improved somewhat since admission, but remain in the mid-upper 200s. * Pharmacy consult received this afternoon. Basal insulin increased to closer to stress level 2 recommendations for patient's weight. PLAN FOR INPATIENT GLYCEMIC CONTROL: * Metformin 1gm PO qAM, 500mg qPM (per outpt dosing) * Basal insulin * Lantus 50 units SQ qAM * Bolus insulin * NovoLog per scale ACHS or Q6hrs while NPO * Goal Range: Low 110 mg/dL - High 140 mg/dL * Correction Factor: 15 mg/dL/unit * Nutritional / Prandial insulin per carb ratio of 1 unit per 6 grams CHO consumed PLAN FOR DISCHARGE: * HbA1c: 16.3% * This is a marked increase from A1c this past fall. Patient has been prescribed steroids recently, which certainly may have caused BSGs to become uncontrolled. * CDE consult has been placed. Patient is willing to begin once-daily basal insulin on discharge. * Based on patient's insulin use during admission, would recommend starting with Lantus 50 units SQ daily (dose started this morning). * This dose may be titrated as an outpatient to work on gradually improving A1c. * Recommend gradual improvement in BSGs, rather than a sudden/drastic reduction in BSGs/A1c. * Support Patient Self-Management - Healthy Lifestyle (diet, exercise, and smoking cessation) - Disease self-management (SMBG) - Prevention of complications (BP, Lipid goals, Immunizations) - Consider outpatient Diabetes Self-Management Education & Support
[2020-11-28] MEDS: metFORMIN HCL 500 MG TAB PO SCH (09:29)
[2020-11-28] MEDS: ASPIRIN 81 MG ECTAB PO SCH (09:30)
[2020-11-28] MEDS: METOPROLOL SUCC 50MG EXT REL TAB PO SCH (09:31)
[2020-11-28] MEDS: PANTOprazole 40 MG TAB PO SCH (09:31)
[2020-11-28] MEDS: lisinopril 40 MG TAB PO SCH (09:32)
[2020-11-28] MEDS: INSULIN ASPART 100 UNITS/ML 3 ML PEN SC SCH ×2 (09:34→12:53)
[2020-11-28] MEDS: NYSTATIN POWDER 15GM BTL EXT SCH ×2 (10:14→14:49)
[2020-11-28] MEDS: NSS + 20MEQ KCL 20 MEQ/1,000 ML BAG IV SCH (12:55)
--- NOTE | 2020-11-28 13:34 | Discharge Summary ---
Date of Service November 28, 2020 Admission HPI Per Admitting Provider Jonathan Bradshaw is a 75-year-old male who presents to the ER with generalized weakness, polydipsia, polyuria and hyperglycemia. Symptoms getting progressively worse over the last 2 weeks. He was recently started on Lasix at the end of September by his PCP. At that time he had a 1 week history of lower extremity swelling, itchiness and tinea cruris. His tinea was successfully treated with nystatin powder. Despite Lasix use he return the following week with a feeling of swelling in his face, hands, abdomen and legs with diffuse pruritus and erythematous rash over his arms/trunk/chest/upper legs. He was started on prednisone (15 day tapering course) for the rash and Lasix was increased to 40 mg/day due to increased swelling. Lasix subsequently reduced to 20 mg/day on October 23. He had a Depo Medrol injection on October 18 for his rash which appeared to improve this. Lasix reduced to 10 mg daily on November 06. Today he comes to the ER due to feeling weak with polyuria. Glucose noted to be 806. His HbA1C has been relatively steady prior to this on metformin alone. Admission Exam Per Admitting Provider Constitutional: well developed, well nourished and + obese; no acute distress Eyes: + anicteric sclerae; normal pupil size ENMT: Mouth: + dry oral mucous membranes Neck: trachea midline, no thyromegaly Respiratory: normal respiratory effort, lungs clear to auscultation Cardiovascular: RRR, no murmur, no edema Gastrointestinal (Abdomen): normal bowel sounds, soft, nontender, no hepatosplenomegaly Musculoskeletal: no cyanosis or clubbing, extremities motor strength 5/5 Skin: no rashes, warm and dry Neurologic: moves all extremities and awake; no focal motor deficits and not confused Psychiatric: A+Ox3, euthymic affect Genitourinary: no CVA tenderness Principal Diagnosis Hyperglycemia Discharge Exam Constitutional well developed, well nourished and + obese; no acute distress Eyes + anicteric sclerae; normal pupil size ENMT Mouth: oral mucous membranes not dry Neck trachea midline, no thyromegaly Respiratory normal respiratory effort, lungs clear to auscultation Cardiovascular Rate/Rhythm: regular rate and regular rhythm Heart Sounds: no murmur Vessels: + carotid bruit (R sided); no JVD Extremities: + edema (1+ pitting b/l) Gastrointestinal (Abdomen) normal bowel sounds, soft, nontender, no hepatosplenomegaly Musculoskeletal no cyanosis or clubbing, extremities motor strength 5/5 Skin several healed lesions to upper forearms, much improved from admission non-tender no drainage or erythema/spread Neurologic moves all extremities and awake; no focal motor deficits and not confused Psychiatric A+Ox3, euthymic affect Genitourinary no CVA tenderness Discharge Data Allergies Allergy/AdvReac Type Severity Reaction Status Date / Time hydrocodone AdvReac Intermediate vomiting Verified 11/25/20 10:44 Consultations 11/25/20 11:25 ED Decision to Admit Stat Ordered Studies CXR ECHO Diabetes Follow up Diabetes Follow-up Needed for HgbA1c >9% Hospital Course (1) Hyperglycemia: I suspect the timeline of events suggest initial problem was tinea cruris contributing towards bilateral leg swelling. This was treated appropriately with nystatin powder and has been improving. At the same time however he was started on Lasix which I suspect caused acute generalized exanthematous pustulosis vs. drug hypersensitivity reaction. This rash has been improving with steroids and eventual reducing Lasix dosing. However should completely resolve with discontinuing his Lasix altogether. I suspect his hyperglycemia is also secondary to both steroid and Lasix use. Stopped Lasix. Need to be vigilant in monitoring allergic response to other sulfa medications in the future, although may just be a reaction to Lasix causing pancreatic dysfunction. No acute need for diuresis. IMPROVED No HHS or DKA on admission. NSS 2L bolus. Was placed on continuous fluids during admission while correcting blood sugars Lipase elevated on admission secondary to suspected pancreatic insufficiency from recent switch and increase in lasix dose for lower extremity edema. Improved on repeat to [facility] on consult for glycemic management to determine needs at home -- received 40 u basal/47 u prandial/correctional insulin on 11/26 A1c 16.9 (up from 7s in July 2020) -- possible side effect from lasix. rec repeating as outpatient to ensure normalization following discontinuation Beta-hydroxybutyrate elevated and trended down with treatment Discussion had with music educator -- patient agreeable to insulin at discharge. Based on needs while inpatient, patient placed on 50 units Lantus daily and will need close monitoring/follow-up. Provided with glucometer and sent rx for strips/lancets. BSGs improved but would not want to get to tightly regulating as hopeful for improvement now that offending agent discontinued. 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 ECHO actually improved compared to prior. TSH wnl 1.490. Discussed elevation of legs and utilization of renetta hose -- seemed to have kept swelling at reasonable level during admission on continuous fluids and not on diuretic therapy Would be concerned about possible malignancy given patient with hx colon ca (follows locally with Liliana Kathleen and missed last 2 appointments and plans on f/u at the end of the month). PET scan Oct 2019 without abn to pancreas). No jaundice noted. LFTs wnl. Set up follow up at discharge. (2) Diabetes mellitus: HbA1C 16.9 -- did have recent steroid injection but doubt cause of such a massive rise in A1c 7.6 since Jul 2020 Continue metformin (1,000 + 500mg daily) at discharge Insulin 50u daily at discharge w close follow up Glucometer supplied and rx sent for supplies music educator consulted while inpatient Diet/exercise (3) Acute hyponatremia: Resolved -- Na 136 (4) Moderate obstructive sleep apnea: CPAP -- refused while inpatient and is working on getting current machine to his liking (he just received a new one) (5) Tinea cruris: Continued nystatin powder (6) Acute generalized exanthematous pustulosis due to drug: Improving now that lasix discontinued Would follow up with cardiology outpatient if continues to have issues with edema/possible alternative agent to be utilized -- consider restarting on HCTZ if utilizing compression stockings/renetta hose unsuccessful Instructed patient to avoid hot tub until lesions are completely heeled -- he states he was planning on getting in tonight for arthritic pain but is agreeable to waiting to prevent possible infection to openings almost all lesions healed and completely scabbed over/sloughed off prior to d/c (7) Benign localized prostatic hyperplasia with lower urinary tract symptoms (LUTS): Continued home medications UO acceptable (had unmeasured voids) (8) CAD in [place] artery: Follows locally with Dr. Hatch -- to have follow up later this month Continued home metoprolol succinate 150mg, crestor 40mg, lisinopril 40mg, ASA 81mg daily ECHO in 2018 with diastolic dysfunction grade II -- not found on repeat. CXR without congestion. Follow up with Dr. Hatch later this month as previously scheduled GERD protonix 40mg daily while inpatient and resumed omeprazole at discharge (9) DVT prophylaxis: Lovenox while inpatient NASEEM -- While not flagged on admission as elevated, Cr was 1.38 with baseline <1.0. Likely secondary to increased lasix use as an outpatient -- After IVF as above Cr now back to baseline and remained stable on repeat at 0.81 Hypomagnesemia -- Mag low at 1.7 -- likely secondary to large amounts of insulin/cellular shifts. Repleted with 2gm IV x 1 and repeat 2.2 Discharged home with f/u with PCP, cardiology, oncology Started on Lantus 50 u daily Total Time Total Time Spent Total Time Spent (In Minutes): 70 Discharge Plan Discharge Items Patient Disposition: Home - Self-Care Reason For Visit: HYPERGLYCEMIA Discharge Diagnosis: Hyperglycemia Goals: You have been hospitalized for an acute medical problem. During your stay at [facility], we have made an effort to correct the problem that brought you to the hospital while keeping you as comfortable as possible. Medications were used to bring your condition under control and your discharge instructions will include directions for any medications you should take after leaving the hospital. Please make sure you see your Primary Care Provider as part of your follow up plan. Activity: Resume your previous activity Non-emergency contact: Primary Care Provider, Head Batcher and Oncologist Call non-emergency contact if: you have any medication questions, your symptoms worsen and your pain is not controlled Follow-up/Referrals: Meghann Cast CRNP [Primary Care Provider] - 12/06/20 10:30 am Michael Hatch MD [Physician] - 12/12/20 10:45 am Liliana Lloyd CRNP [Nurse Practitioner] - (2 weeks) Diet: Carb Consistent or DM2 and Heart Healthy Addtl Attending Provider Instructions: You have been hospitalized for generalized weakness, increased thirst and urination and found to have significantly elevated blood sugars with rash. It is felt that the lasix you had been on caused pancreatic insufficiency and caused a drastic rise in your A1c and now requiring insulin at discharge. Hopefully now that the lasix has been discontinued, your pancreas will have some rebound and you will need close follow up with your PCP to monitor your A1c and adjustments to your insulin as needed. You were seen by music educator during admission and were provided a glucometer to check your sugars at home and keep a log to take for follow up. You will continue with insulin 50 units in the morning daily. You will continue your metformin as usual. You have been sent testing supplies to help monitor your sugars as well. An ECHO was performed on your heart given your swelling in your legs, which was normal. You should follow up with Dr. Hatch as previously scheduled. Please continue to wear compression stocking and keep legs elevated as much as possible to help with swelling. If they remain swollen in the future you may want to consider restarting the hydrochlorothiazide but would avoid lasix in the future. Your rash has improved as well since discontinuing the lasix. Make sure to keep areas clean/dry and DO NOT use hot tub until completely resolved to prevent any issues/cellulitis/etc. You should follow up with Liliana Lloyd from hematology/oncology as discussed to monitor your status as you missed prior appointments. Please follow up with your PCP in the next 2 weeks to monitor your progress. Please return to the emergency department with any fever, chills, chest pain, s hortness of breath, or for any other issues that are concerning for you. It has been a pleasure being a part of the medical team providing for you while you have been in the hospital. Take care! Pending Studies at Discharge: No Stand-Alone Forms: [facility] Medications and DC Order Prescriptions: New Lantus Solostar U-100 Insulin 100 unit/mL (3 mL) Insulin Pen 50 unit SC DAILY Qty: 15 RF: 0 (DME) OneTouch Verio test strips Strip See Rx Instructions .ROUTE .MEDSUPPLY Qty: 100 RF: 0 (DME) lancets [OneTouch Delica Lancets] 30 gauge misc See Rx Instructions .ROUTE .MEDSUPPLY Qty: 200 RF: 0 (DME) pen needle, diabetic [Pen Needle] 32 gauge x 5/32" needle See Rx Instructions .ROUTE .MEDSUPPLY Qty: 50 RF: 0 Continued rosuvastatin 40 mg tablet 40 mg PO HS Qty: 90 RF: 3 metformin [Glucophage] 500 mg tablet See Rx Instructions PO .COMPLEX Qty: 90 RF: 5 metoprolol succinate 100 mg tablet extended release 24 hr 150 mg PO QAM Qty: 135 RF: 3 albuterol sulfate 90 mcg/actuation HFA aerosol inhaler 1 - 2 puffs INH Q6H PRN (Reason: shortness of breath or wheezing) Qty: 18 RF: 5 ipratropium-albuterol 0.5 mg-3 mg(2.5 mg base)/3 mL solution for nebulization 3 ml INH UD PRN (Reason: wheezing) Qty: 180 RF: 3 dutasteride [Avodart] 0.5 mg capsule 0.5 mg PO PM Qty: 90 RF: 3 nystatin 100,000 unit/gram powder 1 applic topical TID Qty: 30 RF: 3 nitroglycerin 0.4 mg tablet, sublingual 0.4 mg SL UD PRN (Reason: Chest Pain) Qty: 25 RF: 0 aspirin 81 mg tablet,delayed release (DR/EC) 81 mg PO QAM Qty: 30 RF: 0 meclizine 25 mg tablet 25 mg PO TID PRN (Reason: dizziness) Qty: 20 RF: 0 omeprazole 20 mg capsule,delayed release(DR/EC) 20 mg PO QAM RF: 0 lisinopril 40 mg tablet 40 mg PO QAM RF: 0 Discontinued furosemide 20 mg tablet 10 mg PO DAILY Qty: 30 RF: 5 Discharge Orders: Discharge Order (Routine); Ordered 11/28/20 Ordered By: Addie Norris/Other Patient Handouts: Diabetes Carbs Fats Protein, Diabetes: Ways to T jaya Medicine Admission Data Admit Date/Time: 11/26/20 14:14 Attending Provider: Aidan Jones Admit Provider: Daniele Carter Primary Care Provider: Meghann Cast Other Providers: Daniele Carter Coding Level of Care Code D/C Day Management >30 mins Diagnoses Hyperglycemia R73.9 Diabetes mellitus E11.9 Acute hyponatremia E87.1 Moderate obstructive sleep apnea G47.33 Tinea cruris B35.6 Acute generalized exanthematous pustulosis due to drug L27.0; T50.905A Benign localized prostatic hyperplasia with lower urinary tract symptoms (LUTS) N40.1 CAD in [place] artery I25.10 DVT prophylaxis Z29.9
--- NOTE | 2020-11-28 14:54 | XCELERA ---
[id number]
--- NOTE | 2020-12-07 13:17 | Coding Query ---
CODING QUERY To promote full compliance with coding requirements relating to patient care, provider participation is requested in all cases of newspaper or periodical editor uncertainty. Please assist us with the question(s) below: Please clarify the meaning of NASEEM. NASEEM is not a valid abbreviation. Thank you! ( ) Acute Kidney Injury ( x ) Acute Kidney Insufficiency ( ) Other (Specify): Principal Diagnosis: "that condition established after study, to be chiefly responsible for occasioning the admission of the patient to the hospital for care." Co-Existing Principal Diagnosis: "when two or more diagnoses equally meet the criteria for principal diagnosis as determined by the circumstances of admission, diagnostic work up, and/or therapy provided, and the Alphabetic Index, Tabular List, or another coding guideline does not provide sequencing direction, any one of the diagnoses may be sequenced first." "When the physician has documented what appears to be a current diagnosis in the body of the record, but has not included the diagnosis in the final diagnostic statement, the physician should be asked whether the diagnosis should be added." (Source Coding [facility] 2 QTR90. p3-4) AMAYA
== END 2020-11-28 14:55 | disposition home or self-care (01) | DRG 638 ==
LOC: ED 09:47 → 3N 09:47 → SUATTDRO 11:39 → 3N 14:00

== ENCOUNTER 2024-07-23 14:32 | Observation (INO) ==
--- NOTE | 2024-07-23 16:14 | XRay Report ---
XR knee RT 3V, XR knee LT 1 or 2V routine HISTORY: 78 years-old Male knee pain, no fall acute bilateral knee pain COMPARISON: None TECHNIQUE: 3 views of the bilateral knees FINDINGS: RIGHT: Mild tricompartmental osteoarthritis. No acute fracture, or dislocation. Small joint effusion. Mild circumferential soft tissue prominence. LEFT: Moderate tricompartmental osteoarthritis. Moderate size joint effusion. Circumferential soft ti ssue prominence without acute fracture, dislocation or osseous erosion. IMPRESSION: 1. Osteoarthritis of the knees without acute fracture or dislocation. 2. Moderate left and small right knee joint effusions. ACT 112: Negative or not required by law. The above report was generated using voice recognition software. It may contain grammatical, syntax o r spelling errors. Electronically signed by: Bienvenido Christopher M.D. 07/23/2024 4:12 PM
[2024-07-23] MEDS: BENZOCAINE/TETRACAIN/BUTAM 50 APPLN/5 GM CAN EXT ONE (16:53)
[2024-07-23] MEDS: ETHYL CHLORIDE AER PER SPRAY 100 ML CAN EXT ONE (16:53)
--- NOTE | 2024-07-23 17:00 | Emergency Department Note ---
History of Present Illness General Chief complaint: Leg Injury/Pain Stated complaint: L KNEE PAIN Time Seen by Provider: 07/23/24 14:45 History of Present Illness Maximum Pain Intensity: 4 this 78-year-old male with a history of renal insufficiency, dyspnea, A-fib, colon cancer, morbid obesity, COPD, hypertension, vertigo, CAD, diabetes, sleep apnea, osteoarthritis, anemia, and GERD, is seen today with his , for evaluation of left knee pain that began At the beginning of the week. It became significantly worse acutely yesterday. He states there was no trauma. He did not fall. Knee pain has become worse throughout the day. He also thinks that the right knee is starting to develop discomfort. He noticed swelling in the knee yesterday and this morning. It seems to have gone down slightly since this morning. He denies any swelling in the right leg. He notes difficulty moving the left leg secondary to pain and swelling. No history of gout. He denies any injury to the left knee. No known tick bites or Lyme disease. He denies any fevers, chills, sweats, nausea, or other cold symptoms. he denies any redness or warmth at the knee. Pain is 3/10 when sitting and 10/10 when ambulating. He is having difficulty putting weight on the leg. He has a walker but states he has not been using it. He takes Eliquis 5 mg twice daily. No additional complaints. Home Medications Medication Instructions Recorded Confirmed Type aspirin 81 mg tablet,delayed 81 mg PO QAM #30 tabs 08/23/19 07/23/24 History release ipratropium 0.5 mg-albuterol 3 mg 3 ml inhalation UD PRN wheezing 05/27/23 07/23/24 Rx (2.5 mg base)/3 mL nebulization #540 mL soln blood sugar diagnostic (OneTouch #200 ea 08/11/23 07/23/24 Rx Verio test strips) pen needle, diabetic 32 gauge x #200 ea 01/05/24 07/23/24 Rx 5/32" (Pen Needle) carvedilol 25 mg tablet 25 mg PO BID #180 tabs 01/26/24 07/23/24 Rx apixaban 5 mg tablet (Eliquis) 5 mg PO BID #180 tabs 02/24/24 07/23/24 Rx amlodipine 2.5 mg tablet 2.5 mg PO DAILY #90 tabs 03/02/24 07/23/24 Rx hydrochlorothiazide 25 mg tablet 25 mg PO QAM #90 tabs 03/11/24 07/23/24 Rx omeprazole 20 mg capsule,delayed 20 mg PO QAM #90 caps 03/21/24 07/23/24 Rx release dutasteride 0.5 mg capsule 0.5 mg PO PM #90 caps 03/29/24 07/23/24 Rx (Avodart) insulin glargine 100 unit/mL (3 50 unit (0.5 mL) SC DAILY #45 mL 03/29/24 07/23/24 Rx mL) subcutaneous pen (Lantus Solostar U-100 Insulin) metformin 500 mg tablet See Rx Instructions PO .COMPLEX 03/29/24 07/23/24 Rx #270 tabs lancets 30 gauge #200 ea 04/07/24 07/23/24 Rx lancets 33 gauge (OneTouch Delica #100 ea 04/07/24 07/23/24 Rx Plus Lancet) lisinopril 40 mg tablet 40 mg PO QAM #90 tabs 04/14/24 07/23/24 Rx rosuvastatin 40 mg tablet 40 mg PO HS #90 tabs 04/14/24 07/23/24 Rx fenofibrate 54 mg tablet 54 mg PO DAILY #90 tabs 05/11/24 07/23/24 Rx albuterol sulfate 90 mcg/actuation 2 puff inhalation Q6H PRN 05/12/24 07/23/24 Rx aerosol inhaler shortness of breath or wheezing #3 Inhalers fluticasone fur. 100 mcg-umeclid 1 inh inhalation DAILY #3 Inhalers 05/18/24 07/23/24 Rx 62.5 mcg-vilant 25 mcg inhalat.powder (Trelegy Ellipta) isosorbide mononitrate 60 mg 60 mg PO QAM #90 tabs 07/12/24 07/23/24 Rx tablet,extended release 24 hr Allergies Allergy/AdvReac Type Severity Reaction Status Date / Time furosemide [From Lasix] Allergy Intermediate genralized Verified 07/12/24 09:52 exanthematous pustulosis hydrocodone AdvReac Intermediate vomiting Verified 07/12/24 09:52 Past Med/Surg History Problem List (Updated 07/24/24 @ 20:35 by José Miguel Cooper PA-C) Effusion of knee joint, left (Acute) Pseudogout Bilateral primary osteoarthritis of knee Hypomagnesemia Hypokalemia Ambulatory dysfunction Left knee pain Renal insufficiency Leg pain Elevated PSA Decreased exercise tolerance IRVING (dyspnea on exertion) Bilateral shoulder pain Syncope Paroxysmal atrial fibrillation Atrial flutter, paroxysmal HX CARDIOVERSION (AC discontinued r/t GI bleed 08/2019) Hx of malignant neoplasm of colon dx 2018, resection 2019 Hypertrophic toenail Decreased stamina Ex-smoker Morbid obesity COPD with emphysema Vertigo Hypertension (Chronic) Kidney disease (Chronic) Pedal edema (Acute) Benign localized prostatic hyperplasia with lower urinary tract symptoms (LUTS) (Acute) CAD in [place] artery (Acute) Diabetes mellitus (Chronic) Moderate obstructive sleep apnea (Chronic) could not kevin CPAP Hyperlipidemia (Chronic) Anemia (Chronic) History of colon cancer Dx 2018, no chem needed. 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 Trejo 12/20/19 History of anesthesia reaction PROFUSE SWEATING AFTER PROSTATE SURGERY, UNABLE TO KEEP IV'S IN DUE TO AMOUNT OF SWEAT History of cardiac cath X4 TOTAL ( 1ST CATH 2012 FOR [place], STENT X1, most recent cath 2018 [place]) follows with Dr. Hatch History of esophagogastroduodenoscopy (EGD) History of colonoscopy History of PTCA 2012 [facility] History of hand surgery L History of dental surgery History of heart artery stent x 1 (2012) Family History Grandmother (Paternal) No problems noted. Mother Osteoporosis Family history of diabetes mellitus Cardiac arrhythmia Depression Cancer Sister Depression Family history of diabetes mellitus Father Prostate cancer Family history of diabetes mellitus Myocardial infarction Denies family history of Ovarian cancer Breast cancer Colorectal cancer Social History Smoking Status: Former smoker Tobacco Type: Cigarettes and Smokeless Tobacco (Dip or Chew) Age Quit Using Tobacco: 54; packs per day: 1.0; Cigarettes Per Day: 20; Second Hand Exposure: No; Do You Dip or Chew Tobacco: Yes; Hx Alcohol Use: No Hx Substance Use: No Preferred Language: Khmer Communication Ability: Effective Visual Impairment: Limited Hearing Ability: Normal Health Informatics Specialist Required: No Beliefs That Will Affect Care: None marital status: Current Living Situation: Spouse Current Living Situation Comment: with current occupational status: retired How many Children do You have: 4 Other Information That Helps Us Care for You: No Feels Safe at Home: Yes Safety Concerns: Feels Safe At This Time Childhood Exposure to Second-Hand Smoke: No Diet: diabetic and regular caffeine: No during the past year weight has: remained stable Dental Care, Regularly: No Physical Activity Frequency: 3-4 Times per Week Seatbelt Use: always Sunscreen Use: No Assistive Devices: None Review of Systems A total of 10 systems reviewed and were otherwise negative Physical Exam Vital Signs Vital Signs - 24 hr 07/23/24 14:21 07/23/24 14:51 Temperature 37 C Temperature Source Oral Pulse Rate 94 H 83 Respiratory Rate 20 Blood Pressure 123/81 Blood Pressure Mean 95 Pulse Oximetry 94 Oxygen Delivery Method Room Air Sepsis Recent Fever Within 48 Hours No Sepsis New/Unexplained Change in Mental Status No Sepsis Action Taken by Nursing No Action Required General: Well-developed, well-nourished, obese elderly male, in no acute distress. Laying in bed. Alert and oriented. Skin: Warm dry with good turgor. No rashes. No ecchymosis or erythema. There is a large intra-articular effusion in the left knee. No effusion in the right knee. No open wounds. Heart: Heart RRR. No MGR. Peripheral pulses are 2+. Lungs: Lungs are clear to auscultation. No crackles rhonchi or wheezing. Good air movement. The patient is able to take a deep breath. Abdomen: Obese. Abdomen was inspected, auscultated, and palpated. Bowel sounds present x 4. Soft, nontender to palpation. No hepato-splenomegaly. No masses noted. No rebound. Musculoskeletal: Right knee evaluation reveals no intra-articular effusion. Stable collateral ligaments. He has full terminal extension. Flexion to around 100 degrees. Strength is 5/5 with fairly good quad tone. No defect in the patellar tendon or quadriceps tendon. There is mild discomfort with palpation over the medial joint line. No lateral joint line discomfort today. Evaluation of the left knee reveals a large intra-articular effusion. He has focal discomfort with palpation over the medial and lateral joint lines. Stable collateral ligaments. He has full terminal extension. Flexion of only around 15 degrees secondary to pain. No palpable defect in the patellar tendon or quadriceps tendon. He is able to perform a straight leg raise. Intact motor function of both ankles. Neurologic: Gross sensation is intact across both lower extremities by soft touch. Procedures Free Text Procedures Informed oral consent was obtained for aspiration of the left knee. A small towel roll was placed under the knee for comfort. But and franks were identified and the superior lateral pouch was identified and marked. The skin was cleansed with Betadine x 2 and an alcohol swab x 1. The skin was anesthetized using ethyl chloride spray. An 18-gauge needle was used to aspirate 23 cc of turbid yellow fluid. unfortunately the needle became clogged and no further fluid was able to be obtained. A pressure dressing was applied. Fluid was sent for analysis. cell count, Gram stain, crystal analysis, and Lyme were ordered. No hemarthrosis or pus was noted. Course Administered Medications Amlodipine Besylate (Amlodipine Besylate 5 Mg Tab) 2.5 mg PO DAILY [facility] Stop: 08/23/24 08:59 Last Admin: 07/24/24 07:19 Dose: 2.5 mg Documented By: LAKHWINDER Apixaban (Apixaban 5 Mg Tablet) 5 mg PO BID [facility] Stop: 08/22/24 22:30 Last Admin: 07/24/24 07:22 Dose: 5 mg Documented By: Admin: 07/23/24 23:38 Dose: 5 mg Documented By: [id number] Aspirin (Aspirin 81 Mg Ectab) 81 mg PO QAM RAY Stop: 08/23/24 08:59 Last Admin: 07/24/24 07:20 Dose: 81 mg Documented By: LAKHWINDER Carvedilol (Carvedilol 25 Mg Tab) 25 mg PO BID RAY Stop: 08/22/24 22:30 Last Admin: 07/24/24 07:21 Dose: 25 mg Documented By: Admin: 07/23/24 23:39 Dose: 25 mg Documented By: [id number] Fenofibrate (Fenofibrate 54 Mg Tablet (Pom)) 1 each PO DAILY RAY Stop: 08/23/24 12:59 Last Admin: 07/24/24 14:25 Dose: 1 each Documented By: LAKHWINDER Finasteride (Finasteride 5 Mg Tab) 5 mg PO PM RAY Stop: 08/22/24 22:59 Last Admin: 07/23/24 23:37 Dose: 5 mg Documented By: [id number] Fluticasone Furoate (Fluticasone Furoate 100mcg 14 Puffs/Inhaler) 1 puffs INH DAILY RAY Stop: 08/23/24 08:59 Last Admin: 07/24/24 07:17 Dose: 1 puffs Documented By: LAKHWINDER Vancomycin HCl 1,500 mg/ (Sodium Chloride) 530 mls @ 200 mls/hr IV Q24H RAY Stop: 09/04/24 09:59 Last Infusion: 07/24/24 11:59 Dose: Infused Documented By: Admin: 07/24/24 09:14 Dose: 200 mls/hr Documented By: LAKHWINDER Insulin Aspart (Insulin Aspart Per Unit Charge) 0 units SC ACHS RAY Stop: 08/22/24 20:59 Last Admin: 07/24/24 17:31 Dose: 9 units Documented By: LAKHWINDER Co-signed By: CHUCK Admin: 07/24/24 12:42 Dose: 14 units Documented By: LAKHWINDER Co-signed By: CHUCK Admin: 07/24/24 09:12 Dose: 10 units Documented By: LAKHWINDER Co-signed By: CHUCK Admin: 07/23/24 20:09 Dose: Not Given Documented By: DYLAN Insulin Glargine (Lantus Per Unit Charge) 50 units SQ DAILY [facility]; Protocol Stop: 08/23/24 08:59 Last Admin: 07/24/24 09:13 Dose: 50 units Documented By: LAKHWINDER Co-signed By: CHUCK Isosorbide Mononitrate (Isosorbide [place] Extended Rel 60 Mg Tabcr) [facility] [place] Stop: 08/23/24 08:59 Last Admin: 07/24/24 07:18 Dose: 60 mg Documented By: LAKHWINDER Lisinopril (Lisinopril 40 Mg Tab) 40 [facility] [place] Stop: 08/23/24 08:59 Last Admin: 07/24/24 07:18 Dose: 40 mg Documented By: LAKHWINDER Pantoprazole Sodium (Pantoprazole 40 Mg Tab) 40 mg PO [facility] Stop: 08/23/24 08:59 Last Admin: 07/24/24 07:20 Dose: 40 mg Documented By: LAKHWINDER Prednisone (Prednisone 20 Mg Tab) 20 mg PO DAILY [facility] Stop: 08/23/24 08:59 Last Admin: 07/24/24 07:18 Dose: 20 mg Documented By: LAKHWINDER Rosuvastatin Calcium (Rosuvastatin Calcium 20 Mg Tab) 40 mg PO HS [facility] Stop: 08/22/24 22:30 Last Admin: 07/23/24 23:38 Dose: 40 mg Documented By: [id number] Umeclidinium/Vilanterol (Umeclidinium/Vilanterol 62.5/25mcg 7 Puffs/Inhaler) 1 puffs INH DAILY [facility] Stop: 08/23/24 08:59 Last Admin: 07/24/24 07:17 Dose: 1 puffs Documented By: LAKHWINDER Discontinued Medications Benzocaine/Butamben/Tetracaine HCl (Benzocaine/Tetracain/Butam 50 Appln/5 Gm Can) Confirm Administered Dose 50 appln EXT .STK-MED ONE Stop: 07/23/24 16:20 Last Admin: 07/23/24 16:53 Dose: 1 appln Documented By: DYLAN Ethyl Chloride (Ethyl Chloride Aer Per [place] 100 Ml Can) Confirm Administered Dose 1 sprays EXT .STK-MED ONE Stop: 07/23/24 16:25 Last Admin: 07/23/24 16:53 Dose: 1 sprays Documented By: DYLAN Cefazolin Sodium (Ancef 2000mg) 2,000 mg in 15 mls @ 3.75 mls/min IV Q8H RAY Stop: 09/03/24 18:14 Last Admin: 07/23/24 18:58 Dose: Not Given Documented By: DYLAN Magnesium Sulfate/Dextrose (Magnesium Sulfate / D5w) 1 gm in 100 mls @ 50 mls/hr IV Q2H [facility] Stop: 07/24/24 01:14 Last Infusion: 07/24/24 03:49 Dose: Infused Documented By: Elizabeth Admin: 07/24/24 00:47 Dose: 50 mls/hr Documented By: Elizabeth Infusion: 07/24/24 00:36 Dose: Infused Documented By: [id number] Admin: 07/23/24 22:36 Dose: 50 mls/hr Documented By: Elizabeth Infusion: 07/23/24 21:17 Dose: Infused Documented By: Admin: 07/23/24 19:16 Dose: 50 mls/hr Documented By: DYLAN Ceftriaxone Sodium (Rocephin) 2,000 mg in 50 mls @ 100 mls/hr IV NOW STA Stop: 07/23/24 21:19 Last Infusion: 07/23/24 21:46 Dose: Infused Documented By: Admin: 07/23/24 21:15 Dose: 100 mls/hr Documented By: DYLAN Vancomycin HCl 2,500 mg/ (Sodium Chloride) 550 mls @ 180 mls/hr IV NOW ONE Stop: 07/24/24 00:03 Last Infusion: 07/24/24 01:49 Dose: Infused Documented By: [id number] Admin: 07/23/24 22:36 Dose: 180 mls/hr Documented By: Elizabeth Magnesium Sulfate/Dextrose (Magnesium Sulfate / D5w) 1 gm in 100 mls @ 50 mls/hr IV ONE ONE Stop: 07/24/24 10:42 Last Infusion: 07/24/24 11:16 Dose: Infused Documented By: Admin: 07/24/24 09:13 Dose: 50 mls/hr Documented By: LAKHWINDER Magnesium Sulfate/Dextrose (Magnesium Sulfate / D5w) 1 gm in 100 mls @ 50 mls/hr IV ONE ONE Stop: 07/24/24 11:47 Last Infusion: 07/24/24 12:58 Dose: Infused Documented By: Admin: 07/24/24 10:50 Dose: 50 mls/hr Documented By: LAKHWINDER Insulin Aspart (Insulin Aspart Per Unit Charge) 0 units SC NOW STA Stop: 07/23/24 22:41 Last Admin: 07/23/24 23:37 Dose: 3 units Documented By: [id number] Co-signed By: NEIL Insulin Aspart (Insulin Aspart Per Unit Charge) 0 units SC NOW ONE Stop: 07/24/24 04:31 Last Admin: 07/24/24 04:31 Dose: 2 units Documented By: [id number] Co-signed By: STEPHANIE Miscellaneous (Order Awaiting Action: Fenofibrate 54 Mg Tablet) 1 each N/A QS RAY Stop: 08/23/24 07:59 Last Admin: 07/24/24 07:22 Dose: Not Given Documented By: LAKHWINDER Potassium Chloride (Potassium Chloride Crtab 20 Meq Tabcr) 40 meq PO NOW STA Stop: 07/23/24 18:47 Last Admin: 07/23/24 18:55 Dose: 40 meq Documented By: DYLAN Prednisone (Prednisone 20 Mg Tab) 20 mg PO NOW STA Stop: 07/23/24 18:35 Last Admin: 07/23/24 18:55 Dose: 20 mg Documented By: DYLAN Medical Decision Making Differential Diagnosis Hemarthrosis, gout, joint infection, internal derangement of the knee, osteoarthritis flare Medical Records Attestation: I reviewed the patient's medical records. Home Medications Current Medication List: was personally reviewed by me Laboratory Data left knee joint aspiration obtained today shows Yellow cloudy fluid with synovial WBCs of over 67,000. Polynuclear cells are over 95%. CBC and PRP obtained today show normal white count of 9.52. Mildly low H&H at 11.1 and 33.8. Normal platelets. PRP shows normal electrolytes. BUN of 24 with creatinine 1.26. Glucose today is 171. Sed rate is elevated at 89. CRP is elevated at 20.39. 07/24/24 07:30 07/24/24 07:30 Lab Results 07/23/24 07/23/24 Range/Units 14:52 16:35 WBC 9.68 (4.8-10.8) K/ul RBC 3.64 L (4.70-6.10) M/uL Hgb 10.9 L (14.0-18.0) g/dl Hct 33.0 L (42.0-52.0) % MCV 90.7 (80.0-100.0) fL MCH 29.9 (25.0-34.0) pg MCHC 33.0 (32.0-36.0) g/dL RDW Std Deviation 47.1 H (36.4-46.3) fL RDW Coeff of [place] 14.1 (11.5-14.5) % Plt Count 207 (130-400) K/uL MPV 11.6 (9.4-12.4) fL Immature Gran % (Auto) 0.6 % Neut % (Auto) 79.9 % Lymph % (Auto) 9.4 % [place] % (Auto) 9.2 % Eos % (Auto) 0.7 % Baso % (Auto) 0.2 % Neut # (Auto) 7.73 H (1.40-6.50) K/uL Lymph # (Auto) 0.91 L (1.20-3.40) K/uL [place] # (Auto) 0.89 H (0.11-0.59) K/uL Eos # (Auto) 0.07 (0.00-0.50) K/uL Baso # (Auto) 0.02 (0.00-0.20) K/uL Immature Gran # (Auto) 0.06 (0.01-0.20) K/uL ESR 87 H (0-20) mm/hr Sodium 137 (136-145) mmol/L Potassium 3.1 L (3.5-5.1) mmol/L Chloride 99 (98-107) mmol/L Carbon Dioxide 27 (21-32) mmol/L Anion Gap 11 (3-11) BUN 22 (6-23) mg/dl Creatinine 1.36 (0.6-1.4) mg/dl Est Cr Clr Drug Dosing 55.8 ml/min Est GFR ( Amer) 56.6 ml/min Est GFR (Non-Af Amer) 48.8 ml/min BUN/Creatinine Ratio 16.2 (10-20) Glucose 103 H (70-99(Fasting)) mg/dl Calcium 8.5 L (8.6-10.3) mg/dl Magnesium 0.8 L* (1.7-2.4) mg/dl C-Reactive Protein 20.39 H (0-0.5) mg/dl Procalcitonin 0.03 (0-0.5) ng/ml Fluid Comment Synovial Source Left Knee Synovial Color Yellow Synovial Appearance Cloudy Synovial WBC (Auto) 73462 H (0-200) /ul Synovial RBC (Auto) < 2000 /uL Synovial Polynuclear % 95.8 % Synovial Mononuclear % 4.2 % Imaging Data My Impression: Radiographic imaging obtained today of the right and left knees was interpreted by me and read by radiology. He has osteoarthritic changes of both knees, left greater than right. Worse in the medial compartments. Moderate left and small right joint effusions. No evidence of fracture. Radiologist's Impression: Knee X-Ray 07/23/24 14:55 XR knee RT 3V, XR knee LT 1 or 2V routine HISTORY: 78 years-old Male knee pain, no fall acute bilateral knee pain COMPARISON: None TECHNIQUE: 3 views of the bilateral knees FINDINGS: RIGHT: Mild tricompartmental osteoarthritis. No acute fracture, or dislocation. Small joint effusion. Mild circumferential soft tissue prominence. LEFT: Moderate tricompartmental osteoarthritis. Moderate size joint effusion. Circumferential soft tissue prominence without acute fracture, dislocation or osseous erosion. IMPRESSION: 1. Osteoarthritis of the knees without acute fracture or dislocation. 2. Moderate left and small right knee joint effusions. ACT 112: Negative or not required by law. The above report was generated using voice recognition software. It may contain grammatical, syntax or spelling errors. Electronically signed by: Bienvenido Christopher M.D. 07/23/2024 4:12 PM Knee X-Ray 07/23/24 14:55 XR knee RT 3V, XR knee LT 1 or 2V routine HISTORY: 78 years-old Male knee pain, no fall acute bilateral knee pain COMPARISON: None TECHNIQUE: 3 views of the bilateral knees FINDINGS: RIGHT: Mild tricompartmental osteoarthritis. No acute fracture, or dislocation. Small joint effusion. Mild circumferential soft tissue prominence. LEFT: Moderate tricompartmental osteoarthritis. Moderate size joint effusion. Circumferential soft tissue prominence without acute fracture, dislocation or osseous erosion. IMPRESSION: 1. Osteoarthritis of the knees without acute fracture or dislocation. 2. Moderate left and small right knee joint effusions. ACT 112: Negative or not required by law. The above report was generated using voice recognition software. It may contain grammatical, syntax or spelling errors. Electronically signed by: Bienvenido Christopher M.D. 07/23/2024 4:12 PM Blood Pressure Blood Pressure Findings: Normal blood pressure MDM Narrative The patient was evaluated in room A11. Conservative care measures were discussed. IV was established. Labs were obtained. Radiographic imaging of the knees was obtained. There is no evidence of fracture or foreign body. Effusion and osteoarthritic changes are noted. Given his limitation in motion, recommendation for aspiration was discussed. He is willing to proceed. Risks and benefits were discussed. The patient noticed improved comfort after removal of fluid. He was able to bend his knee further to approximately 30 degrees before onset of discomfort. Julio wrap was applied for compression. Impression & Plan Effusion of knee joint, left the patient and his were educated regarding today's findings. Though he does not have a white count And is afebrile, there is a significant elevation of WBCs in his synovial fluid. It is significantly over 50,000 with greater than 95% PMN cells. I cannot discount infection, though I think it is most likely pseudogout or gout causing his symptoms. they are agreeable to admission. He was administered Ancef 2 g IV. [facility] service was consulted for admission. Please see that dictation for final management. I also spoke with Dr. Sanabria from the orthopedics department. He agreed that it is most likely gout or pseudogout, however the crystal analysis will not be back for 24 to 48 hours. He recommended antibiotic coverage, admission, and agreed to see the patient in consultation. Ice and elevate the knee frequently to reduce pain and swelling. He cannot use indomethacin secondary to his Eliquis use. Use of prednisone will need to be cautious secondary to his diabetes. The patient was seen in conjunction with Dr. Moses, who also evaluated the patient and concurred with today's diagnosis and treatment plan. Discharge Plan Visit Data Chief Complaint: Leg Injury/Pain Stated Complaint: L KNEE PAIN ED Provider: Estelle Guidry ED Midlevel Provider: José Miguel Cooper Discharge Problem: Effusion of knee joint, left Patient Disposition: Admitted As Inpatient Discharge Instructions Interventions: ED Discharge Assessment Last Done: 07/23/24 21:49
[2024-07-23 17:07] LABS: BUN Creatinine Ratio 16.2 (10-20); C Reactive Protein 20.39 mg/dl (0-0.5); Calcium 8.5 mg/dl (8.6-10.3); Creatinine Clr Calc Pharmacy 55.8 ml/min; Est GFR (African American) 56.6 ml/min; Est GFR (Non-African American) 48.8 ml/min; Potassium 3.1 mmol/L (3.5-5.1)
[2024-07-23 17:14] LABS: Basophils # (auto) 0.02 K/uL (0.00-0.20); Basophils % (auto) 0.2 %; Eosinophils # (auto) 0.07 K/uL (0.00-0.50); Eosinophils % (auto) 0.7 %; Hemoglobin 10.9 g/dl (14.0-18.0); Immature Granulocytes # (auto) 0.06 K/uL (0.01-0.20); Immature Granulocytes % (auto) 0.6 %; Lymphocytes # (auto) 0.91 K/uL (1.20-3.40); Lymphocytes % (auto) 9.4 %; Mean Corpuscular Hemoglobin 29.9 pg (25.0-34.0); Mean Corpuscular Volume 90.7 fL (80.0-100.0); Mean Platelet Volume 11.6 fL (9.4-12.4); Monocytes # (auto) 0.89 K/uL (0.11-0.59); Monocytes % (auto) 9.2 %; Neutrophils # (auto) 7.73 K/uL (1.40-6.50); Neutrophils % (auto) 79.9 %; Platelet Count 207 K/uL (130-400); RDW Coefficient of Variation 14.1 % (11.5-14.5); RDW Standard Deviation 47.1 fL (36.4-46.3); Red Blood Count 3.64 M/uL (4.70-6.10); White Blood Count 9.68 K/ul (4.8-10.8)
[2024-07-23 17:37] LABS: Appearance Synovial Fluid Cloudy; Color Synovial Fluid Yellow; Mononuclear WBC Synovial 4.2 %; Polynuclear WBC Synovial 95.8 %; RBC Synovial Fluid Auto < 2000 /uL; Source Synovial Fluid Left Knee; WBC Synovial Fluid Auto 67460 /ul (0-200)
[2024-07-23] MEDS ORDERED: GLUCAGON FOR INJ 1 MG VIAL SQ PRN (18:45)
[2024-07-23] MEDS ORDERED: PHARMACY GLYCEMIC MGMT CONSULT PRN (18:45)
[2024-07-23] MEDS ORDERED: DEXTROSE 50% 50 ML SYRINGE IV PRN (18:45)
[2024-07-23] MEDS ORDERED: CARBOHYDRATES FOR HYPOGLYCEMIA PO PRN (18:45)
[2024-07-23] MEDS ORDERED: GLUCOSE 10 TAB/TUBE PO PRN (18:45)
[2024-07-23] MEDS ORDERED: GLUCOSE 40% GEL 15 GM TUBE PO PRN (18:45)
--- NOTE | 2024-07-23 18:51 | History & Physical Report ---
Date of Service July 23, 2024 Assessment & Plan (1) Left knee pain: Plan: Admit to med telemetry Currently stable nontoxic-appearing Present to the ED due to 1 week of progressive left knee swelling, pain and ambulatory dysfunction Left knee is moderately swollen on exam, x-ray of the bilateral knees is negative for trauma but notes moderate left knee effusion Left knee synovial aspirate shows 67,000 WBC's with Gram stain growing no organisms thus far Synovial polynuclear percentage is 95.8%, combined with synovial WBC of 67,000 we cannot completely rule out infection at this time Patient is nontoxic-appearing, has been afebrile, WBC is within normal limits For now we will start vancomycin and ceftriaxone to cover for possible infection until the rest of the infectious workup is complete Will start 20 mg p.o. prednisone daily with first dose at the time of admission as well to treat likely gout/pseudogout Orthopedic surgery has been consulted and will continue to follow, follow final culture and synovial fluid results Continue with as needed Tylenol for now as pain is currently mild Home Eliquis for DVT prophylaxis Heart healthy/DM type II diet AM CBC, CMP, mag, PT/INR (2) Ambulatory dysfunction: Plan: Continue to monitor for improvement with initiation of steroids for likely gout/pseudogout Fall precautions ordered PT/OT consults placed (3) Hypokalemia: Plan: Potassium noted to be 3.1 on arrival Likely combination of his significantly low mag of 0.8 and hydrochlorothiazide use Will give 40 mEq p.o. KCl now, continue to replete magnesium Continue to monitor on telemetry and monitor daily renal function electrolytes (4) Hypomagnesemia: Plan: Mag level ordered at the time of admission noted to be 0.8 Likely due to hydrochlorothiazide use Ordering an initial 4 bags of 1 g IV mag sulfate Continue to monitor on telemetry and monitor daily renal function every (5) Diabetes mellitus: Plan: Will monitor BSG every 6 hours overnight as he is high risk for hypoglycemia with starting prednisone Hold metformin Goal BSG will be [id number] Normally takes 50 units SQ Lantus in the a.m., confirm he did take his a.m. dose of Lantus this morning Will start 25 units Lantus twice daily starting tomorrow morning as he took his a.m. dose of Lantus and currently has a glucose in the low 100s Will start CF of 20 and CR of 7 every 6 hours overnight Pharmacy glycemic consult has been placed (6) Paroxysmal atrial fibrillation: Plan: Currently stable Continue carvedilol and Eliquis (7) COPD with emphysema: Plan: Currently stable on room air with minimal expiratory wheezing Continue home albuterol, Trelegy Ellipta (8) CAD in [place] artery: Plan: No recent chest pain Continue aspirin statin, Imdur, and lisinopril (9) Hypertension: Plan: Currently stable Continue amlodipine Hold hydrochlorothiazide for now as this could causing gout/pseudogout Plan The patient was discussed with Dr. Carter at the time of admission History of Present Illness Chief Complaint: Left knee pain, ambulatory dysfunction Primary Care Provider: LATRICIA Bravo Jonathan is an 78-year-old male with a past medical history significant for coronary artery disease status post PCI to the circumflex artery, a flutter/fib (on Eliquis), dyslipidemia, hypertension, colon cancer status post partial resection in 2019, DM type II, SHAWN, BPH who presented to the [facility] ED on 07/23/2024 with complaints of left knee swelling and pain. He was noted to be tachycardic on arrival with heart rate of 94 but otherwise stable. Labs were significant for an ESR of 87, potassium of 3.1, CRP of 20, and initial left knee aspirate results showing 67,000 WBC, less than 2000 RBC, yellow in color with cloudy appearance, with crystals and Lyme DNA PCR in process. X-rays of the bilateral knees was read as osteoarthritis of the knees without acute fracture or dislocation. Moderate left and small right knee joint effusions. Initial Gram stain results from the knee aspirate show many WBCs with no organisms seen. We are asked to admit the patient for further treatment of his right knee pain/swelling and evaluation by PT/OT due to his ambulatory dysfunction. Patient was sitting in bed in no acute distress at time of exam. States that he started develop left knee pain/swelling approximately 1 week ago. Approximately 3 days into his symptoms he placed a wrap on his left knee which significantly improved his symptoms. Starting 07/21/2024 the patient began to do yard work as he was feeling better and his left knee swelling/pain significantly exacerbated. After putting more weight on his right lower extremity over the week he now has mild to moderate right knee pain/swelling as well. No recent fever/chills, chest pain, shortness of breath, cough, nausea/vomiting, dysuria/hematuria, melena, bloody bowel movements, recent trauma. He and his live in a two-story home which requires him to go up multiple steps to get to the second story which he currently cannot do safely due to his lower extremity pain. Patient confirms he is a full code and want his to make medical decisions for him if he cannot make them himself. Please refer to Dr. Carter's attestation for any changes to the treatment plan. Allergies Allergy/AdvReac Type Severity Reaction Status Date / Time furosemide [From Lasix] Allergy Intermediate genralized Verified 07/12/24 09:52 exanthematous pustulosis hydrocodone AdvReac Intermediate vomiting Verified 07/12/24 09:52 Home Medications Medication Instructions Recorded Confirmed Type aspirin 81 mg tablet,delayed 81 mg PO QAM #30 tabs 08/23/19 07/23/24 History release ipratropium 0.5 mg-albuterol 3 mg 3 ml inhalation UD PRN wheezing 05/27/23 07/23/24 Rx (2.5 mg base)/3 mL nebulization #540 mL soln blood sugar diagnostic (OneTouch #200 ea 08/11/23 07/23/24 Rx Verio test strips) pen needle, diabetic 32 gauge x #200 ea 01/05/24 07/23/24 Rx 5/32" (Pen Needle) carvedilol 25 mg tablet 25 mg PO BID #180 tabs 01/26/24 07/23/24 Rx apixaban 5 mg tablet (Eliquis) 5 mg PO BID #180 tabs 02/24/24 07/23/24 Rx amlodipine 2.5 mg tablet 2.5 mg PO DAILY #90 tabs 03/02/24 07/23/24 Rx hydrochlorothiazide 25 mg tablet 25 mg PO QAM #90 tabs 03/11/24 07/23/24 Rx omeprazole 20 mg capsule,delayed 20 mg PO QAM #90 caps 03/21/24 07/23/24 Rx release dutasteride 0.5 mg capsule 0.5 mg PO PM #90 caps 03/29/24 07/23/24 Rx (Avodart) insulin glargine 100 unit/mL (3 50 unit (0.5 mL) SC DAILY #45 mL 03/29/24 07/23/24 Rx mL) subcutaneous pen (Lantus Solostar U-100 Insulin) metformin 500 mg tablet See Rx Instructions PO .COMPLEX 03/29/24 07/23/24 Rx #270 tabs lancets 30 gauge #200 ea 04/07/24 07/23/24 Rx lancets 33 gauge (OneTouch Delica #100 ea 04/07/24 07/23/24 Rx Plus Lancet) lisinopril 40 mg tablet 40 mg PO QAM #90 tabs 04/14/24 07/23/24 Rx rosuvastatin 40 mg tablet 40 mg PO HS #90 tabs 04/14/24 07/23/24 Rx fenofibrate 54 mg tablet 54 mg PO DAILY #90 tabs 05/11/24 07/23/24 Rx albuterol sulfate 90 mcg/actuation 2 puff inhalation Q6H PRN 05/12/24 07/23/24 Rx aerosol inhaler shortness of breath or wheezing #3 Inhalers fluticasone fur. 100 mcg-umeclid 1 inh inhalation DAILY #3 Inhalers 05/18/24 07/23/24 Rx 62.5 mcg-vilant 25 mcg inhalat.powder (Trelegy Ellipta) isosorbide mononitrate 60 mg 60 mg PO QAM #90 tabs 07/12/24 07/23/24 Rx tablet,extended release 24 hr Past Med/Surg History Problem List (Updated 07/24/24 @ 07:51 by Octaviano Sanabria MD) Pseudogout Bilateral primary osteoarthritis of knee Hypomagnesemia Hypokalemia Ambulatory dysfunction Left knee pain Renal insufficiency Leg pain Elevated PSA Decreased exercise tolerance IRVING (dyspnea on exertion) Bilateral shoulder pain Syncope Paroxysmal atrial fibrillation Atrial flutter, paroxysmal HX CARDIOVERSION (AC discontinued r/t GI bleed 08/2019) Hx of malignant neoplasm of colon dx 2018, resection 2019 Hypertrophic toenail Decreased stamina Ex-smoker Morbid obesity COPD with emphysema Vertigo Hypertension (Chronic) Kidney disease (Chronic) Pedal edema (Acute) Benign localized prostatic hyperplasia with lower urinary tract symptoms (LUTS) (Acute) CAD in [place] (Acute) Diabetes mellitus (Chronic) Moderate obstructive sleep apnea (Chronic) could not kevin CPAP Hyperlipidemia (Chronic) Anemia (Chronic) History of colon cancer Dx 2019, no chem needed. 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) Multiple lung nodules on CT Granulomatous lung disease Surgical History History of transurethral resection of prostate S/P colon resection (12/20/19) Laparoscopic-Assisted Sigmoid Colon Resection, Gastrostomy Dr. Trejo 12/20/19 History of anesthesia reaction PROFUSE SWEATING AFTER PROSTATE SURGERY, UNABLE TO KEEP IV'S IN DUE TO AMOUNT OF SWEAT History of cardiac cath X4 TOTAL ( 1ST CATH 2012 FOR [place], STENT X1, most recent cath 2017 [place]) follows with Dr. Hatch History of esophagogastroduodenoscopy (EGD) History of colonoscopy History of PTCA [facility] History of hand surgery L History of dental surgery History of heart artery stent x 1 (2012) Family History Grandmother (Paternal) No problems noted. Mother Osteoporosis Family history of diabetes mellitus Cardiac arrhythmia Depression Cancer Sister Depression Family history of diabetes mellitus Father Prostate cancer Family history of diabetes mellitus Myocardial infarction Denies family history of Ovarian cancer Breast cancer Colorectal cancer Social History Smoking Status: Former smoker Tobacco Type: Cigarettes and Smokeless Tobacco (Dip or Chew) Age Quit Using Tobacco: 54; packs per day: 1.0; Cigarettes Per Day: 20; Second Hand Exposure: No; Do You Dip or Chew Tobacco: Yes; Hx Alcohol Use: No Hx Substance Use: No Preferred Language: Lao Communication Ability: Effective Visual Impairment: Limited Hearing Ability: Normal Public Health Clinical Nurse Specialist Required: No Beliefs That Will Affect Care: None marital status: Current Living Situation: Spouse Current Living Situation Comment: with current occupational status: retired How many Children do You have: 4 Other Information That Helps Us Care for You: No Feels Safe at Home: Yes Safety Concerns: Feels Safe At This Time Childhood Exposure to Second-Hand Smoke: No Diet: diabetic and regular caffeine: No during the past year weight has: remained stable Dental Care, Regularly: No Physical Activity Frequency: 3-4 Times per Week Seatbelt Use: always Sunscreen Use: No Assistive Devices: None Physical Exam Physical Exam: Physical Exam: General: In no acute distress, stated age, well-nourished, nontoxic-appearing HEENT: Normocephalic, atraumatic, no scleral icterus, pupils around round, symmetrical, and reactive to light, moist mucus membranes, trachea midline, no thyromegaly Chest/Pulm: No respiratory distress, symmetrical chest expansion, scattered expiratory wheezing Cardiac: RRR, no murmurs noted Abdomen: Negative for ascites and bruising, normoactive bowel sounds, soft, non-tender to palpation throughout Musculoskeletal: Left knee with moderate effusion without significant erythema, left knee is mildly warm to palpation and tender to palpation, minimal flexion of the left knee at this time due to pain and swelling > Right knee with minimal joint effusion, no pain/tenderness to palpation with intact range of motion Extremities: Radial, dorsalis pedis, and posterior tibial pulses are intact and symmetrical, left knee with moderate effusion compared to right Skin: Warm, dry, no rashes , lesions, or scars noted Neuro: Alert and oriented to person, place, month, year, and president, no focal defects, no tremors noted Psych: No acute distress, calm and cooperative during the exam Results & Data Results & Data Vital Signs (Past 12 Hours) Vital Signs Temp Pulse Resp BP Pulse Ox O2 Del Method 07/23/24 14:51 83 07/23/24 14:21 37 C 94 H 20 123/81 94 Room Air Laboratory Results Abnormal lab results 07/23/24 07/23/24 Range/Units 14:52 16:35 RBC 3.64 L (4.70-6.10) M/uL Hgb 10.9 L (14.0-18.0) g/dl Hct 33.0 L (42.0-52.0) % RDW Std Deviation 47.1 H (36.4-46.3) fL Neut # (Auto) 7.73 H (1.40-6.50) K/uL Lymph # (Auto) 0.91 L (1.20-3.40) K/uL Bertie # (Auto) 0.89 H (0.11-0.59) K/uL ESR 87 H (0-20) mm/hr Potassium 3.1 L (3.5-5.1) mmol/L Glucose 103 H (70-99(Fasting)) mg/dl Calcium 8.5 L (8.6-10.3) mg/dl C-Reactive Protein 20.39 H (0-0.5) mg/dl Synovial WBC (Auto) 93739 H (0-200) /ul Diagnostic Findings Knee X-Ray 07/23/24 14:55 XR knee RT 3V, XR knee LT 1 or 2V routine HISTORY: 78 years-old Male knee pain, no fall acute bilateral knee pain COMPARISON: None TECHNIQUE: 3 views of the bilateral knees FINDINGS: RIGHT: Mild tricompartmental osteoarthritis. No acute fracture, or dislocation. Small joint effusion. Mild circumferential soft tissue prominence. LEFT: Moderate tricompartmental osteoarthritis. Moderate size joint effusion. Circumferential soft tissue prominence without acute fracture, dislocation or osseous erosion. IMPRESSION: 1. Osteoarthritis of the knees without acute fracture or dislocation. 2. Moderate left and small right knee joint effusions. ACT 112: Negative or not required by law. The above report was generated using voice recognition software. It may contain grammatical, syntax or spelling errors. Electronically signed by: Bienvenido Christopher M.D. 07/23/2024 4:12 PM Knee X-Ray 07/23/24 14:55 XR knee RT 3V, XR knee LT 1 or 2V routine HISTORY: 78 years-old Male knee pain, no fall acute bilateral knee pain COMPARISON: None TECHNIQUE: 3 views of the bilateral knees FINDINGS: RIGHT: Mild tricompartmental osteoarthritis. No acute fracture, or dislocation. Small joint effusion. Mild circumferential soft tissue prominence. LEFT: Moderate tricompartmental osteoarthritis. Moderate size joint effusion. Circumferential soft tissue prominence without acute fracture, dislocation or osseous erosion. IMPRESSION: 1. Osteoarthritis of the knees without acute fracture or dislocation. 2. Moderate left and small right knee joint effusions. ACT 112: Negative or not required by law. The above report was generated using voice recognition software. It may contain grammatical, syntax or spelling errors. Electronically signed by: Bienvenido Christopher M.D. 07/23/2024 4:12 PM Code Status & VTE Plan Code Status Full code VTE Prophylaxis Plan VTE Prophylaxis will be ordered: Yes Supervising Physician Co-Signing Physician Notes I personally saw and examined the patient. I verified all reyes points and agree with Scott Lorenz PA-C with the following exceptions and/or additions: 78 year old male presents to the ER with left knee pain and swelling. No fever or chills. O/E HS RRR, no murmurs, Chest CTAB, Abdo SNT, left knee swelling and pain without erythema. A/P Left knee joint effusion - suspected gout/pseudogout although not history of this. Start prednisone 20mg PO daily. Since WBC > 50,000 and gram stain negative in infections 20-40% of the time will empirically treat with vanc/ceftriaxone pending culture results although lower suspicion this is infected. PG Care Time/CCT Total # of Minutes Spent Total Time Spent with Patient: Total time spent is greater than 50% in coordination of care (as documented) at patient's floor/unit and/or counseling patient: Coding [place] [address] INT INP/OBS CARE 2/55MIN Patient Type Established Medical Decision Making High Complexity Diagnoses Left knee pain M25.562 Ambulatory dysfunction R26.2 Hypokalemia E87.6 Hypomagnesemia E83.42 Type 2 diabetes mellitus without complication, with long-term current use of insulin E11.9; Z79.4 Diabetes mellitus complication status: without complication Diabetes mellitus fdc insulin use: with terminal makeup operator use Diabetes mellitus type: type 2 Paroxysmal atrial fibrillation I48.0 Pulmonary emphysema, unspecified emphysema type J43.9 Emphysema type: unspecified CAD in [place] I25.10 Primary hypertension I10 Hypertension type: primary hypertension (5) Diabetes mellitus Diabetes mellitus complication status: without complication Diabetes mellitus fdc insulin use: with terminal makeup operator use Diabetes mellitus type: type 2 Qualified Code(s): E11.9 - Type 2 diabetes mellitus without complications; Z79.4 - terminal manager (current) use of insulin (7) COPD with emphysema Emphysema type: unspecified Qualified Code(s): J43.9 - Emphysema, unspecified (9) Hypertension Hypertension type: primary hypertension Qualified Code(s): I10 - Essential (primary) hypertension
[2024-07-23] MEDS: predniSONE 20 MG TAB PO STA (18:55)
[2024-07-23] MEDS: POTASSIUM CHLORIDE CRTAB 20 MEQ TABCR PO STA (18:55)
[2024-07-23] MEDS: ceFAZolin 2000MG 2,000 MG/15 ML SYR IV SCH (18:58)
[2024-07-23 19:02] LABS: Magnesium 0.8 mg/dl (1.7-2.4)
[2024-07-23] MEDS: MAGNESIUM SULFATE / D5W 1 GM/100 ML BAG IV SCH (19:16)
[2024-07-23] MEDS: INSULIN ASPART PER UNIT CHARGE SC SCH (20:09)
[2024-07-23] MEDS ORDERED: VANCOMYCIN CONSULT ACTIVE PRN (20:50)
[2024-07-23] MEDS ORDERED: VANCOMYCIN HCL 1,000 MG in SODIUM CHLORIDE 0.9% 250 ML IV STA (20:50)
[2024-07-23] MEDS ORDERED: LANTUS PER UNIT CHARGE SQ SCH (21:00)
[2024-07-23] MEDS: cefTRIAXone SODIUM 2,000 MG/50 ML BAG IV STA (21:15)
[2024-07-23] MEDS ORDERED: ALBUTEROL HFA 8 GM INHALER INH PRN (22:31)
[2024-07-23] MEDS: VANCOMYCIN HCL 2,500 MG in SODIUM CHLORIDE 0.9% 500 ML IV ONE (22:36)
[2024-07-23] MEDS: FINASTERIDE 5 MG TAB PO SCH (23:37)
[2024-07-23] MEDS: INSULIN ASPART PER UNIT CHARGE SC STA (23:37)
[2024-07-23] MEDS: APIXABAN 5 MG TABLET PO SCH (23:38)
[2024-07-23] MEDS: ROSUVASTATIN CALCIUM 20 MG TAB PO SCH (23:38)
[2024-07-23] MEDS: carvediloL 25 MG TAB PO SCH (23:39)
[2024-07-24] MEDS: INSULIN ASPART PER UNIT CHARGE SC ONE (04:31)
[2024-07-24] MEDS: UMECLIDINIUM/VILANTEROL 62.5/25MCG 7 PUFFS/INHALER INH SCH (07:17)
[2024-07-24] MEDS: FLUTICASONE FUROATE 100MCG 14 PUFFS/INHALER INH SCH (07:17)
[2024-07-24] MEDS: lisinopril 40 MG TAB PO SCH (07:18)
[2024-07-24] MEDS: ISOSORBIDE MONO EXTENDED REL 60 MG TABCR PO SCH (07:18)
[2024-07-24] MEDS: predniSONE 20 MG TAB PO SCH (07:18)
[2024-07-24] MEDS: amLODIPine BESYLATE 5 MG TAB PO SCH (07:19)
[2024-07-24] MEDS: ASPIRIN 81 MG ECTAB PO SCH (07:20)
[2024-07-24] MEDS: PANTOprazole 40 MG TAB PO SCH (07:20)
--- NOTE | 2024-07-24 07:53 | Orthopedic Consultation ---
Date of Service July 24, 2024 Assessment & Plan (1) Bilateral primary osteoarthritis of knee: 78-year-old male with multiple medical comorbidities with a 1 week history of bilateral increasing knee pain got significant worse over the past 24 to 48 hours to the point that he has been having trouble ambulating. It is unlikely that he is got infection and I think this most likely represents either gout or pseudogout. He is markedly better just even after the aspiration. Unfortunately with him being on Eliquis he cannot take NSAIDs. Plan: At this point cultures remain no growth. I think this most likely represents some form of gout or pseudogout. Unlikely infection. I recommended trying to manage this with some prednisone along with medical management of his blood glucoses as needed. Most likely this will calm down quickly. Unfortunately cannot take NSAIDs. I think it is reasonable to put him on some antibiotics for a while until we get the crystal analysis back but I think it is very unlikely to be infection. He is markedly better even just after the aspiration. I recommend he be seen by physical therapy. Once he is ambulatory and were fairly confident this is no infection we can probably discharge him. Will see how the day goes today. Any orthopedic questions can be direct or [phone]. (2) Pseudogout: History of Present Illness Reason for Consultation: . Left knee pain discomfort and swelling. Requesting Physician: . Attending Physician: Dustin Dos Santos MD . Patient is an 78-year-old gentleman with multiple medical comorbidities including chronic atrial fibrillation, diabetes and on Eliquis. Over the past week he has developed increased pain discomfort and swelling of the left knee. Both knees are hurting some. Got gradually worse recently and he was admitted that now for ambulatory dysfunction. He is diabetic. He is on long-term anticoagulation due to paroxysmal atrial fibrillation. Denies any trauma. He is feeling much better today. He was seen in the emergency room yesterday and had his knee aspirated and sent off. He says he feels a much better today. He got up and walked to the bathroom with little assistance. Denies any fevers. Not been ill. No known history of gout. Allergies Allergy/AdvReac Type Severity Reaction Status Date / Time furosemide [From Lasix] Allergy Intermediate genralized Verified 07/12/24 09:52 exanthematous pustulosis hydrocodone AdvReac Intermediate vomiting Verified 07/12/24 09:52 Home Medications Medication Instructions Recorded Confirmed Type aspirin 81 mg tablet,delayed 81 mg PO QAM #30 tabs 08/23/19 07/23/24 History release ipratropium 0.5 mg-albuterol 3 mg 3 ml inhalation UD PRN wheezing 05/27/23 07/23/24 Rx (2.5 mg base)/3 mL nebulization #540 mL soln blood sugar diagnostic (OneTouch #200 ea 08/11/23 07/23/24 Rx Verio test strips) pen needle, diabetic 32 gauge x #200 ea 01/05/24 07/23/24 Rx 5/32" (Pen Needle) carvedilol 25 mg tablet 25 mg PO BID #180 tabs 01/26/24 07/23/24 Rx apixaban 5 mg tablet (Eliquis) 5 mg PO BID #180 tabs 02/24/24 07/23/24 Rx amlodipine 2.5 mg tablet 2.5 mg PO DAILY #90 tabs 03/02/24 07/23/24 Rx hydrochlorothiazide 25 mg tablet 25 mg PO QAM #90 tabs 03/11/24 07/23/24 Rx omeprazole 20 mg capsule,delayed 20 mg PO QAM #90 caps 03/21/24 07/23/24 Rx release dutasteride 0.5 mg capsule 0.5 mg PO PM #90 caps 03/29/24 07/23/24 Rx (Avodart) insulin glargine 100 unit/mL (3 50 unit (0.5 mL) SC DAILY #45 mL 03/29/24 07/23/24 Rx mL) subcutaneous pen (Lantus Solostar U-100 Insulin) metformin 500 mg tablet See Rx Instructions PO .COMPLEX 03/29/24 07/23/24 Rx #270 tabs lancets 30 gauge #200 ea 04/07/24 07/23/24 Rx lancets 33 gauge (OneTouch Delica #100 ea 04/07/24 07/23/24 Rx Plus Lancet) lisinopril 40 mg tablet 40 mg PO QAM #90 tabs 04/14/24 07/23/24 Rx rosuvastatin 40 mg tablet 40 mg PO HS #90 tabs 04/14/24 07/23/24 Rx fenofibrate 54 mg tablet 54 mg PO DAILY #90 tabs 05/11/24 07/23/24 Rx albuterol sulfate 90 mcg/actuation 2 puff inhalation Q6H PRN 05/12/24 07/23/24 Rx aerosol inhaler shortness of breath or wheezing #3 Inhalers fluticasone fur. 100 mcg-umeclid 1 inh inhalation DAILY #3 Inhalers 05/18/24 07/23/24 Rx 62.5 mcg-vilant 25 mcg inhalat.powder (Trelegy Ellipta) isosorbide mononitrate 60 mg 60 mg PO QAM #90 tabs 07/12/24 07/23/24 Rx tablet,extended release 24 hr Past Med/Surg History Problem List (Updated 07/24/24 @ 07:51 by Octaviano Sanabria MD) Pseudogout Bilateral primary osteoarthritis of knee Hypomagnesemia Hypokalemia Ambulatory dysfunction Left knee pain Renal insufficiency Leg pain Elevated PSA Decreased exercise tolerance IRVING (dyspnea on exertion) Bilateral shoulder pain Syncope Paroxysmal atrial fibrillation Atrial flutter, paroxysmal HX CARDIOVERSION (AC discontinued r/t GI bleed 08/2019) Hx of malignant neoplasm of colon dx 2018, resection 2019 Hypertrophic toenail Decreased stamina Ex-smoker Morbid obesity COPD with emphysema Vertigo Hypertension (Chronic) Kidney disease (Chronic) Pedal edema (Acute) Benign localized prostatic hyperplasia with lower urinary tract symptoms (LUTS) (Acute) CAD in [place] artery (Acute) Diabetes mellitus (Chronic) Moderate obstructive sleep apnea (Chronic) could not kevin CPAP Hyperlipidemia (Chronic) Anemia (Chronic) History of colon cancer Dx 2018, no chem needed. 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 Trejo 12/20/19 History of anesthesia reaction PROFUSE SWEATING AFTER PROSTATE SURGERY, UNABLE TO KEEP IV'S IN DUE TO AMOUNT OF SWEAT History of cardiac cath X4 TOTAL ( 1ST CATH 2012 FOR CA, STENT X1, most recent cath 2017 [place]) follows with Dr. Hatch History of esophagogastroduodenoscopy (EGD) History of colonoscopy History of PTCA 2012 [facility] History of hand surgery L History of dental surgery History of heart artery stent x 1 (2012) Family History Grandmother (Paternal) No problems noted. Mother Osteoporosis Family history of diabetes mellitus Cardiac arrhythmia Depression Cancer Sister Depression Family history of diabetes mellitus Father Prostate cancer Family history of diabetes mellitus Myocardial infarction Denies family history of Ovarian cancer Breast cancer Colorectal cancer Social History Smoking Status: Former smoker Tobacco Type: Cigarettes and Smokeless Tobacco (Dip or Chew) Age Quit Using Tobacco: 54; packs per day: 1.0; Cigarettes Per Day: 20; Second Hand Exposure: No; Do You Dip or Chew Tobacco: Yes; Hx Alcohol Use: No Hx Substance Use: No Preferred Language: Uzbek Communication Ability: Effective Visual Impairment: Limited Hearing Ability: Normal Avionic Technician Required: No Beliefs That Will Affect Care: None marital status: Current Living Situation: Spouse Current Living Situation Comment: with current occupational status: retired How many Children do You have: 4 Other Information That Helps Us Care for You: No Feels Safe at Home: Yes Safety Concerns: Feels Safe At This Time Childhood Exposure to Second-Hand Smoke: No Diet: diabetic and regular caffeine: No during the past year weight has: remained stable Dental Care, Regularly: No Physical Activity Frequency: 3-4 Times per Week Seatbelt Use: always Sunscreen Use: No Assistive Devices: None Review of Systems All systems reviewed & are unremarkable except as noted in HPI & below. Physical Exam . Physical examination is a pleasant elderly male. He is lying in bed and looks pretty comfortable this morning. Examination of the left knee reveals to be well aligned. Jacobo slight varus alignment to his knee. He does have a moderate-sized knee effusion. He can do a good straight leg raise. There is no warmth or redness to it. Range of motion is 0 to 90 degrees without much pain. Examination of the right knee reveals slight varus alignment. Small knee effusion. Range of motion is 0-1 10. No instability. No pain with hip motion. Results & Data Results & Data Laboratory Results . White cell count was normal at 9.68. Hemoglobin hematocrit revealed mild anemia with a hemoglobin 10.9. Hematocrit 33.0. Sed rate is elevated at 87. CRP also elevated at 20.38. Knee aspirate revealed 67,000 white cells with 96% polys. Crystal analysis is pending. Lyme test is also pending. Gram stain reveals many WBCs no organisms. Cultures no growth to date. Diagnostic Findings . X-rays of both knees were reviewed. It shows some mild to moderate at best arthritis. She got a fairly large effusion in the left knee very small effusion on the right. No signs of fracture. PG Care Time/CCT Total # of Minutes Spent Total Time Spent with Patient: Total time spent is greater than 50% in coordination of care (as documented) at patient's floor/unit and/or counseling patient: Coding Level of Care Code 38974 IN/OBS CONSULT LVL 4,60M Diagnoses Bilateral primary osteoarthritis of knee M17.0 Pseudogout M11.20
--- NOTE | 2024-07-24 07:58 | Hospitalist Progress Note ---
Date of Service July 24, 2024 Assessment & Plan (1) Left knee pain: Plan: Jonathan is an 78-year-old male with a past medical history significant for coronary artery disease status post PCI to the circumflex artery, a flutter/fib (on Eliquis), dyslipidemia, hypertension, colon cancer status post partial resection in 2019, DM type II, SHAWN, BPH who presented to the [facility] ED on 07/23/2024 with complaints of left knee swelling and pain. He was noted to be tachycardic on arrival with heart rate of 94 but otherwise stable. Reports ~1 week of progressive LEFT knee swelling, pain, ambulatory dysfunction On exam in ER knee noted to be moderately swollen with xrays negative for trauma but notes moderate left knee effusion s/p L knee aspiration by ER provider. - aspiration w/ 67k WBC, GS no organisms thus far but polynuclear 95.8% and sea ot completely rule out infection at this time; Continue Vancomycin, Ceftriaxone and monitor final cx - Cx preliminary without growth -- monitor on abx for now until cx finalized. lyme pending Orthopedics consulted, suspected gout/pseudogout but agreed to continue abx until cx finalized. Unable to tolerate NSAIDs as on ASA/eliquis and trying Prednisone 20mg daily Patient reports SIGNIFICANT improvement since aspiration however worried about his blood sugars. Pharmacy consulted for assistance, A1c 7.4 earlier this year Also suspect weakness worsened with his Mag 0.8, K 3.1 on admission with hx afib. 3gm IV mag replacement and 40meq PO Kcl on admission and did have burse PAT on monitor/asymptomatic but given additional 1gm IV mag until labs back and resulted at 1.6 and will order additional 1gm IV and monitor labs in AM. K stable but consider additional to keep closer to 4. HCTZ remains on hold, can worsen gout.BP stable 138/67 at present. Pain well controlled at present but can continue tylenol as needed DVT proph: eliquis BID continued PT/OT consults pending Monitor response/follow up aspiration cultures (2) Ambulatory dysfunction: Plan: Monitor response to tx as outlined above. Suspect effusion/gout/pseudogout as well as electrolyte abn as above w/ hypomag 0.8 and hypok w/ K 3.1 on admission. Improved on repeat but additional mag ordered and will continue to monitor/replacement as needed Maintain fall precautions PT/OT consults pending (3) Hypokalemia: Plan: K 3.1, 40mg PO ordered. Suspect poor PO intake combined with HCTZ use (which has been placed on hold) K 3.6 but mag 1.6 and additional Mag ordered Remains on telemetry, PAT/occ PAC as above. Continue replacement and monitor (4) Hypomagnesemia: Plan: Mag 0.8 as above, IV replacement ordered and improved but still low at 1.6 on repeat and additional 2gm IV ordered Monitor repeat level, continue telemetry monitoring (5) Diabetes mellitus: Plan: Hold home metformin Placed on sliding scale on admission and consult placed for glycemic management as BSGs frequently jump for patient on steroids. Prior A1c in 7s and can repeat monitor in AM (6) Paroxysmal atrial fibrillation: Plan: Stable Remains on coreg/eliquis Keep K/mag replete as above uis (7) COPD with emphysema: Plan: Currently stable on room air with minimal expiratory wheezing which has improved and could be from his hypomagnesemia as well on admission Continue home albuterol, Trelegy Ellipta Mag replacement and monitor repeat Remains on RA, no SOB/sputum production reported (8) CAD in [place] artery: Plan: No recent chest pain Continue aspirin statin, Imdur, and lisinopril, coreg (9) Hypertension: Plan: Currently stable Continue amlodipine, lisinopril, coreg HCTZ on hold given suspected gout as above and will monitor Plan Dispo: continued inpatient stay on IV antibiotics and continues prednisone for suspected inflammatory process until cultures final. Therapy evals pending Admission and Anticipated Discharge Date Admission Date: July 23, 2024 Supervising Physician Co-Signing Physician Notes The patient was not seen by me. The chart was reviewed. Case discussed with VAUGHN Griggs. Agree with assessment and plan Subjective Evaluated this morning. Doing well, patient denies any pain today. BSG to 190s, prior in the 150s per patient and discussed likely 2nd to steroids and will cover with insulin . Remains on antibiotics but denies any fevers. Will continue for now to ensure not having growth but otherwise likely continue some steroids for suspected gout. No CP/SOB, abdominal pain, nausea/vomiting. Reports moving his bowels. Will await therapy evals and cultures and consider dc in the next 24-48 hours pending response. Questions/concerns addressed at this time, electrolytes improved with potassium and ordered 1gm IV mag prior to results 1.6 level and additional 1gm ordered and will continue to monitor. Questions/concerns addressed at this time. Physical Exam Physical Exam: General: WD/WN obese male laying in bed, NAD, resting, easily awoken HEENT: head atraumatic, normocephalic, thick neck, +facial hair, mmm, trachea midline Resp: even/unlabored, slightly diminished in the bases with faint expiratory wheeze but no rales, on room air CV: RRR, burst PAT this morning but remaining rate controlled, occ PAC, trace b/l LE edema, calves nontender/pulses present GI: +BS, soft/NT : no [place] MSK/Neuro: left knee with reportedly decreased effusion/pain, no overt tenderness/warmth on exam. slight swelling to right knee as well. no cellulitis/rashes slightly decreased ROM at the knees but reports improved from admission Psych: AOx3, cooperative with exam Results & Data Results & Data Vital Signs (Past 12 Hours) Vital Signs Temp Pulse Pulse Resp BP Pulse Ox O2 Del Method 07/24/24 07:00 60 07/24/24 04:00 36.2 C L 65 18 113/66 93 Room Air 07/23/24 22:59 36.6 C 18 113/61 93 Room Air 07/23/24 22:46 77 07/23/24 22:31 36.6 C 80 18 113/61 93 Room Air Laboratory Results 07/24/24 07/24/24 07/24/24 Range/Units 12:01 07:30 04:21 WBC 9.52 (4.8-10.8) K/ul RBC 3.73 L (4.70-6.10) M/uL Hgb 11.1 L (14.0-18.0) g/dl Hct 33.8 L (42.0-52.0) % MCV 90.6 (80.0-100.0) fL MCH 29.8 (25.0-34.0) pg MCHC 32.8 (32.0-36.0) g/dL RDW Std Deviation 46.6 H (36.4-46.3) fL RDW Coeff of Freeman 14.0 (11.5-14.5) % Plt Count 217 (130-400) K/uL MPV 11.1 (9.4-12.4) fL Immature Gran % (Auto) 0.6 % Neut % (Auto) 89.1 % Lymph % (Auto) 3.9 % Beadle % (Auto) 6.3 % Eos % (Auto) 0.0 % Baso % (Auto) 0.1 % Neut # (Auto) 8.48 H (1.40-6.50) K/uL Lymph # (Auto) 0.37 L (1.20-3.40) K/uL Beadle # (Auto) 0.60 H (0.11-0.59) K/uL Eos # (Auto) 0.00 (0.00-0.50) K/uL Baso # (Auto) 0.01 (0.00-0.20) K/uL Immature Gran # (Auto) 0.06 (0.01-0.20) K/uL ESR (0-20) mm/hr PT 11.8 (9.0-12.0) Seconds INR 1.1 (0.9-1.1) Sodium 136 (136-145) mmol/L Potassium 3.6 (3.5-5.1) mmol/L Chloride 99 (98-107) mmol/L Carbon Dioxide 26 (21-32) mmol/L Anion Gap 11 (3-11) BUN 24 H (6-23) mg/dl Creatinine 1.26 (0.6-1.4) mg/dl Est Cr Clr Drug Dosing 60.3 ml/min Est GFR ( Amer) 62.0 ml/min Est GFR (Non-Af Amer) 53.5 ml/min BUN/Creatinine Ratio 19.0 (10-20) Glucose 171 H (70-99(Fasting)) mg/dl POC Glucose 245 H 198 H (70-99) mg/dl Estimat Average Glucose 169 mg/dl Hemoglobin A1c 7.5 H (4.5-5.6) % Calcium 8.8 (8.6-10.3) mg/dl Magnesium 1.6 L (1.7-2.4) mg/dl C-Reactive Protein (0-0.5) mg/dl Procalcitonin (0-0.5) ng/ml Fld Lyme DNA (PCR) Fluid Comment Synovial Source Synovial Color Synovial Appearance Synovial WBC (Auto) (0-200) /ul Synovial RBC (Auto) /uL Synovial Polynuclear % % Synovial Mononuclear % % Synovial Crystals Lyme Specimen Source 07/23/24 07/23/24 07/23/24 Range/Units 22:16 19:15 16:35 WBC (4.8-10.8) K/ul RBC (4.70-6.10) M/uL Hgb (14.0-18.0) g/dl Hct (42.0-52.0) % MCV (80.0-100.0) fL MCH (25.0-34.0) pg MCHC (32.0-36.0) g/dL RDW Std Deviation (36.4-46.3) fL RDW Coeff of Freeman (11.5-14.5) % Plt Count (130-400) K/uL MPV (9.4-12.4) fL Immature Gran % (Auto) % Neut % (Auto) % Lymph % (Auto) % Beadle % (Auto) % Eos % (Auto) % Baso % (Auto) % Neut # (Auto) (1.40-6.50) K/uL Lymph # (Auto) (1.20-3.40) K/uL Beadle # (Auto) (0.11-0.59) K/uL Eos # (Auto) (0.00-0.50) K/uL Baso # (Auto) (0.00-0.20) K/uL Immature Gran # (Auto) (0.01-0.20) K/uL ESR (0-20) mm/hr PT (9.0-12.0) Seconds INR (0.9-1.1) Sodium (136-145) mmol/L Potassium (3.5-5.1) mmol/L Chloride (98-107) mmol/L Carbon Dioxide (21-32) mmol/L Anion Gap (3-11) BUN (6-23) mg/dl Creatinine (0.6-1.4) mg/dl Est Cr Clr Drug Dosing ml/min Est GFR ( Amer) ml/min Est GFR (Non-Af Amer) ml/min BUN/Creatinine Ratio (10-20) Glucose (70-99(Fasting)) mg/dl POC Glucose 192 H 96 (70-99) mg/dl Estimat Average Glucose mg/dl Hemoglobin A1c (4.5-5.6) % Calcium (8.6-10.3) mg/dl Magnesium (1.7-2.4) mg/dl C-Reactive Protein (0-0.5) mg/dl Procalcitonin (0-0.5) ng/ml Fld Lyme DNA (PCR) Pending Fluid Comment Synovial Source Left Knee Synovial Color Yellow Synovial Appearance Cloudy Synovial WBC (Auto) 86234 H (0-200) /ul Synovial RBC (Auto) < 2000 /uL Synovial Polynuclear % 95.8 % Synovial Mononuclear % 4.2 % Synovial Crystals Pending Lyme Specimen Source Pending 07/23/24 Range/Units 14:52 WBC 9.68 (4.8-10.8) K/ul RBC 3.64 L (4.70-6.10) M/uL Hgb 10.9 L (14.0-18.0) g/dl Hct 33.0 L (42.0-52.0) % MCV 90.7 (80.0-100.0) fL MCH 29.9 (25.0-34.0) pg MCHC 33.0 (32.0-36.0) g/dL RDW Std Deviation 47.1 H (36.4-46.3) fL RDW Coeff of Freeman 14.1 (11.5-14.5) % Plt Count 207 (130-400) K/uL MPV 11.6 (9.4-12.4) fL Immature Gran % (Auto) 0.6 % Neut % (Auto) 79.9 % Lymph % (Auto) 9.4 % Beadle % (Auto) 9.2 % Eos % (Auto) 0.7 % Baso % (Auto) 0.2 % Neut # (Auto) 7.73 H (1.40-6.50) K/uL Lymph # (Auto) 0.91 L (1.20-3.40) K/uL Beadle # (Auto) 0.89 H (0.11-0.59) K/uL Eos # (Auto) 0.07 (0.00-0.50) K/uL Baso # (Auto) 0.02 (0.00-0.20) K/uL Immature Gran # (Auto) 0.06 (0.01-0.20) K/uL ESR 87 H (0-20) mm/hr PT (9.0-12.0) Seconds INR (0.9-1.1) Sodium 137 (136-145) mmol/L Potassium 3.1 L (3.5-5.1) mmol/L Chloride 99 (98-107) mmol/L Carbon Dioxide 27 (21-32) mmol/L Anion Gap 11 (3-11) BUN 22 (6-23) mg/dl Creatinine 1.36 (0.6-1.4) mg/dl Est Cr Clr Drug Dosing 55.8 ml/min Est GFR ( Amer) 56.6 ml/min Est GFR (Non-Af Amer) 48.8 ml/min BUN/Creatinine Ratio 16.2 (10-20) Glucose 103 H (70-99(Fasting)) mg/dl POC Glucose (70-99) mg/dl Estimat Average Glucose mg/dl Hemoglobin A1c (4.5-5.6) % Calcium 8.5 L (8.6-10.3) mg/dl Magnesium 0.8 L* (1.7-2.4) mg/dl C-Reactive Protein 20.39 H (0-0.5) mg/dl Procalcitonin 0.03 (0-0.5) ng/ml Fld Lyme DNA (PCR) Fluid Comment Synovial Source Synovial Color Synovial Appearance Synovial WBC (Auto) (0-200) /ul Synovial RBC (Auto) /uL Synovial Polynuclear % % Synovial Mononuclear % % Synovial Crystals Lyme Specimen Source Diagnostic Findings Knee X-Ray 07/23/24 14:55 XR knee RT 3V, XR knee LT 1 or 2V routine HISTORY: 78 years-old Male knee pain, no fall acute bilateral knee pain COMPARISON: None TECHNIQUE: 3 views of the bilateral knees FINDINGS: RIGHT: Mild tricompartmental osteoarthritis. No acute fracture, or dislocation. Small joint effusion. Mild circumferential soft tissue prominence. LEFT: Moderate tricompartmental osteoarthritis. Moderate size joint effusion. Circumferential soft tissue prominence without acute fracture, dislocation or osseous erosion. IMPRESSION: 1. Osteoarthritis of the knees without acute fracture or dislocation. 2. Moderate left and small right knee joint effusions. ACT 112: Negative or not required by law. The above report was generated using voice recognition software. It may contain grammatical, syntax or spelling errors. Electronically signed by: Bienvenido Christopher M.D. 07/23/2024 4:12 PM Knee X-Ray 07/23/24 14:55 XR knee RT 3V, XR knee LT 1 or 2V routine HISTORY: 78 years-old Male knee pain, no fall acute bilateral knee pain COMPARISON: None TECHNIQUE: 3 views of the bilateral knees FINDINGS: RIGHT: Mild tricompartmental osteoarthritis. No acute fracture, or dislocation. Small joint effusion. Mild circumferential soft tissue prominence. LEFT: Moderate tricompartmental osteoarthritis. Moderate size joint effusion. Circumferential soft tissue prominence without acute fracture, dislocation or osseous erosion. IMPRESSION: 1. Osteoarthritis of the knees without acute fracture or dislocation. 2. Moderate left and small right knee joint effusions. ACT 112: Negative or not required by law. The above report was generated using voice recognition software. It may contain grammatical, syntax or spelling errors. Electronically signed by: Bienvenido Christopher M.D. 07/23/2024 4:12 PM PG Care Time/CCT Total # of Minutes Spent Total Time Spent with Patient: Total time spent is greater than 50% in coordination of care (as documented) at patient's floor/unit and/or counseling patient: Coding Level of Care Code 87869 SUB INP/OBS CARE 3/50MIN Diagnoses Left knee pain M25.562 Ambulatory dysfunction R26.2 Hypokalemia E87.6 Hypomagnesemia E83.42 Type 2 diabetes mellitus without complication, with long-term current use of insulin E11.9; Z79.4 Diabetes mellitus complication status: without complication Diabetes mellitus buttermaker insulin use: with buttermaker use Diabetes mellitus type: type 2 Paroxysmal atrial fibrillation I48.0 Pulmonary emphysema, unspecified emphysema type J43.9 Emphysema type: unspecified CAD in [place] artery I25.10 Primary hypertension I10 Hypertension type: primary hypertension (5) Diabetes mellitus Diabetes mellitus complication status: without complication Diabetes mellitus buttermaker insulin use: with prison use Diabetes mellitus type: type 2 Qualified Code(s): E11.9 - Type 2 diabetes mellitus without complications; Z79.4 - vermin exterminator (current) use of insulin (7) COPD with emphysema Emphysema type: unspecified Qualified Code(s): J43.9 - Emphysema, unspecified (9) Hypertension Hypertension type: primary hypertension Qualified Code(s): I10 - Essential (primary) hypertension
[2024-07-24 08:10] LABS: Basophils # (auto) 0.01 K/uL (0.00-0.20); Basophils % (auto) 0.1 %; Hematocrit (blood only) 33.8 % (42.0-52.0); Hemoglobin 11.1 g/dl (14.0-18.0); Immature Granulocytes # (auto) 0.06 K/uL (0.01-0.20); Immature Granulocytes % (auto) 0.6 %; Lymphocytes # (auto) 0.37 K/uL (1.20-3.40); Lymphocytes % (auto) 3.9 %; Mean Corpuscular Hemoglobin 29.8 pg (25.0-34.0); Mean Corpuscular Hgb Conc 32.8 g/dL (32.0-36.0); Mean Corpuscular Volume 90.6 fL (80.0-100.0); Mean Platelet Volume 11.1 fL (9.4-12.4); Monocytes % (auto) 6.3 %; Neutrophils # (auto) 8.48 K/uL (1.40-6.50); Neutrophils % (auto) 89.1 %; Platelet Count 217 K/uL (130-400); RDW Standard Deviation 46.6 fL (36.4-46.3); Red Blood Count 3.73 M/uL (4.70-6.10); White Blood Count 9.52 K/ul (4.8-10.8)
[2024-07-24 08:37] LABS: INR 1.1 (0.9-1.1); Prothrombin Time 11.8 Seconds (9.0-12.0)
[2024-07-24 08:43] LABS: Estimated Average Glucose 169 mg/dl; Hemoglobin A1C 7.5 % (4.5-5.6)
[2024-07-24] MEDS ORDERED: LANTUS PER UNIT CHARGE SQ SCH (09:00)
[2024-07-24] MEDS ORDERED: NON-FORMULARY MEDICATION (Fluticasone-Umeclidin-Vilanter [Trelegy Ellipta] 100-62.5-25 mcg INH SCH (09:00)
[2024-07-24 09:03] LABS: Calcium 8.8 mg/dl (8.6-10.3); Creatinine Clr Calc Pharmacy 60.3 ml/min; Est GFR (Non-African American) 53.5 ml/min; Magnesium 1.6 mg/dl (1.7-2.4); Potassium 3.6 mmol/L (3.5-5.1)
[2024-07-24] MEDS: MAGNESIUM SULFATE / D5W 1 GM/100 ML BAG IV ONE ×2 (09:13→10:50)
[2024-07-24] MEDS: LANTUS PER UNIT CHARGE SQ SCH (09:13)
[2024-07-24] MEDS: VANCOMYCIN HCL 1,500 MG in SODIUM CHLORIDE 0.9% 500 ML IV SCH (09:14)
--- NOTE | 2024-07-24 09:29 | Pharmacy Report ---
Pharmacy PK ABX Note - Date of Service July 24, 2024 - Assessment and Plan Assessment 78 year old M receiving vancomycin and ceftriaxone for coverage of possible left knee septic arthritis. 07/23 synovial fluid culture NGTD. Renal function stable. Day #2 of antimicrobial therapy. Plan Vancomycin * Loading dose: 2500 mg IV x 1 * Maintenance dose: 1500 mg IV every 24 hours * Regimen is predicted to achieve target AUC/VESNA of 400-600 mg/L.hr * Will obtain a level if therapy continues beyond 48h Pharmacy will continue to follow and will adjust dose/frequency as necessary. Thank you. Pharmacy has transitioned to AUC monitoring for vancomycin. AUC/VESNA is the preferred PK/PD target and is associated with decreased risk of nephrotoxicity compared to traditional trough targets.
--- NOTE | 2024-07-24 11:12 | Pharmacy Report ---
Pharmacy Glycemic Short Note 2 - Date of Service July 24, 2024 - Glycemic Short BSG Results (Last 24 hours): 07/23/24 07/23/24 07/23/24 14:52 19:15 22:16 Glucose 103 H POC Glucose 96 192 H 07/24/24 07/24/24 04:21 07:30 Glucose 171 H POC Glucose 198 H OUTPATIENT ANTIDIABETIC REGIMEN: * Lantus 50 units SQ Daily * Metformin 1000mg PO Qam, 500mg PO with dinner * A1c 07/24/24 7.5% ASSESSMENT: * 78 YO M admitted with infected knee on IV antibiotics. Also started on prednisone 20mg PO Daily last evening. * Will use tight NovoLog coverage to cover steroid effects and continue outpatient basal at this time. PLAN FOR INPATIENT GLYCEMIC CONTROL: * Hold outpatient oral diabetes medications * Basal insulin * Lantus 50 units SQ daily * Bolus insulin * NovoLog per scale ACHS or Q6hrs while NPO * Goal Range: Low 110 mg/dL - High 140 mg/dL * Correction Factor: 20 mg/dL/unit * Nutritional / Prandial insulin per carb ratio of 1 unit per 6 grams CHO consumed
[2024-07-24] MEDS: FENOFIBRATE 54 MG PO SCH (14:25)
[2024-07-24] MEDS: cefTRIAXone SODIUM 2,000 MG/50 ML BAG IV SCH (21:20)
[2024-07-25 06:14] LABS: Basophils # (auto) 0.02 K/uL (0.00-0.20); Basophils % (auto) 0.2 %; Eosinophils # (auto) 0.07 K/uL (0.00-0.50); Eosinophils % (auto) 0.6 %; Hematocrit (blood only) 30.7 % (42.0-52.0); Hemoglobin 10.6 g/dl (14.0-18.0); Immature Granulocytes # (auto) 0.07 K/uL (0.01-0.20); Immature Granulocytes % (auto) 0.6 %; Lymphocytes # (auto) 0.79 K/uL (1.20-3.40); Lymphocytes % (auto) 7.2 %; Mean Corpuscular Hemoglobin 30.5 pg (25.0-34.0); Mean Corpuscular Hgb Conc 34.5 g/dL (32.0-36.0); Mean Corpuscular Volume 88.2 fL (80.0-100.0); Mean Platelet Volume 11.5 fL (9.4-12.4); Monocytes # (auto) 0.61 K/uL (0.11-0.59); Monocytes % (auto) 5.6 %; Neutrophils # (auto) 9.42 K/uL (1.40-6.50); Neutrophils % (auto) 85.8 %; Platelet Count 227 K/uL (130-400); RDW Standard Deviation 45.5 fL (36.4-46.3); Red Blood Count 3.48 M/uL (4.70-6.10); White Blood Count 10.98 K/ul (4.8-10.8)
[2024-07-25 06:27] LABS: BUN Creatinine Ratio 22.3 (10-20); Calcium 8.6 mg/dl (8.6-10.3); Creatinine Clr Calc Pharmacy 58.5 ml/min; Est GFR (African American) 59.7 ml/min; Est GFR (Non-African American) 51.5 ml/min; Magnesium 1.9 mg/dl (1.7-2.4); Potassium 3.5 mmol/L (3.5-5.1)
[2024-07-25 06:34] LABS: INR 1.1 (0.9-1.1); Prothrombin Time 11.4 Seconds (9.0-12.0)
--- NOTE | 2024-07-25 07:38 | Orthopedic Progress Note ---
Date of Service July 25, 2024 Assessment & Plan (1) Effusion of knee joint, left: Plan: 78-year-old male with acute exacerbation of left knee pain discomfort consistent with underlying to severe arthritis and likely some gout or pseudogout. I think this unlikely infection. Markedly improved after aspiration. Plan: At this point treatment is symptomatic. Unfortunately cannot take NSAIDs. Awaiting crystal analysis results and hopefully that would be back today. I think he can likely be discharged to home once ambulatory eating safely. Assured no infection with negative culture results. Follow-up with his medical doctor. Any orthopedic questions can be directly [phone]. (2) Pseudogout: (3) Bilateral primary osteoarthritis of knee: Admission and Anticipated Discharge Date Admission Date: July 23, 2024 Subjective 78-year-old little gentleman admitted with ambulatory dysfunction and a swollen knee. He continues to be much better than on admission. Really not much interval globe changer the past 24 hours. His knee feels a bit stiff. He is getting around quite well with a walker. Moderate discomfort. Physical Exam Physical Exam: Physical examination was a pleasant elderly male. Examination left knee reveals small to best moderate-sized knee effusion. He can do a good straight leg raise. There is no redness or warmth of the knee. He can bend to 90 degrees without much of a problem. Results & Data Vital Signs (Past 12 Hours) Vital Signs Temp Pulse Pulse Resp BP BP Pulse Ox 07/25/24 03:22 36.3 C L 60 18 144/78 H 95 07/24/24 23:58 36.3 C L 68 18 144/85 H 93 07/24/24 22:03 64 07/24/24 19:49 36.3 C L 79 20 176/83 H 92 O2 Del Method 07/25/24 03:22 Room Air 07/24/24 23:58 Room Air 07/24/24 22:03 07/24/24 19:49 Room Air Laboratory Results Crystal analysis is still pending. Cultures are been no growth.
--- NOTE | 2024-07-25 07:51 | Hospitalist Progress Note ---
Date of Service July 25, 2024 Assessment & Plan (1) Left knee pain: Plan: Jonathan is an 78-year-old male with a past medical history significant for coronary artery disease status post PCI to the circumflex artery, a flutter/fib (on Eliquis), dyslipidemia, hypertension, colon cancer status post partial resection in 2019, DM type II, SHAWN, BPH who presented to the [facility] ED on 07/23/2024 with complaints of left knee swelling and pain. He was noted to be tachycardic on arrival with heart rate of 94 but otherwise stable. Reports ~1 week of progressive LEFT knee swelling, pain, ambulatory dysfunction On exam in ER knee noted to be moderately swollen with xrays negative for trauma but notes moderate left knee effusion s/p L knee aspiration by ER provider. - aspiration w/ 67k WBC, GS no organisms thus far but polynuclear 95.8% and sea ot completely rule out infection at this time; Continue Vancomycin, Ceftriaxone IV. Prednisone 20mg daily for suspected gout/pseudogout - Aspiration cx preliminary without growth -- monitor on abx for now until cx finalized. - lyme pending Patient reports SIGNIFICANT improvement since aspiration however worried about his blood sugars --A1c 7.4/pharmacy consulted for glycemic while inpatient Orthopedics consulted, suspected gout/pseudogout but agreed to continue abx until cx finalized. -Unable to tolerate NSAIDs as on ASA/eliquis and continues on Prednisone 20mg daily. -consideration for colchicine entertained, however crystal analysis negative as messaged ortho for such. -rec continue tx lyme if positive and can dc when ambulation improved. Did check serum lyme (however is titer) and was negative but will await PCR testing from aspiration to ensure not positive Doing well w/ PT on eval today but given rx for walker to use to ensure stable/no falls at home and is hopeful for discharge home. DVT proph: reduced eliquis 2.5mg BID aas below OF note, also suspect weakness on admit contributed by hypomag/hypok -- mag 0.8/k 3.1 and suspect 2nd to HCTZ which remains on hold and BP stable 126/74. Has been provided copious replacement and normal on am labs but given 10beat run vtach (asymptomatic, EF ~50 on prior echo) and will give additional 1gm IV mag/20meq kcl to keep mag closer to 2, k closer to 4 and remain on telemetry while inpatient Discussed given crystals negative wanting to wait til aspiration cx/lyme testing back and final prior to discharge to determine if needing ongoing antibiotics for infectious etiology at discharge but is hopeful for dc 07/26. Discussed/updated on plan in room 07/25 (2) Ambulatory dysfunction: Plan: Monitor response to tx as outlined above. Suspect effusion/gout/pseudogout as well as electrolyte abn as above w/ hypomag 0.8 and hypok w/ K 3.1 on admission contributing and has made significant improvement on repeat evals, doing well with PT and rx for walker for safety even though patient initially declined but given to ensure has if he needs Fall precautions in place. (3) Hypokalemia: Plan: K 3.1, 40mg PO ordered. Suspect poor PO intake combined with HCTZ use (which has been placed on hold and remains on hold) K improved but given 20meq to keep closer to 2, additional 1gm IV mag as above Monitor (4) Hypomagnesemia: Plan: Mag 0.8 as above on admission. Improved/stable but additional 1gm IV ordered Consider increasing mag oxide PO Tele monitoring (5) Diabetes mellitus: Plan: Hold home metformin Placed on sliding scale on admission and consult placed for glycemic management as BSGs frequently jump for patient on steroids. Repeat A1c 7.5 BSGs w/ improvement. If cx positive/lyme testing can dc on PO abx. If needing ongoing steroids will likely need adjustment at dc (6) Paroxysmal atrial fibrillation: Plan: Stable Remains on coreg/eliquis Keep K/mag replete as above and continues on telemetry monitoring (7) COPD with emphysema: Plan: Currently stable on room air with minimal expiratory wheezing which has improved and could be from his hypomagnesemia as well on admission Continue home albuterol, Trelegy Ellipta Mag replacement and monitor repeat Remains on RA, no SOB/sputum production reported. Added incentive spirometer (8) CAD in [place] artery: Plan: No recent chest pain Continue aspirin statin, Imdur, and lisinopril, coreg (9) Hypertension: Plan: Currently stable Continue amlodipine, lisinopril, coreg HCTZ on hold given suspected gout as above but will continue to hold given electrolyte abn on admission and can consider resuming tomorrow vs adjustment to his HTN regimen as needed Plan Dispo: continued inpatient stay on IV antibiotics/low dose prednisone for now until aspiration cx finalized/lyme testing. Rx for walker provided to CM and patient hopeful to dc 07/26 once finalized Family updated at bedside 07/25 Admission and Anticipated Discharge Date Admission Date: July 23, 2024 Supervising Physician Co-Signing Physician Notes PA Supervision Note: I did not personally see or examine the patient today, but I verified all reyes points of VAUGHN Lomeli's assessment and plan with the following exceptions/additions: None Subjective Evaluated this morning, sitting up in bed. in room and CM. Pain much better, ambulating better. Worked with PT, going to get rx for walker. Discussed aspiration neg for crystals but cx still pending as well as lyme and will continue abx until finalized to ensure not missing infection but continues on steroifds. Upset about elevations in blood sugars with prednisone and discussed I will speak with supervising provider about colchicine. Discussed monitiroing overnight and can dc in AM unless cx finalized this evening. Questios/concerns addressed at this time. After eval, had a 10 beat run of vtach. Repeat eval and sitting up in bed with . No CP/SOB or palpitations. Does have hx afib. Mag/k improved and was given 20meq kcl this morning but will order additional 1gm IV and continue telemetry monitoring. ECHO last done in April w/ EF 50-55%. Physical Exam Physical Exam: General: WD/WN obese male laying in bed, NAD, at bedside HEENT: head atraumatic, normocephalic, thick neck, +facial hair, mmm, trachea midline Resp: even/unlabored, slightly diminished in the bases with faint expiratory wheeze, but no rales, on room air CV: RRR, (10 beat run vtach around 10am this morning, asymptomatic), trace b/l LE edema, calves nontender/pulses present GI: +BS, soft/NT : no [place] MSK/Neuro: decreased effusion of LEFT knee, increased ROM. No cellulitis. improvement/stable right knee exam Psych: AOx3, cooperative with exam Results & Data Results & Data Vital Signs (Past 12 Hours) Vital Signs Temp Pulse Pulse Resp BP BP Pulse Ox 07/25/24 07:35 58 L 07/25/24 03:22 36.3 C L 60 18 144/78 H 95 07/24/24 23:58 36.3 C L 68 18 144/85 H 93 07/24/24 22:03 64 07/24/24 19:49 36.3 C L 79 20 176/83 H 92 O2 Del Method 07/25/24 07:35 07/25/24 03:22 Room Air 07/24/24 23:58 Room Air 07/24/24 22:03 07/24/24 19:49 Room Air Laboratory Results 07/25/24 07/25/24 07/25/24 Range/Units 12:07 11:03 07:45 WBC (4.8-10.8) K/ul RBC (4.70-6.10) M/uL Hgb (14.0-18.0) g/dl Hct (42.0-52.0) % MCV (80.0-100.0) fL MCH (25.0-34.0) pg MCHC (32.0-36.0) g/dL RDW Std Deviation (36.4-46.3) fL RDW Coeff of Freeman (11.5-14.5) % Plt Count (130-400) K/uL MPV (9.4-12.4) fL Immature Gran % (Auto) % Neut % (Auto) % Lymph % (Auto) % Holmes % (Auto) % Eos % (Auto) % Baso % (Auto) % Neut # (Auto) (1.40-6.50) K/uL Lymph # (Auto) (1.20-3.40) K/uL Holmes # (Auto) (0.11-0.59) K/uL Eos # (Auto) (0.00-0.50) K/uL Baso # (Auto) (0.00-0.20) K/uL Immature Gran # (Auto) (0.01-0.20) K/uL PT (9.0-12.0) Seconds INR (0.9-1.1) Sodium (136-145) mmol/L Potassium (3.5-5.1) mmol/L Chloride (98-107) mmol/L Carbon Dioxide (21-32) mmol/L Anion Gap (3-11) BUN (6-23) mg/dl Creatinine (0.6-1.4) mg/dl Est Cr Clr Drug Dosing ml/min Est GFR ( Amer) ml/min Est GFR (Non-Af Amer) ml/min BUN/Creatinine Ratio (10-20) Glucose (70-99(Fasting)) mg/dl POC Glucose 106 H 141 H (70-99) mg/dl Calcium (8.6-10.3) mg/dl Magnesium (1.7-2.4) mg/dl Synovial Crystals Lyme Disease Screen Negative (Negative) 07/25/24 07/25/24 07/24/24 Range/Units 05:35 00:48 21:15 WBC 10.98 H (4.8-10.8) K/ul RBC 3.48 L (4.70-6.10) M/uL Hgb 10.6 L (14.0-18.0) g/dl Hct 30.7 L (42.0-52.0) % MCV 88.2 (80.0-100.0) fL MCH 30.5 (25.0-34.0) pg MCHC 34.5 (32.0-36.0) g/dL RDW Std Deviation 45.5 (36.4-46.3) fL RDW Coeff of Freeman 14.0 (11.5-14.5) % Plt Count 227 (130-400) K/uL MPV 11.5 (9.4-12.4) fL Immature Gran % (Auto) 0.6 % Neut % (Auto) 85.8 % Lymph % (Auto) 7.2 % Holmes % (Auto) 5.6 % Eos % (Auto) 0.6 % Baso % (Auto) 0.2 % Neut # (Auto) 9.42 H (1.40-6.50) K/uL Lymph # (Auto) 0.79 L (1.20-3.40) K/uL Holmes # (Auto) 0.61 H (0.11-0.59) K/uL Eos # (Auto) 0.07 (0.00-0.50) K/uL Baso # (Auto) 0.02 (0.00-0.20) K/uL Immature Gran # (Auto) 0.07 (0.01-0.20) K/uL PT 11.4 (9.0-12.0) Seconds INR 1.1 (0.9-1.1) Sodium 138 (136-145) mmol/L Potassium 3.5 (3.5-5.1) mmol/L Chloride 102 (98-107) mmol/L Carbon Dioxide 26 (21-32) mmol/L Anion Gap 10 (3-11) BUN 29 H (6-23) mg/dl Creatinine 1.30 (0.6-1.4) mg/dl Est Cr Clr Drug Dosing 58.5 ml/min Est GFR ( Amer) 59.7 ml/min Est GFR (Non-Af Amer) 51.5 ml/min BUN/Creatinine Ratio 22.3 H (10-20) Glucose 137 H (70-99(Fasting)) mg/dl POC Glucose 141 H 119 H (70-99) mg/dl Calcium 8.6 (8.6-10.3) mg/dl Magnesium 1.9 (1.7-2.4) mg/dl Synovial Crystals Lyme Disease Screen (Negative) 07/24/24 07/23/24 Range/Units 17:00 16:35 WBC (4.8-10.8) K/ul RBC (4.70-6.10) M/uL Hgb (14.0-18.0) g/dl Hct (42.0-52.0) % MCV (80.0-100.0) fL MCH (25.0-34.0) pg MCHC (32.0-36.0) g/dL RDW Std Deviation (36.4-46.3) fL RDW Coeff of Freeman (11.5-14.5) % Plt Count (130-400) K/uL MPV (9.4-12.4) fL Immature Gran % (Auto) % Neut % (Auto) % Lymph % (Auto) % Holmes % (Auto) % Eos % (Auto) % Baso % (Auto) % Neut # (Auto) (1.40-6.50) K/uL Lymph # (Auto) (1.20-3.40) K/uL Holmes # (Auto) (0.11-0.59) K/uL Eos # (Auto) (0.00-0.50) K/uL Baso # (Auto) (0.00-0.20) K/uL Immature Gran # (Auto) (0.01-0.20) K/uL PT (9.0-12.0) Seconds INR (0.9-1.1) Sodium (136-145) mmol/L Potassium (3.5-5.1) mmol/L Chloride (98-107) mmol/L Carbon Dioxide (21-32) mmol/L Anion Gap (3-11) BUN (6-23) mg/dl Creatinine (0.6-1.4) mg/dl Est Cr Clr Drug Dosing ml/min Est GFR ( Amer) ml/min Est GFR (Non-Af Amer) ml/min BUN/Creatinine Ratio (10-20) Glucose (70-99(Fasting)) mg/dl POC Glucose 171 H (70-99) mg/dl Calcium (8.6-10.3) mg/dl Magnesium (1.7-2.4) mg/dl Synovial Crystals Lyme Disease Screen (Negative) PG Care Time/CCT Total # of Minutes Spent Total Time Spent with Patient: Total time spent is greater than 50% in coordination of care (as documented) at patient's floor/unit and/or counseling patient: Coding Level of Care Code 05658 SUB INP/OBS CARE 2/35MIN Diagnoses Left knee pain M25.562 Ambulatory dysfunction R26.2 Hypokalemia E87.6 Hypomagnesemia E83.42 Type 2 diabetes mellitus without complication, with long-term current use of insulin E11.9; Z79.4 Diabetes mellitus complication status: without complication Diabetes mellitus skilled nursing insulin use: with skilled nursing use Diabetes mellitus type: type 2 Paroxysmal atrial fibrillation I48.0 Pulmonary emphysema, unspecified emphysema type J43.9 Emphysema type: unspecified CAD in [place] artery I25.10 Primary hypertension I10 Hypertension type: primary hypertension (5) Diabetes mellitus Diabetes mellitus complication status: without complication Diabetes mellitus skilled nursing insulin use: with terminal makeup operator use Diabetes mellitus type: type 2 Qualified Code(s): E11.9 - Type 2 diabetes mellitus without complications; Z79.4 - longterm (current) use of insulin (7) COPD with emphysema Emphysema type: unspecified Qualified Code(s): J43.9 - Emphysema, unspecified (9) Hypertension Hypertension type: primary hypertension Qualified Code(s): I10 - Essential (primary) hypertension
[2024-07-25] MEDS: POTASSIUM CHLORIDE CRTAB 20 MEQ TABCR PO STA (09:00)
[2024-07-25] MEDS: LANTUS PER UNIT CHARGE SQ SCH (09:04)
[2024-07-25] MEDS: MAGNESIUM SULFATE / D5W 1 GM/100 ML BAG IV ONE (12:35)
--- NOTE | 2024-07-25 13:08 | Pharmacy Report ---
Pharmacy Glycemic Short Note 2 - Date of Service July 25, 2024 - Glycemic Short BSG Results (Last 24 hours): 07/24/24 07/24/24 07/25/24 17:00 21:15 00:48 Glucose POC Glucose 171 H 119 H 141 H 07/25/24 07/25/24 07/25/24 05:35 07:45 12:07 Glucose 137 H POC Glucose 141 H 106 H OUTPATIENT ANTIDIABETIC REGIMEN: * Lantus 50 units SQ daily * Metformin 1000mg PO qAM, 500mg PO with dinner HbA1c: 7.5% (07/24/24) ASSESSMENT: 07/25/24 * Blood sugars ranging 119-245 mg/dL yesterday, received 87 units of insulin (50 units of basal and 37 units of prandial/correctional bolus) * Remains on prednisone 20 mg PO daily * Fasting blood sugar improved to 141 mg/dL this morning w/ overall decreased blood sugar trend today * Will decrease basal and loosen carb ratio slightly * Remains on IV antibiotics Background: * 78 YO M admitted with presumed infection of knee on IV antibiotics. Also started on prednisone 20mg PO daily last evening. * Will use tight NovoLog coverage to cover steroid effects and continue outpatient basal at this time. PLAN FOR INPATIENT GLYCEMIC CONTROL: * Hold outpatient oral diabetes medications * Basal insulin -decrease * Lantus 40 units SC daily * Bolus insulin * NovoLog per scale ACHS or Q6hrs while NPO * Goal Range: Low 110 mg/dL - High 140 mg/dL * Correction Factor: 20 mg/dL/unit * Nutritional / Prandial insulin per carb ratio of 1 unit per 7 grams CHO consumed
[2024-07-25] MEDS: ACETAMINOPHEN 325 MG TAB PO PRN (21:06)
[2024-07-25] MEDS: LACTATED RINGER'S 500 ML IV ONE (21:37)
[2024-07-25] MEDS: HALOPERIDOL LACTATE 5 MG/ML 1 ML VIAL IM STA (22:54)
[2024-07-25] MEDS: LORazepam 2 MG/1 ML VIAL IV STA (23:42)
[2024-07-25] MEDS: LORazepam 2 MG/1 ML VIAL ONE (23:45)
--- NOTE | 2024-07-25 23:52 | Communication Note ---
Date of Service: July 25, 2024 Liv gregg called on patient for agitation. Patient was fighting with staff. Security had to be bedside to prevent patient from escalating further. Gave Haldol 5 mg IM and Ativan 0.5 mg IV. Will continue to monitor throughout the night.
[2024-07-26 06:10] LABS: Basophils # (auto) 0.03 K/uL (0.00-0.20); Basophils % (auto) 0.4 %; Eosinophils # (auto) 0.08 K/uL (0.00-0.50); Hematocrit (blood only) 30.2 % (42.0-52.0); Immature Granulocytes # (auto) 0.04 K/uL (0.01-0.20); Immature Granulocytes % (auto) 0.5 %; Lymphocytes # (auto) 0.78 K/uL (1.20-3.40); Lymphocytes % (auto) 9.9 %; Mean Corpuscular Hgb Conc 33.1 g/dL (32.0-36.0); Mean Corpuscular Volume 90.7 fL (80.0-100.0); Mean Platelet Volume 10.7 fL (9.4-12.4); Monocytes # (auto) 0.47 K/uL (0.11-0.59); Neutrophils # (auto) 6.48 K/uL (1.40-6.50); Neutrophils % (auto) 82.2 %; Platelet Count 240 K/uL (130-400); RDW Coefficient of Variation 13.9 % (11.5-14.5); RDW Standard Deviation 46.3 fL (36.4-46.3); Red Blood Count 3.33 M/uL (4.70-6.10); White Blood Count 7.88 K/ul (4.8-10.8)
[2024-07-26 06:21] LABS: BUN Creatinine Ratio 25.6 (10-20); Calcium 8.1 mg/dl (8.6-10.3); Creatinine Clr Calc Pharmacy 60.8 ml/min; Est GFR (African American) 62.6 ml/min; Potassium 3.7 mmol/L (3.5-5.1)
[2024-07-26 07:47] VITALS: RESP 16; TEMP 97.5; O2SAT 93
[2024-07-26] MEDS: LANTUS PER UNIT CHARGE SQ SCH (09:31)
[2024-07-26] MEDS: VANCOMYCIN LEVEL ONE (10:23)
--- NOTE | 2024-07-26 10:59 | Pharmacy Report ---
Pharmacy PK ABX Note - Date of Service July 26, 2024 - Assessment and Plan Assessment 78 year old M receiving vancomycin and ceftriaxone for coverage of possible left knee septic arthritis. 07/23 synovial fluid culture NGTD. Per ortho, this is unlikely to be infection, but plan is to continue antibiotics until synovial fluid culture finalizes and is negative. Renal function stable. Afebrile for duration of admission. Day #2 of antimicrobial therapy. Plan Vancomycin * Current regimen: 1500 mg IV every 24 hours * Random level obtained 07/26/24 resulted as 10.1 mcg/mL. This is predicted to achieve target AUC/VESNA of 400-600 mg/L.hr. However, will adjust dosing today to increase probability of target AUC/VESNA attainment. * Change to 1750 mg IV every 24 hours * Predicted AUC at steady state: 536 mg/L.hr * Will repeat level in the next 48-72 hours if therapy is continued and/or change in patient clinical status Pharmacy will continue to follow and will adjust dose/frequency as necessary. Thank you. Pharmacy has transitioned to AUC monitoring for vancomycin. AUC/VESNA is the preferred PK/PD target and is associated with decreased risk of nephrotoxicity compared to traditional trough targets.
[2024-07-26] MEDS: VANCOMYCIN HCL 1,750 MG in SODIUM CHLORIDE 0.9% 500 ML IV STA (11:14)
[2024-07-26 12:07] VITALS: BP 122/68
--- NOTE | 2024-07-26 13:35 | Orthopedic Progress Note ---
Date of Service July 26, 2024 Assessment & Plan (1) Effusion of knee joint, left: Plan: 78-year-old gentleman admitted with ambulatory dysfunction and large knee effusion. He is markedly and better with treatment to date. Exact etiology is unclear. Suspected gout or pseudogout but crystal analysis negative. Cultures have been no growth. Does not look clinically to be a bacterial infection. Lyme still pending and that certainly possible. Plan: At this point the patient is doing quite well and I do not know that he needs to be in the hospital. That the difficulty is what to do as far as management. Obviously, if he is still in the hospital it is worth it and continue the antibiotics for now. I do not know that he necessarily needs that. Affect inserting discharge may want to I discharged him on antibiotics treating Lyme disease and then it can always be stopped. He can follow-up with his medical doctor regarding this. Any orthopedic questions can be directed at [phone]. (2) Bilateral primary osteoarthritis of knee: (3) Ambulatory dysfunction: Admission and Anticipated Discharge Date Admission Date: July 23, 2024 Subjective 78-year-old gentleman admitted with left knee effusion and ambulatory dysfunction. He had his knee aspirated in the ER. He is doing much better today. He still using a walker to get around but can get around quite well. Pains markedly improved and only bothers him with deep flexion. Physical Exam Physical Exam: Physical examination was a pleasant elderly male. He is lying bed looks pretty comfortable. Examination left knee reveals no redness or warmth. He is got a very small knee effusion but much improved. Range of motion 0 to 90 degrees. No instability. Results & Data Vital Signs (Past 12 Hours) Vital Signs Temp Pulse Pulse Resp BP Pulse Ox O2 Del Method 07/26/24 12:06 36.4 C L 62 16 122/68 93 Room Air 07/26/24 08:00 72 07/26/24 07:46 36.4 C L 56 L 16 151/83 H 93 Room Air 07/26/24 07:18 54 L Laboratory Results White cell count is normal at 7.88. Hemoglobin 10. Hematocrit 30.2. Culture results were negative to date. Crystal analysis negative to date. Alignment PCR pending
[2024-07-26 14:30] VITALS: PULSE 68
--- NOTE | 2024-07-26 14:37 | Discharge Summary ---
Discharge Summary Date of Service July 26, 2024 Principal Dx & Hospital Course #1 = Principal Diagnosis (1) Left knee pain: Jonathan is an 78-year-old male with a PMH significant for for CAD s/p PCI to the circumflex artery, a flutter/fib (on Eliquis), dyslipidemia, HTN, colon cancer status post partial resection in 2019, DM type II, SHAWN, BPH who presented with complaints of 1 week of progressive left knee swelling and pain, difficulty with ambulation. He was noted to be tachycardic on arrival with heart rate of 94 but otherwise stable. No signs of sepsis Bilateral knee x-rays with arthritis and left moderate effusion s/p L knee aspiration by ER provider- aspiration w/ 67k WBC with 95% polys, Gram stain no organisms, culture preliminary negative but not finalized. Lyme PCR of the synovial fluid is pending at the time of discharge Serum Lyme titer negative Crystal analysis was negative He was also started on prednisone 20 mg daily in case of gout or pseudogout despite negative crystal analysis Seen by orthopedic surgery who felt this was most likely not infectious but thought it was appropriate to cover with Lyme disease antibiotic coverage until final results were returned Treated with IV vancomycin and ceftriaxone x 3 days, will discharge to home on doxycycline to complete 3-week course in case of Lyme disease, and Keflex 500 Mg p.o. 4 times daily x 7 more days in case of strep infection He was significantly improved and able to ambulate without assistance by the time of discharge He was very anxious to leave the hospital and did not want to wait for final culture results. Orthopedic surgery also did not feel he needed to stay in the hospital to wait for these results. Will ask PCP to follow-up on final results of both the Lyme PCR test from the synovial fluid as well as the synovial fluid culture Finish out 4 more days of prednisone 20 mg daily Follow-up with orthopedic surgery within 2 weeks Follow with PCP within 1 week (2) Ambulatory dysfunction: Resolved with treatment of knee pain and swelling as above (3) Hypokalemia: Likely related to HCTZ use Resolved with replacement Stop HCTZ (4) Hypomagnesemia: Mag severely low at 0.8 on admission Could be secondary to PPI use or HCTZ use Replaced and resolved Remain off HCTZ Follow levels as an outpatient (5) Diabetes mellitus: Hemoglobin A1c fairly well-controlled at 7.5% Resume home Lantus and metformin on discharge (6) Paroxysmal atrial fibrillation: Stable, in normal sinus rhythm with rates in 50s to 60s while here Remains on coreg/eliquis (7) COPD with emphysema: No acute issues, on room air Continue home albuterol, Trelegy Ellipta (8) CAD in [place] artery: No recent chest pain Continue aspirin statin, Imdur, and lisinopril, coreg (9) Hypertension: Currently stable Continue amlodipine, lisinopril, coreg HCTZ stopped for hypokalemia and hypomagnesemia as well as suspected gout He does have some peripheral edema and this will need to be reassessed as an outpatient Plan On the night prior to discharge, patient did have some confusion overnight where he became very agitated and threatened to hit staff. He was given IM Haldol and IV Ativan. Suspect hospital delirium as well as some component of steroid psychosis He was completely resolved and at his baseline on the day of discharge Dispo: Stable for discharge home Notes For Next Care Provider Follow-up final Lyme disease PCR test from synovial fluid and synovial fluid culture Follow-up blood pressure, peripheral edema, and magnesium and potassium levels after discharge with discontinuing HCTZ Medication Changes From Visit Added doxycycline 100 Mg p.o. twice daily x 18 more days Added Keflex 500 mg p.o. 4 times daily x 7 more days Discontinued HCTZ Added prednisone 20 mg p.o. daily x 4 more days Admission HPI Per Admitting Provider Jonathan is an 78-year-old male with a past medical history significant for coronary artery disease status post PCI to the circumflex artery, a flutter/fib (on Eliquis), dyslipidemia, hypertension, colon cancer status post partial resection in 2019, DM type II, SHAWN, BPH who presented to the [facility] ED on 07/23/2024 with complaints of left knee swelling and pain. He was noted to be tachycardic on arrival with heart rate of 94 but otherwise stable. Labs were significant for an ESR of 87, potassium of 3.1, CRP of 20, and initial left knee aspirate results showing 67,000 WBC, less than 2000 RBC, yellow in color with cloudy appearance, with crystals and Lyme DNA PCR in process. X-rays of the bilateral knees was read as osteoarthritis of the knees without acute fracture or dislocation. Moderate left and small right knee joint effusions. Initial Gram stain results from the knee aspirate show many WBCs with no organisms seen. We are asked to admit the patient for further treatment of his right knee pain/swelling and evaluation by PT/OT due to his ambulatory dysfunction. Patient was sitting in bed in no acute distress at time of exam. States that he started develop left knee pain/swelling approximately 1 week ago. Approximately 3 days into his symptoms he placed a wrap on his left knee which significantly improved his symptoms. Starting 07/21/2024 the patient began to do yard work as he was feeling better and his left knee swelling/pain significantly exacerbated. After putting more weight on his right lower extremity over the past week he now has mild to moderate right knee pain/swelling as well. No recent fever/chills, chest pain, shortness of breath, cough, nausea/vomiting, dysuria/hematuria, melena, bloody bowel movements, recent trauma. He and his live in a two-story home which requires him to go up multiple steps to get to the second story which he currently cannot do safely due to his lower extremity pain. Patient confirms he is a full code and want his to make medical decisions for him if he cannot make them himself. Please refer to Dr. Carter's attestation for any changes to the treatment plan. Discharge Exam Constitutional WD/WN, vitals as above + obese Respiratory normal respiratory effort, lungs clear to auscultation Cardiovascular Rate/Rhythm: regular rate and regular rhythm Heart Sounds: no murmur Extremities: + edema (Trace leg edema bilateral) Musculoskeletal Left knee with mild joint effusion, no erythema or warmth, ROM 0-100 degrees, no joint line tenderness, no valgus or varus laxity or instability Psychiatric A+Ox3, euthymic affect Discharge Plan Discharge Items Patient Disposition: Home - Self-Care Reason For Visit: LEFT KNEE PAIN, AMBULATORY DYSFUNCTION Discharge Diagnosis: Left knee pain/joint effusion-infectious versus inflammatory cause Condition on Discharge: Good Activity: As commented below Lifting: Gradually increase as tolerated Bathing: No limitations Exercise/Sports: Gradually increase as tolerated Non-emergency contact: Primary Care Provider and Surgeon Call non-emergency contact if: you have any medication questions, your symptoms worsen, your pain is not controlled and you have a fever Follow-up/Referrals: Meghann Cast CRNP [Primary Care Provider] - 08/02/24 10:00 am (Follow-up within 1 to 2 weeks) Octaviano Sanabria MD [Physician] - 08/08/24 9:30 am (Follow-up within 2 weeks) Diet: Heart Healthy Addtl Attending Provider Instructions: You were admitted with knee pain and swelling. You had fluid removed from the knee and the final results are still pending to determine if this is from an infection or from gout or pseudogout. You are treated with antibiotics and will be sent home with doxycycline and Keflex to cover for Lyme disease and other bacterial infection. Your primary care provider should follow-up on the final results of the knee cultures and Lyme disease test from the knee. You were also treated with prednisone in case this was gout or pseudogout. Continue 4 more days of the prednisone to help with inflammation in the knee. Your HCTZ blood pressure water pill was stopped as this likely made your magnesium level severely low which can lead to heart problems and muscle weakness. Follow-up with your PCP and with Dr. Sanabria of [facility] orthopedics within 2 weeks Pending Studies at Discharge: Yes (Lyme PCR from knee aspirate, knee aspirate culture) Stand-Alone Forms: My [facility], Smoking Cessation Medications and DC Order Prescriptions: New prednisone 20 mg Tablet 20 mg PO DAILY Qty: 4 0RF doxycycline hyclate 100 mg tablet 100 mg PO BID Qty: 36 0RF cephalexin 500 mg capsule 500 mg PO Q6H 7 Days Qty: 28 0RF Continued (DME) OneTouch Verio test strips Strip See Rx Instructions .ROUTE .MEDSUPPLY Qty: 200 5RF Rx Instructions: Test blood sugar twice daily Dx:E11.9 (DME) pen needle, diabetic [Pen Needle] 32 gauge x 5/32" needle See Rx Instructions .ROUTE .MEDSUPPLY Qty: 200 3RF Rx Instructions: use with insulin pen 2 x day E11.9 carvedilol 25 mg tablet 25 mg PO BID Qty: 180 3RF Rx Instructions: must administer with a meal/food Eliquis 5 mg tablet 5 mg PO BID Qty: 180 3RF amlodipine 2.5 mg tablet 2.5 mg PO DAILY Qty: 90 3RF omeprazole 20 mg capsule,delayed release(DR/EC) 20 mg PO QAM Qty: 90 3RF dutasteride [Avodart] 0.5 mg capsule 0.5 mg PO PM Qty: 90 3RF insulin glargine [Lantus Solostar U-100 Insulin] 100 unit/mL (3 mL) insulin pen 50 unit SC DAILY Qty: 45 3RF metformin 500 mg tablet See Rx Instructions PO .COMPLEX Qty: 270 3RF Rx Instructions: Take 2 tables in a.m. and 1 tablet in p.m PO ; (DME) lancets [OneTouch Delica Plus Lancet] 33 gauge misc See Rx Instructions .Route Qty: 100 3RF Rx Instructions: Test 2 times a day E11.9 (DME) lancets 30 gauge misc See Rx Instructions .ROUTE .MEDSUPPLY Qty: 200 3RF Rx Instructions: BID lisinopril 40 mg tablet 40 mg PO QAM Qty: 90 3RF rosuvastatin 40 mg tablet 40 mg PO HS Qty: 90 3RF Trelegy Ellipta 100-62.5-25 mcg blister with device 1 inh inhalation DAILY Qty: 3 4RF ipratropium-albuterol 0.5 mg-3 mg(2.5 mg base)/3 mL solution for nebulization 3 ml INH UD PRN (Reason: wheezing) Qty: 540 4RF albuterol sulfate 90 mcg/actuation HFA aerosol inhaler 2 puff INH Q6H PRN (Reason: shortness of breath or wheezing) Qty: 3 3RF aspirin 81 mg tablet,delayed release (DR/EC) 81 mg PO QAM Qty: 30 isosorbide mononitrate 60 mg tablet extended release 24 hr 60 mg PO QAM Qty: 90 3RF fenofibrate 54 mg tablet 54 mg PO DAILY Qty: 90 3RF Discontinued hydrochlorothiazide 25 mg tablet 25 mg PO QAM Qty: 90 3RF Discharge Orders: Discharge Order (Routine); Ordered 07/26/24 Ordered By: Heather Norris/Other Patient Handouts: Managing Type 2 Diabetes Admission Data Admit Date/Time: 07/23/24 18:34 Attending Provider: Heather Jaime Admit Provider: Daniele Carter Primary Care Provider: Meghann Cast Other Providers: Daniele Carter; Octaviano Sanabria Hospital Stay Data Consultations 07/23/24 18:14 ED Decision to Admit Stat 07/23/24 22:31 Consult Orthopedic Surgery Routine Pending Results Patient Have Any Pending Studies at Discharge: Yes (Lyme PCR from knee aspirate, knee aspirate culture) Discharge Instructions Given to Patient (Per Discharging Provider) You were admitted with knee pain and swelling. You had fluid removed from the knee and the final results are still pending to determine if this is from an infection or from gout or pseudogout. You are treated with antibiotics and will be sent home with doxycycline and Keflex to cover for Lyme disease and other bacterial infection. Your primary care provider should follow-up on the final results of the knee cultures and Lyme disease test from the knee. You were also treated with prednisone in case this was gout or pseudogout. Continue 4 more days of the prednisone to help with inflammation in the knee. Your HCTZ blood pressure water pill was stopped as this likely made your magnesium level severely low which can lead to heart problems and muscle weakness. Follow-up with your PCP and with Dr. Sanabria of [facility] orthopedics within 2 weeks Total Time Total Time Spent Total Time Spent (In Minutes): 35 minutes Total Time Includes: Examination of the Patient, Discharge Planning and Medication Reconciliation Coding Level of Care Code 33905 INP/OBS DISCH >30 MIN Diagnoses Left knee pain M25.562 Ambulatory dysfunction R26.2 Hypokalemia E87.6 Hypomagnesemia E83.42 Type 2 diabetes mellitus without complication, with long-term current use of insulin E11.9; Z79.4 Diabetes mellitus type: type 2 Diabetes mellitus fpc insulin use: with fpc use Diabetes mellitus complication status: without complication Paroxysmal atrial fibrillation I48.0 Pulmonary emphysema, unspecified emphysema type J43.9 Emphysema type: unspecified CAD in [place] artery I25.10 Primary hypertension I10 Hypertension type: primary hypertension
[2024-07-27] MEDS ORDERED: VANCOMYCIN HCL 1,750 MG in SODIUM CHLORIDE 0.9% 500 ML IV SCH (10:00)
[2024-07-28 17:48] LABS: Lyme DNA PCR CSF or Synovial Not Detected (Not Detected); Lyme DNA Source SYNOVIAL FLUID
== END 2024-07-26 15:26 | disposition home or self-care (01) ==
LOC: ED 14:32 → 2W 14:32 → SUATTDRO 18:34 → 2W 21:49

== ENCOUNTER 2024-10-22 13:20 | Inpatient (IN) ==
[2024-10-22 13:58] LABS: Basophils # (auto) 0.04 K/uL (0.00-0.20); Basophils % (auto) 0.5 %; Eosinophils # (auto) 0.17 K/uL (0.00-0.50); Hematocrit (blood only) 32.6 % (42.0-52.0); Hemoglobin 10.6 g/dl (14.0-18.0); Immature Granulocytes # (auto) 0.04 K/uL (0.01-0.20); Immature Granulocytes % (auto) 0.5 %; Lymphocytes % (auto) 7.2 %; Mean Corpuscular Hemoglobin 29.6 pg (25.0-34.0); Mean Corpuscular Hgb Conc 32.5 g/dL (32.0-36.0); Mean Corpuscular Volume 91.1 fL (80.0-100.0); Mean Platelet Volume 10.9 fL (9.4-12.4); Monocytes # (auto) 0.43 K/uL (0.11-0.59); Monocytes % (auto) 5.1 %; Neutrophils # (auto) 7.07 K/uL (1.40-6.50); Neutrophils % (auto) 84.7 %; Platelet Count 258 K/uL (130-400); RDW Standard Deviation 50.2 fL (36.4-46.3); Red Blood Count 3.58 M/uL (4.70-6.10); White Blood Count 8.35 K/ul (4.8-10.8)
--- NOTE | 2024-10-22 14:13 | XRay Report ---
EXAM: Radiograph of the Chest 1 View INDICATION: Chest pain. TECHNIQUE: Frontal view of the chest. COMPARISON: 04/29/2024 FINDINGS: Lungs and pleural spaces: New considerable patchy infiltrates in the lung bases present with vascular congestion. Probable trace pleural effusions. No pneumothorax. Heart: Stable large cardiac shadow. Mediastinum: Normal contour. Bones/joints: Degenerative changes noted throughout the spine. No acute osseous abnormality seen. Soft tissues: No abnormality noted. No radiopaque foreign body noted. Upper abdomen: No abnormality noted. IMPRESSION: Basilar infiltrates, vascular congestion and trace left pleural effusion. Consider CHF with or without components of basilar pneumonia. ACT 112: Negative or not required by law. Electronically signed by Jasmyne Villalba 10-22-2024 2:12 PM
[2024-10-22 14:14] LABS: BUN Creatinine Ratio 12.6 (10-20); Calcium 7.3 mg/dl (8.6-10.3); Creatinine Clr Calc Pharmacy 54.8 ml/min; Potassium 3.6 mmol/L (3.5-5.1)
[2024-10-22 14:31] LABS: Albumin Globulin Ratio 1.3 (0.9-2); Albumin Level 3.9 gm/dl (3.4-5.0); Bilirubin,Total 0.6 mg/dl (0.2-1.0); Globulin 2.9 gm/dl (2.5-4.0); Magnesium 0.7 mg/dl (1.7-2.4); Total Protein 6.8 gm/dl (6.0-8.3)
[2024-10-22] MEDS ORDERED: 0.2 MICRON FILTER SET 1 EACH IV STA (14:31)
[2024-10-22] MEDS: OPTIRAY 320 125ml IV ONE (14:44)
[2024-10-22] MEDS: MAGNESIUM SULFATE / D5W 1 GM/100 ML BAG IV SCH ×2 (14:55→17:44)
[2024-10-22] MEDS: AMIODARONE / D5W 150 MG/100 ML BAG IV STA (14:59)
--- NOTE | 2024-10-22 15:04 | CT Scan Report ---
EXAM: CT Angiography Chest With Intravenous Contrast INDICATION: Atrial fibrillation and shortness of breath. TECHNIQUE: Axial computed tomographic angiography images of the chest with intravenous contrast. Sagittal and coronal reformatted images were created and reviewed. This CT exam was performed using one or more of the following dose reduction techniques: automated exposure control, adjustment of the mA and/or kV according to patient size, and/or use of iterative reconstruction technique. MIP reconstructed images were created and reviewed. CONTRAST: 119ml of Optiray 320 was administered intravenously. COMPARISON: 03/05/2022 FINDINGS: Pulmonary arteries: No abnormality noted. No pulmonary embolism. Aorta: No acute change noted. No thoracic aortic aneurysm or dissection. Lungs and pleural spaces: Small layering bilateral pleural effusions present. No pneumothorax. Significant increased and septal markings. There is compressive atelectasis in the lower lobes. There is a new 8 x 5 mm noncalcified nodule in the right upper lobe series 3 image 69. There is a small calcified granuloma in the left apex. No bronchiectasis. Heart: Cardiomegaly. No evidence of right heart strain. No significant pleural effusion. Dense coronary calcification noted. Bones/joints: No acute or atypical chronic changes. Soft tissues: No abnormality noted. Lymph nodes: Stable mildly reactive paratracheal and precarinal noncalcified nodes. Stable granulomatous/calcified nodes in each hilum. No pathologically enlarged nodes identified. Kidneys and ureters: Visualized portion of the left renal cyst is unchanged. IMPRESSION: 1. CHF. 2. No pulmonary embolus noted. 3. Subcentimeter opacity in the right upper lobe could be inflammatory. CT chest recommended within 6 months to confirm resolution. ACT 112: Negative or not required by law. Electronically signed by Jasmyne Villalba 10-22-2024 3:04 PM
[2024-10-22] MEDS: AMIODARONE / D5W 360 MG/200 ML BAG IV ONE (15:13)
--- NOTE | 2024-10-22 15:27 | Emergency Department Note ---
Impression & Plan Atrial fibrillation with rapid ventricular response, CHF exacerbation ED Provider Note NAME: VASYL SHULTZ AGE: 79 SEX: M : 1945 ARRIVES VIA: Ambulance INFORMANT: Patient, ED PROVIDER(S): Brenda Chinchilla MD CHIEF COMPLAINT: Shortness of breath HPI: This is a an 79-year-old male with history of A-fib, COPD presenting for shortness of breath. Patient notes that he has had shortness of breath for the past 1 to 2 weeks. He notes some slight chest tightness as well. As per EMS/nursing staff, patient was in tripod position upon EMS arrival. He expiratory wheezes and was given a DuoNeb treatment. At this time he is currently talking in full sentences. He does not report CHF history. Patient notes that recently he was taken off of his blood thinner due to knee injections. He is currently back on blood thinners. ROS: See above HPI for pertinent positives & negatives. A total of 10 systems reviewed and were otherwise negative. PAST MEDICAL HISTORY: See Below PAST SURGICAL HISTORY: See Below FAMILY HISTORY: See Below SOCIAL HISTORY: See Below HOME MEDICATIONS: See Below ALLERGIES: See Below VITALS: See Below PHYSICAL EXAMINATION: General: resting comfortably in no acute distress Head: Normocephalic and atraumatic Eyes: Normal inspection, extraocular muscles intact Ear, nose, throat: Normal external exam Neck: Normal range of motion Respiratory: lungs clear to auscultation bilaterally Cardiovascular: Regular rate/rhythm, no murmur GI: soft, nontender, no guarding or rebound Extremities: nontender, moves all extremities Neuro: The patient awake and alert, appropriately conversive, no focal deficits, symmetric faces Skin: Warm, dry, and intact MEDICAL DECISION MAKING: This is an 79-year-old male with history of A-fib, COPD presented for shortness of breath. Patient is currently in likely atrial fibrillation with RVR. Heart rate is between 140 and 150. -Will do chest x-ray, basic blood work, EKG to assess signs for CHF, PE -With patient's A-fib with RVR, will give amiodarone as patient shows obvious CHF on his x-ray. Will avoid beta-blockers due to his COPD and recent beta agonist use -Chest x-ray as Independently interpreted by me reveals pulmonary vascular congestion/pulmonary edema, cardiomegaly -CT imaging of the chest rule out PE is ordered due to his tachycardia, chest tightness/pain, recent trial off of blood thinners looking for PE -CTA reveals no PE, does reveal CHF -Patient will require admission at this time due to A-fib RVR, amiodarone bolus/drip Differential diagnosis: CHF, atrial fibrillation, PE, CHF Independent History obtained from: [facility] interpreted by me: ECG: ECG independently interpreted by me with atrial fibrillation with rapid ventricular rate at a rate of 140, normal QRS, normal QTc, no ST segment elevations consistent with STEMI criteria, occasional PVC Cardiac Monitoring: An order was placed for continuous cardiac monitoring. The monitor shows a rate of 144 with A-fib rhythm. Critical Care Note: I have personally spent 55 minutes of critical care time in the direct management of this patient. This includes bedside care, interpretation of diagnostic studies, and testing, discussion with consultants, patient, and family members, and other required patient management activities. This 55 minutes is in excess of all separately billable procedures. Past Med/Surg History Problem List (Updated 10/22/24 @ 19:24 by Brenda Chinchilla MD) CHF exacerbation (Acute) Atrial fibrillation with rapid ventricular response (Acute) COPD (chronic obstructive pulmonary disease) Atrial flutter with rapid ventricular response Atrial fibrillation with RVR Acute CHF Effusion of knee joint, left (Acute) Pseudogout Bilateral primary osteoarthritis of knee Hypomagnesemia Hypokalemia Ambulatory dysfunction Left knee pain Renal insufficiency Leg pain Elevated PSA Decreased exercise tolerance IRVING (dyspnea on exertion) Bilateral shoulder pain Syncope Paroxysmal atrial fibrillation Atrial flutter, paroxysmal HX CARDIOVERSION (AC discontinued r/t GI bleed 08/2019) Hx of malignant neoplasm of colon dx 2018, resection 2019 Hypertrophic toenail Decreased stamina Ex-smoker Morbid obesity COPD with emphysema Vertigo Hypertension (Chronic) Kidney disease (Chronic) Pedal edema (Acute) Benign localized prostatic hyperplasia with lower urinary tract symptoms (LUTS) (Acute) CAD in [place] artery (Acute) Diabetes mellitus (Chronic) Moderate obstructive sleep apnea (Chronic) could not kevin CPAP Hyperlipidemia (Chronic) Anemia (Chronic) History of colon cancer Dx 2019, no chem needed. 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 Mother Osteoporosis Family history of diabetes mellitus Cardiac arrhythmia Depression Cancer Sister Depression Family history of diabetes mellitus Father Prostate cancer Family history of diabetes mellitus Myocardial infarction Denies family history of Ovarian cancer Breast cancer Colorectal cancer Social History Smoking Status: Former smoker Tobacco Type: Cigarettes and Smokeless Tobacco (Dip or Chew) Age Quit Using Tobacco: 54; packs per day: 1.0; Cigarettes Per Day: 20; Second Hand Exposure: No; Do You Dip or Chew Tobacco: Yes; Hx Alcohol Use: No Hx Substance Use: No Preferred Language: Syriac Communication Ability: Effective Visual Impairment: Limited Hearing Ability: Normal 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 Beliefs That Will Affect Care: None marital status: Current Living Situation: Spouse Current Living Situation Comment: with current occupational status: retired How many Children do You have: 4 Feels Safe at Home: Yes Childhood Exposure to Second-Hand Smoke: No Diet: diabetic and regular caffeine: No during the past year weight has: remained stable Dental Care, Regularly: No Physical Activity Frequency: 3-4 Times per Week Seatbelt Use: always Sunscreen Use: No Assistive Devices: Cane Allergies Allergies Allergy/AdvReac Type Severity Reaction Status Date / Time furosemide [From Lasix] Allergy Intermediate genralized Verified 08/02/24 10:02 exanthematous pustulosis hydrocodone AdvReac Intermediate vomiting Verified 08/02/24 10:02 Home Meds Home Medications Medication Instructions Recorded Confirmed aspirin 81 mg tablet,delayed 81 mg PO QAM #30 tabs 10/08/19 12/07/24 release hydrochlorothiazide 25 mg tablet 25 mg PO UD 10/22/24 10/22/24 metformin 500 mg tablet 500 mg PO UD 10/22/24 10/22/24 Previous Rx's Medication Instructions Recorded ipratropium 0.5 mg-albuterol 3 mg 3 ml inhalation UD PRN wheezing 05/27/23 (2.5 mg base)/3 mL nebulization #540 mL soln pen needle, diabetic 32 gauge x #200 ea 01/05/24" (Pen Needle) carvedilol 25 mg tablet 25 mg PO BID #180 tabs 01/26/24 apixaban 5 mg tablet (Eliquis) 5 mg PO BID #180 tabs 02/24/24 amlodipine 2.5 mg tablet 2.5 mg PO DAILY #90 tabs 03/02/24 omeprazole 20 mg capsule,delayed 20 mg PO QAM #90 caps 03/21/24 release dutasteride 0.5 mg capsule 0.5 mg PO PM #90 caps 03/29/24 (Avodart) insulin glargine 100 unit/mL (3 50 unit (0.5 mL) SC DAILY #45 mL 03/29/24 mL) subcutaneous pen (Lantus Solostar U-100 Insulin) lancets 30 gauge #200 ea 04/07/24 lancets 33 gauge (OneTouch Delica #100 ea 04/07/24 Plus Lancet) lisinopril 40 mg tablet 40 mg PO QAM #90 tabs 04/14/24 rosuvastatin 40 mg tablet 40 mg PO HS #90 tabs 04/14/24 fenofibrate 54 mg tablet 54 mg PO DAILY #90 tabs 05/11/24 albuterol sulfate 90 mcg/actuation 2 puff inhalation Q6H PRN 05/12/24 aerosol inhaler shortness of breath or wheezing #3 Inhalers fluticasone fur. 100 mcg-umeclid 1 inh inhalation DAILY #3 Inhalers 05/18/24 62.5 mcg-vilant 25 mcg inhalat.powder (Trelegy Ellipta) isosorbide mononitrate 60 mg 60 mg PO QAM #90 tabs 07/12/24 tablet,extended release 24 hr magnesium chloride 71.5 mg 143 mg (2 x 71.5 mg) PO BID #120 08/04/24 (magnesium chloride) tabs tablet,delayed release blood sugar diagnostic (OneTouch #200 ea 09/05/24 Verio test strips) Results & Data (ED) Vital Signs Vital Signs - 24 hr 10/22/24 13:18 10/22/24 13:29 10/22/24 13:29 Temperature 36.7 C Temperature Source Oral Pulse Rate 144 H Pulse Rate [Apical] Pulse Rate from SpO2 Sensor Respiratory Rate 24 Blood Pressure 120/99 Blood Pressure [Right Arm] Blood Pressure Mean 106 Blood Pressure Mean [Right Arm] Blood Pressure Position Semi-fowlers Pulse Oximetry 92 96 Oxygen Delivery Method Nasal Cannula Nasal Cannula Nasal Cannula Oxygen Flow Rate 2 2 2 Sepsis Recent Fever Within 48 Hours No Sepsis New/Unexplained Change in Mental Status N/A Sepsis Action Taken by Nursing Physician Notified 10/22/24 13:29 10/22/24 13:30 10/22/24 13:38 Temperature 36.6 C Temperature Source Oral Pulse Rate 150 H 147 H Pulse Rate [Apical] 146 H Pulse Rate from SpO2 Sensor Respiratory Rate 22 20 Blood Pressure Blood Pressure [Right Arm] 114/82 Blood Pressure Mean Blood Pressure Mean [Right Arm] 92 Blood Pressure Position Pulse Oximetry 96 95 Oxygen Delivery Method Nasal Cannula Nasal Cannula Oxygen Flow Rate 2 2 Sepsis Recent Fever Within 48 Hours Sepsis New/Unexplained Change in Mental Status Sepsis Action Taken by Nursing 10/22/24 14:00 10/22/24 14:00 10/22/24 14:30 Temperature Temperature Source Pulse Rate 146 H Pulse Rate [Apical] Pulse Rate from SpO2 Sensor 119 H Respiratory Rate 27 H Blood Pressure 138/99 149/111 H Blood Pressure [Right Arm] Blood Pressure Mean 110 135 Blood Pressure Mean [Right Arm] Blood Pressure Position Pulse Oximetry 93 Oxygen Delivery Method Nasal Cannula Oxygen Flow Rate 2 Sepsis Recent Fever Within 48 Hours Sepsis New/Unexplained Change in Mental Status Sepsis Action Taken by Nursing 10/22/24 14:30 10/22/24 14:54 10/22/24 14:57 Temperature Temperature Source Pulse Rate 145 H 144 H Pulse Rate [Apical] Pulse Rate from SpO2 Sensor 106 H 139 H Respiratory Rate 26 H 19 Blood Pressure 120/90 Blood Pressure [Right Arm] Blood Pressure Mean 102 Blood Pressure Mean [Right Arm] Blood Pressure Position Pulse Oximetry 92 94 Oxygen Delivery Method Oxygen Flow Rate Sepsis Recent Fever Within 48 Hours Sepsis New/Unexplained Change in Mental Status Sepsis Action Taken by Nursing 10/22/24 15:00 10/22/24 15:10 10/22/24 15:10 Temperature Temperature Source Pulse Rate Pulse Rate [Apical] Pulse Rate from SpO2 Sensor Respiratory Rate Blood Pressure 114/84 96/72 L 96/72 L Blood Pressure [Right Arm] Blood Pressure Mean 92 84 84 Blood Pressure Mean [Right Arm] Blood Pressure Position Pulse Oximetry Oxygen Delivery Method Oxygen Flow Rate Sepsis Recent Fever Within 48 Hours Sepsis New/Unexplained Change in Mental Status Sepsis Action Taken by Nursing 10/22/24 15:12 10/22/24 15:18 10/22/24 15:20 Temperature Temperature Source Pulse Rate 137 H Pulse Rate [Apical] Pulse Rate from SpO2 Sensor 128 H Respiratory Rate 23 Blood Pressure 110/89 100/83 Blood Pressure [Right Arm] Blood Pressure Mean 95 86 Blood Pressure Mean [Right Arm] Blood Pressure Position Pulse Oximetry 94 Oxygen Delivery Method Oxygen Flow Rate Sepsis Recent Fever Within 48 Hours Sepsis New/Unexplained Change in Mental Status Sepsis Action Taken by Nursing 10/22/24 15:20 10/22/24 15:21 10/22/24 15:30 Temperature Temperature Source Pulse Rate 138 H Pulse Rate [Apical] Pulse Rate from SpO2 Sensor 121 H Respiratory Rate 24 Blood Pressure 100/83 108/84 Blood Pressure [Right Arm] Blood Pressure Mean 86 98 Blood Pressure Mean [Right Arm] Blood Pressure Position Pulse Oximetry 94 Oxygen Delivery Method Oxygen Flow Rate Sepsis Recent Fever Within 48 Hours Sepsis New/Unexplained Change in Mental Status Sepsis Action Taken by Nursing 10/22/24 15:30 10/22/24 15:39 10/22/24 15:41 Temperature Temperature Source Pulse Rate 135 H 128 H Pulse Rate [Apical] Pulse Rate from SpO2 Sensor 128 H 120 H Respiratory Rate 20 20 Blood Pressure 98/69 L Blood Pressure [Right Arm] Blood Pressure Mean 77 Blood Pressure Mean [Right Arm] Blood Pressure Position Pulse Oximetry 92 95 Oxygen Delivery Method Oxygen Flow Rate Sepsis Recent Fever Within 48 Hours Sepsis New/Unexplained Change in Mental Status Sepsis Action Taken by Nursing 10/22/24 15:50 10/22/24 15:54 10/22/24 16:00 Temperature Temperature Source Pulse Rate 136 H Pulse Rate [Apical] Pulse Rate from SpO2 Sensor 135 H Respiratory Rate 19 Blood Pressure 100/71 95/73 L Blood Pressure [Right Arm] Blood Pressure Mean 84 87 Blood Pressure Mean [Right Arm] Blood Pressure Position Pulse Oximetry 96 Oxygen Delivery Method Oxygen Flow Rate Sepsis Recent Fever Within 48 Hours Sepsis New/Unexplained Change in Mental Status Sepsis Action Taken by Nursing 10/22/24 16:00 10/22/24 16:09 10/22/24 16:10 Temperature Temperature Source Pulse Rate 111 H 137 H Pulse Rate [Apical] Pulse Rate from SpO2 Sensor 119 H 136 H Respiratory Rate 24 21 Blood Pressure 110/72 Blood Pressure [Right Arm] Blood Pressure Mean 91 Blood Pressure Mean [Right Arm] Blood Pressure Position Pulse Oximetry 94 95 Oxygen Delivery Method Oxygen Flow Rate Sepsis Recent Fever Within 48 Hours Sepsis New/Unexplained Change in Mental Status Sepsis Action Taken by Nursing 10/22/24 16:22 10/22/24 16:22 10/22/24 16:27 Temperature Temperature Source Pulse Rate 121 H Pulse Rate [Apical] Pulse Rate from SpO2 Sensor 102 H Respiratory Rate 23 Blood Pressure Blood Pressure [Right Arm] Blood Pressure Mean 34 34 Blood Pressure Mean [Right Arm] Blood Pressure Position Pulse Oximetry 93 Oxygen Delivery Method Oxygen Flow Rate Sepsis Recent Fever Within 48 Hours Sepsis New/Unexplained Change in Mental Status Sepsis Action Taken by Nursing 10/22/24 16:45 10/22/24 16:45 10/22/24 16:48 Temperature Temperature Source Pulse Rate 120 H 122 H Pulse Rate [Apical] Pulse Rate from SpO2 Sensor 129 H 115 H Respiratory Rate 25 H 22 Blood Pressure 103/83 Blood Pressure [Right Arm] Blood Pressure Mean 93 Blood Pressure Mean [Right Arm] Blood Pressure Position Pulse Oximetry 93 94 Oxygen Delivery Method Oxygen Flow Rate Sepsis Recent Fever Within 48 Hours Sepsis New/Unexplained Change in Mental Status Sepsis Action Taken by Nursing 10/22/24 17:02 10/22/24 17:06 10/22/24 17:16 Temperature Temperature Source Pulse Rate 137 H Pulse Rate [Apical] Pulse Rate from SpO2 Sensor 137 H Respiratory Rate 24 Blood Pressure 125/99 136/100 Blood Pressure [Right Arm] Blood Pressure Mean 101 109 Blood Pressure Mean [Right Arm] Blood Pressure Position Pulse Oximetry 94 Oxygen Delivery Method Oxygen Flow Rate Sepsis Recent Fever Within 48 Hours Sepsis New/Unexplained Change in Mental Status Sepsis Action Taken by Nursing 10/22/24 17:33 10/22/24 17:39 10/22/24 17:46 Temperature Temperature Source Pulse Rate 136 H Pulse Rate [Apical] Pulse Rate from SpO2 Sensor 137 H Respiratory Rate 19 Blood Pressure 139/91 131/112 H Blood Pressure [Right Arm] Blood Pressure Mean 110 119 Blood Pressure Mean [Right Arm] Blood Pressure Position Pulse Oximetry 95 Oxygen Delivery Method Oxygen Flow Rate Sepsis Recent Fever Within 48 Hours Sepsis New/Unexplained Change in Mental Status Sepsis Action Taken by Nursing 10/22/24 17:48 10/22/24 17:51 10/22/24 18:00 Temperature Temperature Source Pulse Rate 136 H 117 H Pulse Rate [Apical] Pulse Rate from SpO2 Sensor 136 H 124 H Respiratory Rate 19 24 Blood Pressure 111/72 Blood Pressure [Right Arm] Blood Pressure Mean 87 Blood Pressure Mean [Right Arm] Blood Pressure Position Pulse Oximetry 94 96 Oxygen Delivery Method Oxygen Flow Rate Sepsis Recent Fever Within 48 Hours Sepsis New/Unexplained Change in Mental Status Sepsis Action Taken by Nursing 10/22/24 18:03 10/22/24 18:15 10/22/24 18:15 Temperature Temperature Source Pulse Rate 117 H 137 H Pulse Rate [Apical] Pulse Rate from SpO2 Sensor 116 H 123 H Respiratory Rate 22 19 Blood Pressure 124/92 Blood Pressure [Right Arm] Blood Pressure Mean 106 Blood Pressure Mean [Right Arm] Blood Pressure Position Pulse Oximetry 95 95 Oxygen Delivery Method Oxygen Flow Rate Sepsis Recent Fever Within 48 Hours Sepsis New/Unexplained Change in Mental Status Sepsis Action Taken by Nursing 10/22/24 18:30 10/22/24 18:30 10/22/24 19:00 Temperature Temperature Source Pulse Rate 103 H 115 H Pulse Rate [Apical] Pulse Rate from SpO2 Sensor 111 H Respiratory Rate 24 Blood Pressure 100/68 99/80 L Blood Pressure [Right Arm] Blood Pressure Mean 85 83 Blood Pressure Mean [Right Arm] Blood Pressure Position Pulse Oximetry 92 93 Oxygen Delivery Method Nasal Cannula Nasal Cannula Oxygen Flow Rate 2 2 Sepsis Recent Fever Within 48 Hours Sepsis New/Unexplained Change in Mental Status Sepsis Action Taken by Nursing Laboratory Data 10/22/24 13:32 10/22/24 13:32 Lab Results 10/22/24 Range/Units 13:32 WBC 8.35 (4.8-10.8) K/ul RBC 3.58 L (4.70-6.10) M/uL Hgb 10.6 L (14.0-18.0) g/dl Hct 32.6 L (42.0-52.0) % MCV 91.1 (80.0-100.0) fL MCH 29.6 (25.0-34.0) pg MCHC 32.5 (32.0-36.0) g/dL RDW Std Deviation 50.2 H (36.4-46.3) fL RDW Coeff of [place] 15.0 H (11.5-14.5) % Plt Count 258 (130-400) K/uL MPV 10.9 (9.4-12.4) fL Immature Gran % (Auto) 0.5 % Neut % (Auto) 84.7 % Lymph % (Auto) 7.2 % [place] % (Auto) 5.1 % Eos % (Auto) 2.0 % Baso % (Auto) 0.5 % Neut # (Auto) 7.07 H (1.40-6.50) K/uL Lymph # (Auto) 0.60 L (1.20-3.40) K/uL [place] # (Auto) 0.43 (0.11-0.59) K/uL Eos # (Auto) 0.17 (0.00-0.50) K/uL Baso # (Auto) 0.04 (0.00-0.20) K/uL Immature Gran # (Auto) 0.04 (0.01-0.20) K/uL Sodium 138 (136-145) mmol/L Potassium 3.6 (3.5-5.1) mmol/L Chloride 102 (98-107) mmol/L Carbon Dioxide 23 (21-32) mmol/L Anion Gap 13 H (3-11) BUN 18 (6-23) mg/dl Creatinine 1.43 H (0.6-1.4) mg/dl Est Cr Clr Drug Dosing 54.8 ml/min eGFR 49.23 BUN/Creatinine Ratio 12.6 (10-20) Glucose 99 (70-99(Fasting)) mg/dl Calcium 7.3 L (8.6-10.3) mg/dl Magnesium 0.7 L* (1.7-2.4) mg/dl Total Bilirubin 0.6 (0.2-1.0) mg/dl AST 15 (13-39) U/L ALT 9 (7-52) U/L Alkaline Phosphatase 46 (34-104) U/L Troponin I High Sens 20.0 (0-20) pg/ml Total Protein 6.8 (6.0-8.3) gm/dl Albumin 3.9 (3.4-5.0) gm/dl Globulin 2.9 (2.5-4.0) gm/dl Albumin/Globulin Ratio 1.3 (0.9-2) Lipase 38 (11-82) U/L Administered Medications Amiodarone HCl/Dextrose (Nexterone / D5w) 360 mg in 200 mls @ 33.333 mls/hr IV ONE ONE Stop: 10/22/24 20:40 Last Admin: 10/22/24 15:13 Dose: 1 mg/min, 33.3 mls/hr Documented By: STACEY Co-signed By: JUAN ANTONIO Magnesium Sulfate/Dextrose (Magnesium Sulfate / D5w) 1 gm in 100 mls @ 50 mls/hr IV Q2H RAY Stop: 10/22/24 23:29 Last Admin: 10/22/24 17:44 Dose: 50 mls/hr Documented By: STACEY Discontinued Medications Magnesium Sulfate/Dextrose (Magnesium Sulfate / D5w) 1 gm in 100 mls @ 200 mls/hr IV Q30M RAY Stop: 10/22/24 15:29 Last Infusion: 10/22/24 16:03 Dose: Infused Documented By: Admin: 10/22/24 15:28 Dose: 200 mls/hr Documented By: Infusion: 10/22/24 15:25 Dose: Infused Documented By: Admin: 10/22/24 14:55 Dose: 200 mls/hr Documented By: STACEY Amiodarone HCl/Dextrose (Nexterone / D5w) 150 mg in 100 mls @ 600 mls/hr IV NOW STA Stop: 10/22/24 14:40 Last Infusion: 10/22/24 15:12 Dose: Infused Documented By: STACEY Co-signed By: JUAN ANTONIO Admin: 10/22/24 14:59 Dose: 600 mls/hr Documented By: STACEY Co-signed By: JUAN ANTONIO Bumetanide 1 mg/ Syringe 4 mls @ 4 mls/min IV ONE ONE Stop: 10/22/24 17:31 Last Admin: 10/22/24 17:44 Dose: 4 mls/min Documented By: STACEY Ioversol (Optiray 320 125ml) 119 ml IV ONCE ONE Stop: 10/22/24 14:44 Last Admin: 10/22/24 14:44 Dose: 119 ml Documented By: ARNEL Potassium Chloride (Potassium Chloride Crtab 20 Meq Tabcr) 40 meq PO NOW STA Stop: 10/22/24 17:20 Last Admin: 10/22/24 17:44 Dose: 40 meq Documented By: TNK Imaging Data Radiologist's Impression: Chest X-Ray 10/22/24 13:33 EXAM: Radiograph of the Chest 1 View INDICATION: Chest pain. TECHNIQUE: Frontal view of the chest. COMPARISON: 04/29/2024 FINDINGS: Lungs and pleural spaces: New considerable patchy infiltrates in the lung bases present with vascular congestion. Probable trace pleural effusions. No pneumothorax. Heart: Stable large cardiac shadow. Mediastinum: Normal contour. Bones/joints: Degenerative changes noted throughout the spine. No acute osseous abnormality seen. Soft tissues: No abnormality noted. No radiopaque foreign body noted. Upper abdomen: No abnormality noted. IMPRESSION: Basilar infiltrates, vascular congestion and trace left pleural effusion. Consider CHF with or without components of basilar pneumonia. ACT 112: Negative or not required by law. Electronically signed by Jasmyne Villalba 10-22-2024 2:12 PM Chest CTA 10/22/24 13:47 EXAM: CT Angiography Chest With Intravenous Contrast INDICATION: Atrial fibrillation and shortness of breath. TECHNIQUE: Axial computed tomographic angiography images of the chest with intravenous contrast. Sagittal and coronal reformatted images were created and reviewed. This CT exam was performed using one or more of the following dose reduction techniques: automated exposure control, adjustment of the mA and/or kV according to patient size, and/or use of iterative reconstruction technique. MIP reconstructed images were created and reviewed. CONTRAST: 119ml of Optiray 320 was administered intravenously. COMPARISON: 03/05/2022 FINDINGS: Pulmonary arteries: No abnormality noted. No pulmonary embolism. Aorta: No acute change noted. No thoracic aortic aneurysm or dissection. Lungs and pleural spaces: Small layering bilateral pleural effusions present. No pneumothorax. Significant increased and septal markings. There is compressive atelectasis in the lower lobes. There is a new 8 x 5 mm noncalcified nodule in the right upper lobe series 3 image 69. There is a small calcified granuloma in the left apex. No bronchiectasis. Heart: Cardiomegaly. No evidence of right heart strain. No significant pleural effusion. Dense coronary calcification noted. Bones/joints: No acute or atypical chronic changes. Soft tissues: No abnormality noted. Lymph nodes: Stable mildly reactive paratracheal and precarinal noncalcified nodes. Stable granulomatous/calcified nodes in each hilum. No pathologically enlarged nodes identified. Kidneys and ureters: Visualized portion of the left renal cyst is unchanged. IMPRESSION: 1. CHF. 2. No pulmonary embolus noted. 3. Subcentimeter opacity in the right upper lobe could be inflammatory. CT chest recommended within 6 months to confirm resolution. ACT 112: Negative or not required by law. Electronically signed by Jasmyne Villalba 10-22-2024 3:04 PM Discharge Plan Visit Data Chief Complaint: Shortness of Breath/Dyspnea Stated Complaint: SOB ED Provider: Brenda Chinchilla Discharge Problem: Atrial fibrillation with rapid ventricular response, CHF exacerbation Forms Stand Alone Forms: [facility] [place] [employer] Prescriptions Prescriptions: No Action (DME) pen needle, diabetic [Pen Needle] 32 gauge x 5/32" needle See Rx Instructions .ROUTE .MEDSUPPLY Qty: 200 3RF Rx Instructions: use with insulin pen 2 x day E11.9 carvedilol 25 mg tablet 25 mg PO BID Qty: 180 3RF Rx Instructions: must administer with a meal/food Eliquis 5 mg tablet 5 mg PO BID Qty: 180 3RF amlodipine 2.5 mg tablet 2.5 mg PO DAILY Qty: 90 3RF omeprazole 20 mg capsule,delayed release(DR/EC) 20 mg PO QAM Qty: 90 3RF dutasteride [Avodart] 0.5 mg capsule 0.5 mg PO PM Qty: 90 3RF insulin glargine [Lantus Solostar U-100 Insulin] 100 unit/mL (3 mL) insulin pen 50 unit SC DAILY Qty: 45 3RF (DME) lancets [OneTouch Delica Plus Lancet] 33 gauge misc See Rx Instructions .Route Qty: 100 3RF Rx Instructions: Test 2 times a day E11.9 (DME) lancets 30 gauge misc See Rx Instructions .ROUTE .MEDSUPPLY Qty: 200 3RF Rx Instructions: BID lisinopril 40 mg tablet 40 mg PO QAM Qty: 90 3RF rosuvastatin 40 mg tablet 40 mg PO HS Qty: 90 3RF Trelegy Ellipta 100-62.5-25 mcg blister with device 1 inh inhalation DAILY Qty: 3 4RF magnesium chloride 71.5 mg tablet,delayed release (DR/EC) 143 mg PO BID Qty: 120 0RF Rx Instructions: pt wasnt too sure of this medication (DME) OneTouch Verio test strips Strip See Rx Instructions .ROUTE .MEDSUPPLY Qty: 200 5RF Rx Instructions: Test blood sugar twice daily Dx:E11.9 ipratropium-albuterol 0.5 mg-3 mg(2.5 mg base)/3 mL solution for nebulization 3 ml INH UD PRN (Reason: wheezing) Qty: 540 4RF albuterol sulfate 90 mcg/actuation HFA aerosol inhaler 2 puff INH Q6H PRN (Reason: shortness of breath or wheezing) Qty: 3 3RF aspirin 81 mg tablet,delayed release (DR/EC) 81 mg PO QAM Qty: 30 isosorbide mononitrate 60 mg tablet extended release 24 hr 60 mg PO QAM Qty: 90 3RF fenofibrate 54 mg tablet 54 mg PO DAILY Qty: 90 3RF hydrochlorothiazide 25 mg tablet 25 mg PO UD Rx Instructions: 25 mg po daily. Pt wasnt sure of this medication, filled 09/02 90 day supply metformin 500 mg tablet 500 mg PO UD Rx Instructions: Take 2 tablets in a.m. and 1 tablet in p.m PO ; Referrals Referrals: Meghann Cast CRNP [Primary Care Provider] -
--- NOTE | 2024-10-22 16:50 | History & Physical Report ---
Date of Service October 22, 2024 Assessment & Plan (1) Acute CHF: Plan: Worsening IRVING and LE edema since Thanksgi11/12 CXR with vascular congestion and trace left pleural effusion Suspect acute CHF due to dietary indiscretion Last echocardiogram on 05/09/2024 revealed LVEF at 50-55% Strict I&O monitoring Daily weights Elevate HOB Patient reports he does have a Lasix allergy; generalized exanthematous pustulosis Unclear if true sulfa allergy, as patient tolerates HCTZ Patient previously on HCTZ, but held in the setting of hypomagnesemia Bumex 1 mg IV BID17 K supplementation 20mEq daily 1200 mL fluid restriction Compression stockings (2) Atrial flutter with rapid ventricular response: Plan: Amiodarone IV bolus + drip started in the ED; continue for now Cardiology consult appreciated Anticoagulated on Eliquis Continue Coreg and K/mag repletion (3) Hypomagnesemia: Plan: Severe at 0.7 on arrival H/o hypomagnesemia and normally on mag supplements p.o. Magnesium sulfate 1 mg IV x 5 Hold omeprazole, HCTZ Trend a.m. mag (4) Diabetes mellitus: Plan: Last A1c at 7.4% on 08/02/2024 Hold metformin Patient is normally on Lantus 50u QAM Lantus 25 u BID while inpatient SSI; with target BSG range 110-140mg/dL, CF 20, carb ratio 8 T2DM diet BSG ACHS Adjust regimen as needed (5) COPD (chronic obstructive pulmonary disease): Plan: Continue home inhalers Incentive spirometry, flutter valve Guaifenesin 600 mg p.o. BID for cough DuoNeb 3 mL Q6R PRN for wheezing Titrate submental oxygen as needed to maintain SpO2 89 to 92% (6) CAD in [place] artery: Plan: S/p MAGDALENA x 1 No chest pain on admission Continue aspirin, statin, Imdur Hold amlodipine for LE edema Will temporarily hold lisinopril while starting Bumex (7) Moderate obstructive sleep apnea: Plan: Reports the patient has not tolerated CPAP in the past CPAP PRN Plan Disposition: Admit to PCU telemetry Full code Heart healthy, low-sodium, T2DM diet (1200 mL fluid restriction) VTE PPx: Eliquis History of Present Illness Chief Complaint: SOB/dyspnea Primary Care Provider: LATRICIA Bravo is an 79-year-old male with PMH of diabetes, COPD, CAD s/p MAGDALENA x 1, GERD, HTN, paroxysmal atrial flutter/atrial fibrillation (on Eliquis), and peripheral edema. He presented on 10/22 for worsening IRVING since after Thanksgiving. He reports that approximately 1 week after Thanksgiving he started developing progressive IRVING. For instance, yesterday he walked up 15 steps in his house and could barely make it to the top. He also developed SOB at rest today. Patient reports significant orthopnea, and reports that he "passes out" unless he has the head of his bed elevated. Patient reports that he normally watches his salt intake, but did change his diet around Thanksgiving time. He normally wears compression stockings, but stopped wearing them just after Thanksgiving, and developed significant lower extremity edema. Patient decided to come in today, after he choked on a hamburger and entered into a coughing fit, and was unable to catch his breath after that. Patient was in the tripod position with expiratory wheezes on ED arrival. He reports that he follows with [facility] (Dr. Hatch). Additionally, he reports that he has a Lasix allergy and develops a significant skin rash when taking. He is unsure if he is taking Bumex or torsemide in the past. He is unsure if he has a sulfa allergy. Patient reports that he took all of his regular morning medicin es today, and reports good compliance with his Eliquis. His helps him manage medications at home. He does have a history of atrial flutter requiring cardioversion. Additionally, he has been around both his grandson and [id number] who are both recently sick with cough/congestion. He does not use supplemental oxygen at home. He used to use a CPAP, but is not currently as he was told he "did not need it anymore". Patient reports he is still producing urine. Patient is a former smoker but quit 30 years ago. He denies any recent alcohol use. Patient is tachycardic at 137 bpm at time of admission; SpO2 95% on 2L NC. ED course: Amiodarone IV bolus and drip Magnesium sulfate 1 g IV x 2 ROS: Patient endorses lightheadedness from coughing, SOB at rest, worsening IRVING, orthopnea, wheezing, productive cough (yellow, creamy phlegm) x 2 weeks, pleuritic CP, and loose stool. Patient denies fever, chills, night-sweats, chest pain, chest pressure, chest palpitations, hemoptysis, abdominal pain, nausea, vomiting, diarrhea, burning with urination, and blood in the urine/stool. Allergies Allergy/AdvReac Type Severity Reaction Status Date / Time furosemide [From Lasix] Allergy Intermediate genralized Verified 08/02/24 10:02 exanthematous pustulosis hydrocodone AdvReac Intermediate vomiting Verified 08/02/24 10:02 Home Medications Medication Instructions Recorded Confirmed Type aspirin 81 mg tablet,delayed 81 mg PO QAM #30 tabs 08/23/19 10/22/24 History release ipratropium 0.5 mg-albuterol 3 mg 3 ml inhalation UD PRN wheezing 05/27/23 10/22/24 Rx (2.5 mg base)/3 mL nebulization #540 mL soln pen needle, diabetic 32 gauge x #200 ea 01/05/24 08/02/24 Rx 5/32" (Pen Needle) carvedilol 25 mg tablet 25 mg PO BID #180 tabs 01/26/24 10/22/24 Rx apixaban 5 mg tablet (Eliquis) 5 mg PO BID #180 tabs 02/24/24 10/22/24 Rx amlodipine 2.5 mg tablet 2.5 mg PO DAILY #90 tabs 03/02/24 10/22/24 Rx omeprazole 20 mg capsule,delayed 20 mg PO QAM #90 caps 03/21/24 10/22/24 Rx release dutasteride 0.5 mg capsule 0.5 mg PO PM #90 caps 03/29/24 10/22/24 Rx (Avodart) insulin glargine 100 unit/mL (3 50 unit (0.5 mL) SC DAILY #45 mL 03/29/24 10/22/24 Rx mL) subcutaneous pen (Lantus Solostar U-100 Insulin) lancets 30 gauge #200 ea 04/07/24 08/02/24 Rx lancets 33 gauge (OneTouch Delica #100 ea 04/07/24 08/02/24 Rx Plus Lancet) lisinopril 40 mg tablet 40 mg PO QAM #90 tabs 04/14/24 10/22/24 Rx rosuvastatin 40 mg tablet 40 mg PO HS #90 tabs 04/14/24 10/22/24 Rx fenofibrate 54 mg tablet 54 mg PO DAILY #90 tabs 05/11/24 10/22/24 Rx albuterol sulfate 90 mcg/actuation 2 puff inhalation Q6H PRN 05/12/24 10/22/24 Rx aerosol inhaler shortness of breath or wheezing #3 Inhalers fluticasone fur. 100 mcg-umeclid 1 inh inhalation DAILY #3 Inhalers 05/18/24 10/22/24 Rx 62.5 mcg-vilant 25 mcg inhalat.powder (Trelegy Ellipta) isosorbide mononitrate 60 mg 60 mg PO QAM #90 tabs 07/12/24 10/22/24 Rx tablet,extended release 24 hr magnesium chloride 71.5 mg 143 mg (2 x 71.5 mg) PO BID #120 08/04/24 10/22/24 Rx (magnesium chloride) tabs tablet,delayed release blood sugar diagnostic (OneTouch #200 ea 09/05/24 Rx Verio test strips) hydrochlorothiazide 25 mg tablet 25 mg PO UD 10/22/24 10/22/24 History metformin 500 mg tablet 500 mg PO UD 10/22/24 10/22/24 History Past Med/Surg History Problem List (Updated 10/22/24 @ 17:38 by Jean Carlos Salamanca PA-C) COPD (chronic obstructive pulmonary disease) Atrial flutter with rapid ventricular response Atrial fibrillation with RVR Acute CHF Effusion of knee joint, left (Acute) Pseudogout Bilateral primary osteoarthritis of knee Hypomagnesemia Hypokalemia Ambulatory dysfunction Left knee pain Renal insufficiency Leg pain Elevated PSA Decreased exercise tolerance IRVING (dyspnea on exertion) Bilateral shoulder pain Syncope Paroxysmal atrial fibrillation Atrial flutter, paroxysmal HX CARDIOVERSION (AC discontinued r/t GI bleed 08/2019) Hx of malignant neoplasm of colon dx 2018, resection 2019 Hypertrophic toenail Decreased stamina Ex-smoker Morbid obesity COPD with emphysema Vertigo Hypertension (Chronic) Kidney disease (Chronic) Pedal edema (Acute) Benign localized prostatic hyperplasia with lower urinary tract symptoms (LUTS) (Acute) CAD in [place] artery (Acute) Diabetes mellitus (Chronic) Moderate obstructive sleep apnea (Chronic) could not kevin CPAP Hyperlipidemia (Chronic) Anemia (Chronic) History of colon cancer Dx 2019, no chem needed. 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 Mother Osteoporosis Family history of diabetes mellitus Cardiac arrhythmia Depression Cancer Sister Depression Family history of diabetes mellitus Father Prostate cancer Family history of diabetes mellitus Myocardial infarction Denies family history of Ovarian cancer Breast cancer Colorectal cancer Social History Smoking Status: Former smoker Tobacco Type: Cigarettes and Smokeless Tobacco (Dip or Chew) Age Quit Using Tobacco: 54; packs per day: 1.0; Cigarettes Per Day: 20; Second Hand Exposure: No; Do You Dip or Chew Tobacco: Yes; Hx Alcohol Use: No Hx Substance Use: No Preferred Language: Jamaican Communication Ability: Effective Visual Impairment: Limited Hearing Ability: Normal Community Development Aide Required: No Beliefs That Will Affect Care: None marital status: Current Living Situation: Spouse Current Living Situation Comment: with current occupational status: retired How many Children do You have: 4 Feels Safe at Home: Yes Childhood Exposure to Second-Hand Smoke: No Diet: diabetic and regular caffeine: No during the past year weight has: remained stable Dental Care, Regularly: No Physical Activity Frequency: 3-4 Times per Week Seatbelt Use: always Sunscreen Use: No Assistive Devices: Cane Review of Systems Review of Systems: See HPI above Physical Exam Physical Exam: General: Moderate respiratory distress; non-toxic appearing; well-nourished; cooperative; SpO2 92% on 2L NC HEENT: normocephalic, atraumatic; no scleral icterus; PERRLA; vision and hearing grossly intact Neck: supple; +JVD; trachea midline Skin: warm, dry without signs of tenting; no cyanosis; no rashes, bruising, lesions, or erythema noted CV: chest wall NTP; irregularly irregular rhythm tachycardic around 137 bpm; S1/S2 normal; no murmurs/rubs/gallops; pulses intact and symmetric at radial, DP, and PT Lungs: Moderate respiratory distress; conversational dyspnea; symmetrical chest wall expansion; mild wheezing and bibasilar crackles auscultated in the lower lung martinez bilaterally ABD: Soft, NTP; BS present; no rebound/guarding; moderate distention secondary to body habitus; no rashes or bruising appreciated on the abdomen or flanks bilaterally MSK: no tics or fasciculations; +1 pitting edema noted in the LEs b/l, nonerythematous Neuro: A&Ox3; normal mood and affect; fluent speech; no focal deficits; patient reports that sensation is intact and symmetric in the lower extremities bilaterally Results & Data Results & Data Vital Signs (Past 12 Hours) Vital Signs Temp Pulse Pulse Resp BP BP Pulse Ox 10/22/24 16:10 110/72 10/22/24 16:09 137 H 21 95 10/22/24 16:00 111 H 24 94 10/22/24 16:00 95/73 L 10/22/24 15:54 136 H 19 96 10/22/24 15:50 100/71 10/22/24 15:41 98/69 L 10/22/24 15:39 128 H 20 95 10/22/24 15:30 135 H 20 92 10/22/24 15:30 108/84 10/22/24 15:21 138 H 24 94 10/22/24 15:20 100/83 10/22/24 15:20 100/83 10/22/24 15:18 137 H 23 94 10/22/24 15:12 110/89 10/22/24 15:10 96/72 L 10/22/24 15:10 96/72 L 10/22/24 15:00 114/84 10/22/24 14:57 120/90 10/22/24 14:54 144 H 19 94 10/22/24 14:30 145 H 26 H 92 10/22/24 14:30 149/111 H 10/22/24 14:00 138/99 10/22/24 14:00 146 H 27 H 93 10/22/24 13:38 147 H 20 95 10/22/24 13:30 150 H 10/22/24 13:29 36.6 C 146 H 22 114/82 96 10/22/24 13:29 10/22/24 13:29 36.7 C 144 H 24 120/99 96 10/22/24 13:18 92 O2 Del Method O2 Flow Rate 10/22/24 16:10 10/22/24 16:09 10/22/24 16:00 10/22/24 16:00 10/22/24 15:54 10/22/24 15:50 10/22/24 15:41 10/22/24 15:39 10/22/24 15:30 10/22/24 15:30 10/22/24 15:21 10/22/24 15:20 10/22/24 15:20 10/22/24 15:18 10/22/24 15:12 10/22/24 15:10 10/22/24 15:10 10/22/24 15:00 10/22/24 14:57 10/22/24 14:54 10/22/24 14:30 10/22/24 14:30 10/22/24 14:00 10/22/24 14:00 Nasal Cannula 2 10/22/24 13:38 Nasal Cannula 2 10/22/24 13:30 10/22/24 13:29 Nasal Cannula 2 10/22/24 13:29 Nasal Cannula 2 10/22/24 13:29 Nasal Cannula 2 10/22/24 13:18 Nasal Cannula 2 Laboratory Results Abnormal lab results 10/22/24 Range/Units 13:32 RBC 3.58 L (4.70-6.10) M/uL Hgb 10.6 L (14.0-18.0) g/dl Hct 32.6 L (42.0-52.0) % RDW Std Deviation 50.2 H (36.4-46.3) fL RDW Coeff of Freeman 15.0 H (11.5-14.5) % Neut # (Auto) 7.07 H (1.40-6.50) K/uL Lymph # (Auto) 0.60 L (1.20-3.40) K/uL Anion Gap 13 H (3-11) Creatinine 1.43 H (0.6-1.4) mg/dl Calcium 7.3 L (8.6-10.3) mg/dl Magnesium 0.7 L* (1.7-2.4) mg/dl Diagnostic Findings Chest X-Ray 10/22/24 13:33 EXAM: Radiograph of the Chest 1 View INDICATION: Chest pain. TECHNIQUE: Frontal view of the chest. COMPARISON: 04/29/2024 FINDINGS: Lungs and pleural spaces: New considerable patchy infiltrates in the lung bases present with vascular congestion. Probable trace pleural effusions. No pneumothorax. Heart: Stable large cardiac shadow. Mediastinum: Normal contour. Bones/joints: Degenerative changes noted throughout the spine. No acute osseous abnormality seen. Soft tissues: No abnormality noted. No radiopaque foreign body noted. Upper abdomen: No abnormality noted. IMPRESSION: Basilar infiltrates, vascular congestion and trace left pleural effusion. Consider CHF with or without components of basilar pneumonia. ACT 112: Negative or not required by law. Electronically signed by Jasmyne Villalba 10-22-2024 2:12 PM Chest CTA 10/22/24 13:47 EXAM: CT Angiography Chest With Intravenous Contrast INDICATION: Atrial fibrillation and shortness of breath. TECHNIQUE: Axial computed tomographic angiography images of the chest with intravenous contrast. Sagittal and coronal reformatted images were created and reviewed. This CT exam was performed using one or more of the following dose reduction techniques: automated exposure control, adjustment of the mA and/or kV according to patient size, and/or use of iterative reconstruction technique. MIP reconstructed images were created and reviewed. CONTRAST: 119ml of Optiray 320 was administered intravenously. COMPARISON: 03/05/2022 FINDINGS: Pulmonary arteries: No abnormality noted. No pulmonary embolism. Aorta: No acute change noted. No thoracic aortic aneurysm or dissection. Lungs and pleural spaces: Small layering bilateral pleural effusions present. No pneumothorax. Significant increased and septal markings. There is compressive atelectasis in the lower lobes. There is a new 8 x 5 mm noncalcified nodule in the right upper lobe series 3 image 69. There is a small calcified granuloma in the left apex. No bronchiectasis. Heart: Cardiomegaly. No evidence of right heart strain. No significant pleural effusion. Dense coronary calcification noted. Bones/joints: No acute or atypical chronic changes. Soft tissues: No abnormality noted. Lymph nodes: Stable mildly reactive paratracheal and precarinal noncalcified nodes. Stable granulomatous/calcified nodes in each hilum. No pathologically enlarged nodes identified. Kidneys and ureters: Visualized portion of the left renal cyst is unchanged. IMPRESSION: 1. CHF. 2. No pulmonary embolus noted. 3. Subcentimeter opacity in the right upper lobe could be inflammatory. CT chest recommended within 6 months to confirm resolution. ACT 112: Negative or not required by law. Electronically signed by Jasmyne Villalba 10-22-2024 3:04 PM ECG Additional Comments: ECG revealed atrial flutter with PVCs at 140 bpm; QTc 430 Code Status & VTE Plan Code Status Full code VTE Prophylaxis Plan VTE Prophylaxis will be ordered: Yes Supervising Physician Co-Signing Physician Notes Patient seen and examined, chart reviewed, case discussed with Jean Carlos Salamanca PA-C and I agree with the assessment and plan as above except as otherwise noted Labs and images reviewed Jonathan is an 79-year-old male with a past medical Struve diabetes, COPD, CAD, paroxysmal A-fib/flutter on Eliquis, peripheral edema with progressive dyspnea on exertion since . Has had worsening dyspnea, leg swelling, and severe orthopnea to the point where he will pass out if he lays flat. He is on nasal cannula 2 L in the ER. CT of the chest shows layering bilateral pleural effusions and dependent edema. Patient does have a rash allergy to Lasix however has tolerated hydrochlorothiazide in the past so low suspicion that he has a sulfa allergy. Bumex is reasonable alternative for patient's with Lasix allergy; will trial this for diuresis and monitor closely for rash/signs of allergy. If concern for allergy or sulfa cross-reactivity arises then we will we will need to switch to ethacrynic acid Patient also presents with A-fib RVR. He is profoundly hypomagnesemic, this is repleted IV and p.o. goal 2.0. Hydrochlorothiazide previously discontinued due to hypomagnesemia. Likely with multifactorial acute on chronic CHF combined with rate related failure with his RVR. Patient started on amnio drip for rate control. Blood pressure is stable, no need for emergent cardioversion at time of assessment. Patient is on Eliquis and has not missed any doses of his anticoagulation which she has been on long-term. Lungs are diminished, right greater than left basilar crackles. Legs are with pitting edema. Heart rate is tachycardic and irregular 2039 bedside. Normotensive. Agree with above PG Care Time/CCT Total # of Minutes Spent Total Time Spent with Patient: Total time spent is greater than 50% in coordination of care (as documented) at patient's floor/unit and/or counseling patient: Coding [place] [address] INT INP/OBS CARE MIN Patient Type Established History Comprehensive Exam Comprehensive Medical Decision Making High Complexity Diagnoses Acute CHF I50.9 Atrial flutter with rapid ventricular response I48.92 Hypomagnesemia E83.42 Type 2 diabetes mellitus without complication, with long-term current use of insulin E11.9; Z79.4 Diabetes mellitus complication status: without complication Diabetes mellitus oil heaterman insulin use: with fpc use Diabetes mellitus type: type 2 COPD (chronic obstructive pulmonary disease) J44.9 CAD in [place] artery I25.10 Moderate obstructive sleep apnea G47.33 (4) Diabetes mellitus Diabetes mellitus complication status: without complication Diabetes mellitus oil heaterman insulin use: with oil heaterman use Diabetes mellitus type: type 2 Qualified Code(s): E11.9 - Type 2 diabetes mellitus without complications; Z79.4 - senior care (current) use of insulin
[2024-10-22] MEDS: BUMETANIDE 1 MG in SYRINGE 0 ML IV ONE (17:44)
[2024-10-22] MEDS: POTASSIUM CHLORIDE CRTAB 20 MEQ TABCR PO STA (17:44)
[2024-10-22] MEDS ORDERED: GLUCOSE 40% GEL 15 GM TUBE PO PRN (19:49)
[2024-10-22] MEDS ORDERED: GLUCAGON FOR INJ 1 MG VIAL SQ PRN (19:49)
[2024-10-22] MEDS ORDERED: GLUCOSE 10 TAB/TUBE PO PRN (19:49)
[2024-10-22] MEDS ORDERED: CARBOHYDRATES FOR HYPOGLYCEMIA PO PRN (19:49)
[2024-10-22] MEDS ORDERED: ACETAMINOPHEN 325 MG TAB PO PRN (19:49)
[2024-10-22] MEDS ORDERED: ONDANSETRON INJ 2 MG/ML 2 ML VIAL IV PRN (19:49)
[2024-10-22] MEDS ORDERED: DEXTROSE 50% 50 ML SYRINGE IV PRN (19:49)
[2024-10-22] MEDS: STAT IV Infusion **Titration per Protocol STA (20:10)
[2024-10-22] MEDS: AMIODARONE IV BOLUS & DRIP IV STA (20:10)
[2024-10-22] MEDS: INSULIN ASPART PER UNIT CHARGE SC SCH (20:35)
[2024-10-22] MEDS: AMIODARONE / D5W 360 MG/200 ML BAG IV SCH (21:51)
[2024-10-22] MEDS: ROSUVASTATIN CALCIUM 20 MG TAB PO SCH (21:57)
[2024-10-22] MEDS: carvediloL 25 MG TAB PO SCH (21:57)
[2024-10-22] MEDS: FINASTERIDE 5 MG TAB PO SCH (21:57)
[2024-10-22] MEDS: APIXABAN 5 MG TABLET PO SCH (21:57)
[2024-10-22] MEDS: guaiFENesin 600 MG TABCR PO SCH (21:57)
[2024-10-22] MEDS: MAGNESIUM CHLORIDE W/CALCIUM 64MG DELAYED REL TAB PO SCH (21:57)
[2024-10-23] MEDS: ALBUT/IPRATROP 3MG/0.5MG NEB 3 ML VIAL INH PRN (05:49)
[2024-10-23 06:44] LABS: Basophils # (auto) 0.03 K/uL (0.00-0.20); Basophils % (auto) 0.4 %; Eosinophils # (auto) 0.23 K/uL (0.00-0.50); Eosinophils % (auto) 3.3 %; Hematocrit (blood only) 32.3 % (42.0-52.0); Hemoglobin 10.4 g/dl (14.0-18.0); Immature Granulocytes # (auto) 0.04 K/uL (0.01-0.20); Immature Granulocytes % (auto) 0.6 %; Lymphocytes # (auto) 0.64 K/uL (1.20-3.40); Lymphocytes % (auto) 9.2 %; Mean Corpuscular Hemoglobin 29.9 pg (25.0-34.0); Mean Corpuscular Hgb Conc 32.2 g/dL (32.0-36.0); Mean Corpuscular Volume 92.8 fL (80.0-100.0); Mean Platelet Volume 10.9 fL (9.4-12.4); Monocytes # (auto) 0.37 K/uL (0.11-0.59); Monocytes % (auto) 5.3 %; Neutrophils # (auto) 5.66 K/uL (1.40-6.50); Neutrophils % (auto) 81.2 %; Platelet Count 240 K/uL (130-400); RDW Coefficient of Variation 14.9 % (11.5-14.5); RDW Standard Deviation 50.5 fL (36.4-46.3); Red Blood Count 3.48 M/uL (4.70-6.10); White Blood Count 6.97 K/ul (4.8-10.8)
[2024-10-23 07:05] LABS: BUN Creatinine Ratio 13.7 (10-20); Calcium 7.5 mg/dl (8.6-10.3); Creatinine Clr Calc Pharmacy 55.2 ml/min; Magnesium 1.7 mg/dl (1.7-2.4); Potassium 3.3 mmol/L (3.5-5.1)
[2024-10-23] MEDS: BUMETANIDE 1 MG in SYRINGE 0 ML IV SCH (08:17)
[2024-10-23] MEDS: FENOFIBRATE NANOCRYSTALLIZED 48 MG TABLET PO SCH (08:17)
[2024-10-23] MEDS: ISOSORBIDE MONO EXTENDED REL 60 MG TABCR PO SCH (08:17)
[2024-10-23] MEDS: UMECLIDINIUM/VILANTEROL 62.5/25MCG 7 PUFFS/INHALER INH SCH (08:18)
[2024-10-23] MEDS: FLUTICASONE FUROATE 100MCG 14 PUFFS/INHALER INH SCH (08:18)
[2024-10-23] MEDS: ASPIRIN 81 MG ECTAB PO SCH (08:19)
--- NOTE | 2024-10-23 08:21 | Electrocardiogram Report ---
Test Reason : Blood Pressure : */* mmHG Vent. Rate : 140 BPM Atrial Rate : 288 BPM P-R Int : * ms QRS Dur : 106 ms QT Int : 282 ms P-R-T Axes : * 1 -52 degrees QTcB Int : 430 ms Atrial flutter with variable A-V block with premature ventricular or aberrantly conducted complexes Abnormal ECG When compared with ECG of 08-Apr-2024 09:54, Atrial flutter has replaced Sinus rhythm Vent. rate has increased by 66 bpm Confirmed by Osbaldo Holliday ([id number]) on 10/23/2024 8:21:23 AM Referred By: REFERRED SELF Confirmed By: Osbaldo Holliday
[2024-10-23] MEDS: POTASSIUM CHLORIDE CRTAB 20 MEQ TABCR PO SCH (08:25)
[2024-10-23] MEDS: LANTUS PER UNIT CHARGE SQ SCH (08:25)
[2024-10-23] MEDS ORDERED: NON-FORMULARY MEDICATION (Fluticasone-Umeclidin-Vilanter [Trelegy Ellipta] 100-62.5-25 mcg INH SCH (09:00)
--- NOTE | 2024-10-23 10:18 | Cardiology Consultation ---
Date of Consultation October 23, 2024 Assessment & Plan (1) (HFpEF) heart failure with preserved ejection fraction: (2) Atrial flutter with rapid ventricular response: (3) COPD (chronic obstructive pulmonary disease): Plan As his symptoms have gone on for several weeks, etiology of current decompensation uncertain, but tachydysrhythmia plays a major role. Agree with IV amiodarone, would continue this throughout today and replace carvedilol with regular doses of metoprolol for better short-term rate control (BP low at times, would be difficult to titrate carvedilol upward without risking worsening hypotension). Specifically, would discontinue carvedilol and initiate metoprolol 25 mg PO every 6 hours with hold orders for heart rate less than 80 bpm or SBP less than 90 mmHg. Could increase metoprolol dose later today if BP allows and tachycardia continues. Once rate is better controlled, could shift from IV to oral amiodarone. Would not entertain immediate cardioversion in the absence of decompensation, allow more time for volume unloading/diuresis and electrolyte correction. Since he has been chronically anticoagulated with apixaban (which should be continued), could cardiovert tomorrow or the following day if necessary. Would hold breakfast tomorrow until he is evaluated for potential cardioversion. Fortunately, despite his history of coronary disease, no symptoms, enzyme elev ations, or ECG findings to suggest ongoing myocardial ischemia. He does still appear volume overloaded, continue Bumex 1 mg twice daily for further diuresis while replacing electrolytes as needed. Will continue to follow along from a cardiology standpoint. History of Present Illness Reason for Consultation: A flutter with RVR; potential cardioversion Requesting Physician: Maykel Medina DO Attending Physician: Maykel Medina DO History of Present Illness 79-year-old man with CAD (remote bare-metal stent), paroxysmal atrial fibrillation/flutter (carvedilol/apixaban), moderate COPD, chronic lower extremity venous insufficiency, and other medical problems who was admitted 11/11/2024 with several weeks of progressive dyspnea exertion/leg edema and found to have recurrent atrial flutter with rapid ventricular response (140 bpm). His primary force variation equipment tender is Dr. Hatch. He received IV Bumex (history of rash on furosemide) with reasonable diuresis (- 1535 mL overnight) and was placed on IV amiodarone with limited effect thus far (remains in atrial fibrillation with ventricular rate in the 130 bpm range). He does note a cough for the past few days, occasionally productive of yellowish sputum. No fever or white count He has chronic orthopnea, but is able to lie back to about 45 degrees currently without difficulty. No dyspnea at rest, but becomes dyspneic with minimal activity, such as getting out of bed. Has chronic orthostatic lightheadedness and must move slowly to get out of bed, also states when he lies back in bed he can sometimes "pass out" if he lies to flat. No chest pain at any time and no subjective experience of tachypalpitations. No major somatic complaints at rest at the time of my evaluation this morning. Telemetry showed atrial fibrillation with persistent high ventricular rate. Magnesium increased from 0.7-1.7 overnight, potassium decreased from 3.6-3.3 overnight. Allergies Allergy/AdvReac Type Severity Reaction Status Date / Time furosemide [From Lasix] Allergy Intermediate genralized Verified 08/02/24 10:02 exanthematous pustulosis hydrocodone AdvReac Intermediate vomiting Verified 08/02/24 10:02 Home Medications Medication Instructions Recorded Confirmed Type aspirin 81 mg tablet,delayed 81 mg PO QAM #30 tabs 08/23/19 10/22/24 History release ipratropium 0.5 mg-albuterol 3 mg 3 ml inhalation UD PRN wheezing 05/27/23 10/22/24 Rx (2.5 mg base)/3 mL nebulization #540 mL soln pen needle, diabetic 32 gauge x #200 ea 01/05/24 08/02/24 Rx 5/32" (Pen Needle) carvedilol 25 mg tablet 25 mg PO BID #180 tabs 01/26/24 10/22/24 Rx apixaban 5 mg tablet (Eliquis) 5 mg PO BID #180 tabs 02/24/24 10/22/24 Rx amlodipine 2.5 mg tablet 2.5 mg PO DAILY #90 tabs 03/02/24 10/22/24 Rx omeprazole 20 mg capsule,delayed 20 mg PO QAM #90 caps 03/21/24 10/22/24 Rx release dutasteride 0.5 mg capsule 0.5 mg PO PM #90 caps 03/29/24 10/22/24 Rx (Avodart) insulin glargine 100 unit/mL (3 50 unit (0.5 mL) SC DAILY #45 mL 03/29/24 10/22/24 Rx mL) subcutaneous pen (Lantus Solostar U-100 Insulin) lancets 30 gauge #200 ea 04/07/24 08/02/24 Rx lancets 33 gauge [facility] 04/07/24 08/02/24 Rx Plus Lancet) lisinopril 40 mg tablet 40 mg PO QAM #90 tabs 04/14/24 10/22/24 Rx rosuvastatin 40 mg tablet 40 mg PO HS #90 tabs 04/14/24 10/22/24 Rx fenofibrate 54 mg tablet 54 mg PO DAILY #90 tabs 05/11/24 10/22/24 Rx albuterol sulfate 90 mcg/actuation 2 puff inhalation Q6H PRN 05/12/24 10/22/24 Rx aerosol inhaler shortness of breath or wheezing #3 Inhalers fluticasone fur. 100 mcg-umeclid 1 inh inhalation DAILY #3 Inhalers 05/18/24 10/22/24 Rx 62.5 mcg-vilant 25 mcg inhalat.powder (Trelegy Ellipta) isosorbide mononitrate 60 mg 60 mg PO QAM #90 tabs 07/12/24 10/22/24 Rx tablet,extended release 24 hr magnesium chloride 71.5 mg 143 mg (2 x 71.5 mg) PO BID #120 08/04/24 10/22/24 Rx (magnesium chloride) tabs tablet,delayed release blood sugar diagnostic [facility] 09/05/24 Rx Verio test strips) hydrochlorothiazide 25 mg tablet 25 mg PO UD 10/22/24 10/22/24 History metformin 500 mg tablet 500 mg PO UD 10/22/24 10/22/24 History Patient History Medical History Hyperlipidemia HTN (hypertension) Poor historian History of recent hospitalization admitted from 11/25/2020 through 11/28/2020 [place] generalized weakness, polydipsia, polyuria and hyperglycemia BPH (benign prostatic hyperplasia) Cataracts, bilateral History of GI bleed Diabetes IDDM 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 Trejo 12/20/19 History of anesthesia reaction PROFUSE SWEATING AFTER PROSTATE SURGERY, UNABLE TO KEEP IV'S IN DUE TO AMOUNT OF SWEAT History of cardiac cath X4 TOTAL ( 1ST CATH 2012 FOR CA, STENT X1, most recent cath 2017 [place]) follows with Dr. Hatch History of esophagogastroduodenoscopy (EGD) History of colonoscopy History of PTCA 2012 [facility] History of hand surgery L History of dental surgery History of heart artery stent x 1 (2012) Family History Grandmother (Paternal) No problems noted. Mother Osteoporosis Family history of diabetes mellitus Cardiac arrhythmia Depression Cancer Sister Depression Family history of diabetes mellitus Father Prostate cancer Family history of diabetes mellitus Myocardial infarction Denies family history of Ovarian cancer Breast cancer Colorectal cancer Social History Smoking Status: Former smoker Tobacco Type: Cigarettes and Smokeless Tobacco (Dip or Chew) Age Quit Using Tobacco: 54; packs per day: 1.0; Cigarettes Per Day: 20; Second Hand Exposure: No; Do You Dip or Chew Tobacco: Yes; Hx Alcohol Use: No Hx Substance Use: No Preferred Language: Spanish Communication Ability: Effective Visual Impairment: Limited Hearing Ability: Normal Metal Cans Supervisor Required: No Beliefs That Will Affect Care: None marital status: Current Living Situation: Spouse Current Living Situation Comment: with current occupational status: retired How many Children do You have: 4 Other Information That Helps Us Care for You: No Feels Safe at Home: Yes Safety Concerns: Feels Safe At This Time Childhood Exposure to Second-Hand Smoke: No Diet: diabetic and regular caffeine: No during the past year weight has: remained stable Dental Care, Regularly: No Physical Activity Frequency: 3-4 Times per Week Seatbelt Use: always Sunscreen Use: No Assistive Devices: Denture - Upper, Denture - Lower, Glasses, Hospital Bed and Oxygen - Continuous Physical Exam Physical Exam: Elderly white male in no distress. Afebrile. BP normotensive. Pulse 120 bpm and irregular. Respirations 22 but relatively unlabored. Skin: no ecchymoses or generalized lesions. HEENT: unremarkable. Neck: JVP difficult to quantify but clearly elevated, no carotid bruits. Lungs: Moderately decreased breath sounds with scattered expiratory wheezing. No accessory muscle use or abdominal paradox. Few scattered crackles. Cardiac: Irregular/tachycardic rhythm, normal S1-2, no obvious murmur. Abdomen: benign. Extremities: 1+ pretibial edema, pulses intact. Neurologic: normal affect and conversation, nonfocal. Results & Data Laboratory Results Hemoglobin 10.4 with normal white count and platelet count. Potassium 3.3, magnesium initially 0.7 now up to 1.7, BUN 19, creatinine 1.39. Troponin 20.0. Diagnostic Findings Admission ECG showed atrial flutter with variable AV block at 140 bpm. Compared with 04/08/2024 ECG, atrial flutter had replaced sinus rhythm and rate had increased by 66 bpm. Chest x-ray and chest CT showed congestive heart failure without evidence of pulmonary embolism. Echocardiogram April 2024 showed EF 50 to 55%, technically limited but no obvious valvular abnormalities. No change from 2020. PG Care Time/CCT Total # of Minutes Spent Total Time Spent with Patient: Total time spent is greater than 50% in coordination of care (as documented) at patient's floor/unit and/or counseling patient: Coding Level of Care Code 96691 IN/OBS CONSULT LVL 5,80M Diagnoses (HFpEF) heart failure with preserved ejection fraction I50.30 Atrial flutter with rapid ventricular response I48.92 COPD (chronic obstructive pulmonary disease) J44.9
[2024-10-23 15:58] LABS: Calcium 7.5 mg/dl (8.6-10.3); Creatinine Clr Calc Pharmacy 43.8 ml/min; Magnesium 1.6 mg/dl (1.7-2.4); Potassium 3.5 mmol/L (3.5-5.1)
--- NOTE | 2024-10-23 16:55 | Hospitalist Progress Note ---
Date of Service October 23, 2024 Assessment & Plan (1) Acute CHF: Plan: Worsening IRVING and LE edema since Thanksgi11/12 CXR with vascular congestion and trace left pleural effusion Suspect acute CHF due to dietary indiscretion Last echocardiogram on 05/09/2024 revealed LVEF at 50-55% Strict I&O monitoring Daily weights Elevate HOB Patient reports he does have a Lasix allergy; generalized exanthematous pustulosis Unclear if true sulfa allergy, as patient tolerates HCTZ Patient previously on HCTZ, but held in the setting of hypomagnesemia Continue Bumex 1 mg IV BID17 Received potassium supplement 40 mill equivalents p.o. Will also continue K supplementation 20mEq daily Magnesium 0.7 on admission. He received 5 g of magnesium sulfate. Repeat labs in the afternoon show magnesium of 1.6. Will give another 2 g of magnesium sulfate overnight 1200 mL fluid restriction Compression stockings Out of bed to recliner as tolerated (2) Atrial flutter with rapid ventricular response: Plan: Amiodarone IV bolus + drip started in the ED; continue for now Discontinue carvedilol and replace with metoprolol tartrate 25 mg p.o. every 6 hours with hold parameters Cardiology consult appreciated Anticoagulated on Eliquis. Can continue this as he has been on it for a while. Continue K/mag repletion N.p.o. after midnight for possible cardioversion tomorrow. Okay to continue anticoagulation as this is long-term. (3) Hypomagnesemia: Plan: Severe at 0.7 on arrival H/o hypomagnesemia and normally on mag supplements p.o. Magnesium sulfate 1 mg IV x 5. Also started on oral Slow-Mag 64 mg p.o. twice daily Repeat labs in the afternoon show magnesium at 1.6. Will order an additional 2 g of magnesium sulfate overnight Check repeat labs in the morning Hold omeprazole, HCTZ (4) Diabetes mellitus: Plan: Last A1c at 7.4% on 08/02/2024 Hold metformin Patient is normally on Lantus 50u QAM Lantus 25 u BID while inpatient SSI; with target BSG range 110-140mg/dL, CF 20, carb ratio 8 T2DM diet BSG ACHS Adjust regimen as needed (5) COPD (chronic obstructive pulmonary disease): Plan: Continue home inhalers Incentive spirometry, flutter valve Guaifenesin 600 mg p.o. BID for cough DuoNeb 3 mL Q6R PRN for wheezing Titrate submental oxygen as needed to maintain SpO2 89 to 92% Continue with diuresis for CHF as above (6) CAD in [place] artery: Plan: S/p MAGDALENA x 1 No chest pain on admission Continue aspirin, statin, Imdur Hold amlodipine for LE edema Will temporarily hold lisinopril while starting Bumex Despite his history of coronary disease, no symptoms, enzyme elevations, or ECG findings to suggest ongoing myocardial ischemia. Cardiology following. Appreciate Dr. Holliday's input (7) Moderate obstructive sleep apnea: Plan: Reports the patient has not tolerated CPAP in the past CPAP PRN Plan Disposition: Admit to PCU telemetry Full code Heart healthy, low-sodium, T2DM diet (1200 mL fluid restriction) VTE PPx: Chronic anticoagulation with Eliquis twice daily Admission and Anticipated Discharge Date Admission Date: October 22, 2024 Supervising Physician Co-Signing Physician Notes chart reviewed and case d/w E Eboni PAC, as above Subjective Attending: Dr. Medina Patient admitted yesterday. He continues in A-fib/a flutter with RVR. Patient does appear to be fluid overloaded. He has no chest pain or tightness. He does report tachycardia with any movement and shortness of breath and weakness with any exertion. He has no exertional chest pain. No fever or chills. No hematuria. Continues to have lower extremity edema. He has no further acute complaints. Review of Systems 2 Review of Systems: A total of 10 systems was reviewed and is negative other than as listed in the HPI Physical Exam 2 Physical Exam: GENERAL : No acute distress EYES: No icterus, gaze conjugate NOSE: No evidence of epistaxis MOUTH: No lesions or candidiasis NECK: Supple LUNGS: CTA B/L, no wheezes, rales or rhonchi HEART: Irregular, irregular with a heart rate in the 1 teens ABDOMEN: Soft, NT, ND, BS Present EXTREMITIES: +2 bilateral LE edema, pedal pulses intact NEURO: A&OX3 Results & Data Results & Data Vital Signs (Past 12 Hours) Vital Signs Temp Pulse Pulse Resp BP Pulse Ox O2 Del Method 10/23/24 15:01 103 H 10/23/24 14:38 36.9 C 106 H 18 124/84 94 Nasal Cannula 10/23/24 10:58 36.2 C L 117 H 22 117/67 91 Nasal Cannula 10/23/24 07:25 Nasal Cannula 10/23/24 07:25 104 H 10/23/24 07:09 36.4 C L 103 H 22 123/81 93 Nasal Cannula 10/23/24 05:50 72 20 96 Nasal Cannula O2 Flow Rate 10/23/24 15:01 10/23/24 14:38 2 10/23/24 10:58 2 10/23/24 07:25 2 10/23/24 07:25 10/23/24 07:09 2 10/23/24 05:50 2 Laboratory Results 10/23/24 06:07 10/23/24 15:11 Laboratory Tests 08/02/24 10/22/24 10/23/24 11:23 13:32 06:07 Magnesium 1.2 L 0.7 L* 1.7 10/23/24 15:11 Magnesium 1.6 L Diagnostic Findings Chest X-Ray 10/22/24 13:33 EXAM: Radiograph of the Chest 1 View INDICATION: Chest pain. TECHNIQUE: Frontal view of the chest. COMPARISON: 04/29/2024 FINDINGS: Lungs and pleural spaces: New considerable patchy infiltrates in the lung bases present with vascular congestion. Probable trace pleural effusions. No pneumothorax. Heart: Stable large cardiac shadow. Mediastinum: Normal contour. Bones/joints: Degenerative changes noted throughout the spine. No acute osseous abnormality seen. Soft tissues: No abnormality noted. No radiopaque foreign body noted. Upper abdomen: No abnormality noted. IMPRESSION: Basilar infiltrates, vascular congestion and trace left pleural effusion. Consider CHF with or without components of basilar pneumonia. ACT 112: Negative or not required by law. Electronically signed by Jasmyne Villalba 10-22-2024 2:12 PM Chest CTA 10/22/24 13:47 EXAM: CT Angiography Chest With Intravenous Contrast INDICATION: Atrial fibrillation and shortness of breath. TECHNIQUE: Axial computed tomographic angiography images of the chest with intravenous contrast. Sagittal and coronal reformatted images were created and reviewed. This CT exam was performed using one or more of the following dose reduction techniques: automated exposure control, adjustment of the mA and/or kV according to patient size, and/or use of iterative reconstruction technique. MIP reconstructed images were created and reviewed. CONTRAST: 119ml of Optiray 320 was administered intravenously. COMPARISON: 03/05/2022 FINDINGS: Pulmonary arteries: No abnormality noted. No pulmonary embolism. Aorta: No acute change noted. No thoracic aortic aneurysm or dissection. Lungs and pleural spaces: Small layering bilateral pleural effusions present. No pneumothorax. Significant increased and septal markings. There is compressive atelectasis in the lower lobes. There is a new 8 x 5 mm noncalcified nodule in the right upper lobe series 3 image 69. There is a small calcified granuloma in the left apex. No bronchiectasis. Heart: Cardiomegaly. No evidence of right heart strain. No significant pleural effusion. Dense coronary calcification noted. Bones/joints: No acute or atypical chronic changes. Soft tissues: No abnormality noted. Lymph nodes: Stable mildly reactive paratracheal and precarinal noncalcified nodes. Stable granulomatous/calcified nodes in each hilum. No pathologically enlarged nodes identified. Kidneys and ureters: Visualized portion of the left renal cyst is unchanged. IMPRESSION: 1. CHF. 2. No pulmonary embolus noted. 3. Subcentimeter opacity in the right upper lobe could be inflammatory. CT chest recommended within 6 months to confirm resolution. ACT 112: Negative or not required by law. Electronically signed by Jasmyne Villalba 10-22-2024 3:04 PM PG Care Time/CCT Total # of Minutes Spent Total Time Spent with Patient: Total time spent is greater than 50% in coordination of care (as documented) at patient's floor/unit and/or counseling patient:30 minutes including d/w specialists Coding Level of Care Code 41537 SUB INP/OBS CARE 2/35MIN Medical Decision Making Moderate Complexity Diagnoses Acute CHF I50.9 Atrial flutter with rapid ventricular response I48.92 Hypomagnesemia E83.42 Type 2 diabetes mellitus without complication, with long-term current use of insulin E11.9; Z79.4 Diabetes mellitus complication status: without complication Diabetes mellitus salvage determiner insulin use: with prison use Diabetes mellitus type: type 2 COPD (chronic obstructive pulmonary disease) J44.9 CAD in [place] artery I25.10 Moderate obstructive sleep apnea G47.33 Time Spent (min) 35 (4) Diabetes mellitus Diabetes mellitus complication status: without complication Diabetes mellitus prison insulin use: with salvage determiner use Diabetes mellitus type: type 2 Qualified Code(s): E11.9 - Type 2 diabetes mellitus without complications; Z79.4 - FPC (current) use of insulin
[2024-10-23] MEDS: MAGNESIUM SULFATE / D5W 1 GM/100 ML BAG IV SCH (17:01)
[2024-10-23] MEDS: METOPROLOL TARTRATE 25 MG TAB PO SCH (17:32)
[2024-10-24 07:12] LABS: Basophils # (auto) 0.03 K/uL (0.00-0.20); Basophils % (auto) 0.4 %; Eosinophils # (auto) 0.16 K/uL (0.00-0.50); Eosinophils % (auto) 2.3 %; Hematocrit (blood only) 34.1 % (42.0-52.0); Hemoglobin 11.5 g/dl (14.0-18.0); Immature Granulocytes # (auto) 0.04 K/uL (0.01-0.20); Immature Granulocytes % (auto) 0.6 %; Lymphocytes % (auto) 7.1 %; Mean Corpuscular Hemoglobin 31.1 pg (25.0-34.0); Mean Corpuscular Hgb Conc 33.7 g/dL (32.0-36.0); Mean Corpuscular Volume 92.2 fL (80.0-100.0); Mean Platelet Volume 10.6 fL (9.4-12.4); Monocytes # (auto) 0.41 K/uL (0.11-0.59); Monocytes % (auto) 5.8 %; Neutrophils # (auto) 5.95 K/uL (1.40-6.50); Neutrophils % (auto) 83.8 %; Platelet Count 281 K/uL (130-400); RDW Coefficient of Variation 14.9 % (11.5-14.5); RDW Standard Deviation 50.8 fL (36.4-46.3); White Blood Count 7.09 K/ul (4.8-10.8)
--- NOTE | 2024-10-24 07:26 | Hospitalist Progress Note ---
Date of Service October 24, 2024 Assessment & Plan (1) Acute CHF: Plan: I/Os significant for net negative fluid balance - continue diuresis, will reduce Bumex to once daily dosing to minimize electrolyte wasting Last echo 05/09/2024 shows LVEF 50-55% CXR on admission with vascular congestion, pleural effusion Cannot lay flat, elevate HOB Fluid restriction at 1200 mL/day Compression stockings Strict I & O monitoring (2) Atrial flutter with rapid ventricular response: Plan: S/p successful cardioversion with return to sinus rhythm Transition Amio drip to PO Amiodarone 200mg TID Continue Metoprolol, titrate as needed based on HR/BP Continue chronic anticoagulation with Eliquis. AM K+ 3.3 - s/p repletion Recheck AM BMP (3) Hypomagnesemia: Plan: AM Mg 1.8 - s/p repletion Hold omeprazole, HCTZ Continue oral Slow-Mag 64 mg p.o. twice daily Recheck Mag in AM (4) Diabetes mellitus: Plan: Hold metformin BG <120 in hospital. Controlled with Lantus T2DM diet when patient can resume eating following cardioversion procedure. Last A1c at 7.4% on 08/02/2024 SSI; with target BSG range 110-140mg/dL, CF 20, carb ratio 8 T2DM diet BSG ACHS Adjust regimen as needed (5) COPD (chronic obstructive pulmonary disease): Plan: Continue home inhalers Incentive spirometry, flutter valve Guaifenesin 600 mg p.o. BID for cough DuoNeb 3 mL Q6R PRN for wheezing Titrate submental oxygen as needed to maintain SpO2 89 to 92% Continue with diuresis for CHF as above (6) CAD in [place] artery: Plan: S/p MAGDALENA x 1 No chest pain or palpitations Continue aspirin, statin, Imdur Hold amlodipine for LE edema (7) Moderate obstructive sleep apnea: Plan: Reports that he stopped CPAP and supplemental home oxygen 5 years ago because cardiology stated he does not need it Patient should repeat sleep study outpatient and consider restarting CPAP at home CPAP PRN Plan Disposition: PCU telemetry Full code FEN/GI: heart healthy, low-sodium, T2DM diet (1200 mL fluid restriction) VTE PPx: Eliquis twice Admission and Anticipated Discharge Date Admission Date: October 22, 2024 Supervising Physician Co-Signing Physician Notes Attending Physician Supervision Note: I saw the patient with Saumya Vance and independently interviewed and examined the patient and verified the reyes history and physical, reviewed labs and image studies and agree with findings and care plan noted above. No trouble breathing. Comfortable in bed. no resp distress, CTA, irregular HR. Acute HFpEF - sec to RVR from a flutter. cardioversion today. continue diuresis with bumex. Neg 3L. A flutter with RVR - Cardioversion today 10/24/2024. Amiodarone, Apixaban, Metoprolol. Rest as above. Subjective Jonathan is an 79M with a hx Afib, COPD, stomach CA/colon CA and T2DM who presented to ED on 10/22/2024 with concern for shortness of breath. Jonathan states he ate a hamburger and then began feeling like he was choking. He did cough up the burger and felt his symptoms somewhat resolved. He does have a hx acid reflux and takes omeprazole 20 mg daily. Jonathan reports SOB for the past 6 months. Noticed he was out of breath going up stairs. Worse when laying flat and with activity. Uses inhaler one time in morning daily. Sleeps in lounge chair past few years. Wakes 1 time per night to urinate. Fills entire urinal. Used CPAP at night and was previously on home oxygen, this was stopped by cardiology 5-8 years ago. States he has had multiple MIs and stent placement, but has never experienced chest pain. Hx pneumonia when he was 6 years old-bed ridden for 8 months. Former smoker-1PPD for 40 years. Quit 25 years ago. Once in a while uses chew. ED Course: Jonathan was treated with a DuoNeb due to SOB symptoms and Amiodarone due to HR in the 140s and suspected A fib. CXR showed basilar infiltrates and vascular congestion-consider possible pneumonia. CTA shows cardiomegaly suggestive of CHF, as well as an 8x5mm non-calcified nodule in RUL. No evidence of PE. EKG shows. Jonathan has been NPO since midnight. Fluid restricted to 1200 cc Currently requires 2L NC-still sating 93%. Remains tachycardic at 110bpm with normal BP. Patient reports no pain at the moment Reports is his caregiver-she works as an aid in a [employer] Review of Systems Constitutional: Endorses fatigue. Endorses significant weight gain over past 3 years. Denies fever, chills. Eyes: Endorses poor vision at baseline, blurry, diplopia. No acute worsening. Ear, Nose, Mouth, Throat: Denies congestion, rhinorrhea Reports chronic cough, sometimes causing headache or near syncope Denies dysphagia, throat pain Respiratory: Endorses SOB with activity Cardiovascular: Additional Comments: Denies CP, palpitation Endorses lower extremity edema. Gastrointestinal: Endorses increased urinary frequency, volume Musculoskeletal: Endorses pain in lower extremities bilaterally prior to initiation of compression stockings. Has improved. Denies other muscle, joint pain Integumentary: Denies skin changes, rashes or lesions. Neurologic: Denies dizziness, numbness, weakness. Denies changes in cognition Psychiatric: Denies anxiety, depression Physical Exam Constitutional: Tachycardic, regular rhythm Peripheral pulses +2 in all extremities Lower extremity edema ENMT: White growth on roof of mouth Neck: +JVD which increases with external press ure on abdomen No lymphadenopathy, thyromegaly Respiratory: Left middle/lower lobe expiratory "sqeak"-expiratory wheezing vs rhonchi R lung clear to auscultation + Conversational dyspnea On supplemental o2 in room Cardiovascular: RRR, no murmurs rubs or gallops +2 peripheral pulses in upper and lower extremities +2 lower extremity edema Gastrointestinal (Abdomen): Abdomen hard, distended Non tender to palpation Normal bowel sounds Skin: Warm, dry No rashes or lesions Neurologic: Patient alert and oriented x3 Speech fluent, appropriate historian No focal neurological deficits Gait not accessed Psychiatric: Patient overall pleasant. Frustrated because he has not been able to eat since midnight. Results & Data Results & Data Vital Signs (Past 12 Hours) Vital Signs Temp Pulse Pulse Resp BP Pulse Ox O2 Del Method 10/24/24 03:57 36.5 C 110 H 20 122/85 93 Nasal Cannula 10/24/24 00:14 96 H 10/23/24 23:33 36.8 C 117 H 20 120/82 92 Nasal Cannula 10/23/24 19:53 Nasal Cannula 10/23/24 19:51 36.6 C 100 H 19 115/71 94 Nasal Cannula O2 Flow Rate 10/24/24 03:57 10/24/24 00:14 10/23/24 23:33 2.0 10/23/24 19:53 2 10/23/24 19:51 2.0 Laboratory Results K+ 3.3 Ca2+ 7.9 eGFR 42 Createnine 1.53 Diagnostic Findings CXR showed basilar infiltrates and vascular congestion-consider possible pneumonia vs heart failure CTA shows cardiomegaly suggestive of CHF, as well as an 8x5mm non-calcified nodule in RUL. No evidence of PE. EKG shows atrial flutter with rapid ventricular response. Not resolving. Resident Activity Tracking Resident Involvement: Resident Care Provided Care Provided: Adult Hospital Medicine (4) Diabetes mellitus Diabetes mellitus complication status: without complication Diabetes mellitus crew attendant insulin use: with crew attendant use Diabetes mellitus type: type 2 Qualified Code(s): E11.9 - Type 2 diabetes mellitus without complications; Z79.4 - long-term (current) use of insulin
[2024-10-24 07:39] LABS: BUN Creatinine Ratio 12.4 (10-20); Calcium 7.9 mg/dl (8.6-10.3); Creatinine Clr Calc Pharmacy 49.9 ml/min; Magnesium 1.8 mg/dl (1.7-2.4); Potassium 3.3 mmol/L (3.5-5.1)
[2024-10-24] MEDS ORDERED: Nursing to Pharmacy Communication SCH (08:15)
[2024-10-24] MEDS: MAGNESIUM SULFATE / D5W 1 GM/100 ML BAG IV SCH (08:45)
[2024-10-24] MEDS: POTASSIUM CHLORIDE / WTR 10 MEQ/100 ML PLCT IV SCH (08:45)
--- NOTE | 2024-10-24 09:12 | Cardiology Progress Note ---
Date of Service October 24, 2024 Assessment & Plan (1) (HFpEF) heart failure with preserved ejection fraction: (2) Atrial flutter with rapid ventricular response: (3) COPD (chronic obstructive pulmonary disease): Plan Some improvement but persistent atrial tachydysrhythmia, recommend IV replacement of potassium, will cardiovert later today after this is accomplished. Volume status improving, could reduce bumetanide from 1 mg twice daily to 1 mg daily to decrease rate of diuresis and electrolyte loss. Would initiate oral amiodarone 200 mg 3 times daily, could stop IV amiodarone after first oral dose. Adjust metoprolol dose post cardioversion based on heart rate/blood pressure. Case discussed with Dr. Pretty. Admission and Anticipated Discharge Date Admission Date: October 22, 2024 Subjective Feels somewhat better, less dyspnea with minor exertion (such as getting out of bed). No chest pain, subjective palpitations, lightheadedness, presyncope, or syncope. Rhythm remains atrial flutter/fibrillation with ventricular rate 110-120 bpm during the day, 90-110 bpm during the night. Physical Exam Physical Exam: Elderly white male in no distress. Afebrile. BP normotensive. Pulse 100 bpm and irregular. Respirations 18. Skin: no ecchymoses or generalized lesions. HEENT: unremarkable. Neck: JVP difficult to quantify but appears only mildly elevated, no carotid b ruits. Lungs: Moderately decreased breath sounds, no obvious wheezing. No accessory muscle use or abdominal paradox. Few scattered crackles. Cardiac: Irregular/borderline tachycardic rhythm, normal S1-2, no obvious murmur. Abdomen: benign. Extremities: 1+ pretibial edema, pulses intact. Neurologic: normal affect and conversation, nonfocal. Results & Data Vital Signs (Past 12 Hours) Vital Signs Temp Pulse Pulse Resp BP Pulse Ox O2 Del Method 10/24/24 08:36 97.5 F L 96 H 18 123/94 93 Room Air 10/24/24 08:00 Nasal Cannula 10/24/24 03:57 97.7 F 110 H 20 122/85 93 Nasal Cannula 10/24/24 00:14 96 H 10/23/24 23:33 98.2 F 117 H 20 120/82 92 Nasal Cannula O2 Flow Rate 10/24/24 08:36 10/24/24 08:00 2 10/24/24 03:57 10/24/24 00:14 10/23/24 23:33 2.0 Laboratory Results Potassium 3.3, magnesium 1.8, BUN 19, creatinine 1.53. PG Care Time/CCT Total # of Minutes Spent Total Time Spent with Patient: Total time spent is greater than 50% in coordination of care (as documented) at patient's floor/unit and/or counseling patient: Coding Level of Care Code 00122 SUB INP/OBS CARE 3/50MIN Diagnoses (HFpEF) heart failure with preserved ejection fraction I50.30 Atrial flutter with rapid ventricular response I48.92 COPD (chronic obstructive pulmonary disease) J44.9
--- NOTE | 2024-10-24 13:12 | Anesthesiology Consultation ---
Date of Service October 24, 2024 Assessment & Plan Chart Review Chart Review: Acceptable Risk for Surgery and Patient NOT seen in Pre Admission Testing Consults Requested none ASA ASA4 Proposed Anesthesia Anesthesia Type: MAC Risk / Benefits Reviewed With: PT / POA / Parent / Guardian, Accepts Plan and Informed Consent Obtained History Surgery Operation Date: 10/24/24 12:00 Proposed Procedures p Cardioversion - Osbaldo Holliday MD Height/Weight Height: 5 ft 10 in Weight: 123.2 kg Allergies Allergy/AdvReac Type Severity Reaction Status Date / Time furosemide [From Lasix] Allergy Intermediate genralized Verified 08/02/24 10:02 exanthematous pustulosis hydrocodone AdvReac Intermediate vomiting Verified 08/02/24 10:02 Medications Home Medications Medication Instructions Recorded Confirmed Last Taken aspirin 81 mg tablet,delayed 81 mg PO QAM #30 tabs 08/23/19 10/22/24 12/24/20 release ipratropium 0.5 mg-albuterol 3 mg 3 ml inhalation UD PRN wheezing 05/27/23 10/22/24 Unknown (2.5 mg base)/3 mL nebulization #540 mL soln pen needle, diabetic 32 gauge x #200 ea 01/05/24 08/02/24 Unknown 5/32" (Pen Needle) carvedilol 25 mg tablet 25 mg PO BID #180 tabs 01/26/24 10/22/24 Unknown apixaban 5 mg tablet (Eliquis) 5 mg PO BID #180 tabs 02/24/24 10/22/24 Unknown amlodipine 2.5 mg tablet 2.5 mg PO DAILY #90 tabs 03/02/24 10/22/24 Unknown omeprazole 20 mg capsule,delayed 20 mg PO QAM #90 caps 03/21/24 10/22/24 Unknown release dutasteride 0.5 mg capsule 0.5 mg PO PM #90 caps 03/29/24 10/22/24 Unknown (Avodart) insulin glargine 100 unit/mL (3 50 unit (0.5 mL) SC DAILY #45 mL 03/29/24 10/22/24 Unknown mL) subcutaneous pen (Lantus Solostar U-100 Insulin) lancets 30 gauge #200 ea 04/07/24 08/02/24 Unknown lancets 33 gauge (OneTouch Delica #100 ea 04/07/24 08/02/24 Unknown Plus Lancet) lisinopril 40 mg tablet 40 mg PO QAM #90 tabs 04/14/24 10/22/24 Unknown rosuvastatin 40 mg tablet 40 mg PO HS #90 tabs 04/14/24 10/22/24 Unknown fenofibrate 54 mg tablet 54 mg PO DAILY #90 tabs 05/11/24 10/22/24 Unknown albuterol sulfate 90 mcg/actuation 2 puff inhalation Q6H PRN 05/12/24 10/22/24 Unknown aerosol inhaler shortness of breath or wheezing #3 Inhalers fluticasone fur. 100 mcg-umeclid 1 inh inhalation DAILY #3 Inhalers 05/18/24 10/22/24 Unknown 62.5 mcg-vilant 25 mcg inhalat.powder (Trelegy Ellipta) isosorbide mononitrate 60 mg 60 mg PO QAM #90 tabs 07/12/24 10/22/24 Unknown tablet,extended release 24 hr magnesium chloride 71.5 mg 143 mg (2 x 71.5 mg) PO BID #120 08/04/24 10/22/24 Unknown (magnesium chloride) tabs tablet,delayed release blood sugar diagnostic (OneTouch #200 ea 09/05/24 Unknown Verio test strips) hydrochlorothiazide 25 mg tablet 25 mg PO UD 10/22/24 10/22/24 Unknown metformin 500 mg tablet 500 mg PO UD 10/22/24 10/22/24 Unknown Active Medications Generic Name Dose Route Start Last Admin Trade Name Freq PRN Reason Stop Dose Admin Albuterol 3 ml 10/22/24 19:49 10/23/24 05:49 Albut/Ipratrop 3mg/0.5mg Neb 3 Ml Vial INH 11/21/24 19:48 3 ml Q6R PRN Administration Wheezing Apixaban 5 mg 10/22/24 21:00 10/24/24 08:29 Apixaban 5 Mg Tablet PO 11/21/24 20:59 5 mg BID RAY Administration Aspirin 81 mg 10/23/24 09:00 10/24/24 08:28 Aspirin 81 Mg Ectab PO 11/22/24 08:59 81 mg QAM RAY Administration Fenofibrate 48 mg 10/23/24 09:00 10/24/24 08:28 Fenofibrate Nanocrystallized 48 Mg Tablet PO 11/22/24 08:59 48 mg DAILY RAY Administration Finasteride 5 mg 10/22/24 21:00 10/23/24 20:14 Finasteride 5 Mg Tab PO 11/21/24 20:59 5 mg PM RAY Administration Fluticasone Furoate 1 puffs 10/23/24 09:00 10/24/24 08:27 Fluticasone Furoate 100mcg 14 Puffs/Inhaler INH 11/22/24 08:59 1 puffs DAILY RAY Administration Guaifenesin 600 mg 10/22/24 21:00 10/24/24 08:28 Guaifenesin 600 Mg Tabcr PO 11/21/24 20:59 600 mg BID RAY Administration Amiodarone HCl/Dextrose 360 mg in 200 mls @ 16.667 mls/hr 10/22/24 20:45 10/24/24 08:34 Nexterone / D5w IV 10/24/24 17:00 0.5 mg/min .Q12H RAY 16.7 mls/hr Administration 0.5 MG/MIN Insulin Aspart 0 units 10/22/24 21:00 10/24/24 11:39 Insulin Aspart Per Unit Charge SC 11/21/24 20:59 Not Given ACHS RAY Insulin Glargine 25 units 10/23/24 09:00 10/24/24 08:35 Lantus Per Unit Charge SQ 11/22/24 08:59 12 units BID RAY Administration Isosorbide Mononitrate 60 mg 10/23/24 09:00 10/24/24 08:28 Isosorbide [place] Extended Rel 60 Mg Tabcr PO 11/22/24 08:59 60 mg QAM RAY Administration Magnesium Chloride 64 mg 10/22/24 21:00 10/24/24 08:28 Magnesium Chloride W/Calcium 64mg Delayed Rel Tab PO 11/21/24 20:59 64 mg BID RAY Administration Metoprolol Tartrate 25 mg 10/23/24 17:00 10/24/24 10:36 Metoprolol Tartrate 25 Mg Tab PO 11/22/24 16:59 25 mg Q6H RAY Administration Potassium Chloride 20 meq 10/23/24 09:00 10/24/24 08:27 Potassium Chloride Crtab 20 Meq Tabcr PO 11/22/24 08:59 20 meq QAM RAY Administration Rosuvastatin Calcium 40 mg 10/22/24 21:00 10/23/24 20:14 Rosuvastatin Calcium 20 Mg Tab PO 11/21/24 20:59 40 mg HS RAY Administration Umeclidinium/Vilanterol 1 puffs 10/23/24 09:00 10/24/24 08:27 Umeclidinium/Vilanterol 62.5/25mcg 7 Puffs/Inhaler INH 11/22/24 08:59 1 puffs DAILY RAY Administration Past Medical History Medical History Hyperlipidemia HTN (hypertension) Poor historian History of recent hospitalization admitted from 11/25/2020 through 11/28/2020 [place] generalized weakness, polydipsia, polyuria and hyperglycemia BPH (benign prostatic hyperplasia) Cataracts, bilateral History of GI bleed Diabetes IDDM 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 Mother Osteoporosis Family history of diabetes mellitus Cardiac arrhythmia Depression Cancer Sister Depression Family history of diabetes mellitus Father Prostate cancer Family history of diabetes mellitus Myocardial infarction Denies family history of Ovarian cancer Breast cancer Colorectal cancer Past Surgical History Surgical History History of transurethral resection of prostate S/P colon resection (12/20/19) Laparoscopic-Assisted Sigmoid Colon Resection, Gastrostomy Dr. Trejo 12/20/19 History of anesthesia reaction PROFUSE SWEATING AFTER PROSTATE SURGERY, UNABLE TO KEEP IV'S IN DUE TO AMOUNT OF SWEAT History of cardiac cath X4 TOTAL ( 1ST CATH 2012 FOR [place], STENT X1, most recent cath 2018 [place]) follows with Dr. Hatch History of esophagogastroduodenoscopy (EGD) History of colonoscopy History of PTCA 2012 [facility] History of hand surgery L History of dental surgery History of heart artery stent x 1 (2013) Past Anesthesia History No Hx of Anesthesia Complications and No Family Hx of Anesthesia Complications History of PONV No Hx of PONV and No Hx of Motion Sickness Social History Smoking Status: Former smoker tobacco type: smokeless tobacco Smoking cigarettes per day: 20 Do You Dip or Chew Tobacco: Yes Hx Alcohol Use: No Hx Substance Use: No substance use type: does not use Physical Exam Vital Signs Last Vital Signs Temp 36.6 C 10/24/24 11:30 Pulse 96 H 10/24/24 13:07 Resp 18 10/24/24 13:07 BP 135/101 H 10/24/24 13:07 Pulse Ox 93 10/24/24 13:07 O2 Del Method Nasal Cannula 10/24/24 13:07 O2 Flow Rate 2 10/24/24 10:37 Constitutional + obese ENMT Mouth: no dentition abnormality Thyromental Distance: > or= 3.5 Finger Breadths Mallampati Class: II Neck normal visual inspection Respiratory normal respiratory effort Auscultation: + diminished lung sounds Cardiovascular Rate/Rhythm: regular rate; + abnormal rhythm (aflutter on monitor) Psychiatric Orientation: alert Testing Laboratory Results 10/24/24 06:23 10/24/24 06:23 10/24/24 10/24/24 11:37 06:16 POC Glucose 95 99
--- NOTE | 2024-10-24 13:34 | Cardioversion ---
Date of Service October 24, 2024 PG Electrical Cardioversion Rp Electrical Cardioversion Report Indication: Atrial flutter Written consent was obtained after the risks and benefits were explained, including but not limited to pain, thermal burn, allergic reaction, aspiration, airway obstruction, laryngospasm, infection, hypotension, and cardiorespiratory arrest. Sedation was supervised by Anesthesiology. The biphasic defibrillator was set to 70 joules of energy and synched. After confirmation of sedation and "all clear" safety check the synchronized shock was delivered. This resulted in successful conversion of the dysrhythmia back into sinus rhythm. See nursing notes for dosages and times. There were no complications and the patient recovered uneventfully from the procedure. Coding Level of Care Code 32448 CARDIOVERSION, ELECTIVE Additional Codes Electrical Cardioversion Report ([id number])
--- NOTE | 2024-10-24 13:45 | Anesthesiology Progress Note ---
Date of Service October 24, 2024 Anesthesia Post Procedure Vital Signs Vital Signs: Temp Pulse Pulse Resp BP Pulse Ox O2 Del Method 10/24/24 13:37 69 20 120/72 96 Nasal Cannula 10/24/24 13:20 69 20 112/84 96 Nasal Cannula 10/24/24 13:07 96 H 18 135/101 H 93 Nasal Cannula 10/24/24 13:03 135/101 H 92 Nasal Cannula 10/24/24 11:30 36.6 C 10/24/24 10:37 98 H 18 102/78 93 Nasal Cannula 10/24/24 08:36 36.4 C L 96 H 18 123/94 93 Room Air 10/24/24 08:00 Nasal Cannula 10/24/24 03:57 36.5 C 110 H 20 122/85 93 Nasal Cannula 10/24/24 00:14 96 H 10/23/24 23:33 36.8 C 117 H 20 120/82 92 Nasal Cannula 10/23/24 19:53 Nasal Cannula 10/23/24 19:51 36.6 C 100 H 19 115/71 94 Nasal Cannula 10/23/24 17:31 110 H 128/89 10/23/24 15:01 103 H 10/23/24 14:38 36.9 C 106 H 18 124/84 94 Nasal Cannula O2 Flow Rate 10/24/24 13:37 10/24/24 13:20 10/24/24 13:07 10/24/24 13:03 10/24/24 11:30 10/24/24 10:37 2 10/24/24 08:36 10/24/24 08:00 2 10/24/24 03:57 10/24/24 00:14 10/23/24 23:33 2.0 10/23/24 19:53 2 10/23/24 19:51 2.0 10/23/24 17:31 10/23/24 15:01 10/23/24 14:38 2 Transfer of Care Handoff Completed per policy Notes Mental Status: alert / awake / arousable Patient Amnestic to Procedure: Yes Nausea / Vomiting: adequately controlled Pain: adequately controlled Airway Patency, RR, SpO2: stable & adequate BP & HR: stable & adequate Hydration State: stable & adequate Anesthetic Complications: no major complications apparent
[2024-10-24] MEDS: LIDOCAINE 2% 2 ML VIAL/AMP(20MG/ML) INFIL ONE (14:10)
[2024-10-24] MEDS: PROPOFOL IV EMULSION 10 MG/ML 20 ML VIAL IV ONE (14:11)
--- NOTE | 2024-10-24 15:45 | Electrocardiogram Report ---
Test Reason : Blood Pressure : */* mmHG Vent. Rate : 70 BPM Atrial Rate : 70 BPM P-R Int : 246 ms QRS Dur : 108 ms QT Int : 442 ms P-R-T Axes : 0 42 54 degrees QTcB Int : 477 ms Sinus rhythm with 1st degree A-V block Diffuse Minor Nonspecific T wave abnormality Prolonged QT Abnormal ECG When compared with ECG of 22-Oct-2024 13:29, Sinus rhythm has replaced Atrial flutter Vent. rate has decreased by 70 bpm Confirmed by Osbaldo Holliday ([id number]) on 10/24/2024 3:45:35 PM Referred By: REFERRED SELF Confirmed By: Osbaldo Holliday
[2024-10-24] MEDS: AMIODARONE 200 MG TAB PO SCH (16:46)
[2024-10-24] MEDS: [UNRECOGNIZED DRUG - REMARK] ONE (16:47)
[2024-10-25 06:36] LABS: Basophils # (auto) 0.04 K/uL (0.00-0.20); Basophils % (auto) 0.5 %; Eosinophils # (auto) 0.16 K/uL (0.00-0.50); Eosinophils % (auto) 1.9 %; Hematocrit (blood only) 33.3 % (42.0-52.0); Hemoglobin 10.9 g/dl (14.0-18.0); Immature Granulocytes # (auto) 0.06 K/uL (0.01-0.20); Immature Granulocytes % (auto) 0.7 %; Lymphocytes # (auto) 0.54 K/uL (1.20-3.40); Lymphocytes % (auto) 6.4 %; Mean Corpuscular Hgb Conc 32.7 g/dL (32.0-36.0); Mean Corpuscular Volume 91.7 fL (80.0-100.0); Mean Platelet Volume 10.6 fL (9.4-12.4); Monocytes # (auto) 0.52 K/uL (0.11-0.59); Monocytes % (auto) 6.2 %; Neutrophils # (auto) 7.11 K/uL (1.40-6.50); Neutrophils % (auto) 84.3 %; Platelet Count 254 K/uL (130-400); RDW Standard Deviation 50.2 fL (36.4-46.3); Red Blood Count 3.63 M/uL (4.70-6.10); White Blood Count 8.43 K/ul (4.8-10.8)
[2024-10-25 06:51] LABS: BUN Creatinine Ratio 15.9 (10-20); Calcium 8.1 mg/dl (8.6-10.3); Creatinine Clr Calc Pharmacy 48.4 ml/min; Potassium 3.9 mmol/L (3.5-5.1)
--- NOTE | 2024-10-25 07:16 | Hospitalist Progress Note ---
Date of Service October 25, 2024 Assessment & Plan (1) Acute CHF: Plan: I/Os significant for net negative fluid balance (-810) - diuresis w/ Bumex 1 mg IV daily - Electrolytes OK Last echo 05/09/2024 shows LVEF 50-55% CXR on admission with vascular congestion, pleural effusion Patient prefers to sleep in chair Fluid restriction at 1200 mL/day Compression stockings Strict I & O monitoring Consider increase omeprazole to 40 mg once daily d/t recurrent reflux symptoms Video swallow study pending (2) Atrial flutter with rapid ventricular response: Plan: S/p successful cardioversion with return to sinus rhythm - this morning rate and rhythm controlled s/p repletion K+ PO Amiodarone 200mg TID Continue Metoprolol 25 mg Q6, titrate as needed based on HR/BP Continue chronic anticoagulation with Eliquis 5 mg daily Recheck AM BMP (3) Hypomagnesemia: Plan: Resolved AM Mg 2.0 - s/p repletion Hold omeprazole, HCTZ Continue oral Slow-Mag 64 mg p.o. twice daily Recheck Mag in AM (4) Diabetes mellitus: Plan: Hold metformin BG controlled with Lantus Last A1c at 7.4% on 08/02/2024 T2DM diet SSI; with target BSG range 110-140mg/dL, CF 20, carb ratio 8 BSG ACHS Adjust regimen as needed (5) COPD (chronic obstructive pulmonary disease): Plan: Continue home inhalers Incentive spirometry, flutter valve Guaifenesin 600 mg p.o. BID for cough DuoNeb 3 mL Q6R PRN for wheezing Current O2 requirement 6L Titrate submental oxygen as needed to maintain SpO2 89 to 92% Still wheezing despite increased O2 supplementation Given 1 dose IV Magnesium Sulfate for wheezing IV methylprednisolone (6) CAD in [place] artery: Plan: S/p MAGDALENA x 1 No chest pain or palpitations Continue aspirin, statin, Imdur Hold amlodipine for LE edema (7) Moderate obstructive sleep apnea: Plan: Desat overnight into 70s. Increased supplemental O2 Consider CPAP at night Patient should repeat sleep study outpatient and consider restarting CPAP at home Plan Disposition: PCU telemetry Full code FEN/GI: heart healthy, low-sodium, T2DM diet (1200 mL fluid restriction) VTE PPx: Eliquis twice Admission and Anticipated Discharge Date Admission Date: October 22, 2024 Supervising Physician Co-Signing Physician Notes Attending Physician Supervision Note: I saw the patient with Saumya Vance and independently interviewed and examined the patient and verified the reyes history and physical, reviewed labs and image studies and agree with findings and care plan noted above. Has been wheezing since morning. Some cough . No chest pain. Placed on nasal cannula oxygen. Sitting in recliner Minimal resp distress, bilateral expiratory wheeze rales both lung martinez, RRR Acute HFpEF - sec to RVR from a flutter. s/p cardioversion 10/24. -4 L now. Bumex dose cut down to daily. Follow renal function and urine output. A flutter with RVR - Cardioversion 10/24/2024. Amiodarone, Apixaban, Metoprolol. COPD -with concern of exacerbation - -trial dose of IV mag infusion -with improvement in symptoms. -Added Methylpred IV 40 mg daily (monitor blood sugars) -Continue fluticasone inhaled and umeclidinium/vilanterol inhaled (on Trelegy at home). Hypoxia-continue nasal cannula oxygen to keep SaO2 88-90 CAD/HTN -on amlodipine carvedilol lisinopril and HCTZ at home -these are held at this time. -Continue aspirin statin and Imdur. Rest as above. Ella Castillo is an 79M with a hx Afib, COPD, stomach CA/colon CA and T2DM who presented to ED on 10/22/2024 with concern for shortness of breath. Jonathan reports SOB for the past 6 months which is worse when laying flat and with activity. Cardiac Arrhythmia S/P cardioversion 10/24 HR 86 with normal rhythm Amiodarone 200mg TIDM COPD Overnight required increased supplemental O2 to 4L. Respiratory came by to see patient @8:30 this morning and increased further to 6L/min. Trained pt on incentive spirometer. GERD Difficulty with pill swallowing d/t reflux Feels that he is not able to eat as much as he would like d/t reflux symptoms Currently on omeprazole 20 mg once per day Review of Systems Constitutional: Endorses fatigue. Endorses significant weight gain over past 3 years. Denies fever, chills. Eyes: Endorses poor vision at baseline, blurry, diplopia. No acute worsening. Ear, Nose, Mouth, Throat: Denies congestion, rhinorrhea Denies headache Reports chronic cough-produced blood tinged sputum one time this morning Denies dysphagia, throat pain Respiratory: Endorses SOB with activity Cardiovascular: Additional Comments: Denies CP, palpitation-Feels better after the treatment Endorses lower extremity edema. Gastrointestinal: Endorses increased urinary frequency, volume Musculoskeletal: Denies lower extremity pain Denies other muscle, joint pain Integumentary: Denies skin changes, rashes or lesions. Neurologic: Denies dizziness, numbness, weakness. Denies changes in cognition Psychiatric: Denies anxiety, depression Physical Exam Constitutional: Well appearing, well nourished. In no acute distress. Eyes: PERRLA, EOMI Eyelids swollen Sclera clear, no conjunctival injection ENMT: Oropharynx without erythema or exudate Neck: Neck supple No thyromegaly or lymphadenopathy +JVD Respiratory: Lungs clear to auscultation bilaterally, no wheezing, rales or rhonchi + Conversational dyspnea Cardiovascular: RRR no murmurs, rubs or gallops Peripheral pulses +2 in upper and lower extremities + lower extremity edema Gastrointestinal (Abdomen): Normal bowel sounds Abd distended, hard Abd nontender No hepatosplenomegaly Skin: Some skin irritation on back Skin tear lower left leg (old) Neurologic: A & O x3. Speech fluent and goal directed. Normal motor strength and sensation bilaterally. DTR patella +2 bilaterally. Psychiatric: Appropriate mood and affect. Results & Data Results & Data Vital Signs (Past 12 Hours) Vital Signs Temp Pulse Pulse Resp BP Pulse Ox O2 Del Method 10/25/24 05:08 80 27 H 92 Nasal Cannula 10/25/24 04:21 36.4 C L 77 22 134/91 90 Nasal Cannula 10/24/24 23:23 78 10/24/24 23:14 36.8 C 78 18 136/85 93 Nasal Cannula 10/24/24 22:17 Nasal Cannula 10/24/24 20:27 37.2 C 88 21 124/85 92 Nasal Cannula 10/24/24 20:05 67 22 94 Nasal Cannula O2 Flow Rate 10/25/24 05:08 2 10/25/24 04:21 2 10/24/24 23:23 10/24/24 23:14 3 10/24/24 22:17 2 10/24/24 20:27 2 10/24/24 20:05 2 Laboratory Results Ca 8.1- no other electrolyte abnormalities Mg 2.0, K 3.9 BUN 25, Creat 1.57 Resident Activity Tracking Resident Involvement: Resident Care Provided Care Provided: Adult Hospital Medicine (4) Diabetes mellitus Diabetes mellitus complication status: without complication Diabetes mellitus tank terminal gauger insulin use: with tank terminal gauger use Diabetes mellitus type: type 2 Qualified Code(s): E11.9 - Type 2 diabetes mellitus without complications; Z79.4 - continuous 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
[2024-10-25] MEDS: ALBUTEROL HFA 8 GM INHALER INH PRN (08:15)
[2024-10-25] MEDS: BUMETANIDE 1 MG in SYRINGE 0 ML IV SCH (08:25)
--- NOTE | 2024-10-25 09:04 | XRay Report ---
EXAM: XR chest 1V portable CLINICAL HISTORY: LOW O2 TECHNIQUE: An X-ray image of the chest is obtained in AP projection. COMPARISON: Prior studies, latest dated 10/22/2024 FINDINGS: Pulmonary Parenchyma: Bilateral ill-defined patchy alveolar densities involving both lung martinez, more prominent at lower zones prominent bronchovascular markings and renita of both lungs obliterated costophrenic angles bilaterally, suggesting pleural effusion Heart and Mediastinum: Cardiomegaly No mediastinal widening or masses. No hilar or mediastinal lymphadenopathy. Bony Thorax: Thoracic spondylosis was seen in the form of sclerosed end plates and osteophytosis Soft Tissues: Soft tissues overlying the chest wall are unremarkable. IMPRESSION: 1. Bilateral alveolar patches, prominent bronchovascular marking, and renita, suggestive of pulmonary edema, advised clinical correlation 2. Obliterated costophrenic angles, secondary to pleural effusion 3. Cardiomegaly 4. Thoracic spondylosis 5. No interval change since the prior study. Electronically signed by Virgie Donald 10-25-2024 08:32 AM
--- NOTE | 2024-10-25 11:39 | Cardiology Progress Note ---
Date of Service October 25, 2024 Assessment & Plan (1) (HFpEF) heart failure with preserved ejection fraction: (2) Atrial flutter with rapid ventricular response: (3) COPD (chronic obstructive pulmonary disease): Plan Despite conversion to sinus rhythm and ongoing diuresis he still has episodes of dyspnea and still appears hypervolemic. He did receive a dose of bumetanide 1 mg IV this morning, would reassess later today, if he still appears hypervolemic and/or has symptoms could give a second bumetanide dose later today. Continue amiodarone 200 mg 3 times daily while inpatient, 200 mg twice daily upon discharge. Although in theory he might not need the metoprolol while amiodarone loading, since he is not bradycardic would continue this, but could simplify dosing by changing from metoprolol to tartrate 25 mg every 6 hours to metoprolol tartrate 50 mg twice daily. Hopefully, with further volume unloading and maintenance of sinus rhythm, he may be ready for discharge tomorrow. In the meantime, will continue to follow from a cardiology standpoint while he is hospitalized. Admission and Anticipated Discharge Date Admission Date: October 22, 2024 Subjective He has remained in sinus rhythm since his cardioversion yesterday afternoon. However, he still notes episodic dyspnea which can occur at rest. No chest pain, subjective palpitations, or lightheadedness. Input/output -1682 mL overnight. Telemetry shows sinus rhythm in the 70-80 bpm range, 1 3 beat run of ventricular tachycardia. No atrial tachydysrhythmias since his cardioversion. Physical Exam Physical Exam: No distress. BP 141/85 mmHg. Pulse 88 bpm and regular. Respirations 22. Skin: no ecchymoses or generalized lesions. HEENT: unremarkable. Neck: JVP difficult to quantify but appears moderately elevated, no carotid bruits. Lungs: Moderately decreased breath sounds, no obvious wheezing. No accessory muscle use or abdominal paradox. Few scattered crackles. Cardiac: Irregular/borderline tachycardic rhythm, normal S1-2, no obvious murmur. Abdomen: benign. Extremities: 1+ pretibial edema, pulses intact. Neurologic: normal affect and conversation, nonfocal. Results & Data Laboratory Results Chest x-ray shows persistent pulmonary edema. Potassium 3.9, BUN 25, creatinine 1.57. PG Care Time/CCT Total # of Minutes Spent Total Time Spent with Patient: Total time spent is greater than 50% in coordination of care (as documented) at patient's floor/unit and/or counseling patient: Coding Level of Care Code 25407 SUB INP/OBS CARE 235MIN Diagnoses (HFpEF) heart failure with preserved ejection fraction I50.30 Atrial flutter with rapid ventricular response I48.92 COPD (chronic obstructive pulmonary disease) J44.9
[2024-10-25] MEDS ORDERED: methylPREDNISolone 1000 MG/16 ML IV SCH (12:15)
[2024-10-25] MEDS ORDERED: methylPREDNISolone 40 MG in SYRINGE 0 ML IV SCH (12:15)
[2024-10-25] MEDS: MAGNESIUM SULFATE / D5W 1 GM/100 ML BAG IV ONE (13:04)
[2024-10-25] MEDS: methylPREDNISolone 40 MG in SYRINGE 0 ML IV SCH (13:05)
[2024-10-25] MEDS ORDERED: Nursing to Pharmacy Communication SCH (16:00)
[2024-10-25] MEDS: INSULIN ASPART PER UNIT CHARGE SC SCH (18:13)
--- NOTE | 2024-10-25 23:03 | Communication Note ---
Date of Service: October 25, 2024 Called to bedside by nursing for acute change in mental status. Patient is only alert to self. This is a change from previously. Last known well was around shift change at 7 PM. Patient is currently on Eliquis. Patient states that he has had some trouble with his vision though this is a chronic issue but states that it is currently worse. Denies any significant pain. NIH of 4. Unable to tell the month. Some right-sided arm drift. Partial hemianopsia. Mild to moderate sensation loss. Intervention: -Patient is not a candidate for tPA. No neurology consulted was needed at this time. -Magnesium, troponin, CBC, CMP, and PT/INR without any significant abnormalities or significant changes. -Head CT, head CTA, and neck CTA were negative. -Will put on for CPAP overnight, ABG was benign. -Symptoms improved without any intervention. Most likely delirium in nature or may be related to oxygenation status? -No further intervention needed at this time. Will sign out to a.m. team.
[2024-10-25] MEDS: OPTIRAY 320 125ml IV ONE (23:56)
[2024-10-26 00:16] LABS: Hematocrit (blood only) 33.4 % (42.0-52.0); Hemoglobin 11.2 g/dl (14.0-18.0); Mean Corpuscular Hemoglobin 30.4 pg (25.0-34.0); Mean Corpuscular Hgb Conc 33.5 g/dL (32.0-36.0); Mean Corpuscular Volume 90.5 fL (80.0-100.0); Mean Platelet Volume 10.4 fL (9.4-12.4); Platelet Count 281 K/uL (130-400); RDW Coefficient of Variation 14.7 % (11.5-14.5); RDW Standard Deviation 48.7 fL (36.4-46.3); Red Blood Count 3.69 M/uL (4.70-6.10); White Blood Count 7.93 K/ul (4.8-10.8)
[2024-10-26 00:33] LABS: Albumin Globulin Ratio 1.2 (0.9-2); Albumin Level 3.7 gm/dl (3.4-5.0); BUN Creatinine Ratio 20.5 (10-20); Bilirubin,Total 1.3 mg/dl (0.2-1.0); Calcium 8.2 mg/dl (8.6-10.3); Globulin 3.2 gm/dl (2.5-4.0); Potassium 4.1 mmol/L (3.5-5.1); Total Protein 6.9 gm/dl (6.0-8.3)
[2024-10-26 00:41] LABS: Troponin I High Sensitivity 18.1 pg/ml (0-20)
[2024-10-26 00:48] LABS: Basophils # (auto) 0.01 K/uL (0.00-0.20); Basophils % (auto) 0.1 %; Eosinophils # (auto) 0.01 K/uL (0.00-0.50); Eosinophils % (auto) 0.1 %; Immature Granulocytes # (auto) 0.04 K/uL (0.01-0.20); Immature Granulocytes % (auto) 0.5 %; Lymphocytes % (auto) 2.5 %; Monocytes # (auto) 0.12 K/uL (0.11-0.59); Monocytes % (auto) 1.5 %; Neutrophils # (auto) 7.55 K/uL (1.40-6.50); Neutrophils % (auto) 95.3 %; Polychromasia 1+
[2024-10-26 00:55] LABS: INR 1.2 (0.9-1.1); Partial Thromboplastin Ratio 1.2; Partial Thromboplastin Time 33 Seconds (21-31); Prothrombin Time 12.7 Seconds (9.0-12.0)
[2024-10-26 01:46] LABS: Base Excess ABG -1.6 mEq/L (-9-1.8); HCO3 ABG 23 mmol/L (19-24); PCO2 ABG 37 mmHg (35-46); PO2 ABG 95 mmHg (80-95)
[2024-10-26 01:48] LABS: Allen Test Pos (Pos)
--- NOTE | 2024-10-26 02:04 | CT Scan Report ---
Exam(s): CT HEAD Without Contrast EXAM: CT Head Without Intravenous Contrast CLINICAL HISTORY: Reason for exam: neuro deficit, acute stroke suspected. TECHNIQUE: Axial computed tomography images of the head/brain without intravenous contrast. Automated exposure control was utilized for the study. A dose lowering technique was utilized adhering to the principles of ALARA. COMPARISON: Prior head CT from July 31, 2020. FINDINGS: Brain: Unremarkable. No hemorrhage. Moderate nonspecific white matter changes. No edema. Ventricles: Unremarkable. No ventriculomegaly. Bones/joints: Unremarkable. No acute fracture. Soft tissues: Unremarkable. Sinuses: There is a small osteoma in the left ethmoid and frontal sinusitis. No acute sinusitis. Mastoid air cells: Unremarkable as visualized. No mastoid effusion. IMPRESSION: No evidence of acute intracranial pathology. Electronically signed by: Karen Boyd MD 10/26/24 02:03 AM
--- NOTE | 2024-10-26 02:07 | CT Scan Report ---
Exam(s): CTA HEAD With Contrast IV Amt: 118 ml optiray 320 EXAM: CT Angiography Head With Intravenous Contrast CLINICAL HISTORY: Reason for exam: neuro deficit, acute stroke suspected. TECHNIQUE: Axial computed tomographic angiography images of the head with intravenous contrast. CTDI is 115.36 mGy and DLP is 663.33 mGy-cm. Automated exposure control was utilized for the study. A dose lowering technique was utilized adhering to the principles of ALARA. MIP reconstructed images were created and reviewed. CONTRAST: Patient received 118 ml optiray 320 of IV contrast COMPARISON: No relevant prior studies available. FINDINGS: The dural venous sinuses are patent. Right internal carotid artery: No acute findings. Intracranial segment is patent with no significant stenosis. No aneurysm. Right anterior cerebral artery: Unremarkable. No occlusion or significant stenosis. No aneurysm. Right middle cerebral artery: Unremarkable. No occlusion or significant stenosis. No aneurysm. Right posterior cerebral artery: Unremarkable. No occlusion or significant stenosis. No aneurysm. Right vertebral artery: Unremarkable as visualized. Left internal carotid artery: No acute findings. Intracranial segment is patent with no significant stenosis. No aneurysm. Left anterior cerebral artery: Unremarkable. No occlusion or significant stenosis. No aneurysm. Left middle cerebral artery: Unremarkable. No occlusion or significant stenosis. No aneurysm. Left posterior cerebral artery: Unremarkable. No occlusion or significant stenosis. No aneurysm. Left vertebral artery: Unremarkable as visualized. Basilar artery: Unremarkable. No occlusion or significant stenosis. No aneurysm. IMPRESSION: Negative CT angiogram of the head. Electronically signed by: Karen Boyd MD 10/26/24 02:06 AM
--- NOTE | 2024-10-26 02:13 | CT Scan Report ---
Exam(s): CTA NECK With Contrast IV Amt: 118 ml optiray 320 EXAM: CT Angiography Neck With Intravenous Contrast CLINICAL HISTORY: Reason for exam: neuro deficit, acute stroke suspected. TECHNIQUE: Routine carotid CT angiography protocol was performed with intravenous contrast. NASCET criteria using the distal ICAs for comparison were used for evaluation of stenoses. CTDI is 14.6 mGy and DLP is 544.61 mGy-cm. Automated exposure control was utilized for the study. A dose lowering technique was utilized adhering to the principles of ALARA. MIP reconstructed images were created and reviewed. CONTRAST: Patient received 118 ml optiray 320 of IV contrast COMPARISON: None. FINDINGS: VASCULATURE: Right common carotid artery: Unremarkable. No occlusion or significant stenosis. No dissection. Right internal carotid artery: Unremarkable. Extracranial segment is patent with no occlusion or significant stenosis. No dissection. Right external carotid artery: Unremarkable. No occlusion. Right vertebral artery: Unremarkable. No occlusion or significant stenosis. No dissection. Left common carotid artery: Unremarkable. No occlusion or significant stenosis. No dissection. Left internal carotid artery: Unremarkable. Extracranial segment is patent with no occlusion or significant stenosis. No dissection. Left external carotid artery: Unremarkable. No occlusion. Left vertebral artery: Unremarkable. No occlusion or significant stenosis. No dissection. 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 Recommend MRI of the cervical spine to evaluate for myelopathy. No acute fracture. Soft tissues: Prominent mediastinal lymph nodes. Lung apices: Bronchitis with pneumonitis and bilateral pleural effusions. CAROTID STENOSIS REFERENCE USING NASCET CRITERIA: % ICA stenosis = (1 - narrowest ICA diameter/diameter of distal cervical ICA) x 100. Mild - <50% stenosis. Moderate - 50-69% stenosis. Severe - 70-94% stenosis. Near occlusion - 95-99% stenosis. Occluded - 100% stenosis. IMPRESSION: Negative CTA neck. Electronically signed by: Karen Boyd MD 10/26/24 02:12 AM
[2024-10-26 06:02] LABS: Appearance Urine Clear (Clear); Bacteria Urine Automated None Seen (None Seen); Bilirubin Urine Negative (Negative); Blood Urine Negative (Negative); Cast Urine Automated 0-2 /lpf (0-2); Color Urine Yellow; Epithelial Cell Urine Auto 0-2 /hpf (0-2); Glucose Urine UA Negative (Negative); Ketones Urine Negative (Negative); Leukocyte Esterase Urine Negative (Negative); Nitrite Urine Negative (Negative); Protein Urine 2+ (Negative); RBC Urine Automated 0-2 /hpf (0-2); Specific Gravity Urine 1.032 (1.000-1.030); Urobilinogen Urine Negative (Negative); WBC Urine Automated 0-5 /hpf (0-5)
[2024-10-26 07:01] LABS: Hematocrit (blood only) 33.6 % (42.0-52.0); Hemoglobin 10.9 g/dl (14.0-18.0); Mean Corpuscular Hemoglobin 29.7 pg (25.0-34.0); Mean Corpuscular Hgb Conc 32.4 g/dL (32.0-36.0); Mean Corpuscular Volume 91.6 fL (80.0-100.0); Mean Platelet Volume 10.9 fL (9.4-12.4); Platelet Count 279 K/uL (130-400); RDW Coefficient of Variation 14.7 % (11.5-14.5); RDW Standard Deviation 49.6 fL (36.4-46.3); Red Blood Count 3.67 M/uL (4.70-6.10); White Blood Count 7.89 K/ul (4.8-10.8)
[2024-10-26 07:29] LABS: Albumin Globulin Ratio 1.2 (0.9-2); Albumin Level 3.7 gm/dl (3.4-5.0); BUN Creatinine Ratio 23.5 (10-20); Bilirubin,Total 1.1 mg/dl (0.2-1.0); Calcium 8.4 mg/dl (8.6-10.3); Creatinine Clr Calc Pharmacy 55.9 ml/min; Globulin 3.1 gm/dl (2.5-4.0); Magnesium 2.2 mg/dl (1.7-2.4); Total Protein 6.8 gm/dl (6.0-8.3)
--- NOTE | 2024-10-26 07:43 | Hospitalist Progress Note ---
Date of Service October 26, 2024 Assessment & Plan (1) Acute CHF: Plan: - I/Os significant for net negative fluid balance (-810) - diuresis w/ Bumex 1 mg IV daily - Electrolytes OK - Last echo 05/09/2024 shows LVEF 50-55% - CXR on admission with vascular congestion, pleural effusion - Patient prefers to sleep in chair - Fluid restriction at 1200 mL/day - Compression stockings - Strict I & O monitoring (2) Esophageal dysfunction: Plan: - Video swallow study complete - no aspiration, penetrationx1 during study but overt difficulty noted - pt had coughing with blood tinged phlegm, reddening of face, wet vocal quality - GI consulted, ?need for EGD - Continue Protonix 40mg daily for reflux sx (3) Urinary retention: Plan: - Overnight urinary retention requiring straight cath, yielded 1600mL urine - Spontaneously voided during the day, 300mL output - Continue to monitor, bladder scan as needed, straight cath as needed (4) Acute alteration in mental status: Plan: Consider delirium vs TIA vs effects of hypoxia - Brief overnight change in mental status associated with R arm drift, partial hemianopsia - CT head w/o contrast negative, CTA head and neck negative - Return to baseline mental status this morning. Neuro exam benign. No residual deficits. - MRI head ordered-patient endorses anxiety related to imaging studies which require him to be in a small space. Ordered 0.5 mg Ativan prior to imaging study. Consider for future imaging studies as well. (5) COPD (chronic obstructive pulmonary disease): Plan: - Continue home inhalers - Continue IV Solumedrol 40mg daily - Incentive spirometry, flutter valve - Guaifenesin 600 mg p.o. BID for cough - DuoNeb 3 mL Q6R PRN for wheezing - Current O2 requirement 4L NC - Titrate submental oxygen as needed to maintain SpO2 89 to 92% - Will need 2 step when approaching discharge to evaluate need for home oxygen (6) Atrial flutter with rapid ventricular response: Plan: - S/p successful cardioversion with return to sinus rhythm - this morning rate and rhythm controlled - s/p repletion K+ - PO Amiodarone 200mg TID - Discontinued Metoprolol Tartrate 25 mg Q6 and started Metoprolol Succinate [address] Holliday - Continue chronic anticoagulation with Eliquis 5 mg daily - Recheck AM BMP (7) Hypomagnesemia: Plan: - Resolved - AM Mg 2.0 - s/p repletion - Hold HCTZ - Continue oral Slow-Mag 64 mg p.o. twice daily - Recheck Mag in AM (8) Diabetes mellitus: Plan: - Hold metformin - BG controlled with Lantus - Last A1c at 7.4% on 08/02/2024 - T2DM diet - SSI; with target BSG range 110-140mg/dL, CF 20, carb ratio 8 - BSG ACHS - Adjust regimen as needed (9) CAD in [place] artery: Plan: - S/p MAGDALENA x 1 - No chest pain or palpitations - Continue aspirin, statin, Imdur - Hold amlodipine for LE edema (10) Moderate obstructive sleep apnea: Plan: - Desat overnight into 70s. Increased supplemental O2 - Consider CPAP at night - Patient should repeat sleep study outpatient and consider restarting CPAP at home Plan Disposition: PCU telemetry Full code FEN/GI: heart healthy, low-sodium, T2DM diet (1200 mL fluid restriction) VTE PPx: Eliquis twice Admission and Anticipated Discharge Date Admission Date: October 22, 2024 Supervising Physician Co-Signing Physician Notes Attending Physician Supervision Note: I saw the patient with Saumya Vance and independently interviewed and examined the patient and verified the reyes history and physical, reviewed labs and image studies and agree with findings and care plan noted above. Episode of right arm drift last night - underwent CT and CTA head and neck - all negative. No weakness/speech difficulty this am. Wheezing better. No chest pain. In bed. at bedside. bilateral expiratory wheeze less pronounced today. RRR Acute HFpEF - sec to RVR from a flutter. s/p cardioversion 10/24. -5 L now. Continue daily Bumex IV. Follow renal function and urine output. A flutter with RVR - Cardioversion 10/24/2024. Amiodarone, Apixaban, Metoprolol - switch to succinate. COPD -with concern of exacerbation - -Continue Methylpred IV 40 mg daily (monitor blood sugars) -Continue fluticasone inhaled and umeclidinium/vilanterol inhaled (on Trelegy at home). Choking with food - VFS negative for aspiration. GI consulted - to continue working with speech for oropharyngeal dysphagia. Hypoxia-continue nasal cannula oxygen to keep SaO2 88-92 Episode of right arm drift - check MRI for completeness. Presentation likely from night time delirium. CAD/HTN -on amlodipine carvedilol lisinopril and HCTZ at home. -resumed lisinopril. HCTZ and amlodipine on hold. -Continue aspirin statin and Imdur. Rest as above. Subjective Jonathan is an 79M with a hx Afib, COPD, stomach CA/colon CA and T2DM who presented to ED on 10/22/2024 with concern for shortness of breath. Jonathan reports SOB for the past 6 months which is worse when laying flat and with activity. Overnight, retaining 900cc urine-->straight cath. Said he had urinary catheters for 1 year in the past. Urine culture sent and no bacteria grew. Acute mental status change overnight-patient was only alert to himself, noted to have R arm drift, partial hemianopsia. He was sent to CT head and neck which were negative. This morning, returned to baseline mental status. No residual neurological deficits. Aware of overnight events and able to recall them in detail. Cardiac Arrhythmia S/P cardioversion 10/24 HR 71 with normal rhythm and sporadic PVCs Amiodarone 200mg TIDM COPD On 4L O2 Used CPAP overnight and would like to keep using it in the future Feels like he is breathing well and not wheezing this morning GERD Video swallow eval today Difficulty with pill swallowing d/t reflux Feels that he is still experiencing reflux, belching Switched to pantoprazole 40mg once per day Review of Systems Constitutional: Endorses fatigue. Endorses significant weight gain over past 3 years. Denies fever, chills. Eyes: Endorses poor vision at baseline, blurry, diplopia. No acute worsening. Ear, Nose, Mouth, Throat: Denies congestion, rhinorrhea Denies headache Denies dysphagia, throat pain Endorses increased belching Respiratory: Endorses SOB, dyspnea at times + chronic cough Cardiovascular: Additional Comments: Denies CP, palpitation Endorses lower extremity edema Gastrointestinal: Unable to urinate No bowel movements in last 24 hrs Musculoskeletal: Denies lower extremity pain Denies other muscle, joint pain Integumentary: Denies skin changes, rashes or lesions. Neurologic: Denies dizziness, numbness, weakness. Reports improvement in cognition Psychiatric: Denies anxiety, depression Physical Exam Constitutional: WD/WN, vitals as above Eyes: PERRL, conjunctivae normal, anicteric sclerae EOMI ENMT: external ear and nose normal, oropharynx normal Neck: trachea midline, no thyromegaly No lymphadenopathy Respiratory: + labored breathing Auscultation: marlen gs clear to auscultation bilaterally (with intermittent wheezing) Cardiovascular: Rate/Rhythm: regular rate and regular rhythm Heart Sounds: normal S1 and normal S2 Extremities: + edema (+2) Gastrointestinal (Abdomen): normal bowel sounds, soft, nontender, no hepatosplenomegaly Skin: no rashes, warm and dry Neurologic: normal touch/pain/proprioception, CN's II-XI intact bilaterally, deep tendon reflexes 2+ bilaterally and moves all extremities No pronator drift Return to baseline cognition Can understand complex phrases Coordination intact Strength +5 in upper and lower extremities Aware of overnight confusion events and CT scan. Able to recall in detail what happened. Psychiatric: A+Ox3, euthymic affect Results & Data Results & Data Vital Signs (Past 12 Hours) Vital Signs Temp Pulse Pulse Resp BP Pulse Ox O2 Del Method 10/26/24 04:40 71 24 94 10/26/24 02:49 36.5 C 69 20 123/68 93 CPAP 10/26/24 01:51 61 22 97 10/26/24 01:48 Nasal Cannula, CPAP 10/26/24 00:26 61 10/25/24 23:20 36.3 C L 80 141/89 H 91 Nasal Cannula 10/25/24 23:05 36.5 C 87 22 148/88 H 94 Nasal Cannula 10/25/24 22:15 36.6 C 66 20 119/74 97 Nasal Cannula O2 Flow Rate 10/26/24 04:40 2 10/26/24 02:49 10/26/24 01:51 2 10/26/24 01:48 4 10/26/24 00:26 10/25/24 23:20 4 10/25/24 23:05 4 10/25/24 22:15 6 Resident Activity Tracking Resident Involvement: Resident Care Provided Care Provided: Adult Hospital Medicine (8) Diabetes mellitus Diabetes mellitus complication status: without complication 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
--- NOTE | 2024-10-26 08:16 | Electrocardiogram Report ---
Test Reason : Blood Pressure : */* mmHG Vent. Rate : 81 BPM Atrial Rate : 81 BPM P-R Int : 246 ms QRS Dur : 118 ms QT Int : 450 ms P-R-T Axes : 43 30 23 degrees QTcB Int : 522 ms Sinus rhythm with 1st degree A-V block with Premature atrial complexes Minor Non-specific intra-ventricular conduction delay Diffuse Nonspecific T wave abnormality Prolonged QT Abnormal ECG When compared with ECG of 24-Oct-2024 13:22, Premature atrial complexes are now Present Confirmed by Osbaldo Holliday ([id number]) on 10/26/2024 8:16:17 AM Referred By: REFERRED SELF Confirmed By: Osbaldo Holliday
[2024-10-26] MEDS: LANTUS PER UNIT CHARGE SQ ONE (08:34)
[2024-10-26] MEDS: lisinopril 40 MG TAB PO SCH (08:35)
[2024-10-26] MEDS: PANTOprazole 40 MG TAB PO SCH (08:35)
[2024-10-26] MEDS ORDERED: methylPREDNISolone 40 MG in SYRINGE 0 ML IV SCH (09:00)
--- NOTE | 2024-10-26 10:37 | Cardiology Progress Note ---
Date of Service October 26, 2024 Assessment & Plan (1) (HFpEF) heart failure with preserved ejection fraction: (2) Atrial flutter with rapid ventricular response: (3) COPD (chronic obstructive pulmonary disease): Plan Gradual clinical improvement, remains in sinus rhythm. Continue amiodarone 200 mg 3 times daily while inpatient, 200 mg twice daily upon discharge. Anticoagulated with apixaban. Gradually diuresing, appears only mildly hypervolemic. Continue IV Bumex daily. To allow more physiologic heart rate response and to simplify his beta-larry regimen, recommend changing metoprolol to tartrate 25 mg every 6 hours to metoprolol succinate 50 mg daily. Will continue to follow. Admission and Anticipated Discharge Date Admission Date: October 22, 2024 Subjective States that he is feeling a bit better than yesterday. He notes that ever since the cardioversion, when he coughs it no longer causes him to have a headache. Denies chest pain, dyspnea at rest, subjective palpitations, or lightheadedness. Input/output -1740 mL. Telemetry showed sinus rhythm at 60-80 bpm with sporadic PVCs, no further atrial tachydysrhythmias. Physical Exam Physical Exam: No distress. BP normotensive. Pulse 70 bpm and regular. Respirations 17 Skin: no ecchymoses or generalized lesions. HEENT: unremarkable. Neck: JVP one quarter the way to the angle of jaw at 90 degrees with increased respiratory variation. Lungs: Moderately decreased breath sounds with occasional expiratory wheeze. No accessory muscle use or abdominal paradox. Few scattered crackles. Cardiac: Regular rhythm, normal S1-2, no obvious murmur. Abdomen: benign. Extremities: 1+ pretibial edema, pulses intact. Neurologic: normal affect and conversation, nonfocal. Results & Data Laboratory Results Normal electrolytes with potassium 4.0, BUN 32, creatinine 1.36. PG Care Time/CCT Total # of Minutes Spent Total Time Spent with Patient: Total time spent is greater than 50% in coordination of care (as documented) at patient's floor/unit and/or counseling patient: Coding Level of Care Code 80398 SUB INP/OBS CARE 2/35MIN Diagnoses (HFpEF) heart failure with preserved ejection fraction I50.30 Atrial flutter with rapid ventricular response I48.92 COPD (chronic obstructive pulmonary disease) J44.9
--- NOTE | 2024-10-26 11:29 | Fluoroscopy Report ---
FL video swallow CLINICAL HISTORY: r/o aspiration TECHNIQUE: Video fluoroscopy of the pharyngeal region was performed as barium mixtures of varying con sistencies were administered to the patient by the speech pathologist. A formal esophagram was not pe rformed. Comparison: None available at the time of this dictation. FINDINGS: Total fluoroscopy time: 2.01 minutes. Radiation dose: 27.6 mGy. The patient swallowed the different barium consistencies without difficulty. Penetration was seen wit h thin liquids straw. Otherwise no aspiration or penetration is seen. Pooling of barium was noted in the bilateral piriform sinuses and valleculae. IMPRESSION: Penetration without evidence of aspiration. Please see the speech pathology report for further details. ACT 112: Negative or not required by law. Electronically signed by: Franklin Ta M.D. 10/26/2024 11:27 AM
[2024-10-26] MEDS ORDERED: Nursing to Pharmacy Communication SCH (14:00)
--- NOTE | 2024-10-26 14:25 | Gastrointestinal Consultation ---
Date of Consultation October 26, 2024 Assessment & Plan (1) Dysphagia: Plan Patient admitted with CHF, a flutter s/p cardioversion, and COPD. He has been coughing with pills and foods, but denies foods getting stuck with swallowing. Speech had seen and he had video fluoroscopy suggestive of oropharyngeal dysphagia. Discussed case with Dr. Velasquez. - would recommend that speech work with patient on his oropharyngeal dysphagia. - continue with protonix 40mg once daily. History of Present Illness Reason for Consultation: dysphagia Requesting Physician: Kev Angelo DO Attending Physician: Shilpa Pretty MD History of Present Illness Patient is an 79 year old male with a past medical history of diabetes, COPD, CAD s/p MAGDALENA x 1, GERD, HTN, paroxysmal atrial flutter/atrial fibrillation (on Eliquis), and peripheral edema who presented to the ED on 10/22 for worsening IRVING x 6 months. He was admitted with CHF, a flutter, and COPD. GI consulted for dysphagia. Speech evaluated the patient today and video fluoroscopy shown mild oralpharyngeal dysphagia. Patient tells me that outside of one episode of coughing up phlegm, he does not feel he has dysphagia to swallowing. he does not feel foods get stuck with swallowing. Spoke with nursing, who says he has been coughing with taking his medications and eating. patient denies any reflux. no other GI concerns currently. EGD 2018 unremarkable. Allergies Allergy/AdvReac Type Severity Reaction Status Date / Time furosemide [From Lasix] Allergy Intermediate genralized Verified 08/02/24 10:02 exanthematous pustulosis hydrocodone AdvReac Intermediate vomiting Verified 08/02/24 10:02 Home Medications Medication Instructions Recorded Confirmed Type aspirin 81 mg tablet,delayed 81 mg PO QAM #30 tabs 08/23/19 10/22/24 History release ipratropium 0.5 mg-albuterol 3 mg 3 ml inhalation UD PRN wheezing 05/27/23 10/22/24 Rx (2.5 mg base)/3 mL nebulization #540 mL soln pen needle, diabetic 32 gauge x #200 ea 01/05/24 08/02/24 Rx 5/32" (Pen Needle) carvedilol 25 mg tablet 25 mg PO BID #180 tabs 01/26/24 10/22/24 Rx apixaban 5 mg tablet (Eliquis) 5 mg PO BID #180 tabs 02/24/24 10/22/24 Rx amlodipine 2.5 mg tablet 2.5 mg PO DAILY #90 tabs 03/02/24 10/22/24 Rx omeprazole 20 mg capsule,delayed 20 mg PO QAM #90 caps 03/21/24 10/22/24 Rx release dutasteride 0.5 mg capsule 0.5 mg PO PM #90 caps 03/29/24 10/22/24 Rx (Avodart) insulin glargine 100 unit/mL (3 50 unit (0.5 mL) SC DAILY #45 mL 03/29/24 10/22/24 Rx mL) subcutaneous pen (Lantus Solostar U-100 Insulin) lancets 30 gauge #200 ea 04/07/24 08/02/24 Rx lancets 33 gauge ([facility] #100 ea 04/07/24 08/02/24 Rx Plus Lancet) lisinopril 40 mg tablet 40 mg PO QAM #90 tabs 04/14/24 10/22/24 Rx rosuvastatin 40 mg tablet 40 mg PO HS #90 tabs 04/14/24 10/22/24 Rx fenofibrate 54 mg tablet 54 mg PO DAILY #90 tabs 05/11/24 10/22/24 Rx albuterol sulfate 90 mcg/actuation 2 puff inhalation Q6H PRN 05/12/24 10/22/24 Rx aerosol inhaler shortness of breath or wheezing #3 Inhalers fluticasone fur. 100 mcg-umeclid 1 inh inhalation DAILY #3 Inhalers 05/18/24 10/22/24 Rx 62.5 mcg-vilant 25 mcg inhalat.powder (Trelegy Ellipta) isosorbide mononitrate 60 mg 60 mg PO QAM #90 tabs 07/12/24 10/22/24 Rx tablet,extended release 24 hr magnesium chloride 71.5 mg 143 mg (2 x 71.5 mg) PO BID #120 08/04/24 10/22/24 Rx (magnesium chloride) tabs tablet,delayed release blood sugar diagnostic (OneTouch #200 ea 09/05/24 Rx Verio test strips) hydrochlorothiazide 25 mg tablet 25 mg PO UD 10/22/24 10/22/24 History metformin 500 mg tablet 500 mg PO UD 10/22/24 10/22/24 History Patient History Medical History Hyperlipidemia HTN (hypertension) Poor historian History of recent hospitalization admitted from 11/25/2020 through 11/28/2020 [place] generalized weakness, polydipsia, polyuria and hyperglycemia BPH (benign prostatic hyperplasia) Cataracts, bilateral History of GI bleed Diabetes IDDM 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 Trejo 12/20/19 History of anesthesia reaction PROFUSE SWEATING AFTER PROSTATE SURGERY, UNABLE TO KEEP IV'S IN DUE TO AMOUNT OF SWEAT History of cardiac cath X4 TOTAL ( 1ST CATH 2012 FOR [place], STENT X1, most recent cath 2017 [place]) follows with Dr. Hatch History of esophagogastroduodenoscopy (EGD) History of colonoscopy History of PTCA 2012 [facility] History of hand surgery L History of dental surgery History of heart artery stent x 1 (2012) Family History Grandmother (Paternal) No problems noted. Mother Osteoporosis Family history of diabetes mellitus Cardiac arrhythmia Depression Cancer Sister Depression Family history of diabetes mellitus Father Prostate cancer Family history of diabetes mellitus Myocardial infarction Denies family history of Ovarian cancer Breast cancer Colorectal cancer Social History Smoking Status: Former smoker Tobacco Type: Cigarettes and Smokeless Tobacco (Dip or Chew) Age Quit Using Tobacco: 54; packs per day: 1.0; Cigarettes Per Day: 20; Second Hand Exposure: No; Do You Dip or Chew Tobacco: Yes; Hx Alcohol Use: No Hx Substance Use: No Preferred Language: Luxembourger Communication Ability: Effective Visual Impairment: Limited Hearing Ability: Normal V/Stol Landing Signal Officer Required: No Beliefs That Will Affect Care: None marital status: Current Living Situation: Spouse Current Living Situation Comment: with current occupational status: retired How many Children do You have: 4 Other Information That Helps Us Care for You: No Feels Safe at Home: Yes Safety Concerns: Feels Safe At This Time Childhood Exposure to Second-Hand Smoke: No Diet: diabetic and regular caffeine: No during the past year weight has: remained stable Dental Care, Regularly: No Physical Activity Frequency: 3-4 Times per Week Seatbelt Use: always Sunscreen Use: No Assistive Devices: Bedside Commode, Nebulizer and Walker Physical Exam Constitutional: WD/WN, vitals as above Respiratory: normal respiratory effort. Psychiatric: Orientation: alert and oriented x 3 Affect: euthymic affect Results & Data Vital Signs (Past 12 Hours) Vital Signs Temp Pulse Pulse Resp BP BP Pulse Ox 10/26/24 13:00 88 10/26/24 11:21 97.7 F 73 19 122/66 91 10/26/24 07:47 97.7 F 71 17 119/71 91 10/26/24 07:00 79 10/26/24 04:40 71 24 94 10/26/24 02:49 97.7 F 69 20 123/68 93 O2 Del Method O2 Flow Rate 10/26/24 13:00 10/26/24 11:21 Nasal Cannula 4 10/26/24 07:47 Nasal Cannula 4 10/26/24 07:00 10/26/24 04:40 2 10/26/24 02:49 CPAP Coding Level of Care Code 64535 INT INP/OBS CARE 2/55MIN Diagnoses Dysphagia R13.10
--- NOTE | 2024-10-26 15:03 | History & Physical Bridge Note ---
Date of Service October 26, 2024 History & Physical Bridge Note I have examined the patient, reviewed the History & Physical and in the interval since the performance of the History & Physical I have noted the following changes of clinical significance. Supervising Physician Co-Signing Physician Notes I examined the patient and reviewed patient's chart , laboratory data and imaging studies. I agree with with assessment and plan of care as suggested by advanced practice provider. The patient was admitted to this [facility]. GI was asked to see the patient for possible dysphagia. The patient denies dysphagia to solids. Nurses noted that he has occasional coughing and choking while swallowing pills. Speech evaluation and video barium swallow noted. I believe his issue is oropharyngeal dysphagia. Continue to manage as per speech therapy recommendations. Hold off on endoscopy.
[2024-10-26] MEDS: LORazepam 0.5 MG TAB PO PRN (15:22)
[2024-10-26] MEDS: INSULIN ASPART PER UNIT CHARGE SC SCH (18:00)
--- NOTE | 2024-10-26 18:15 | Magnetic Resonance Report ---
EXAM: MR brain wo con CLINICAL HISTORY: altered mental status overnight, RT arm drift, was back to normal this morning, propellers ran to help with motion, PT had difficulty holding still, was claustrophobic, was medicated before scan, sent to [facility] TECHNIQUE: MRI of the brain was performed without contrast with multiplanar sequences obtained. COMPARISON: Ct dated 07/31/2020. FINDINGS: Brain Parenchyma: Multiple bilateral frontoparietal foci of abnormal high T2 /7 FLAIR signal are noted. no perifocal brain edema or mass effect . OBX.5.1OBX.5.1.1 Deep periventricular sheets of high T2 /OBX.5.1.1OBX.5.1.2 FLAIR signal are also noted./OBX.5.1.2/OBX.5.1 No evidence of acute infarction or hemorrhage. Normal gregg-white matter differentiation. No mass lesions or focal cortical abnormalities identified. Ventricles and Sulci: Capacious both lateral ventricles. OBX.5.1OBX.5.1.1 Accentuated cortical sulci /OBX.5.1.1OBX.5.1.2 extra-axial CSF spaces. /OBX.5.1.2/OBX.5.1 Posterior Fossa: Cerebellum and brainstem appear normal without evidence of mass lesions or signal abnormalities. Cranial Nerves: Normal course and appearance of cranial nerves identified. Vessels: No evidence of vascular malformations or aneurysms. Intracranial arteries and veins appear normal without evidence of stenosis or occlusion. Orbits and Skull Base: Orbits and skull base structures are normal without evidence of abnormalities. Right maxillary mucosal polyps . IMPRESSION: 1. No acute intracranial abnormality is present. 2. Volume loss and chronic microvascular ischemic changes of the periventricular white matter are noted. 3. No changes on interval. Electronically signed by Virgie Donald 10-26-2024 6:15 PM
[2024-10-27 06:19] LABS: Hematocrit (blood only) 33.9 % (42.0-52.0); Hemoglobin 10.9 g/dl (14.0-18.0); Mean Corpuscular Hemoglobin 29.7 pg (25.0-34.0); Mean Corpuscular Hgb Conc 32.2 g/dL (32.0-36.0); Mean Corpuscular Volume 92.4 fL (80.0-100.0); Mean Platelet Volume 10.3 fL (9.4-12.4); Platelet Count 311 K/uL (130-400); RDW Coefficient of Variation 14.9 % (11.5-14.5); RDW Standard Deviation 50.8 fL (36.4-46.3); Red Blood Count 3.67 M/uL (4.70-6.10); White Blood Count 10.04 K/ul (4.8-10.8)
[2024-10-27 06:42] LABS: BUN Creatinine Ratio 25.6 (10-20); Calcium 8.8 mg/dl (8.6-10.3); Creatinine Clr Calc Pharmacy 47.2 ml/min; Potassium 4.3 mmol/L (3.5-5.1)
--- NOTE | 2024-10-27 07:23 | Hospitalist Progress Note ---
Date of Service October 27, 2024 Assessment & Plan (1) Acute CHF: Plan: - BUN/Creatinine ratio 25.6. Continue diuresis with Bumex 1mg daily per cardiology recommendation, monitor kidney function. - I/Os significant for cumulative net negative fluid balance (-6322mL) - diuresis w/ Bumex 1 mg IV daily - Electrolytes OK - Last echo 05/09/2024 shows LVEF 50-55% - CXR on admission with vascular congestion, pleural effusion - Patient prefers to sleep in chair - Fluid restriction at 1200 mL/day - Compression stockings - Strict I & O monitoring (2) Esophageal dysfunction: Plan: - Video swallow study complete - no aspiration, penetrationx1 during study but overt difficulty noted - pt had coughing with blood tinged phlegm, reddening of face, wet vocal quality - GI consulted-no additional recommendations, continue speech therapy to address oropharyngeal dysphagia - Continue Protonix 40mg daily for reflux sx (3) Urinary retention: Plan: - One episode of 1600mL urinary retention requiring straight cath, followed by spontaneous void - Continue to monitor, bladder scan as needed, straight cath as needed (4) Acute alteration in mental status: Plan: Consider delirium vs TIA vs effects of hypoxia - Resolved - 10/24/2024 Brief overnight change in mental status associated with R arm drift, partial hemianopsia - No subsequent events - CT head w/o contrast negative, CTA head and neck negative, MRI negative for acute stroke +chronic WM and ischemic changes - Returned to baseline mental status. Neuro exam benign. No residual deficits. (5) COPD (chronic obstructive pulmonary disease): Plan: - Continue home inhalers - Continue IV Solumedrol 40mg daily - Incentive spirometry, flutter valve - Guaifenesin 600 mg p.o. BID for cough - DuoNeb 3 mL Q6R PRN for wheezing - Current O2 requirement: none - Continue to monitor O2 sat (6) Atrial flutter with rapid ventricular response: Plan: - S/p successful cardioversion with return to sinus rhythm - this morning rate and rhythm controlled - s/p repletion K+ - PO Amiodarone 200mg TID, will change to BID dosing upon discharge - Continue Metoprolol Succinate 50 mg QAM - Continue chronic anticoagulation with Eliquis 5 mg daily - Recheck AM BMP (7) Hypomagnesemia: Plan: - Resolved - Mg 2.0 - s/p repletion - Hold HCTZ - Continue oral Slow-Mag 64 mg p.o. twice daily (8) Diabetes mellitus: Plan: - Hold metformin - BG controlled with Lantus - Last A1c at 7.4% on 08/02/2024 - T2DM diet - SSI; with target BSG range 110-140mg/dL, CF 20, carb ratio 8 - BSG ACHS - Adjust regimen as needed (9) CAD in [place] artery: Plan: - S/p MAGDALENA x 1 - No chest pain or palpitations - Continue aspirin, statin, Imdur - Hold amlodipine for LE edema (10) Moderate obstructive sleep apnea: Plan: - Continue CPAP at night - Discussed with case management, will likely need repeat sleep study outpatient and consider restarting CPAP at home Plan Refuses rehab-wants to return home - PT eval completed, recommending discharge home when medically stable. is at bedside. Pt reports he does not drive and would need to be available to bring him home, but she works tonight. Would like to be discharged tomorrow. Disposition: PCU telemetry Full code FEN/GI: heart healthy, low-sodium, T2DM diet (1200 mL fluid restriction) VTE PPx: Eliquis twice Admission and Anticipated Discharge Date Admission Date: October 22, 2024 Supervising Physician Co-Signing Physician Notes Attending Physician Supervision Note: I saw the patient with Saumya Vance and independently interviewed and examined the patient and verified the reyes history and physical, reviewed labs and image studies and agree with findings and care plan noted above. Feeling much better this am. Breathing better as well. In chair. at bedside. basal crackles. RRR Acute HFpEF - sec to RVR from a flutter. s/p cardioversion 10/24. -6 L now. Continue daily Bumex IV. Follow renal function and urine output. A flutter with RVR - Cardioversion 10/24/2024. Amiodarone, Apixaban, Metoprolol - switched to succinate. COPD -with exacerbation - -Continue Methylpred IV 40 mg daily (monitor blood sugars) -Continue fluticasone inhaled and umeclidinium/vilanterol inhaled (on Trelegy at home). Choking with food - VFS negative for aspiration. GI consulted - to continue working with speech for oropharyngeal dysphagia. Hypoxia-resolved. Step 2 done - no O2 needs. SHAWN - known diagnosis. sleep study done in 2020. utilizing hospital cpap here. will need sleep study and cpap arranged as outpatient. Episode of delirium - 10/24 - resolved. CAD/HTN -on amlodipine carvedilol lisinopril and HCTZ at home. -resumed lisinopril. HCTZ and amlodipine on hold. -Continue aspirin statin and Imdur. Anticipate d/c home in am. Ella Castillo is an 79M with a hx Afib, COPD, stomach CA/colon CA and T2DM who presented to ED on 10/22/2024 with concern for shortness of breath. Jonathan reports SOB for the past 6 months which is worse when laying flat and with activity. Reports spontaneous voiding for the past 24+ hrs. Did not require straight cath. Ambulated with walker and 1 person assist around room to commode. No repeat events of acute mental status change. No cognitive concerns from patient, or nursing staff. Cardiac Arrhythmia S/P cardioversion 10/24 HR 63 with normal rhythm and sporadic PVCs Amiodarone 200mg TIDM COPD On 2L O2 this morning. Around lunch time walked around floor with PT and passed 2 step. No longer requires supplemental oxygen. Feeling well and breathing without difficulty since O2 has been removed. Used CPAP overnight and would like to keep using it in the future. Feels like he is breathing well and not wheezing this morning Review of Systems Constitutional: Denies fever, chills, fatigue. Eyes: Denies changes in vision, eye pain Respiratory: Reports coughing up mucus with some blood streaks frequently Endorses chronic cough Denies dyspnea, SOB at this time Cardiovascular: Additional Comments: Denies CP, palpitation Gastrointestinal: Denies n/v/d Denies abd pain Genitourinary: + problem reported (Reports no problem w ith urination-feels that getting up and moving around his room has helped him to void) Musculoskeletal: Denies lower extremity pain Denies other muscle, joint pain Integumentary: Denies skin changes, rashes or lesions. Neurologic: Denies dizziness, numbness, weakness. Reports improvement in cognition Psychiatric: Denies anxiety, depression Physical Exam Constitutional: WD/WN, vitals as above ENMT: EOMI, PERRLA Oropharynx clear Neck: Supple, trachea is midline No lymphadenopathy or thyromegaly Respiratory: Wheezing auscultated in bilateral lobes, but no longer audible from across the room when patient is at rest Patient does get out of breath with O2 sat drop when leaning forward for lung auscultation. Returns to normal O2 sat within 10 seconds of relaxing Cardiovascular: RRR no murmurs, rubs or gallops +1 lower extremity edema. Marked decreas e from the past few days Gastrointestinal (Abdomen): Normal bowel sounds Abd solft, nondistended, nontender Skin: no rashes, warm and dry Neurologic: A&O x3 Moving all extremities equally Normal strength, sensation, coordination Able to ambulate in room with walker and 1 assist Psychiatric: Appropriate mood and affect Results & Data Results & Data Vital Signs (Past 12 Hours) Vital Signs Temp Pulse Pulse Resp BP Pulse Ox O2 Del Method 10/27/24 03:40 63 20 95 10/27/24 02:42 36.5 C 64 18 133/60 96 CPAP 10/26/24 23:11 70 10/26/24 22:36 36.5 C 69 18 118/67 91 Nasal Cannula 10/26/24 22:06 Nasal Cannula, CPAP 10/26/24 21:00 67 22 95 10/26/24 19:46 36.5 C 86 20 136/79 94 Nasal Cannula O2 Flow Rate 10/27/24 03:40 2 10/27/24 02:42 10/26/24 23:11 10/26/24 22:36 10/26/24 22:06 2 10/26/24 21:00 2 10/26/24 19:46 Laboratory Results BMP-Electrolytes okay. Increasing BUN/Createnine ratio (25.6) Diagnostic Findings MRI- No acute intracranial abnormality. Volume loss and chronic microvascular ischemic changes of the periventricular white matter are noted. 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
[2024-10-27] MEDS: METOPROLOL SUCC 50MG EXT REL TAB PO SCH (08:36)
--- NOTE | 2024-10-27 10:44 | Cardiology Progress Note ---
Date of Service October 27, 2024 Assessment & Plan (1) (HFpEF) heart failure with preserved ejection fraction: (2) Atrial flutter with rapid ventricular response: (3) COPD (chronic obstructive pulmonary disease): Plan Gradual clinical improvement, remains in sinus rhythm. Continue amiodarone 200 mg 3 times daily while inpatient, 200 mg twice daily upon discharge. Anticoagulated with apixaban. Gradually diuresing, appears only mildly hypervolemic. Continue IV Bumex daily. To allow more physiologic heart rate response and to simplify his beta-larry regimen, recommend changing metoprolol to tartrate 25 mg every 6 hours to metoprolol succinate 50 mg daily. Will continue to follow. Admission and Anticipated Discharge Date Admission Date: October 22, 2024 Subjective Feels better each day. Able to walk short distances (to commode) without dyspnea. No orthopnea or PND. Input/output slightly negative. Weight declining. Telemetry shows sinus rhythm at 60-80 bpm. Physical Exam Physical Exam: No distress. BP normotensive. Pulse 70 bpm and regular. Respirations 20 Skin: no ecchymoses or generalized lesions. HEENT: unremarkable. Neck: JVP one quarter the way to the angle of jaw at 90 degrees with increased respiratory variation. Lungs: Moderately decreased breath sounds but clear. Cardiac: Regular rhythm, normal S1-2, no obvious murmur. Abdomen: benign. Extremities: 1+ pretibial edema, pulses intact. Neurologic: normal affect and conversation, nonfocal. Results & Data Laboratory Results Normal electrolytes, BUN 41, creatinine 1.6. Would decrease amiodarone to 200 mg twice daily upon discharge. Continue metoprolol succinate, upon discharge would reduce metoprolol succinate to 25 mg daily to allow more physiologic heart rate. Recommend bumetanide 1 mg daily for outpatient diuretic, increase to 2 mg for weight gain of greater than 2 pounds in 1 day or 5 pounds in 1 week. Since he will be initiating bumetanide, obviously no need to restart his outpatient hydrochlorothiazide. Continue lisinopril 40 mg daily as outpatient. I will arrange for outpatient follow-up with Gabriela Jauregui PA-C in heart failure clinic in 1 to 2 weeks. Cardiac status stable, will sign off. Please contact if change in status or additional questions. PG Care Time/CCT Total # of Minutes Spent Total Time Spent with Patient: Total time spent is greater than 50% in coordination of care (as documented) at patient's floor/unit and/or counseling patient: Coding Level of Care Code 55381 SUB INP/OBS CARE 350MIN Diagnoses (HFpEF) heart failure with preserved ejection fraction I50.30 Atrial flutter with rapid ventricular response I48.92 COPD (chronic obstructive pulmonary disease) J44.9
[2024-10-28 06:45] LABS: Hematocrit (blood only) 33.9 % (42.0-52.0); Hemoglobin 11.1 g/dl (14.0-18.0); Mean Corpuscular Hemoglobin 29.8 pg (25.0-34.0); Mean Corpuscular Hgb Conc 32.7 g/dL (32.0-36.0); Mean Corpuscular Volume 91.1 fL (80.0-100.0); Mean Platelet Volume 10.6 fL (9.4-12.4); Platelet Count 316 K/uL (130-400); RDW Coefficient of Variation 14.7 % (11.5-14.5); RDW Standard Deviation 49.3 fL (36.4-46.3); Red Blood Count 3.72 M/uL (4.70-6.10); White Blood Count 9.15 K/ul (4.8-10.8)
[2024-10-28 07:03] LABS: BUN Creatinine Ratio 30.6 (10-20); Creatinine Clr Calc Pharmacy 52.1 ml/min; Potassium 4.4 mmol/L (3.5-5.1)
--- NOTE | 2024-10-28 07:15 | Hospitalist Progress Note ---
Date of Service October 28, 2024 Assessment & Plan (1) Acute CHF: Plan: - BUN/Creatinine ratio 30.6. Consider stopping Bumex in future due to completion of diuresis, risk kidney injury. Appreciate cardiology input. - I/Os significant for net negative fluid balance (7000) - diuresis w/ Bumex 1 mg IV daily - Electrolytes OK - Last echo 05/09/2024 shows LVEF 50-55% - CXR on admission with vascular congestion, pleural effusion - Patient prefers to sleep in chair - Fluid restriction at 1200 mL/day - Compression stockings - Strict I & O monitoring (2) Esophageal dysfunction: Plan: - Video swallow study complete - no aspiration, penetrationx1 during study but overt difficulty noted - pt had coughing with blood tinged phlegm, reddening of face, wet vocal quality - GI consulted-no additional recommendations - Continue Protonix 40mg daily for reflux sx (3) Urinary retention: Plan: - One episode of 1600mL urinary retention requiring straight cath, followed by spontaneous void - Continue to monitor, bladder scan as needed, straight cath as needed (4) Acute alteration in mental status: Plan: Consider delirium vs TIA vs effects of hypoxia - 10/24/2024 Brief overnight change in mental status associated with R arm drift, partial hemianopsia - No subsequent events - CT head w/o contrast negative, CTA head and neck negative, MRI negative for acute stroke +chronic WM and ischemic changes - Returned to baseline mental status. Neuro exam benign. No residual deficits. (5) COPD (chronic obstructive pulmonary disease): Plan: - Continue home inhalers - Continue IV Solumedrol 40mg daily - Incentive spirometry, flutter valve - Guaifenesin 600 mg p.o. BID for cough - DuoNeb 3 mL Q6R PRN for wheezing - Current O2 requirement: 2L - Continue to monitor O2 sat (6) Atrial flutter with rapid ventricular response: Plan: - S/p successful cardioversion with return to sinus rhythm - this morning rate and rhythm controlled - s/p repletion K+ - PO Amiodarone 200mg TID - Discontinued Metoprolol Tartrate 25 mg Q6 and started Metoprolol Succinate [address] Holliday - Continue chronic anticoagulation with Eliquis 5 mg daily - Recheck AM BMP (7) Hypomagnesemia: Plan: - Resolved - Mg 2.0 - s/p repletion - Hold HCTZ - Continue oral Slow-Mag 64 mg p.o. twice daily (8) Diabetes mellitus: Plan: - Hold metformin - BG controlled with Lantus - Last A1c at 7.4% on 08/02/2024 - T2DM diet - SSI; with target BSG range 110-140mg/dL, CF 20, carb ratio 8 - BSG ACHS - Adjust regimen as needed (9) CAD in [place] artery: Plan: - S/p MAGDALENA x 1 - No chest pain or palpitations - Continue aspirin, statin, Imdur - Hold amlodipine for LE edema (10) Moderate obstructive sleep apnea: Plan: - Continue CPAP at night - Patient should repeat sleep study outpatient and consider restarting CPAP at home Plan BP 171/91 and rising - Metoprolol 50 mg ordered Refuses rehab-wants to return home. 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 He is unable to drive due to baseline vision probs. stop hctz amlodipine still held-notify pcp, monitor home bp Disposition: PCU telemetry Full code FEN/GI: heart healthy, low-sodium, T2DM diet (1200 mL fluid restriction) VTE PPx: Eliquis twice Admission and Anticipated Discharge Date Admission Date: October 22, 2024 Ella Castillo is an 79M with a hx Afib, COPD, stomach CA/colon CA and T2DM who presented to ED on 10/22/2024 with concern for shortness of breath. Jonathan reports SOB for the past 6 months which is worse when laying flat and with activity. Reports spontaneous voiding for the past 48+ hrs. Ambulated with walker and 1 person assist around room to commode. Cardiac Arrhythmia S/P cardioversion 10/24 HR 60 with normal rhythm and sporadic PVCs Amiodarone 200mg TIDM COPD Passed 2 step yesterday and supplemental O2 removed. Overnight, refused CPAP and O2 dropped to 88. Started on 2L O2 nasal cannula overnight. Discontinued this morning. Review of Systems Constitutional: Denies fever, chills, fatigue. Eyes: Denies changes in vision, eye pain Ear, Nose, Mouth, Throat: Denies congestion, rhinorrhea Denies headache Denies dysphagia, throat pain Endorses increased belching Respiratory: Reports coughing up mucus with some blood streaks frequently Endorses chronic cough Denies dyspnea, SOB at this time Cardiovascular: Additional Comments: Denies CP, palpitation Gastrointestinal: Denies n/v/d Denies abd pain Genitourinary: + problem reported (Reports no problem w ith urination-feels that getting up and moving around his room has helped him to void) Musculoskeletal: Denies lower extremity pain Denies other muscle, joint pain Integumentary: Denies skin changes, rashes or lesions. Neurologic: Denies dizziness, numbness, weakness. Reports improvement in cognition Psychiatric: Denies anxiety, depression Physical Exam Constitutional: WD/WN, vitals as above Eyes: PERRL, conjunctivae normal, anicteric sclerae ENMT: external ear and nose normal, oropharynx normal Neck: trachea midline, no thyromegaly Respiratory: + labored breathing Auscultation: marlen gs clear to auscultation bilaterally (with intermittent wheezing) Cardiovascular: Rate/Rhythm: regular rate and regular rhythm Heart Sounds: normal S1 and normal S2 Extremities: + edema (+2) Gastrointestinal (Abdomen): normal bowel sounds, soft, nontender, no hepatosplenomegaly Skin: no rashes, warm and dry Neurologic: normal touch/pain/proprioception, CN's II-XI intact bilaterally, deep tendon reflexes 2+ bilaterally and moves all extremities Psychiatric: A+Ox3, euthymic affect Results & Data Results & Data Vital Signs (Past 12 Hours) Vital Signs Temp Pulse Pulse Resp BP Pulse Ox O2 Del Method 10/28/24 02:44 36.5 C 58 L 17 169/98 H 94 Nasal Cannula 10/27/24 23:15 36.5 C 73 20 149/86 H 92 Room Air 10/27/24 21:53 56 L 10/27/24 21:00 Room Air 10/27/24 19:56 36.5 C 65 19 149/65 H 93 Nasal Cannula O2 Flow Rate 10/28/24 02:44 2.0 10/27/24 23:15 10/27/24 21:53 10/27/24 21:00 10/27/24 19:56 2.0 (8) Diabetes mellitus Diabetes mellitus complication status: without complication Diabetes mellitus residential insulin use: with medical terminologist use Diabetes mellitus type: type 2 Qualified Code(s): E11.9 - Type 2 diabetes mellitus without complications; Z79.4 - half-way (current) use of insulin
[2024-10-28 07:26] VITALS: RESP 21; TEMP 96.6; O2SAT 95
--- NOTE | 2024-10-28 11:26 | Cardiology Progress Note ---
Date of Service October 28, 2024 Assessment & Plan (1) (HFpEF) heart failure with preserved ejection fraction: (2) Atrial flutter with rapid ventricular response: (3) COPD (chronic obstructive pulmonary disease): Plan Gradual clinical improvement, remains in sinus rhythm. Discharge on amiodarone 200 mg twice daily. Given relative bradycardia and the fact he will remain on amiodarone, would discontinue metoprolol succinate. Anticoagulated with apixaban. Discharge on his usual bumetanide 1 mg daily dose, but he should increase to 2 mg daily for any weight gain of 2 pounds or more in 1 day, 5 pounds or more in 1 week. Arrangements are underway for him to follow-up with Gabriela Jauregui PA-C in heart failure clinic within the next few weeks. Admission and Anticipated Discharge Date Admission Date: October 22, 2024 Subjective Doing well, to be discharged home today. Still notes occasional brief paroxysms of coughing, when he needs to "clear things out", but otherwise feels well. Ambulate hallways without difficulty. No chest pain, dyspnea exertion, or subjective palpitations. Telemetry showed sinus bradycardia in the 50-60 bpm range. Physical Exam Physical Exam: No distress. BP normotensive. Pulse 50 bpm and regular. Respirations 20 Skin: no ecchymoses or generalized lesions. HEENT: unremarkable. Neck: JVP one quarter the way to the angle of jaw at 90 degrees with increased respiratory variation. Lungs: Moderately decreased breath sounds but clear. Cardiac: Regular rhythm, normal S1-2, no obvious murmur. Abdomen: benign. Extremities: 1+ pretibial edema, pulses intact. Neurologic: normal affect and conversation, nonfocal. Results & Data Vital Signs (Past 12 Hours) Vital Signs Temp Pulse Pulse Resp BP BP Pulse Ox 10/28/24 08:00 10/28/24 08:00 53 L 10/28/24 07:21 96.6 F L 60 21 171/91 H 95 10/28/24 02:44 97.7 F 58 L 17 169/98 H 94 O2 Del Method O2 Flow Rate 10/28/24 08:00 Room Air 10/28/24 08:00 10/28/24 07:21 Nasal Cannula 2 10/28/24 02:44 Nasal Cannula 2.0 Laboratory Results Normal electrolytes, BUN 44, creatinine 1.44. PG Care Time/CCT Total # of Minutes Spent Total Time Spent with Patient: Total time spent is greater than 50% in coordination of care (as documented) at patient's floor/unit and/or counseling patient: Coding Level of Care Code 77933 SUB INP/OBS CARE 3/50MIN Diagnoses (HFpEF) heart failure with preserved ejection fraction I50.30 Atrial flutter with rapid ventricular response I48.92 COPD (chronic obstructive pulmonary disease) J44.9
[2024-10-28 12:02] VITALS: BP 171/91; PULSE 60
--- NOTE | 2024-10-28 12:40 | Discharge Summary ---
Date of Service October 28, 2024 Admission HPI Per Admitting Provider Jonathan is an 79-year-old male with PMH of diabetes, COPD, CAD s/p MAGDALENA x 1, GERD, HTN, paroxysmal atrial flutter/atrial fibrillation (on Eliquis), and peripheral edema. He presented on 10/22 for worsening IRVING since after Thanksgiving. He reports that approximately 1 week after Thanksgiving he started developing progressive IRVING. For instance, yesterday he walked up 15 steps in his house and could barely make it to the top. He also developed SOB at rest today. Patient reports significant orthopnea, and reports that he "passes out" unless he has the head of his bed elevated. Patient reports that he normally watches his salt intake, but did change his diet around Thanksgiving time. He normally wears compression stockings, but stopped wearing them just after Thanksgiving, and developed significant lower extremity edema. Patient decided to come in today, after he choked on a hamburger and entered into a coughing fit, and was unable to catch his breath after that. Patient was in the tripod position with expiratory wheezes on ED arrival. He reports that he follows with [facility] (Dr. Hatch). Additionally, he reports that he has a Lasix allergy and develops a significant skin rash when taking. He is unsure if he is taking Bumex or torsemide in the past. He is unsure if he has a sulfa allergy. Patient reports that he took all of his regular morning medicines today, and reports good compliance with his Eliquis. His helps him manage medications at home. He does have a history of atrial flutter requiring cardioversion. Additionally, he has been around both his grandson and [id number] who are both recently sick with cough/congestion. He does not use supplemental oxygen at home. He used to use a CPAP, but is not currently as he was told he "did not need it anymore". Patient reports he is still producing urine. Patient is a former smoker but quit 30 years ago. He denies any recent alcohol use. Patient is tachycardic at 137 bpm at time of admission; SpO2 95% on 2L NC. ED course: Amiodarone IV bolus and drip Magnesium sulfate 1 g IV x 2 ROS: Patient endorses lightheadedness from coughing, SOB at rest, worsening IRVING, orthopnea, wheezing, productive cough (yellow, creamy phlegm) x 2 weeks, pleuritic CP, and loose stool. Patient denies fever, chills, night-sweats, chest pain, chest pressure, chest palpitations, hemoptysis, abdominal pain, nausea, vomiting, diarrhea, burning with urination, and blood in the urine/stool. Admission Exam (Per Admitting) Constitutional General: Moderate respiratory distress; non-toxic appearing; well-nourished; cooperative; SpO2 92% on 2L NC HEENT: normocephalic, atraumatic; no scleral icterus; PERRLA; vision and hearing grossly intact Neck: supple; +JVD; trachea midline Skin: warm, dry without signs of tenting; no cyanosis; no rashes, bruising, lesions, or erythema noted CV: chest wall NTP; irregularly irregular rhythm tachycardic around 137 bpm; S1/S2 normal; no murmurs/rubs/gallops; pulses intact and symmetric at radial, DP, and PT Lungs: Moderate respiratory distress; conversational dyspnea; symmetrical chest wall expansion; mild wheezing and bibasilar crackles auscultated in the lower lung martinez bilaterally ABD: Soft, NTP; BS present; no rebound/guarding; moderate distention secondary to body habitus; no rashes or bruising appreciated on the abdomen or flanks bilaterally MSK: no tics or fasciculations; +1 pitting edema noted in the LEs b/l, nonerythematous Neuro: A&Ox3; normal mood and affect; fluent speech; no focal deficits; patient reports that sensation is intact and symmetric in the lower extremities bilaterally Constitutional: WD/WN, vitals as above Eyes: PERRL, conjunctivae normal, anicteric sclerae ENMT: external ear and nose normal, oropharynx normal Neck: trachea midline, no thyromegaly Respiratory: lungs clear to auscultation bilaterally (with intermittent wheezing) Cardiovascular: regular rate and regular rhythm. Normal S1 and normal S2. BLE edema (+2) Gastrointestinal: normal bowel sounds, soft, nontender, no hepatosplenomegaly Skin: no rashes, warm and dry Neurologic: normal touch/pain/proprioception, CN's II-XI intact bilaterally, deep tendon reflexes 2+ bilaterally and moves all extremities Psychiatric: A+Ox3, euthymic affect Specialty Data Specialty Data Chest X-Ray 10/22/24 13:33 EXAM: Radiograph of the Chest 1 View INDICATION: Chest pain. TECHNIQUE: Frontal view of the chest. COMPARISON: 04/29/2024 FINDINGS: Lungs and pleural spaces: New considerable patchy infiltrates in the lung bases present with vascular congestion. Probable trace pleural effusions. No pneumothorax. Heart: Stable large cardiac shadow. Mediastinum: Normal contour. Bones/joints: Degenerative changes noted throughout the spine. No acute osseous abnormality seen. Soft tissues: No abnormality noted. No radiopaque foreign body noted. Upper abdomen: No abnormality noted. IMPRESSION: Basilar infiltrates, vascular congestion and trace left pleural effusion. Consider CHF with or without components of basilar pneumonia. ACT 112: Negative or not required by law. Electronically signed by Jasmyne Villalba 10-22-2024 2:12 PM Chest CTA 10/22/24 13:47 EXAM: CT Angiography Chest With Intravenous Contrast INDICATION: Atrial fibrillation and shortness of breath. TECHNIQUE: Axial computed tomographic angiography images of the chest with intravenous contrast. Sagittal and coronal reformatted images were created and reviewed. This CT exam was performed using one or more of the following dose reduction techniques: automated exposure control, adjustment of the mA and/or kV according to patient size, and/or use of iterative reconstruction technique. MIP reconstructed images were created and reviewed. CONTRAST: 119ml of Optiray 320 was administered intravenously. COMPARISON: 03/05/2022 FINDINGS: Pulmonary arteries: No abnormality noted. No pulmonary embolism. Aorta: No acute change noted. No thoracic aortic aneurysm or dissection. Lungs and pleural spaces: Small layering bilateral pleural effusions present. No pneumothorax. Significant increased and septal markings. There is compressive atelectasis in the lower lobes. There is a new 8 x 5 mm noncalcified nodule in the right upper lobe series 3 image 69. There is a small calcified granuloma in the left apex. No bronchiectasis. Heart: Cardiomegaly. No evidence of right heart strain. No significant pleural effusion. Dense coronary calcification noted. Bones/joints: No acute or atypical chronic changes. Soft tissues: No abnormality noted. Lymph nodes: Stable mildly reactive paratracheal and precarinal noncalcified nodes. Stable granulomatous/calcified nodes in each hilum. No pathologically enlarged nodes identified. Kidneys and ureters: Visualized portion of the left renal cyst is unchanged. IMPRESSION: 1. CHF. 2. No pulmonary embolus noted. 3. Subcentimeter opacity in the right upper lobe could be inflammatory. CT chest recommended within 6 months to confirm resolution. ACT 112: Negative or not required by law. Electronically signed by Jasmyne Villalba 10-22-2024 3:04 PM Chest X-Ray 10/25/24 07:13 EXAM: XR chest 1V portable CLINICAL HISTORY: LOW O2 TECHNIQUE: An X-ray image of the chest is obtained in AP projection. COMPARISON: Prior studies, latest dated 10/22/2024 FINDINGS: Pulmonary Parenchyma: Bilateral ill-defined patchy alveolar densities involving both lung martinez, more prominent at lower zones prominent bronchovascular markings and renita of both lungs obliterated costophrenic angles bilaterally, suggesting pleural effusion Heart and Mediastinum: Cardiomegaly No mediastinal widening or masses. No hilar or mediastinal lymphadenopathy. Bony Thorax: Thoracic spondylosis was seen in the form of sclerosed end plates and osteophytosis Soft Tissues: Soft tissues overlying the chest wall are unremarkable. IMPRESSION: 1. Bilateral alveolar patches, prominent bronchovascular marking, and renita, suggestive of pulmonary edema, advised clinical correlation 2. Obliterated costophrenic angles, secondary to pleural effusion 3. Cardiomegaly 4. Thoracic spondylosis 5. No interval change since the prior study. Electronically signed by Virgie Donald 10-25-2024 08:[address] 10/25/24 23:14 Exam(s): CT HEAD Without Contrast EXAM: CT Head Without Intravenous Contrast CLINICAL HISTORY: Reason for exam: neuro deficit, acute stroke suspected. TECHNIQUE: Axial computed tomography images of the head/brain without intravenous contrast. Automated exposure control was utilized for the study. A dose lowering technique was utilized adhering to the principles of ALARA. COMPARISON: Prior head CT from July 31, 2020. FINDINGS: Brain: Unremarkable. No hemorrhage. Moderate nonspecific white matter changes. No edema. Ventricles: Unremarkable. No ventriculomegaly. Bones/joints: Unremarkable. No acute fracture. Soft tissues: Unremarkable. Sinuses: There is a small osteoma in the left ethmoid and frontal sinusitis. No acute sinusitis. Mastoid air cells: Unremarkable as visualized. No mastoid effusion. IMPRESSION: No evidence of acute intracranial pathology. Electronically signed by: Karen Boyd MD 10/26/24 02:03 AM Head CTA 10/25/24 23:14 Exam(s): CTA HEAD With Contrast IV Amt: 118 ml optiray 320 EXAM: CT Angiography Head With Intravenous Contrast CLINICAL HISTORY: Reason for exam: neuro deficit, acute stroke suspected. TECHNIQUE: Axial computed tomographic angiography images of the head with intravenous contrast. CTDI is 115.36 mGy and DLP is 663.33 mGy-cm. Automated exposure control was utilized for the study. A dose lowering technique was utilized adhering to the principles of ALARA. MIP reconstructed images were created and reviewed. CONTRAST: Patient received 118 ml optiray 320 of IV contrast COMPARISON: No relevant prior studies available. FINDINGS: The dural venous sinuses are patent. Right internal carotid artery: No acute findings. Intracranial segment is patent with no significant stenosis. No aneurysm. Right anterior cerebral artery: Unremarkable. No occlusion or significant stenosis. No aneurysm. Right middle cerebral artery: Unremarkable. No occlusion or significant stenosis. No aneurysm. Right posterior cerebral artery: Unremarkable. No occlusion or significant stenosis. No aneurysm. Right vertebral artery: Unremarkable as visualized. Left internal carotid artery: No acute findings. Intracranial segment is patent with no significant stenosis. No aneurysm. Left anterior cerebral artery: Unremarkable. No occlusion or significant stenosis. No aneurysm. Left middle cerebral artery: Unremarkable. No occlusion or significant stenosis. No aneurysm. Left posterior cerebral artery: Unremarkable. No occlusion or significant stenosis. No aneurysm. Left vertebral artery: Unremarkable as visualized. Basilar artery: Unremarkable. No occlusion or significant stenosis. No aneurysm. IMPRESSION: Negative CT angiogram of the head. Electronically signed by: Karen Boyd MD 10/26/24 02:06 AM Neck CTA 10/25/24 23:14 Exam(s): CTA NECK With Contrast IV Amt: 118 ml optiray 320 EXAM: CT Angiography Neck With Intravenous Contrast CLINICAL HISTORY: Reason for exam: neuro deficit, acute stroke suspected. TECHNIQUE: Routine carotid CT angiography protocol was performed with intravenous contrast. NASCET criteria using the distal ICAs for comparison were used for evaluation of stenoses. CTDI is 14.6 mGy and DLP is 544.61 mGy-cm. Automated exposure control was utilized for the study. A dose lowering technique was utilized adhering to the principles of ALARA. MIP reconstructed images were created and reviewed. CONTRAST: Patient received 118 ml optiray 320 of IV contrast COMPARISON: None. FINDINGS: VASCULATURE: Right common carotid artery: Unremarkable. No occlusion or significant stenosis. No dissection. Right internal carotid artery: Unremarkable. Extracranial segment is patent with no occlusion or significant stenosis. No dissection. Right external carotid artery: Unremarkable. No occlusion. Right vertebral artery: Unremarkable. No occlusion or significant stenosis. No dissection. Left common carotid artery: Unremarkable. No occlusion or significant stenosis. No dissection. Left internal carotid artery: Unremarkable. Extracranial segment is patent with no occlusion or significant stenosis. No dissection. Left external carotid artery: Unremarkable. No occlusion. Left vertebral artery: Unremarkable. No occlusion or significant stenosis. No dissection. 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 Recommend MRI of the cervical spine to evaluate for myelopathy. No acute fracture. Soft tissues: Prominent mediastinal lymph nodes. Lung apices: Bronchitis with pneumonitis and bilateral pleural effusions. CAROTID STENOSIS REFERENCE USING NASCET CRITERIA: % ICA stenosis = (1 - narrowest ICA diameter/diameter of distal cervical ICA) x 100. Mild - <50% stenosis. Moderate - 50-69% stenosis. Severe - 70-94% stenosis. Near occlusion - 95-99% stenosis. Occluded - 100% stenosis. IMPRESSION: Negative CTA neck. Electronically signed by: Karen Boyd MD 10/26/24 02:12 AM Videofluoroscopic Swallow 10/26/24 10:00 FL video swallow CLINICAL HISTORY: r/o aspiration TECHNIQUE: Video fluoroscopy of the pharyngeal region was performed as barium mixtures of varying consistencies were administered to the patient by the speech pathologist. A formal esophagram was not performed. Comparison: None available at the time of this dictation. FINDINGS: Total fluoroscopy time: 2.01 minutes. Radiation dose: 27.6 mGy. The patient swallowed the different barium consistencies without difficulty. Penetration was seen with thin liquids straw. Otherwise no aspiration or penetration is seen. Pooling of barium was noted in the bilateral piriform sinuses and valleculae. IMPRESSION: Penetration without evidence of aspiration. Please see the speech pathology report for further details. ACT 112: Negative or not required by law. Electronically signed by: Fraknlin Ta M.D. 10/26/2024 11:27 AM Brain MRI 10/26/24 10:24 EXAM: MR brain wo con CLINICAL HISTORY: altered mental status overnight, RT arm drift, was back to normal this morning, propellers ran to help with motion, PT had difficulty holding still, was claustrophobic, was medicated before scan, sent to [facility] TECHNIQUE: MRI of the brain was performed without contrast with multiplanar sequences obtained. COMPARISON: Ct dated 07/31/2020. FINDINGS: Brain Parenchyma: Multiple bilateral frontoparietal foci of abnormal high T2 /7 FLAIR signal are noted. no perifocal brain edema or mass effect . OBX.5.1OBX.5.1.1 Deep periventricular sheets of high T2 /OBX.5.1.1OBX.5.1.2 FLAIR signal are also noted./OBX.5.1.2/OBX.5.1 No evidence of acute infarction or hemorrhage. Normal gregg-white matter differentiation. No mass lesions or focal cortical abnormalities identified. Ventricles and Sulci: Capacious both lateral ventricles. OBX.5.1OBX.5.1.1 Accentuated cortical sulci /OBX.5.1.1OBX.5.1.2 extra-axial CSF spaces. /OBX.5.1.2/OBX.5.1 Posterior Fossa: Cerebellum and brainstem appear normal without evidence of mass lesions or signal abnormalities. Cranial Nerves: Normal course and appearance of cranial nerves identified. Vessels: No evidence of vascular malformations or aneurysms. Intracranial arteries and veins appear normal without evidence of stenosis or occlusion. Orbits and Skull Base: Orbits and skull base structures are normal without evidence of abnormalities. Right maxillary mucosal polyps . IMPRESSION: 1. No acute intracranial abnormality is present. 2. Volume loss and chronic microvascular ischemic changes of the periventricular white matter are noted. 3. No changes on interval. Electronically signed by Virgie Donald 10-26-2024 6:15 PM Discharge Data Consultations 10/22/24 17:28 ED Decision to Admit Stat 10/22/24 19:49 Consult Cardiology Routine 10/24/24 09:05 Consult Anesthesiology Routine 10/26/24 14:07 Consult Gastroenterology Routine Procedures Performed Operation Date: 10/24/24 12:00 Actual Procedures p Cardioversion - Osbaldo Holliday MD Hospital Course (1) CHF exacerbation: - Last echo 05/09/2024 shows LVEF 50-55% - CXR on admission with vascular congestion, pleural effusion - Diuresis using 1 mg IV bumex daily --> 7L of fluid diuresed during hospital stay - Continue bumetanide 1 mg daily dose, with increase to 2 mg daily for any weight gain of 2 pounds or more in 1 day, 5 pounds or more in 1 week - Continue to hold amlodipine, HCTZ due to persistent fluid retention - Record BP at home until PCP follow up - Use compression stockings as tolerated (2) Atrial fibrillation with rapid ventricular response: - S/p successful cardioversion 10/24/2024 with return to sinus rhythm - s/p repletion K+ - PO Amiodarone 200mg BID - Metoprolol Succinate 50 mg once daily - Continue chronic anticoagulation with Eliquis 5 mg daily (3) Esophageal dysfunction: - Video swallow study complete - no aspiration, penetrationx1 during study but overt difficulty noted - pt had coughing with blood tinged phlegm, reddening of face, wet vocal quality - GI consulted-no additional recommendations - Continue Protonix 40mg daily (4) Moderate obstructive sleep apnea: - Occasional O2 sat drop while sleeping. CPAP administered. - Tolerated CPAP well in hospital - Refer for sleep study - Consider outpatient CPAP use (5) Diabetes mellitus: - Last A1c at 7.4% on 08/02/2024 - BG controlled with Lantus in hospital - Restart metformin 500 mg Plan Discharge to home No supplemental O2 requirement Resume normal activity as tolerated Follow up with PCP and in HF clinic
--- NOTE | 2024-10-28 13:21 | Discharge Summary ---
Date of Service October 28, 2024 Admission Exam Per Admitting Provider General: Moderate respiratory distress; non-toxic appearing; well-nourished; cooperative; SpO2 92% on 2L NC HEENT: normocephalic, atraumatic; no scleral icterus; PERRLA; vision and hearing grossly intact Neck: supple; +JVD; trachea midline Skin: warm, dry without signs of tenting; no cyanosis; no rashes, bruising, lesions, or erythema noted CV: chest wall NTP; irregularly irregular rhythm tachycardic around 137 bpm; S1/S2 normal; no murmurs/rubs/gallops; pulses intact and symmetric at radial, DP, and PT Lungs: Moderate respiratory distress; conversational dyspnea; symmetrical chest wall expansion; mild wheezing and bibasilar crackles auscultated in the lower lung martinez bilaterally ABD: Soft, NTP; BS present; no rebound/guarding; moderate distention secondary to body habitus; no rashes or bruising appreciated on the abdomen or flanks bilaterally MSK: no tics or fasciculations; +1 pitting edema noted in the LEs b/l, nonerythematous Neuro: A&Ox3; normal mood and affect; fluent speech; no focal deficits; patient reports that sensation is intact and symmetric in the lower extremities bilaterally Principal Diagnosis AFib w/ RVR, CHF Exacerbation Discharge Exam Constitutional: WD/WN, vitals as above Eyes: PERRL, conjunctivae normal, anicteric sclerae ENMT: external ear and nose normal, oropharynx normal Neck: trachea midline, no thyromegaly Respiratory: lungs clear to auscultation bilaterally (with intermittent wheezing) Cardiovascular: regular rate and regular rhythm. Normal S1 and normal S2. BLE edema (+2) Gastrointestinal: normal bowel sounds, soft, nontender, no hepatosplenomegaly Skin: no rashes, warm and dry Neurologic: normal touch/pain/proprioception, CN's II-XI intact bilaterally, deep tendon reflexes 2+ bilaterally and moves all extremities Psychiatric: A+Ox3, euthymic affect Discharge Data Allergies Allergy/AdvReac Type Severity Reaction Status Date / Time furosemide [From Lasix] Allergy Intermediate genralized Verified 08/02/24 10:02 exanthematous pustulosis hydrocodone AdvReac Intermediate vomiting Verified 08/02/24 10:02 Consultations 10/22/24 17:28 ED Decision to Admit Stat 10/22/24 19:49 Consult Cardiology Routine 10/24/24 09:05 Consult Anesthesiology Routine 10/26/24 14:07 Consult Gastroenterology Routine Procedures Performed Operation Date: 10/24/24 12:00 Actual Procedures p Cardioversion - Osbaldo Holliday MD Ordered Studies 10/22/24 13:47 CT for pulmonary embolism PE [CT angio chest PE protocol] Stat 10/25/24 23:14 CT angio head w con Stat CT angio neck with con Stat CT head/brain wo con Stat 10/26/24 10:00 FL video swallow Routine 10/26/24 10:24 MRI Brain [MR brain wo con] Routine Hospital Course (1) Atrial fibrillation with rapid ventricular response: - HR refractory to rate/rhythm control efforts, s/p successful cardioversion 10/24/2024 with return to sinus rhythm - Carvedilol discontinued, changed to Metoprolol Succinate 50mg daily - Discharged on Amiodarone 200mg BID - Continue chronic anticoagulation with Eliquis (2) CHF exacerbation: - Last echo 05/09/2024 shows LVEF 50-55% - CXR on admission with vascular congestion, pleural effusion - Diuresis using 1 mg IV bumex daily --> net negative 7L fluid balance - Continue bumetanide 1 mg daily dose, with increase to 2 mg daily for any weight gain of 2 pounds or more in 1 day, 5 pounds or more in 1 week - HCTZ discontinued, Amlodipine held at time of discharge - Recommend home BP monitoring, PCP follow up to determine need for additional antihypertensive agents (3) COPD exacerbation: - Continue home inhaler regimen - Treated with IV methylprednisolone during hospital stay, discharged with recommendation to complete burst (prednisone 50mg x3 days) - 2 step test negative, no indication for home O2 at this time. (4) Esophageal dysfunction: - Video swallow study completed - no aspiration, penetrationx1 during study but overt difficulty noted - pt had coughing with blood tinged phlegm, reddening of face, wet vocal quality - GI consulted- recommend continued speech therapy for oropharyngeal dysphagia - Continue Protonix 40mg daily (5) Moderate obstructive sleep apnea: - Occasional O2 sat drop while sleeping. CPAP administered qHS during hospital stay. - Patient likely to need a repeat sleep study in order to get a new CPAP machine, deferred to outpatient setting. (6) Diabetes mellitus: Total Time Total Time Spent Total Time Spent (In Minutes): See attending attestation Discharge Plan Discharge Items Patient Disposition: Home - Self-Care Reason For Visit: ACUTE CHF, A FIB RVR Discharge Diagnosis: AFib RVR, COPD/CHF exacerbation Condition on Discharge: Fair Activity: As commented below Activity Comment: activity progression as tolerated Non-emergency contact: Primary Care Provider and Baggage Security Checker Call non-emergency contact if: you have any medication questions and your symptoms worsen Follow-up/Referrals: Meghann Cast CRNP [Primary Care Provider] - 11/03/24 10:30 am (Hospital follow up on November 03 at 10:30 am.) Jeanie Jauregui PA-C [Physician Home Health Manager] - 11/03/24 10:30 am Diet: Heart Healthy Addtl Attending Provider Instructions: You were admitted with atrial fibrillation with elevated heart rate - you underwent cardioversion to return your heart to a normal rhythm. Some medications were changed by cardiology, please see below. You were also treated for a COPD exacerbation as well as heart failure exacerbation. The following medications were DISCONTINUED. Please STOP taking the following medications unless otherwise directed when you follow up with your doctor: - Carvedilol - Hydrochlorothiazide - Amlodipine The following are NEW medications - [facility] were [facility] to [facility]: - Prednisone: You were treated with steroids while in the hospital to help with COPD exacerbation. Please finish out the course of steroids (Prednisone). Please take one 50mg tab once daily for 3 days. Please take with food. - Metoprolol Succinate: Cardiology changed your beta larry to Metoprolol - please take one 50mg tab once daily. - Amiodarone: This medication was also started to keep your A-fib in check. Please take one 200mg tab twice daily. - Bumetanide (Bumex): This medication is to prevent fluid accumulation associated with heart failure. Please take one 1mg tab daily. It is also important that you monitor your weight on a daily basis. Please follow up with your primary care doctor and your compensation and benefits advisor following discharge. A discharge summary will be sent to your doctor as well. Pending Studies at Discharge: No Stand-Alone Forms: My Shoozy, Smoking Cessation Medications and DC Order Prescriptions: New metoprolol succinate 50 mg Tablet Extended Release 24 Hr 50 mg PO QAM 30 Days Qty: 30 0RF bumetanide 1 mg tablet 1 mg PO DAILY Qty: 30 0RF prednisone 50 mg tablet 50 mg PO DAILY 3 Days Qty: 3 0RF amiodarone 200 mg tablet 200 mg PO BID 30 Days Qty: 60 0RF Continued (DME) pen needle, diabetic [Pen Needle] 32 gauge x 5/32" needle See Rx Instructions .ROUTE .MEDSUPPLY Qty: 200 3RF Rx Instructions: use with insulin pen 2 x day E11.9 Eliquis 5 mg tablet 5 mg PO BID Qty: 180 3RF omeprazole 20 mg capsule,delayed release(DR/EC) 20 mg PO QAM Qty: 90 3RF dutasteride [Avodart] 0.5 mg capsule 0.5 mg PO PM Qty: 90 3RF insulin glargine [Lantus Solostar U-100 Insulin] 100 unit/mL (3 mL) insulin pen 50 unit SC DAILY Qty: 45 3RF (DME) lancets [OneTouch Delica Plus Lancet] 33 gauge misc See Rx Instructions .Route Qty: 100 3RF Rx Instructions: Test 2 times a day E11.9 (DME) lancets 30 gauge misc See Rx Instructions .ROUTE .MEDSUPPLY Qty: 200 3RF Rx Instructions: BID lisinopril 40 mg tablet 40 mg PO QAM Qty: 90 3RF rosuvastatin 40 mg tablet 40 mg PO HS Qty: 90 3RF Trelegy Ellipta 100-62.5-25 mcg blister with device 1 inh inhalation DAILY Qty: 3 4RF magnesium chloride 71.5 mg tablet,delayed release (DR/EC) 143 mg PO BID Qty: 120 0RF Rx Instructions: pt wasnt too sure of this medication (DME) OneTouch Verio test strips Strip See Rx Instructions .ROUTE .MEDSUPPLY Qty: 200 5RF Rx Instructions: Test blood sugar twice daily Dx:E11.9 ipratropium-albuterol 0.5 mg-3 mg(2.5 mg base)/3 mL solution for nebulization 3 ml INH UD PRN (Reason: wheezing) Qty: 540 4RF albuterol sulfate 90 mcg/actuation HFA aerosol inhaler 2 puff INH Q6H PRN (Reason: shortness of breath or wheezing) Qty: 3 3RF aspirin 81 mg tablet,delayed release (DR/EC) 81 mg PO QAM Qty: 30 isosorbide mononitrate 60 mg tablet extended release 24 hr 60 mg PO QAM Qty: 90 3RF fenofibrate 54 mg tablet 54 mg PO DAILY Qty: 90 3RF metformin 500 mg tablet 500 mg PO UD Rx Instructions: Take 2 tablets in a.m. and 1 tablet in p.m PO ; Discontinued carvedilol 25 mg tablet 25 mg PO BID Qty: 180 3RF Rx Instructions: must administer with a meal/food amlodipine 2.5 mg tablet 2.5 mg PO DAILY Qty: 90 3RF hydrochlorothiazide 25 mg tablet 25 mg PO UD Rx Instructions: 25 mg po daily. Pt wasnt sure of this medication, filled 09/02 90 day supply Discharge Orders: Discharge Order (Routine); Ordered 10/28/24 Ordered By: Kev Angelo Admission Data Admit Date/Time: 10/22/24 17:28 Attending Provider: Shilpa Pretty Admit Provider: Emil Bustos Primary Care Provider: Meghann Cats Other Providers: Emil Bustos; Osbaldo Holliday; Maykel Medina; Cheyanne Dial Jr Other Interventions: Discharge Summary Assessment (RN) Last Done: 10/28/24 12:00 Supervising Physician Co-Signing Physician Notes Attending Physician Supervision Note: I saw the patient with Saumya Vance and independently interviewed and examined the patient and verified the reyes history and physical, reviewed labs and image studies and agree with findings and care plan noted above. Breathing at baseline. Passed 2 step. In chair. at bedside. Lungs clear. RRR Acute HFpEF - sec to RVR from a flutter. s/p cardioversion 10/24. -6 L now. Received IV bumex - transitioned to daily oral 1mgs with further titration on sliding scale basis. A flutter with RVR - Cardioversion 10/24/2024. Amiodarone, Apixaban, Metoprolol succinate. COPD -with exacerbation - -Received IV steroids - Home on PO. -Continue Trelegy. Choking with food - VFS negative for aspiration. GI consulted - to continue working with speech for oropharyngeal dysphagia. Hypoxia-resolved. Step 2 done - no O2 needs. SHAWN - known diagnosis. sleep study done in 2020. utilizing hospital cpap here. Had sleep study done by Dr. Segovia 2020. Will need cpap set up by primary care. . Episode of delirium - 10/24 - resolved. CAD/HTN -on amlodipine carvedilol lisinopril and HCTZ at home. -resumed lisinopril. HCTZ and amlodipine d/liam. Now also on metoprolol and lasix. -To Monitor BP at home and follow up with PCP -Continue aspirin statin and Imdur. Results & Data Vital Signs Vital Signs - 24 hr 10/27/24 14:59 10/27/24 14:59 10/27/24 19:56 Temperature 36.4 C L 36.5 C Temperature Source Oral Oral Pulse Rate Pulse Rate [Apical] 62 65 Respiratory Rate 19 19 Respiratory Effort / Characteristics Respiratory Depth Respiratory Pattern Blood Pressure [Left Arm] 126/71 149/65 H Blood Pressure [Right Arm] Blood Pressure Mean [Left Arm] 89 93 Blood Pressure Mean [Right Arm] Blood Pressure Position [Left Arm] Lying Semi-fowlers Blood Pressure Position [Right Arm] Pulse Oximetry 92 93 Oxygen Delivery Method Room Air Nasal Cannula Oxygen Flow Rate 2.0 EWS Level of Consciousness - Last Result Spontaneously Alert EWS Temperature - Last Result 36.9 EWS Respiratory Rate - Last Result 20 EWS Oxygen Saturation - Last Result 93 EWS Oxygen in Use - Last Result Yes EWS Score 3 EWS Clinical Risk Moderate Risk 10/27/24 19:56 10/27/24 21:00 10/27/24 21:53 Temperature Temperature Source Pulse Rate 56 L Pulse Rate [Apical] Respiratory Rate Respiratory Effort / Characteristics Non-Labored Spontaneous Respiratory Depth Normal Respiratory Pattern Regular Blood Pressure [Left Arm] Blood Pressure [Right Arm] Blood Pressure Mean [Left Arm] Blood Pressure Mean [Right Arm] Blood Pressure Position [Left Arm] Blood Pressure Position [Right Arm] Pulse Oximetry Oxygen Delivery Method Room Air Oxygen Flow Rate EWS Level of Consciousness - Last Result Spontaneously Alert EWS Temperature - Last Result 36.4 EWS Respiratory Rate - Last Result 19 EWS Oxygen Saturation - Last Result 92 EWS Oxygen in Use - Last Result No EWS Score 2 EWS Clinical Risk Low Risk 10/27/24 23:15 10/27/24 23:15 10/28/24 02:44 Temperature 36.5 C 36.5 C Temperature Source Oral Oral Pulse Rate Pulse Rate [Apical] 73 58 L Respiratory Rate 20 17 Respiratory Effort / Characteristics Respiratory Depth Respiratory Pattern Blood Pressure [Left Arm] 149/86 H 169/98 H Blood Pressure [Right Arm] Blood Pressure Mean [Left Arm] 107 121 Blood Pressure Mean [Right Arm] Blood Pressure Position [Left Arm] Semi-fowlers Semi-fowlers Blood Pressure Position [Right Arm] Pulse Oximetry 92 94 Oxygen Delivery Method Room Air Nasal Cannula Oxygen Flow Rate 2.0 EWS Level of Consciousness - Last Result Spontaneously Alert EWS Temperature - Last Result 36.5 EWS Respiratory Rate - Last Result 19 EWS Oxygen Saturation - Last Result 93 EWS Oxygen in Use - Last Result Yes EWS Score 2 EWS Clinical Risk Low Risk 10/28/24 02:44 10/28/24 07:21 10/28/24 07:26 Temperature 35.9 C L Temperature Source Axillary Pulse Rate Pulse Rate [Apical] 60 Respiratory Rate 21 Respiratory Effort / Characteristics Respiratory Depth Respiratory Pattern Blood Pressure [Left Arm] Blood Pressure [Right Arm] 171/91 H Blood Pressure Mean [Left Arm] Blood Pressure Mean [Right Arm] 117 Blood Pressure Position [Left Arm] Blood Pressure Position [Right Arm] Semi-fowlers Pulse Oximetry 95 Oxygen Delivery Method Nasal Cannula Oxygen Flow Rate 2 EWS Level of Consciousness - Last Result Spontaneously Alert Spontaneously Alert EWS Temperature - Last Result 36.5 35.9 EWS Respiratory Rate - Last Result 20 21 EWS Oxygen Saturation - Last Result 92 95 EWS Oxygen in Use - Last Result No Yes EWS Score 2 4 EWS Clinical Risk Low Risk Moderate Risk 10/28/24 08:00 10/28/24 08:00 10/28/24 11:50 Temperature Temperature Source Pulse Rate 53 L Pulse Rate [Apical] Respiratory Rate Respiratory Effort / Characteristics Non-Labored Spontaneous Respiratory Depth Normal Respiratory Pattern Regular Blood Pressure [Left Arm] 137/79 Blood Pressure [Right Arm] Blood Pressure Mean [Left Arm] 98 Blood Pressure Mean [Right Arm] Blood Pressure Position [Left Arm] Sitting Blood Pressure Position [Right Arm] Pulse Oximetry Oxygen Delivery Method Room Air Oxygen Flow Rate EWS Level of Consciousness - Last Result EWS Temperature - Last Result EWS Respiratory Rate - Last Result EWS Oxygen Saturation - Last Result EWS Oxygen in Use - Last Result EWS Score EWS Clinical Risk 10/28/24 12:00 Temperature 35.9 C L Temperature Source Pulse Rate Pulse Rate [Apical] 60 Respiratory Rate 21 Respiratory Effort / Characteristics Respiratory Depth Respiratory Pattern Blood Pressure [Left Arm] 137/79 Blood Pressure [Right Arm] 171/91 H Blood Pressure Mean [Left Arm] Blood Pressure Mean [Right Arm] Blood Pressure Position [Left Arm] Blood Pressure Position [Right Arm] Pulse Oximetry 95 Oxygen Delivery Method Oxygen Flow Rate EWS Level of Consciousness - Last Result EWS Temperature - Last Result EWS Respiratory Rate - Last Result EWS Oxygen Saturation - Last Result EWS Oxygen in Use - Last Result EWS Score EWS Clinical Risk Laboratory Data 10/28/24 06:08 10/28/24 06:08 Lab Results 10/22/24 10/22/24 10/23/24 Range/Units 13:32 20:31 06:07 WBC 8.35 6.97 (4.8-10.8) K/ul RBC 3.58 L 3.48 L (4.70-6.10) M/uL Hgb 10.6 L 10.4 L (14.0-18.0) g/dl Hct 32.6 L 32.3 L (42.0-52.0) % MCV 91.1 92.8 (80.0-100.0) fL MCH 29.6 29.9 (25.0-34.0) pg MCHC 32.5 32.2 (32.0-36.0) g/dL RDW Std Deviation 50.2 H 50.5 H (36.4-46.3) fL RDW Coeff of Freeman 15.0 H 14.9 H (11.5-14.5) % Plt Count 258 240 (130-400) K/uL MPV 10.9 10.9 (9.4-12.4) fL Immature Gran % (Auto) 0.5 0.6 % Neut % (Auto) 84.7 81.2 % Lymph % (Auto) 7.2 9.2 % [place] % (Auto) 5.1 5.3 % Eos % (Auto) 2.0 3.3 % Baso % (Auto) 0.5 0.4 % Neut # (Auto) 7.07 H 5.66 (1.40-6.50) K/uL Lymph # (Auto) 0.60 L 0.64 L (1.20-3.40) K/uL [place] # (Auto) 0.43 0.37 (0.11-0.59) K/uL Eos # (Auto) 0.17 0.23 (0.00-0.50) K/uL Baso # (Auto) 0.04 0.03 (0.00-0.20) K/uL Immature Gran # (Auto) 0.04 0.04 (0.01-0.20) K/uL Polychromasia PT (9.0-12.0) Seconds INR (0.9-1.1) APTT (21-31) Seconds PTT Ratio ABG pH (7.35-7.45) ABG pCO2 (35-46) mmHg ABG pO2 (80-95) mmHg ABG HCO3 (19-24) mmol/L ABG O2 Saturation (90-95) % ABG Base Excess (-9-1.8) mEq/L Cheikh Test (Pos) Oxygen Given Sodium 138 141 (136-145) mmol/L Potassium 3.6 3.3 L (3.5-5.1) mmol/L Chloride 102 102 (98-107) mmol/L Carbon Dioxide 23 30 (21-32) mmol/L Anion Gap 13 H 9 (3-11) BUN 18 19 (6-23) mg/dl Creatinine 1.43 H 1.39 (0.6-1.4) mg/dl Est Cr Clr Drug Dosing 54.8 55.2 ml/min eGFR 49.23 50.93 BUN/Creatinine Ratio 12.6 13.7 (10-20) Glucose 99 77 (70-99(Fasting)) mg/dl POC Glucose 83 (70-99) mg/dl Calcium 7.3 L 7.5 L (8.6-10.3) mg/dl Magnesium 0.7 L* 1.7 (1.7-2.4) mg/dl Total Bilirubin 0.6 (0.2-1.0) mg/dl AST 15 (13-39) U/L ALT 9 (7-52) U/L Alkaline Phosphatase 46 (34-104) U/L Troponin I High Sens 20.0 (0-20) pg/ml Total Protein 6.8 (6.0-8.3) gm/dl Albumin 3.9 (3.4-5.0) gm/dl Globulin 2.9 (2.5-4.0) gm/dl Albumin/Globulin Ratio 1.3 (0.9-2) Lipase 38 (11-82) U/L Urine Color Urine Appearance (Clear) Urine pH (4.5-7.5) Ur Specific [place] (1.000-1.030) Urine Protein (Negative) Urine Glucose (UA) (Negative) Urine Ketones (Negative) Urine Blood (Negative) Urine Nitrite (Negative) Urine Bilirubin (Negative) Urine Urobilinogen (Negative) Ur Leukocyte Esterase (Negative) Urine WBC (Auto) (0-5) /hpf Urine RBC (Auto) (0-2) /hpf U Hyaline Cast (Auto) (0-2) /lpf U Epithel Cells (Auto) (0-2) /hpf Urine Bacteria (Auto) (None Seen) Blood Type Antibody Screen 10/23/24 10/23/24 10/23/24 Range/Units 07:07 11:12 15:11 WBC (4.8-10.8) K/ul RBC (4.70-6.10) M/uL Hgb (14.0-18.0) g/dl Hct (42.0-52.0) % MCV (80.0-100.0) fL MCH (25.0-34.0) pg MCHC (32.0-36.0) g/dL RDW Std Deviation (36.4-46.3) fL RDW Coeff of Freeman (11.5-14.5) % Plt Count (130-400) K/uL MPV (9.4-12.4) fL Immature Gran % (Auto) % Neut % (Auto) % Lymph % (Auto) % [place] % (Auto) % Eos % (Auto) % Baso % (Auto) % Neut # (Auto) (1.40-6.50) K/uL Lymph # (Auto) (1.20-3.40) K/uL [place] # (Auto) (0.11-0.59) K/uL Eos # (Auto) (0.00-0.50) K/uL Baso # (Auto) (0.00-0.20) K/uL Immature Gran # (Auto) (0.01-0.20) K/uL Polychromasia PT (9.0-12.0) Seconds INR (0.9-1.1) APTT (21-31) Seconds PTT Ratio ABG pH (7.35-7.45) ABG pCO2 (35-46) mmHg ABG pO2 (80-95) mmHg ABG HCO3 (19-24) mmol/L ABG O2 Saturation (90-95) % ABG Base Excess (-9-1.8) mEq/L Cheikh Test (Pos) Oxygen Given Sodium 139 (136-145) mmol/L Potassium 3.5 (3.5-5.1) mmol/L Chloride 101 (98-107) mmol/L Carbon Dioxide 30 (21-32) mmol/L Anion Gap 8 (3-11) BUN 21 (6-23) mg/dl Creatinine 1.75 H D (0.6-1.4) mg/dl Est Cr Clr Drug Dosing 43.8 ml/min eGFR 38.63 BUN/Creatinine Ratio 12.0 (10-20) Glucose 85 (70-99(Fasting)) mg/dl POC Glucose 92 97 (70-99) mg/dl Calcium 7.5 L (8.6-10.3) mg/dl Magnesium 1.6 L (1.7-2.4) mg/dl Total Bilirubin (0.2-1.0) mg/dl AST (13-39) U/L ALT (7-52) U/L Alkaline Phosphatase (34-104) U/L Troponin I High Sens (0-20) pg/ml Total Protein (6.0-8.3) gm/dl Albumin (3.4-5.0) gm/dl Globulin (2.5-4.0) gm/dl Albumin/Globulin Ratio (0.9-2) Lipase (11-82) U/L Urine Color Urine Appearance (Clear) Urine pH (4.5-7.5) Ur Specific [place] (1.000-1.030) Urine Protein (Negative) Urine Glucose (UA) (Negative) Urine Ketones (Negative) Urine Blood (Negative) Urine Nitrite (Negative) Urine Bilirubin (Negative) Urine Urobilinogen (Negative) Ur Leukocyte Esterase (Negative) Urine WBC (Auto) (0-5) /hpf Urine RBC (Auto) (0-2) /hpf U Hyaline Cast (Auto) (0-2) /lpf U Epithel Cells (Auto) (0-2) /hpf Urine Bacteria (Auto) (None Seen) Blood Type Antibody Screen 10/23/24 10/23/24 10/24/24 Range/Units 16:22 20:10 06:16 WBC (4.8-10.8) K/ul RBC (4.70-6.10) M/uL Hgb (14.0-18.0) g/dl Hct (42.0-52.0) % MCV (80.0-100.0) fL MCH (25.0-34.0) pg MCHC (32.0-36.0) g/dL RDW Std Deviation (36.4-46.3) fL RDW Coeff of Freeman (11.5-14.5) % Plt Count (130-400) K/uL MPV (9.4-12.4) fL Immature Gran % (Auto) % Neut % (Auto) % Lymph % (Auto) % [place] % (Auto) % Eos % (Auto) % Baso % (Auto) % Neut # (Auto) (1.40-6.50) K/uL Lymph # (Auto) (1.20-3.40) K/uL [place] # (Auto) (0.11-0.59) K/uL Eos # (Auto) (0.00-0.50) K/uL Baso # (Auto) (0.00-0.20) K/uL Immature Gran # (Auto) (0.01-0.20) K/uL Polychromasia PT (9.0-12.0) Seconds INR (0.9-1.1) APTT (21-31) Seconds PTT Ratio ABG pH (7.35-7.45) ABG pCO2 (35-46) mmHg ABG pO2 (80-95) mmHg ABG HCO3 (19-24) mmol/L ABG O2 Saturation (90-95) % ABG Base Excess (-9-1.8) mEq/L Cheikh Test (Pos) Oxygen Given Sodium (136-145) mmol/L Potassium (3.5-5.1) mmol/L Chloride (98-107) mmol/L Carbon Dioxide (21-32) mmol/L Anion Gap (3-11) BUN (6-23) mg/dl Creatinine (0.6-1.4) mg/dl Est Cr Clr Drug Dosing ml/min eGFR BUN/Creatinine Ratio (10-20) Glucose (70-99(Fasting)) mg/dl POC Glucose 132 H 107 H 99 (70-99) mg/dl Calcium (8.6-10.3) mg/dl Magnesium (1.7-2.4) mg/dl Total Bilirubin (0.2-1.0) mg/dl AST (13-39) U/L ALT (7-52) U/L Alkaline Phosphatase (34-104) U/L Troponin I High Sens (0-20) pg/ml Total Protein (6.0-8.3) gm/dl Albumin (3.4-5.0) gm/dl Globulin (2.5-4.0) gm/dl Albumin/Globulin Ratio (0.9-2) Lipase (11-82) U/L Urine Color Urine Appearance (Clear) Urine pH (4.5-7.5) Ur Specific [place] (1.000-1.030) Urine Protein (Negative) Urine Glucose (UA) (Negative) Urine Ketones (Negative) Urine Blood (Negative) Urine Nitrite (Negative) Urine Bilirubin (Negative) Urine Urobilinogen (Negative) Ur Leukocyte Esterase (Negative) Urine WBC (Auto) (0-5) /hpf Urine RBC (Auto) (0-2) /hpf U Hyaline Cast (Auto) (0-2) /lpf U Epithel Cells (Auto) (0-2) /hpf Urine Bacteria (Auto) (None Seen) Blood Type Antibody Screen 10/24/24 10/24/24 10/24/24 Range/Units 06:23 11:37 16:34 WBC 7.09 (4.8-10.8) K/ul RBC 3.70 L (4.70-6.10) M/uL Hgb 11.5 L (14.0-18.0) g/dl Hct 34.1 L (42.0-52.0) % MCV 92.2 (80.0-100.0) fL MCH 31.1 (25.0-34.0) pg MCHC 33.7 (32.0-36.0) g/dL RDW Std Deviation 50.8 H (36.4-46.3) fL RDW Coeff of Freeman 14.9 H (11.5-14.5) % Plt Count 281 (130-400) K/uL MPV 10.6 (9.4-12.4) fL Immature Gran % (Auto) 0.6 % Neut % (Auto) 83.8 % Lymph % (Auto) 7.1 % [place] % (Auto) 5.8 % Eos % (Auto) 2.3 % Baso % (Auto) 0.4 % Neut # (Auto) 5.95 (1.40-6.50) K/uL Lymph # (Auto) 0.50 L (1.20-3.40) K/uL [place] # (Auto) 0.41 (0.11-0.59) K/uL Eos # (Auto) 0.16 (0.00-0.50) K/uL Baso # (Auto) 0.03 (0.00-0.20) K/uL Immature Gran # (Auto) 0.04 (0.01-0.20) K/uL Polychromasia PT (9.0-12.0) Seconds INR (0.9-1.1) APTT (21-31) Seconds PTT Ratio ABG pH (7.35-7.45) ABG pCO2 (35-46) mmHg ABG pO2 (80-95) mmHg ABG HCO3 (19-24) mmol/L ABG O2 Saturation (90-95) % ABG Base Excess (-9-1.8) mEq/L Cheikh Test (Pos) Oxygen Given Sodium 139 (136-145) mmol/L Potassium 3.3 L (3.5-5.1) mmol/L Chloride 101 (98-107) mmol/L Carbon Dioxide 29 (21-32) mmol/L Anion Gap 9 (3-11) BUN 19 (6-23) mg/dl Creatinine 1.53 H (0.6-1.4) mg/dl Est Cr Clr Drug Dosing 49.9 ml/min eGFR 45.39 BUN/Creatinine Ratio 12.4 (10-20) Glucose 86 (70-99(Fasting)) mg/dl POC Glucose 95 162 H (70-99) mg/dl Calcium 7.9 L (8.6-10.3) mg/dl Magnesium 1.8 (1.7-2.4) mg/dl Total Bilirubin (0.2-1.0) mg/dl AST (13-39) U/L ALT (7-52) U/L Alkaline Phosphatase (34-104) U/L Troponin I High Sens (0-20) pg/ml Total Protein (6.0-8.3) gm/dl Albumin (3.4-5.0) gm/dl Globulin (2.5-4.0) gm/dl Albumin/Globulin Ratio (0.9-2) Lipase (11-82) U/L Urine Color Urine Appearance (Clear) Urine pH (4.5-7.5) Ur Specific [place] (1.000-1.030) Urine Protein (Negative) Urine Glucose (UA) (Negative) Urine Ketones (Negative) Urine Blood (Negative) Urine Nitrite (Negative) Urine Bilirubin (Negative) Urine Urobilinogen (Negative) Ur Leukocyte Esterase (Negative) Urine WBC (Auto) (0-5) /hpf Urine RBC (Auto) (0-2) /hpf U Hyaline Cast (Auto) (0-2) /lpf U Epithel Cells (Auto) (0-2) /hpf Urine Bacteria (Auto) (None Seen) Blood Type Antibody Screen 10/24/24 10/25/24 10/25/24 Range/Units 20:47 06:06 07:33 WBC 8.43 (4.8-10.8) K/ul RBC 3.63 L (4.70-6.10) M/uL Hgb 10.9 L (14.0-18.0) g/dl Hct 33.3 L (42.0-52.0) % MCV 91.7 (80.0-100.0) fL MCH 30.0 (25.0-34.0) pg MCHC 32.7 (32.0-36.0) g/dL RDW Std Deviation 50.2 H (36.4-46.3) fL RDW Coeff of Freeman 15.0 H (11.5-14.5) % Plt Count 254 (130-400) K/uL MPV 10.6 (9.4-12.4) fL Immature Gran % (Auto) 0.7 % Neut % (Auto) 84.3 % Lymph % (Auto) 6.4 % [place] % (Auto) 6.2 % Eos % (Auto) 1.9 % Baso % (Auto) 0.5 % Neut # (Auto) 7.11 H (1.40-6.50) K/uL Lymph # (Auto) 0.54 L (1.20-3.40) K/uL [place] # (Auto) 0.52 (0.11-0.59) K/uL Eos # (Auto) 0.16 (0.00-0.50) K/uL Baso # (Auto) 0.04 (0.00-0.20) K/uL Immature Gran # (Auto) 0.06 (0.01-0.20) K/uL Polychromasia PT (9.0-12.0) Seconds INR (0.9-1.1) APTT (21-31) Seconds PTT Ratio ABG pH (7.35-7.45) ABG pCO2 (35-46) mmHg ABG pO2 (80-95) mmHg ABG HCO3 (19-24) mmol/L ABG O2 Saturation (90-95) % ABG Base Excess (-9-1.8) mEq/L Cheikh Test (Pos) Oxygen Given Sodium 137 (136-145) mmol/L Potassium 3.9 (3.5-5.1) mmol/L Chloride 101 (98-107) mmol/L Carbon Dioxide 28 (21-32) mmol/L Anion Gap 8 (3-11) BUN 25 H (6-23) mg/dl Creatinine 1.57 H (0.6-1.4) mg/dl Est Cr Clr Drug Dosing 48.4 ml/min eGFR 44.01 BUN/Creatinine Ratio 15.9 (10-20) Glucose 94 (70-99(Fasting)) mg/dl POC Glucose 89 102 H (70-99) mg/dl Calcium 8.1 L (8.6-10.3) mg/dl Magnesium 2.0 (1.7-2.4) mg/dl Total Bilirubin (0.2-1.0) mg/dl AST (13-39) U/L ALT (7-52) U/L Alkaline Phosphatase (34-104) U/L Troponin I High Sens (0-20) pg/ml Total Protein (6.0-8.3) gm/dl Albumin (3.4-5.0) gm/dl Globulin (2.5-4.0) gm/dl Albumin/Globulin Ratio (0.9-2) Lipase (11-82) U/L Urine Color Urine Appearance (Clear) Urine pH (4.5-7.5) Ur Specific [place] (1.000-1.030) Urine Protein (Negative) Urine Glucose (UA) (Negative) Urine Ketones (Negative) Urine Blood (Negative) Urine Nitrite (Negative) Urine Bilirubin (Negative) Urine Urobilinogen (Negative) Ur Leukocyte Esterase (Negative) Urine WBC (Auto) (0-5) /hpf Urine RBC (Auto) (0-2) /hpf U Hyaline Cast (Auto) (0-2) /lpf U Epithel Cells (Auto) (0-2) /hpf Urine Bacteria (Auto) (None Seen) Blood Type Antibody Screen 10/25/24 10/25/24 10/25/24 Range/Units 11:11 15:53 17:54 WBC (4.8-10.8) K/ul RBC (4.70-6.10) M/uL Hgb (14.0-18.0) g/dl Hct (42.0-52.0) % MCV (80.0-100.0) fL MCH (25.0-34.0) pg MCHC (32.0-36.0) g/dL RDW Std Deviation (36.4-46.3) fL RDW Coeff of Freeman (11.5-14.5) % Plt Count (130-400) K/uL MPV (9.4-12.4) fL Immature Gran % (Auto) % Neut % (Auto) % Lymph % (Auto) % [place] % (Auto) % Eos % (Auto) % Baso % (Auto) % Neut # (Auto) (1.40-6.50) K/uL Lymph # (Auto) (1.20-3.40) K/uL [place] # (Auto) (0.11-0.59) K/uL Eos # (Auto) (0.00-0.50) K/uL Baso # (Auto) (0.00-0.20) K/uL Immature Gran # (Auto) (0.01-0.20) K/uL Polychromasia PT (9.0-12.0) Seconds INR (0.9-1.1) APTT (21-31) Seconds PTT Ratio ABG pH (7.35-7.45) ABG pCO2 (35-46) mmHg ABG pO2 (80-95) mmHg ABG HCO3 (19-24) mmol/L ABG O2 Saturation (90-95) % ABG Base Excess (-9-1.8) mEq/L Cheikh Test (Pos) Oxygen Given Sodium (136-145) mmol/L Potassium (3.5-5.1) mmol/L Chloride (98-107) mmol/L Carbon Dioxide (21-32) mmol/L Anion Gap (3-11) BUN (6-23) mg/dl Creatinine (0.6-1.4) mg/dl Est Cr Clr Drug Dosing ml/min eGFR BUN/Creatinine Ratio (10-20) Glucose (70-99(Fasting)) mg/dl POC Glucose 95 100 H 129 H (70-99) mg/dl Calcium (8.6-10.3) mg/dl Magnesium (1.7-2.4) mg/dl Total Bilirubin (0.2-1.0) mg/dl AST (13-39) U/L ALT (7-52) U/L Alkaline Phosphatase (34-104) U/L Troponin I High Sens (0-20) pg/ml Total Protein (6.0-8.3) gm/dl Albumin (3.4-5.0) gm/dl Globulin (2.5-4.0) gm/dl Albumin/Globulin Ratio (0.9-2) Lipase (11-82) U/L Urine Color Urine Appearance (Clear) Urine pH (4.5-7.5) Ur Specific [place] (1.000-1.030) Urine Protein (Negative) Urine Glucose (UA) (Negative) Urine Ketones (Negative) Urine Blood (Negative) Urine Nitrite (Negative) Urine Bilirubin (Negative) Urine Urobilinogen (Negative) Ur Leukocyte Esterase (Negative) Urine WBC (Auto) (0-5) /hpf Urine RBC (Auto) (0-2) /hpf U Hyaline Cast (Auto) (0-2) /lpf U Epithel Cells (Auto) (0-2) /hpf Urine Bacteria (Auto) (None Seen) Blood Type Antibody Screen 10/25/24 10/26/24 10/26/24 Range/Units 23:54 00:00 01:20 WBC 7.93 (4.8-10.8) K/ul RBC 3.69 L (4.70-6.10) M/uL Hgb 11.2 L (14.0-18.0) g/dl Hct 33.4 L (42.0-52.0) % MCV 90.5 (80.0-100.0) fL MCH 30.4 (25.0-34.0) pg MCHC 33.5 (32.0-36.0) g/dL RDW Std Deviation 48.7 H (36.4-46.3) fL RDW Coeff of Freeman 14.7 H (11.5-14.5) % Plt Count 281 (130-400) K/uL MPV 10.4 (9.4-12.4) fL Immature Gran % (Auto) 0.5 % Neut % (Auto) 95.3 % Lymph % (Auto) 2.5 % [place] % (Auto) 1.5 % Eos % (Auto) 0.1 % Baso % (Auto) 0.1 % Neut # (Auto) 7.55 H (1.40-6.50) K/uL Lymph # (Auto) 0.20 L (1.20-3.40) K/uL [place] # (Auto) 0.12 (0.11-0.59) K/uL Eos # (Auto) 0.01 (0.00-0.50) K/uL Baso # (Auto) 0.01 (0.00-0.20) K/uL Immature Gran # (Auto) 0.04 (0.01-0.20) K/uL Polychromasia 1+ PT 12.7 H (9.0-12.0) Seconds INR 1.2 H (0.9-1.1) APTT 33 H (21-31) Seconds PTT Ratio 1.2 ABG pH 7.40 (7.35-7.45) ABG pCO2 37 (35-46) mmHg ABG pO2 95 (80-95) mmHg ABG HCO3 23 (19-24) mmol/L ABG O2 Saturation 99.0 H (90-95) % ABG Base Excess -1.6 (-9-1.8) mEq/L Cheikh Test Pos (Pos) Oxygen Given 2L Sodium 135 L (136-145) mmol/L Potassium 4.1 (3.5-5.1) mmol/L Chloride 101 (98-107) mmol/L Carbon Dioxide 24 (21-32) mmol/L Anion Gap 10 (3-11) BUN 30 H (6-23) mg/dl Creatinine 1.46 H (0.6-1.4) mg/dl Est Cr Clr Drug Dosing 52.0 ml/min eGFR 48.01 BUN/Creatinine Ratio 20.5 H (10-20) Glucose 151 H (70-99(Fasting)) mg/dl POC Glucose 149 H (70-99) mg/dl Calcium 8.2 L (8.6-10.3) mg/dl Magnesium 2.0 (1.7-2.4) mg/dl Total Bilirubin 1.3 H (0.2-1.0) mg/dl AST 16 (13-39) U/L ALT 11 (7-52) U/L Alkaline Phosphatase 64 (34-104) U/L Troponin I High Sens 18.1 (0-20) pg/ml Total Protein 6.9 (6.0-8.3) gm/dl Albumin 3.7 (3.4-5.0) gm/dl Globulin 3.2 (2.5-4.0) gm/dl Albumin/Globulin Ratio 1.2 (0.9-2) Lipase (11-82) U/L Urine Color Urine Appearance (Clear) Urine pH (4.5-7.5) Ur Specific [place] (1.000-1.030) Urine Protein (Negative) Urine Glucose (UA) (Negative) Urine Ketones (Negative) Urine Blood (Negative) Urine Nitrite (Negative) Urine Bilirubin (Negative) Urine Urobilinogen (Negative) Ur Leukocyte Esterase (Negative) Urine WBC (Auto) (0-5) /hpf Urine RBC (Auto) (0-2) /hpf U Hyaline Cast (Auto) (0-2) /lpf U Epithel Cells (Auto) (0-2) /hpf Urine Bacteria (Auto) (None Seen) Blood Type A Positive Antibody Screen NEGATIVE 10/26/24 10/26/24 10/26/24 Range/Units 05:50 05:52 11:46 WBC 7.89 (4.8-10.8) K/ul RBC 3.67 L (4.70-6.10) M/uL Hgb 10.9 L (14.0-18.0) g/dl Hct 33.6 L (42.0-52.0) % MCV 91.6 (80.0-100.0) fL MCH 29.7 (25.0-34.0) pg MCHC 32.4 (32.0-36.0) g/dL RDW Std Deviation 49.6 H (36.4-46.3) fL RDW Coeff of Freeman 14.7 H (11.5-14.5) % Plt Count 279 (130-400) K/uL MPV 10.9 (9.4-12.4) fL Immature Gran % (Auto) % Neut % (Auto) % Lymph % (Auto) % [place] % (Auto) % Eos % (Auto) % Baso % (Auto) % Neut # (Auto) (1.40-6.50) K/uL Lymph # (Auto) (1.20-3.40) K/uL [place] # (Auto) (0.11-0.59) K/uL Eos # (Auto) (0.00-0.50) K/uL Baso # (Auto) (0.00-0.20) K/uL Immature Gran # (Auto) (0.01-0.20) K/uL Polychromasia PT (9.0-12.0) Seconds INR (0.9-1.1) APTT (21-31) Seconds PTT Ratio ABG pH (7.35-7.45) ABG pCO2 (35-46) mmHg ABG pO2 (80-95) mmHg ABG HCO3 (19-24) mmol/L ABG O2 Saturation (90-95) % ABG Base Excess (-9-1.8) mEq/L Cheikh Test (Pos) Oxygen Given Sodium 138 (136-145) mmol/L Potassium 4.0 (3.5-5.1) mmol/L Chloride 101 (98-107) mmol/L Carbon Dioxide 28 (21-32) mmol/L Anion Gap 9 (3-11) BUN 32 H (6-23) mg/dl Creatinine 1.36 (0.6-1.4) mg/dl Est Cr Clr Drug Dosing 55.9 ml/min eGFR 52.28 BUN/Creatinine Ratio 23.5 H (10-20) Glucose 126 H (70-99(Fasting)) mg/dl POC Glucose 140 H 159 H (70-99) mg/dl Calcium 8.4 L (8.6-10.3) mg/dl Magnesium 2.2 (1.7-2.4) mg/dl Total Bilirubin 1.1 H (0.2-1.0) mg/dl AST 13 (13-39) U/L ALT 11 (7-52) U/L Alkaline Phosphatase 64 (34-104) U/L Troponin I High Sens (0-20) pg/ml Total Protein 6.8 (6.0-8.3) gm/dl Albumin 3.7 (3.4-5.0) gm/dl Globulin 3.1 (2.5-4.0) gm/dl Albumin/Globulin Ratio 1.2 (0.9-2) Lipase (11-82) U/L Urine Color Urine Appearance (Clear) Urine pH (4.5-7.5) Ur Specific [place] (1.000-1.030) Urine Protein (Negative) Urine Glucose (UA) (Negative) Urine Ketones (Negative) Urine Blood (Negative) Urine Nitrite (Negative) Urine Bilirubin (Negative) Urine Urobilinogen (Negative) Ur Leukocyte Esterase (Negative) Urine WBC (Auto) (0-5) /hpf Urine RBC (Auto) (0-2) /hpf U Hyaline Cast (Auto) (0-2) /lpf U Epithel Cells (Auto) (0-2) /hpf Urine Bacteria (Auto) (None Seen) Blood Type Antibody Screen 10/26/24 10/26/24 10/26/24 Range/Units 16:09 20:09 Unknown WBC (4.8-10.8) K/ul RBC (4.70-6.10) M/uL Hgb (14.0-18.0) g/dl Hct (42.0-52.0) % MCV (80.0-100.0) fL MCH (25.0-34.0) pg MCHC (32.0-36.0) g/dL RDW Std Deviation (36.4-46.3) fL RDW Coeff of Freeman (11.5-14.5) % Plt Count (130-400) K/uL MPV (9.4-12.4) fL Immature Gran % (Auto) % Neut % (Auto) % Lymph % (Auto) % [place] % (Auto) % Eos % (Auto) % Baso % (Auto) % Neut # (Auto) (1.40-6.50) K/uL Lymph # (Auto) (1.20-3.40) K/uL [place] # (Auto) (0.11-0.59) K/uL Eos # (Auto) (0.00-0.50) K/uL Baso # (Auto) (0.00-0.20) K/uL Immature Gran # (Auto) (0.01-0.20) K/uL Polychromasia PT (9.0-12.0) Seconds INR (0.9-1.1) APTT (21-31) Seconds PTT Ratio ABG pH (7.35-7.45) ABG pCO2 (35-46) mmHg ABG pO2 (80-95) mmHg ABG HCO3 (19-24) mmol/L ABG O2 Saturation (90-95) % ABG Base Excess (-9-1.8) mEq/L Cheikh Test (Pos) Oxygen Given Sodium (136-145) mmol/L Potassium (3.5-5.1) mmol/L Chloride (98-107) mmol/L Carbon Dioxide (21-32) mmol/L Anion Gap (3-11) BUN (6-23) mg/dl Creatinine (0.6-1.4) mg/dl Est Cr Clr Drug Dosing ml/min eGFR BUN/Creatinine Ratio (10-20) Glucose (70-99(Fasting)) mg/dl POC Glucose 170 H 184 H (70-99) mg/dl Calcium (8.6-10.3) mg/dl Magnesium (1.7-2.4) mg/dl Total Bilirubin (0.2-1.0) mg/dl AST (13-39) U/L ALT (7-52) U/L Alkaline Phosphatase (34-104) U/L Troponin I High Sens (0-20) pg/ml Total Protein (6.0-8.3) gm/dl Albumin (3.4-5.0) gm/dl Globulin (2.5-4.0) gm/dl Albumin/Globulin Ratio (0.9-2) Lipase (11-82) U/L Urine Color Yellow Urine Appearance Clear (Clear) Urine pH 6.0 (4.5-7.5) Ur Specific [place] 1.032 H (1.000-1.030) Urine Protein 2+ H (Negative) Urine Glucose (UA) Negative (Negative) Urine Ketones Negative (Negative) Urine Blood Negative (Negative) Urine Nitrite Negative (Negative) Urine Bilirubin Negative (Negative) Urine Urobilinogen Negative (Negative) Ur Leukocyte Esterase Negative (Negative) Urine WBC (Auto) 0-5 (0-5) /hpf Urine RBC (Auto) 0-2 (0-2) /hpf U Hyaline Cast (Auto) 0-2 (0-2) /lpf U Epithel Cells (Auto) 0-2 (0-2) /hpf Urine Bacteria (Auto) None Seen (None Seen) Blood Type Antibody Screen 10/27/24 10/27/24 10/27/24 Range/Units 05:30 07:19 11:25 WBC 10.04 (4.8-10.8) K/ul RBC 3.67 L (4.70-6.10) M/uL Hgb 10.9 L (14.0-18.0) g/dl Hct 33.9 L (42.0-52.0) % MCV 92.4 (80.0-100.0) fL MCH 29.7 (25.0-34.0) pg MCHC 32.2 (32.0-36.0) g/dL RDW Std Deviation 50.8 H (36.4-46.3) fL RDW Coeff of Freeman 14.9 H (11.5-14.5) % Plt Count 311 (130-400) K/uL MPV 10.3 (9.4-12.4) fL Immature Gran % (Auto) % Neut % (Auto) % Lymph % (Auto) % [place] % (Auto) % Eos % (Auto) % Baso % (Auto) % Neut # (Auto) (1.40-6.50) K/uL Lymph # (Auto) (1.20-3.40) K/uL [place] # (Auto) (0.11-0.59) K/uL Eos # (Auto) (0.00-0.50) K/uL Baso # (Auto) (0.00-0.20) K/uL Immature Gran # (Auto) (0.01-0.20) K/uL Polychromasia PT (9.0-12.0) Seconds INR (0.9-1.1) APTT (21-31) Seconds PTT Ratio ABG pH (7.35-7.45) ABG pCO2 (35-46) mmHg ABG pO2 (80-95) mmHg ABG HCO3 (19-24) mmol/L ABG O2 Saturation (90-95) % ABG Base Excess (-9-1.8) mEq/L Cheikh Test (Pos) Oxygen Given Sodium 138 (136-145) mmol/L Potassium 4.3 (3.5-5.1) mmol/L Chloride 103 (98-107) mmol/L Carbon Dioxide 28 (21-32) mmol/L Anion Gap 7 (3-11) BUN 41 H (6-23) mg/dl Creatinine 1.60 H (0.6-1.4) mg/dl Est Cr Clr Drug Dosing 47.2 ml/min eGFR 43.02 BUN/Creatinine Ratio 25.6 H (10-20) Glucose 151 H (70-99(Fasting)) mg/dl POC Glucose 147 H 130 H (70-99) mg/dl Calcium 8.8 (8.6-10.3) mg/dl Magnesium (1.7-2.4) mg/dl Total Bilirubin (0.2-1.0) mg/dl AST (13-39) U/L ALT (7-52) U/L Alkaline Phosphatase (34-104) U/L Troponin I High Sens (0-20) pg/ml Total Protein (6.0-8.3) gm/dl Albumin (3.4-5.0) gm/dl Globulin (2.5-4.0) gm/dl Albumin/Globulin Ratio (0.9-2) Lipase (11-82) U/L Urine Color Urine Appearance (Clear) Urine pH (4.5-7.5) Ur Specific [place] (1.000-1.030) Urine Protein (Negative) Urine Glucose (UA) (Negative) Urine Ketones (Negative) Urine Blood (Negative) Urine Nitrite (Negative) Urine Bilirubin (Negative) Urine Urobilinogen (Negative) Ur Leukocyte Esterase (Negative) Urine WBC (Auto) (0-5) /hpf Urine RBC (Auto) (0-2) /hpf U Hyaline Cast (Auto) (0-2) /lpf U Epithel Cells (Auto) (0-2) /hpf Urine Bacteria (Auto) (None Seen) Blood Type Antibody Screen 10/27/24 10/27/24 10/28/24 Range/Units 16:00 20:32 06:08 WBC 9.15 (4.8-10.8) K/ul RBC 3.72 L (4.70-6.10) M/uL Hgb 11.1 L (14.0-18.0) g/dl Hct 33.9 L (42.0-52.0) % MCV 91.1 (80.0-100.0) fL MCH 29.8 (25.0-34.0) pg MCHC 32.7 (32.0-36.0) g/dL RDW Std Deviation 49.3 H (36.4-46.3) fL RDW Coeff of Freeman 14.7 H (11.5-14.5) % Plt Count 316 (130-400) K/uL MPV 10.6 (9.4-12.4) fL Immature Gran % (Auto) % Neut % (Auto) % Lymph % (Auto) % [place] % (Auto) % Eos % (Auto) % Baso % (Auto) % Neut # (Auto) (1.40-6.50) K/uL Lymph # (Auto) (1.20-3.40) K/uL [place] # (Auto) (0.11-0.59) K/uL Eos # (Auto) (0.00-0.50) K/uL Baso # (Auto) (0.00-0.20) K/uL Immature Gran # (Auto) (0.01-0.20) K/uL Polychromasia PT (9.0-12.0) Seconds INR (0.9-1.1) APTT (21-31) Seconds PTT Ratio ABG pH (7.35-7.45) ABG pCO2 (35-46) mmHg ABG pO2 (80-95) mmHg ABG HCO3 (19-24) mmol/L ABG O2 Saturation (90-95) % ABG Base Excess (-9-1.8) mEq/L Cheikh Test (Pos) Oxygen Given Sodium 139 (136-145) mmol/L Potassium 4.4 (3.5-5.1) mmol/L Chloride 105 (98-107) mmol/L Carbon Dioxide 26 (21-32) mmol/L Anion Gap 8 (3-11) BUN 44 H (6-23) mg/dl Creatinine 1.44 H (0.6-1.4) mg/dl Est Cr Clr Drug Dosing 52.1 ml/min eGFR 48.82 BUN/Creatinine Ratio 30.6 H (10-20) Glucose 137 H (70-99(Fasting)) mg/dl POC Glucose 165 H 184 H (70-99) mg/dl Calcium 9.0 (8.6-10.3) mg/dl Magnesium (1.7-2.4) mg/dl Total Bilirubin (0.2-1.0) mg/dl AST (13-39) U/L ALT (7-52) U/L Alkaline Phosphatase (34-104) U/L Troponin I High Sens (0-20) pg/ml Total Protein (6.0-8.3) gm/dl Albumin (3.4-5.0) gm/dl Globulin (2.5-4.0) gm/dl Albumin/Globulin Ratio (0.9-2) Lipase (11-82) U/L Urine Color Urine Appearance (Clear) Urine pH (4.5-7.5) Ur Specific [place] (1.000-1.030) Urine Protein (Negative) Urine Glucose (UA) (Negative) Urine Ketones (Negative) Urine Blood (Negative) Urine Nitrite (Negative) Urine Bilirubin (Negative) Urine Urobilinogen (Negative) Ur Leukocyte Esterase (Negative) Urine WBC (Auto) (0-5) /hpf Urine RBC (Auto) (0-2) /hpf U Hyaline Cast (Auto) (0-2) /lpf U Epithel Cells (Auto) (0-2) /hpf Urine Bacteria (Auto) (None Seen) Blood Type Antibody Screen 10/28/24 10/28/24 Range/Units 07:20 11:29 WBC (4.8-10.8) K/ul RBC (4.70-6.10) M/uL Hgb (14.0-18.0) g/dl Hct (42.0-52.0) % MCV (80.0-100.0) fL MCH (25.0-34.0) pg MCHC (32.0-36.0) g/dL RDW Std Deviation (36.4-46.3) fL RDW Coeff of Freeman (11.5-14.5) % Plt Count (130-400) K/uL MPV (9.4-12.4) fL Immature Gran % (Auto) % Neut % (Auto) % Lymph % (Auto) % [place] % (Auto) % Eos % (Auto) % Baso % (Auto) % Neut # (Auto) (1.40-6.50) K/uL Lymph # (Auto) (1.20-3.40) K/uL [place] # (Auto) (0.11-0.59) K/uL Eos # (Auto) (0.00-0.50) K/uL Baso # (Auto) (0.00-0.20) K/uL Immature Gran # (Auto) (0.01-0.20) K/uL Polychromasia PT (9.0-12.0) Seconds INR (0.9-1.1) APTT (21-31) Seconds PTT Ratio ABG pH (7.35-7.45) ABG pCO2 (35-46) mmHg ABG pO2 (80-95) mmHg ABG HCO3 (19-24) mmol/L ABG O2 Saturation (90-95) % ABG Base Excess (-9-1.8) mEq/L Cheikh Test (Pos) Oxygen Given Sodium (136-145) mmol/L Potassium (3.5-5.1) mmol/L Chloride (98-107) mmol/L Carbon Dioxide (21-32) mmol/L Anion Gap (3-11) BUN (6-23) mg/dl Creatinine (0.6-1.4) mg/dl Est Cr Clr Drug Dosing ml/min eGFR BUN/Creatinine Ratio (10-20) Glucose (70-99(Fasting)) mg/dl POC Glucose 127 H 155 H (70-99) mg/dl Calcium (8.6-10.3) mg/dl Magnesium (1.7-2.4) mg/dl Total Bilirubin (0.2-1.0) mg/dl AST (13-39) U/L ALT (7-52) U/L Alkaline Phosphatase (34-104) U/L Troponin I High Sens (0-20) pg/ml Total Protein (6.0-8.3) gm/dl Albumin (3.4-5.0) gm/dl Globulin (2.5-4.0) gm/dl Albumin/Globulin Ratio (0.9-2) Lipase (11-82) U/L Urine Color Urine Appearance (Clear) Urine pH (4.5-7.5) Ur Specific [place] (1.000-1.030) Urine Protein (Negative) Urine Glucose (UA) (Negative) Urine Ketones (Negative) Urine Blood (Negative) Urine Nitrite (Negative) Urine Bilirubin (Negative) Urine Urobilinogen (Negative) Ur Leukocyte Esterase (Negative) Urine WBC (Auto) (0-5) /hpf Urine RBC (Auto) (0-2) /hpf U Hyaline Cast (Auto) (0-2) /lpf U Epithel Cells (Auto) (0-2) /hpf Urine Bacteria (Auto) (None Seen) Blood Type Antibody Screen Imaging Data Radiologist's Impression: Chest X-Ray 10/22/24 13:33 EXAM: Radiograph of the Chest 1 View INDICATION: Chest pain. TECHNIQUE: Frontal view of the chest. COMPARISON: 04/29/2024 FINDINGS: Lungs and pleural spaces: New considerable patchy infiltrates in the lung bases present with vascular congestion. Probable trace pleural effusions. No pneumothorax. Heart: Stable large cardiac shadow. Mediastinum: Normal contour. Bones/joints: Degenerative changes noted throughout the spine. No acute osseous abnormality seen. Soft tissues: No abnormality noted. No radiopaque foreign body noted. Upper abdomen: No abnormality noted. IMPRESSION: Basilar infiltrates, vascular congestion and trace left pleural effusion. Consider CHF with or without components of basilar pneumonia. ACT 112: Negative or not required by law. Electronically signed by Jasmyne Villalba 10-22-2024 2:12 PM Chest CTA 10/22/24 13:47 EXAM: CT Angiography Chest With Intravenous Contrast INDICATION: Atrial fibrillation and shortness of breath. TECHNIQUE: Axial computed tomographic angiography images of the chest with intravenous contrast. Sagittal and coronal reformatted images were created and reviewed. This CT exam was performed using one or more of the following dose reduction techniques: automated exposure control, adjustment of the mA and/or kV according to patient size, and/or use of iterative reconstruction technique. MIP reconstructed images were created and reviewed. CONTRAST: 119ml of Optiray 320 was administered intravenously. COMPARISON: 03/05/2022 FINDINGS: Pulmonary arteries: No abnormality noted. No pulmonary embolism. Aorta: No acute change noted. No thoracic aortic aneurysm or dissection. Lungs and pleural spaces: Small layering bilateral pleural effusions present. No pneumothorax. Significant increased and septal markings. There is compressive atelectasis in the lower lobes. There is a new 8 x 5 mm noncalcified nodule in the right upper lobe series 3 image 69. There is a small calcified granuloma in the left apex. No bronchiectasis. Heart: Cardiomegaly. No evidence of right heart strain. No significant pleural effusion. Dense coronary calcification noted. Bones/joints: No acute or atypical chronic changes. Soft tissues: No abnormality noted. Lymph nodes: Stable mildly reactive paratracheal and precarinal noncalcified nodes. Stable granulomatous/calcified nodes in each hilum. No pathologically enlarged nodes identified. Kidneys and ureters: Visualized portion of the left renal cyst is unchanged. IMPRESSION: 1. CHF. 2. No pulmonary embolus noted. 3. Subcentimeter opacity in the right upper lobe could be inflammatory. CT chest recommended within 6 months to confirm resolution. ACT 112: Negative or not required by law. Electronically signed by Jasmyne Villalba 10-22-2024 3:04 PM Chest X-Ray 10/25/24 07:13 EXAM: XR chest 1V portable CLINICAL HISTORY: LOW O2 TECHNIQUE: An X-ray image of the chest is obtained in AP projection. COMPARISON: Prior studies, latest dated 10/22/2024 FINDINGS: Pulmonary Parenchyma: Bilateral ill-defined patchy alveolar densities involving both lung martinez, more prominent at lower zones prominent bronchovascular markings and renita of both lungs obliterated costophrenic angles bilaterally, suggesting pleural effusion Heart and Mediastinum: Cardiomegaly No mediastinal widening or masses. No hilar or mediastinal lymphadenopathy. Bony Thorax: Thoracic spondylosis was seen in the form of sclerosed end plates and osteophytosis Soft Tissues: Soft tissues overlying the chest wall are unremarkable. IMPRESSION: 1. Bilateral alveolar patches, prominent bronchovascular marking, and renita, suggestive of pulmonary edema, advised clinical correlation 2. Obliterated costophrenic angles, secondary to pleural effusion 3. Cardiomegaly 4. Thoracic spondylosis 5. No interval change since the prior study. Electronically signed by Virgie Donald 10-25-2024 08:[address] 10/25/24 23:14 Exam(s): CT HEAD Without Contrast EXAM: CT Head Without Intravenous Contrast CLINICAL HISTORY: Reason for exam: neuro deficit, acute stroke suspected. TECHNIQUE: Axial computed tomography images of the head/brain without intravenous contrast. Automated exposure control was utilized for the study. A dose lowering technique was utilized adhering to the principles of ALARA. COMPARISON: Prior head CT from July 31, 2020. FINDINGS: Brain: Unremarkable. No hemorrhage. Moderate nonspecific white matter changes. No edema. Ventricles: Unremarkable. No ventriculomegaly. Bones/joints: Unremarkable. No acute fracture. Soft tissues: Unremarkable. Sinuses: There is a small osteoma in the left ethmoid and frontal sinusitis. No acute sinusitis. Mastoid air cells: Unremarkable as visualized. No mastoid effusion. IMPRESSION: No evidence of acute intracranial pathology. Electronically signed by: Karen Boyd MD 10/26/24 02:03 AM Head CTA 10/25/24 23:14 Exam(s): CTA HEAD With Contrast IV Amt: 118 ml optiray 320 EXAM: CT Angiography Head With Intravenous Contrast CLINICAL HISTORY: Reason for exam: neuro deficit, acute stroke suspected. TECHNIQUE: Axial computed tomographic angiography images of the head with intravenous contrast. CTDI is 115.36 mGy and DLP is 663.33 mGy-cm. Automated exposure control was utilized for the study. A dose lowering technique was utilized adhering to the principles of ALARA. MIP reconstructed images were created and reviewed. CONTRAST: Patient received 118 ml optiray 320 of IV contrast COMPARISON: No relevant prior studies available. FINDINGS: The dural venous sinuses are patent. Right internal carotid artery: No acute findings. Intracranial segment is patent with no significant stenosis. No aneurysm. Right anterior cerebral artery: Unremarkable. No occlusion or significant stenosis. No aneurysm. Right middle cerebral artery: Unremarkable. No occlusion or significant stenosis. No aneurysm. Right posterior cerebral artery: Unremarkable. No occlusion or significant stenosis. No aneurysm. Right vertebral artery: Unremarkable as visualized. Left internal carotid artery: No acute findings. Intracranial segment is patent with no significant stenosis. No aneurysm. Left anterior cerebral artery: Unremarkable. No occlusion or significant stenosis. No aneurysm. Left middle cerebral artery: Unremarkable. No occlusion or significant stenosis. No aneurysm. Left posterior cerebral artery: Unremarkable. No occlusion or significant stenosis. No aneurysm. Left vertebral artery: Unremarkable as visualized. Basilar artery: Unremarkable. No occlusion or significant stenosis. No aneurysm. IMPRESSION: Negative CT angiogram of the head. Electronically signed by: Karen Boyd MD 10/26/24 02:06 AM Neck CTA 10/25/24 23:14 Exam(s): CTA NECK With Contrast IV Amt: 118 ml optiray 320 EXAM: CT Angiography Neck With Intravenous Contrast CLINICAL HISTORY: Reason for exam: neuro deficit, acute stroke suspected. TECHNIQUE: Routine carotid CT angiography protocol was performed with intravenous contrast. NASCET criteria using the distal ICAs for comparison were used for evaluation of stenoses. CTDI is 14.6 mGy and DLP is 544.61 mGy-cm. Automated exposure control was utilized for the study. A dose lowering technique was utilized adhering to the principles of ALARA. MIP reconstructed images were created and reviewed. CONTRAST: Patient received 118 ml optiray 320 of IV contrast COMPARISON: None. FINDINGS: VASCULATURE: Right common carotid artery: Unremarkable. No occlusion or significant stenosis. No dissection. Right internal carotid artery: Unremarkable. Extracranial segment is patent with no occlusion or significant stenosis. No dissection. Right external carotid artery: Unremarkable. No occlusion. Right vertebral artery: Unremarkable. No occlusion or significant stenosis. No dissection. Left common carotid artery: Unremarkable. No occlusion or significant stenosis. No dissection. Left internal carotid artery: Unremarkable. Extracranial segment is patent with no occlusion or significant stenosis. No dissection. Left external carotid artery: Unremarkable. No occlusion. Left vertebral artery: Unremarkable. No occlusion or significant stenosis. No dissection. 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 Recommend MRI of the cervical spine to evaluate for myelopathy. No acute fracture. Soft tissues: Prominent mediastinal lymph nodes. Lung apices: Bronchitis with pneumonitis and bilateral pleural effusions. CAROTID STENOSIS REFERENCE USING NASCET CRITERIA: % ICA stenosis = (1 - narrowest ICA diameter/diameter of distal cervical ICA) x 100. Mild - <50% stenosis. Moderate - 50-69% stenosis. Severe - 70-94% stenosis. Near occlusion - 95-99% stenosis. Occluded - 100% stenosis. IMPRESSION: Negative CTA neck. Electronically signed by: Karen Boyd MD 10/26/24 02:12 AM Videofluoroscopic Swallow 10/26/24 10:00 FL video swallow CLINICAL HISTORY: r/o aspiration TECHNIQUE: Video fluoroscopy of the pharyngeal region was performed as barium mixtures of varying consistencies were administered to the patient by the speech pathologist. A formal esophagram was not performed. Comparison: None available at the time of this dictation. FINDINGS: Total fluoroscopy time: 2.01 minutes. Radiation dose: 27.6 mGy. The patient swallowed the different barium consistencies without difficulty. Penetration was seen with thin liquids straw. Otherwise no aspiration or penetration is seen. Pooling of barium was noted in the bilateral piriform sinuses and valleculae. IMPRESSION: Penetration without evidence of aspiration. Please see the speech pathology report for further details. ACT 112: Negative or not required by law. Electronically signed by: Franklin Ta M.D. 10/26/2024 11:27 AM Brain MRI 10/26/24 10:24 EXAM: MR brain wo con CLINICAL HISTORY: altered mental status overnight, RT arm drift, was back to normal this morning, propellers ran to help with motion, PT had difficulty holding still, was claustrophobic, was medicated before scan, sent to [facility] TECHNIQUE: MRI of the brain was performed without contrast with multiplanar sequences obtained. COMPARISON: Ct dated 07/31/2020. FINDINGS: Brain Parenchyma: Multiple bilateral frontoparietal foci of abnormal high T2 /7 FLAIR signal are noted. no perifocal brain edema or mass effect . OBX.5.1OBX.5.1.1 Deep periventricular sheets of high T2 /OBX.5.1.1OBX.5.1.2 FLAIR signal are also noted./OBX.5.1.2/OBX.5.1 No evidence of acute infarction or hemorrhage. Normal gregg-white matter differentiation. No mass lesions or focal cortical abnormalities identified. Ventricles and Sulci: Capacious both lateral ventricles. OBX.5.1OBX.5.1.1 Accentuated cortical sulci /OBX.5.1.1OBX.5.1.2 extra-axial CSF spaces. /OBX.5.1.2/OBX.5.1 Posterior Fossa: Cerebellum and brainstem appear normal without evidence of mass lesions or signal abnormalities. Cranial Nerves: Normal course and appearance of cranial nerves identified. Vessels: No evidence of vascular malformations or aneurysms. Intracranial arteries and veins appear normal without evidence of stenosis or occlusion. Orbits and Skull Base: Orbits and skull base structures are normal without evidence of abnormalities. Right maxillary mucosal polyps . IMPRESSION: 1. No acute intracranial abnormality is present. 2. Volume loss and chronic microvascular ischemic changes of the periventricular white matter are noted. 3. No changes on interval. Electronically signed by Virgie Donald 10-26-2024 6:15 PM Resident Activity Tracking Resident Involvement: Resident Care Provided Care Provided: Adult Hospital Medicine
== END 2024-10-28 12:37 | disposition home or self-care (01) | DRG 291 ==
LOC: ED 13:20 → 2E 17:28 → SUATTDRO 17:28 → 2E 19:30